=== PATIENT | female | born 1970 | race Caucasian/White ===

== ENCOUNTER 2022-12-10 09:19 | Outpatient (OUT) | payer BC, SELFPAY ==
[2022-12-10 09:55] LABS: Basophils Percent Auto 0.6 % (0.2-2.0); Eosinophils Absolute Auto 0.2 10^3/uL (0.0-0.7); Hematocrit 38.3 % (36.0-48.0); Immature Granulocytes Abs Auto 0.02 10^3/uL (0.00-0.03); Immature Granulocytes Pct Auto 0.3 % (0.0-0.5); Lymphocytes Absolute Auto 1.8 10^3/uL (1.2-3.8); Lymphocytes Percent Auto 26.3 % (20.5-60.0); Mean Corpuscular HGB Conc 31.3 g/dL (29.9-35.2); Mean Corpuscular Hemoglobin 25.2 pg (26.7-34.0); Mean Corpuscular Volume 80.3 fL (81.0-99.0); Mean Platelet Volume 10.4 fL (9.5-13.5); Monocytes Absolute Auto 0.7 10^3/uL (0.3-0.8); Monocytes Percent Auto 9.9 % (1.7-12.0); Neutrophils Percent Auto 59.9 % (43.0-75.0); Platelet Count 246 10^3/uL (150-450); Red Blood Count 4.77 10^6/uL (4.20-5.40); Red Cell Distribution Width 16.8 % (11.0-15.0); White Blood Count 6.7 10^3/uL (4.0-11.0)
[2022-12-10 10:16] LABS: Estimated Average Glucose 114 mg/dL; Glycohemoglobin A1C 5.6 % (4.5-6.2)
[2022-12-10 11:12] LABS: Alanine Aminotransferase 25 U/L (14-59); Albumin Globulin Ratio 0.9; Albumin Level 3.7 g/dL (3.4-5.0); Alkaline Phosphatase 51 U/L (46-116); Aspartate Amino Transferase 20 U/L (15-37); BUN Creatinine Ratio 9.3; Bilirubin Total 0.3 mg/dL (0.2-1.0); Calcium 8.4 mg/dL (8.5-10.1); Carbon Dioxide 25.4 mmol/L (21.0-32.0); Chloride 103 mmol/L (98-107); Chol HDL Ratio 3.9; Cholesterol 263 mg/dL (<=200); Estimated GFR (African America >60 (>=60); Estimated GFR (Non-African Ame 53 (>=60); Globulin 3.9 g/dL; Glucose 103 mg/dL (74-106); HDL Cholesterol 68 mg/dL (40-60); Potassium 4.4 mmol/L (3.5-5.1); Sodium 137 mmol/L (136-145); Thyroid Stimulating Hormone 1.046 uIU/mL (0.358-3.740); Total Protein 7.6 g/dL (6.4-8.2); Triglycerides 94 mg/dL (<=150); VLDL CHOLESTEROL 18.8 mg/dL
== END 2022-12-10 09:20 | disposition home or self-care (01) ==
LOC: LAB 09:24
PROVIDERS: PCP Family Medicine; Visit Provider Family Medicine
DX: Z00.00 Encounter for general adult medical examination without abnormal findings (principal)
CPT/HCPCS: 36415; 80053; 80061; 83036; 84443; 85025

== ENCOUNTER 2023-05-05 22:04 | Emergency (ER) | payer BC, SELFPAY ==
--- NOTE | 2023-05-05 22:08 | CT_ITS ---
The [address] [address] Patient Name: CHRSI GONSALVES MRN: [id number] date: 1970 Sex: F Assigned Patient Location: ER Current Patient Location: ER Accession/Order Number: [id number] Exam Date: 05/05/2023 22:55 Report Date: 05/05/2023 23:27 At the request of: TIFFANIE MARKER Procedure: CT head/brain wo/w con EXAM: CT head/brain wo/w con HISTORY: headache COMPARISON: None. TECHNIQUE: Axial CT scans through the head were obtained after the administration of intravenous contrast. Dose reduction techniques were achieved by using: automated exposure control and/or adjustment of mA and /or kV according to patient size and/or use of iterative reconstruction technique. FINDINGS: There is no acute intracranial hemorrhage or abnormal extra-axial fluid collection. No mass effect or midline shift is seen. There is no evidence of large acute territorial infarction. There is no hydrocephalus. To the limit of CT, the posterior fossa appears unremarkable. There are no abnormal parenchymal or leptomeningeal enhancement. The calvaria and extra cranial soft tissues are unremarkable. The visualized orbits show no abnormality. The visualized paranasal sinuses show no air-fluid level. Mastoid air cells are clear. CT/CT head/brain wo/w con IMPRESSION: No acute intracranial abnormality. No abnormal intracranial enhancement. Electronically authenticated by: MAXIMILIAN PINON Date: 05/05/2023 23:27
[2023-05-05 22:15] VITALS: BP 145/89; PULSE 101; RESP 18; TEMP 36.8; O2SAT 100; BMI 23.7
[2023-05-05] MEDS: 0.9 % SODIUM CHLORIDE 1,000 ML 1000 ML IV (22:46)
[2023-05-05] MEDS: KETOROLAC TROMETHAMINE 30 MG/ML VIAL IVP (22:47)
[2023-05-05] MEDS: ONDANSETRON PF 4 MG/2 ML VIAL IV (22:47)
[2023-05-05 22:51] LABS: Basophils Percent Auto 0.5 % (0.2-2.0); Eosinophils Absolute Auto 0.2 10^3/uL (0.0-0.7); Eosinophils Percent Auto 2.3 % (0.9-7.0); Immature Granulocytes Abs Auto 0.02 10^3/uL (0.00-0.03); Immature Granulocytes Pct Auto 0.2 % (0.0-0.5); Lymphocytes Absolute Auto 3.3 10^3/uL (1.2-3.8); Lymphocytes Percent Auto 38.7 % (20.5-60.0); Mean Corpuscular HGB Conc 31.6 g/dL (29.9-35.2); Mean Corpuscular Volume 85.6 fL (81.0-99.0); Mean Platelet Volume 10.4 fL (9.5-13.5); Monocytes Percent Auto 11.3 % (1.7-12.0); Neutrophils Absolute Auto 4.1 10^3/uL (1.4-6.5); Platelet Count 268 10^3/uL (150-450); Red Blood Count 4.44 10^6/uL (4.20-5.40); Red Cell Distribution Width 14.6 % (11.0-15.0); White Blood Count 8.6 10^3/uL (4.0-11.0)
[2023-05-05 23:00] LABS: Erythrocyte Sedimentation Rate 59 mm/hr (<=30)
--- NOTE | 2023-05-05 23:08 | PC.NURSE ---
Pt with headaches that have been occurring since before [place] time. The headaches are not consistent in location, timing, duration, quality or severity. She has known neck problems and started by seeing her chiropractor for them, her chiropractor thought she should see her PCP because he did not think the headaches were from the neck. Here PCP was not concerned about the headaches and only gave her a sample of a migraine medication. The headaches have continued to get worse, patient has tried to take several OTC and prescription medications including muscle relaxers, Anti inflammatories, Benadryl, Zofran. There has been improvement enough that she is able to get sleep, but not full resolution. Patient is hoping to have imaging done today.
[2023-05-05 23:09] LABS: Alanine Aminotransferase 26 U/L (14-59); Albumin Globulin Ratio 0.9; Albumin Level 3.7 g/dL (3.4-5.0); Alkaline Phosphatase 59 U/L (46-116); Anion Gap 13.5; Aspartate Amino Transferase 17 U/L (15-37); BUN Creatinine Ratio 10.9; Bilirubin Total 0.3 mg/dL (0.2-1.0); Calcium 8.8 mg/dL (8.5-10.1); Carbon Dioxide 26.2 mmol/L (21.0-32.0); Chloride 103 mmol/L (98-107); Estimated GFR (African America >60 (>=60); Estimated GFR (Non-African Ame 52 (>=60); Globulin 3.9 g/dL; Glucose 110 mg/dL (74-106); Potassium 3.7 mmol/L (3.5-5.1); Sodium 139 mmol/L (136-145); Total Protein 7.6 g/dL (6.4-8.2)
[2023-05-05 23:16] LABS: C Reactive Protein <0.50 mg/dL (<=0.50)
--- NOTE | 2023-05-05 23:32 | ED.GENADUL1 ---
HPI - General Adult General Chief complaint: Headache Stated complaint: HEADACHE Time Seen by Provider: 05/05/23 22:07 Source: patient Mode of arrival: walk-in Limitations: no limitations History of Present Illness HPI narrative: 53-year-old female presents for evaluation of intermittent headaches since before , around 3-4 weeks. The patient states the headaches come and go and are in different places on her head when they come and go. She states they sometimes feel better when she squeezes her scalp. They're associated with photophobia and nausea. She has had a prescription for Zofran which has not helped her nausea. She has not had any slurred speech confusion blurred vision, fevers neck pain or stiffness. She did have COVID 19 in December. She has had several COVID 19 test since she has been developing headaches without any being positive. She did get a new perception for glasses recently and thought that her headaches may be related to the new glasses so she started wearing her prior glasses without any improvement. She has been using ibuprofen and Tylenol. She was seen by her family physician and given medications for migraine headaches. She is frustrated because she does not have a history of migraine headaches and the headaches are debilitating at times. She does not have any sore throats, runny nose or sinus congestion. 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 Related Data Allergies Allergy/AdvReac Type Severity Reaction Status Date / Time No Known Drug Allergies Allergy Verified 05/05/23 22:18 Review of Systems ROS Status of ROS 10 or more systems reviewed and unremarkable except as noted in history and below [facility] Social History Smoking status: Never smoker Exam Narrative Exam Narrative: Nurses note and vital signs reviewed and patient is not hypoxic. She was mildly tachycardic with a pulse of 101 and blood pressure is mildly elevated at 145/89. General: Alert, nontoxic female, GCS 15, patient appears uncomfortable but otherwise well, no respiratory distress. Patient is resting comfortably on cart. Skin: Warm, dry, no pallor noted. There is no rash noted. Head: Normocephalic, atraumatic Eye: Normal conjunctiva, no drainage, EOMI. PERRL, no photophobia Ears, Nose, Mouth, and Throat: oral mucosa is moist. Nares patent. neck: supple, no meningeal signs Cardiovascular: Regular Rate and Rhythm S1S2, no murmurs, rubs or gallops Respiratory: Patient is in no distress, no accessory muscle use, lungs are clear to auscultation, no wheezing, rales or rhonchi Back: non-tender, no CVA tenderness bilaterally to percussion. GI: Normal bowel sounds, no tenderness to palpation, no masses appreciated. No rebound, guarding, or rigidity noted. Musculoskeletal: The patient has no evidence of calf tenderness, no pitting edema, symmetrical pulses noted bilaterally Neurological: A&O x4, normal speech, ambulatory with a steady gait, no notable confusion, stroke scale is 0 Psychiatric: Cooperative Constitutional Vital Signs, click to edit/add: Last Vital Signs Temp 98.3 F 05/05/23 22:15 Pulse 101 H 05/05/23 22:15 Resp 18 05/05/23 22:15 BP 145/89 H 05/05/23 22:15 Pulse Ox 100 05/05/23 22:15 O2 Del Method Room Air 05/05/23 22:15 Course Vital Signs Vital signs: Vital Signs Temperature 98.3 F 05/05/23 22:15 Pulse Rate 101 H 05/05/23 22:15 Respiratory Rate 18 05/05/23 22:15 Blood Pressure 145/89 H 05/05/23 22:15 Pulse Oximetry 100 05/05/23 22:15 Oxygen Delivery Method Room Air 05/05/23 22:15 Temperature 98.3 F 05/05/23 22:15 Pulse Rate 101 H 05/05/23 22:15 Respiratory Rate 18 05/05/23 22:15 Blood Pressure 145/89 H 05/05/23 22:15 Pulse Oximetry 100 05/05/23 22:15 Oxygen Delivery Method Room Air 05/05/23 22:15 Medical Decision Making Medical Records Medical records narrative: 53-year-old female presents for evaluation of 3 weeks of intermittent moderate to severe headaches. She does not have a history of chronic headaches. The headaches are associated with nausea and photophobia. At the time of her evaluation her headache is posterior occipital in natureThey're debilitating at times and she describes them as moving around in different areas of her head. She was recently seen by her family physician who suspects that she may be having migraine headaches however she does not have a history of migraine headaches or any particular headache and drums. She does not have a fever. She has no nuchal rigidity. Her neuro exam is normal. Her vital signs were normal with the exception of a pulse of 101. An IV was placed and she is medicated with IV Zofran and Toradol with minimal clinical improvement. She was then medicated with Fioricet. Routine labs are reviewed. She has an elevated ESR, normal WBC and hemoglobin. CRP and CMP are normal. CT scan of the head with and without contrast was ordered and is included in the body of this report. It is negative for acute findings. The results of the labs and CT scan were discussed with the patient and her . She states that she is not surprised that her sedimentation rate is elevated because she does have episodes where her lymph nodes swell up for no apparent reason. She declines a course of steroids. Clinically she does not have temporal arteritis as there is no tenderness over her temporal artery and her headaches are in different places at different times in her head. Clinically to me at sounds like she is having vascular headaches. She feels comfortable being discharged home at this time will be discharged home with prescription for Fioricet and Compazine. She was given migraine medications by her family physician. She was encouraged to return to emergency department for ongoing or worsening headaches, fevers, any neurologic symptoms related to the headaches or any concerns. The [address] [address] [address] Scan Report Signed Patient: CHRIS GONSALVES MR#: [id number] : 1970 Acct:[id number] Age/Sex: 53 / F ADM Date: 05/05/23 Loc: ER Attending Dr: Ordering Physician: La Breen Date of Service: 05/05/23 Procedure(s): CT head/brain wo/w con Accession Number(s): [id number] cc: [place] Patricia M.D.~ The [address] [address] Patient Name: CHRIS GONSALVES MRN: [id number] date: 1970 Sex: F Assigned Patient Location: ER Current Patient Location: ER Accession/Order Number: [id number] Exam Date: 05/05/2023 22:55 Report Date: 05/05/2023 23:27 At the request of: LA YASH Procedure: CT head/brain wo/w con EXAM: CT head/brain wo/w con HISTORY: headache COMPARISON: None. TECHNIQUE: Axial CT scans through the head were obtained after the administration of intravenous contrast. Dose reduction techniques were achieved by using: automated exposure control and/or adjustment of mA and /or kV according to patient size and/or use of iterative reconstruction technique. FINDINGS: There is no acute intracranial hemorrhage or abnormal extra-axial fluid collection. No mass effect or midline shift is seen. There is no evidence of large acute territorial infarction. There is no hydrocephalus. To the limit of CT, the posterior fossa appears unremarkable. There are no abnormal parenchymal or leptomeningeal enhancement. The calvaria and extra cranial soft tissues are unremarkable. The visualized orbits show no abnormality. The visualized paranasal sinuses show no air-fluid level. Mastoid air cells are clear. CT/CT head/brain wo/w con IMPRESSION: No acute intracranial abnormality. No abnormal intracranial enhancement. Electronically authenticated by: MAXIMILIAN PINON Date: 05/05/2023 23:27 Lab Data Lab results reviewed: Yes I reviewed the patient's lab results Labs: Lab Results 05/05/23 05/05/23 Range/Units 22:18 22:31 WBC 8.6 (4.0-11.0) 10^3/uL RBC 4.44 (4.20-5.40) 10^6/uL Hgb 12.0 (12.0-16.0) g/dL Hct 38.0 (36.0-48.0) % MCV 85.6 (81.0-99.0) fL MCH 27.0 (26.7-34.0) pg MCHC 31.6 (29.9-35.2) g/dL RDW 14.6 (11.0-15.0) % Plt Count 268 (150-450) 10^3/uL MPV 10.4 (9.5-13.5) fL Neut % (Auto) 47.0 (43.0-75.0) % Lymph % (Auto) 38.7 (20.5-60.0) % [place] % (Auto) 11.3 (1.7-12.0) % Eos % (Auto) 2.3 (0.9-7.0) % Baso % (Auto) 0.5 (0.2-2.0) % Neut # (Auto) 4.1 (1.4-6.5) 10^3/uL Lymph # (Auto) 3.3 (1.2-3.8) 10^3/uL [place] # (Auto) 1.0 H (0.3-0.8) 10^3/uL Eos # (Auto) 0.2 (0.0-0.7) 10^3/uL Baso # (Auto) 0.0 (0.0-0.1) 10^3/uL Abs Immat Gran (auto) 0.02 (0.00-0.03) 10^3/uL Imm/Tot Granulo (auto) 0.2 (0.0-0.5) % ESR 59 H (<=30) mm/hr Sodium 139 (136-145) mmol/L Potassium 3.7 (3.5-5.1) mmol/L Chloride 103 (98-107) mmol/L Carbon Dioxide 26.2 (21.0-32.0) mmol/L Anion Gap 13.5 BUN 12.0 (7.0-18.0) mg/dL Creatinine 1.10 H (0.55-1.02) mg/dL Est GFR ( Amer) >60 (>=60) Est GFR (Non-Af Amer) 52 L (>=60) BUN/Creatinine Ratio 10.9 Glucose 110 H (74-106) mg/dL Calcium 8.8 (8.5-10.1) mg/dL Total Bilirubin 0.3 (0.2-1.0) mg/dL AST 17 (15-37) U/L ALT 26 (14-59) U/L Alkaline Phosphatase 59 (46-116) U/L C-Reactive Protein <0.50 (<=0.50) mg/dL Total Protein 7.6 (6.4-8.2) g/dL Albumin 3.7 (3.4-5.0) g/dL Globulin 3.9 g/dL Albumin/Globulin Ratio 0.9 Discharge Plan Discharge Chief Complaint: Headache Clinical Impression: Headache syndrome Patient Disposition: Home, Self-Care Time of Disposition Decision: 23:53 Condition: Good Instructions: Migraine Headache (ED), Acute Headache (ED), General Headache (ED) Stand Alone Forms: Portal Instructions Referrals: [place] Patricia MD [Primary Care Provider] - 1 week
[2023-05-05] MEDS: BUTALB/ACETAMINOPHEN/CAFFEINE 50-325-40MG TABLET 1 TAB PO (23:56)
== END 2023-05-06 00:01 | disposition home or self-care (01) ==
PROVIDERS: Emergency Provider Emergency Medicine; PCP Family Medicine
DX: G44.89 Other headache syndrome (principal); Z86.16 Personal history of COVID-19
CPT/HCPCS: 36415; 70470; 80053; 85025; 85652; 86140; 96374; 96375; 99285; J1885; J2405; Q9967

== ENCOUNTER 2024-07-02 12:11 | Outpatient (OUT) | payer BC, SELFPAY ==
--- OUTSIDE RECORDS SUMMARY | 2024-07-02 12:33 | XMS_ITS | CCD ---
Author Organization [facility] Care Team Providers Care Services Advisor Name Role Phone BEATRIZ ART Unavailable Unavailable BOBBY CALI Unavailable Unavailable DANIEL, KATARINA Admitting Unavailable DANIEL, KATARINA Attending Unavailable REQUEST, NONE LISTED Primary Care Unavaila ble DANIEL, KATARINA Consulting Unavailable DANIEL, KATARINA Admitting Unavailable DANIEL, KATARINA Attending Unavailable REQUEST, NONE LISTED Primary Care Unavaila ble DANIEL, KATARINA Consulting Unavailable ROSS, MILLI JODY Admitting Unavailable ROSS, MILLI JODY Attending Unavailable REQUEST, NONE LISTED Primary Care Unavaila ble ROSS, MILLI JODY Consulting Unavailable Bobby Cali Unavailable Unavailable Unavailable MD Bobby Cali Primary Care Provider [phone] MD Beatriz Art Attending Provider Autumn, Dr. Ricci Referring Unavaila ble Autumn, Dr. Ricci Attending Unavaila loyd Cali, Dr. Bobby Tapia Primary Care Unav ailngoc Cali, Dr. Bobby Tapia Primary Care Unav ailable Autumn, Dr. Ricci Referring Unavaila ble Autumn, Dr. Ricci Attending Unavaila ble [place], Dr. Bobby Tapia Primary Care Unav ailable Autumn, Dr. Ricci Attending Unavaila ble Autumn, Dr. Ricci Attending Unavaila ble [place], Dr. Bobby Tapia Primary Care Unav ailable Kendal Ruiz Unavailable Bobby Cali Unavailable Kumar Pack Unavailable Cali, MD Bobby E Primary Care Provider MD Alice Ferreira Emergency Provider MD Bobby Cali Attending Provider Bobby Cali MD Primary Care Provider Bobby Cali MD Primary Care Provider [phone] Visci DO, Matthew A Unavailable MD Bobby Cali Primary Care Provider MD Bobby Cali Attending Provider KALIN Sykes Attending Provider Bobby Cali MD Primary Care Provider [phone] Bobby Cali MD Attending Provider Mony GAGNON, Mira Rose Attending Provider Alice Ferreira Admitting Unavailable Alice Ferreira Attending Unavailable Cali, Bobby E Primary Care Unavailable Cali, Bobby E Primary Care Unavailable Cali, Bobby E Attending Unavailable Cali, Bobby E Admitting Unavailable Cali, Bobby E Admitting Unavailable Cali, Bobby E Primary Care Unavailable Cali, Bobby E Attending Unavailable Cali, Bobby E Primary Care Unavailable Cali, Bobby E Attending Unavailable Cali, Bobby E Admitting Unavailable Cali, Bobby E Primary Care Unavailable Cali, Bobby E Attending Unavailable Cali, Bobby E Admitting Unavailable Cali, Bobby E Primary Care Unavailable Mira Sykes L Admitting Unavailable [place] L Attending Unavailable Cali, Bobby E Primary Care Unavailable Cali, Bobby E Attending Unavailable Cali, Bobby E Admitting Unavailable VISCI, MATTHEW A Attending Unavailable MONY, MIRA Attending Unavailable MONY, MIRA Attending Unavailable VISCI, MATTHEW A Referring Unavailable VISCI, MATTHEW A Attending Unavailable TRABJUAN, ANILF Attending Unavailable TRABOULCHERRI, MINNIEURHAF Referring Unavailable CALI, BOBBY E Primary Care Unavailable Allergies Allergy Classification Reported Allergen(s) Allergy Type Date of Onset Reaction(s) Facility (19 sources) Acetaminophen; Translations: [acetaminophen] Drug Allergy 11-10-2023 [facility] (19 sources) Propoxyphene; Translations: [propoxyphene] Drug Allergy 11-10-2023 [facility] Medications Current Medications Medication Drug Class(es) Dates Sig (Normalized) Sig (Original) clobetasol propionate 0.5 mg/ml topical cream (1 source) Corticosteroid Start: 01-17-2024 End: 01-24-2024 clobetasol (Temovate) 0.05 % cream Indications: Vaginal pain Apply 1 application topically in the morning and 1 application before bedtime. Do all this for 7 days. Apply to affected area twice a day. 45 g 01/17/2024 01/24/2024 Active estradiol 1 mg / norethindrone acetate 0.5 mg oral tablet (20 sources) Estrogen Start: 04-30-2024 End: 04-30-2025 estradiol-norethindro ne (ActivElla) 1-0.5 MG tablet Indications: Postmenopausal HRT (hormone replacement therapy) Take 1 tablet by mouth Daily 30 tablet 04/30/2024 04/30/2025 Active Start: 08-31-2023 Estradiol-Nore thindrone Acet 1-0.5 mg tablet Active 1 TAB PO Daily August 30, 2023 11:00pm FreeTextSi tablet Orally Once a day; Note: Source Status: Taking; Provider: Belem Millard ( ) Start: 08-31-2023 take 1 tablet by diamond th once daily Estradiol-Norethindrone Acet Active 1 TA B PO Daily August 31, 2023 12:00am FreeTextSi tablet Orally Once a day; Note: Source Status: Taking; Provider: Belem Millard ( ) Start: 04-27-2023 End: 04-30-2024 estradiol-norethindrone (Act ivElla) 1-0.5 MG tablet Indications: Postmenopausal HRT (hormone replacement therapy) Take 1 tablet by mouth in the morning. 30 tablet 04/27/2023 04/30/2024 Discontinued (Reorder) take 1 tablet by diamond th every twenty-four hours Mimvey 1-0.5 MG 1 tablet Orally Once a d ay Active take 1 tablet by diamond th every twenty-four hours take 1 tablet by diamond th every twenty-four hours famotidine 40 mg oral tablet (20 sources) Histamine-2 Receptor Antagonist Start: 02-04-2024 take 1 tablet by mouth at bedtime famotidine (Pepcid) 40 MG tablet Take 40 mg by mouth at bedtime 02/04/2024 Active Start: 08-31-2023 take 1 tablet by diamond th once daily at bedtime Famotidine (Pepcid Ac) 20 mg tablet Active 20 MG PO Daily August 30, 2023 11:00pm FreeTextSi tablet every HS; Note: Source Status: Taking; Provider: Belem Millard ( ) fluconazole 150 mg oral tablet (14 sources) Azole Antifungal Start: 04-30-2024 fluconazole ( Diflucan) 150 MG tablet Indications: Vulvovaginal Candidiasis 1 tab now-repeat in 4 days then take 1 pill weekly for 8 weeks 10 tablet 04/30/2024 Active Start: 01-12-2024 End: 01-15-2024 fluconazole (Diflucan) 150 M G tablet Indications: Vaginal yeast infection Take 1 tablet (150 mg) by mouth every 3rd (third) day if needed (take one tablet now and repeat in 48-72 hours as needed) for up to 3 days Repeat in 7 days if symptoms persist. 2 tablet 01/12/2024 01/15/2024 Active Start: 12-08-2022 take 1 tablet by diamond th every twenty-four hours ibuprofen 800 mg oral tablet (14 sources) Nonsteroidal Anti-inflammatory Drug Start: 11-10-2023 take 1 tablet by mouth every eight hours as needed for pain Ibuprofen 800 mg tablet Active 800 MG PO Q8H as needed for pain 30 November 09, 2023 11:00pm lidocaine 0.05 mg/mg medicated patch (14 sources) Antiarrhythmic, Amide Local Anesthetic Start: 11-10-2023 apply 1 dose topically once daily Lidocaine (Lidoderm) 5 % adhesive patch,medicated Active 1 PATCH TOPICAL Daily 15 November 09, 2023 11:00pm leave on most painful area for up to 12 hrs mebendazole 100 mg chewable tablet (2 sources) Antihelminthic Start: 02-23-2024 End: 02-26-2024 mebendazole (Vermox) 100 MG chewable tablet Indications: Diarrhea, unspecified type Chew 1 tablet (100 mg) in the morning and 1 tablet (100 mg) before bedtime. Do all this for 3 days. 6 tablet 1 02/23/2024 02/26/2024 Active Leeton (No Known Home Meds) (1 source) Start: 05-07-2019 Leeton (No Known Home Meds) Active May 07, 2019 12:00am nystatin 100 unt/mg topical ointment (20 sources) Polyene Antifungal Start: 01-12-2024 End: 01-11-2025 nystatin (Mycostatin) ointment Indications: Vulvar itching Apply topically 2 (two) times a day Thin amount in combination with Triamcinolone equal parts 30 g 01/12/2024 01/11/2025 Active Start: 08-31-2023 End: 09-01-2023 take 4 mL by mouth four times daily Start: 11-24-2022 take 4 mL by mouth four times daily Start: 11-24-2022 take 4 mL by mouth four times daily omeprazole 40 mg delayed release oral capsule (20 sources) Proton Pump Inhibitor Start: 06-13-2024 take 1 capsule by mouth once daily Omeprazole 40 mg capsule,delayed release(DR/EC) Active 40 MG PO Daily June 13, 2024 12:00am Start: 08-31-2023 OMEPRAZOLE PO 08/31/2023 Active Start: 08-31-2023 End: 06-13-2024 take 1 tablet by mouth once daily in the morning Omeprazole 20 mg tablet,delayed release (DR/EC) Discontinued MG PO August 30, 2023 11:00pm June 13, 2024 8:49am FreeTextSi tablet every am; Note: Source Status: Taking; Provider: Belem Millard ( ) End: 08-31-2022 take 1 capsule by mouth once daily before mealtime omeprazole (PriLOSEC) [address] capsule Take 1 capsule (20 mg) by mouth once daily in the morning. Take before meals. Do not crush or chew. Active Omeprazole 20 MG 1 tablet every am Active ondansetron 4 mg disintegrating oral tablet (11 sources) Serotonin-3 Receptor Antagonist Start: 02-07-2024 End: 06-13-2024 take 1 tablet by mouth every eight hours Ondansetron 4 mg tablet,disintegrating Active 4 MG PO Q8H June 13, 2024 8:48am sulfamethoxazole 800 mg / trimethoprim 160 mg oral tablet (14 sources) Dihydrofolate Reductase Inhibitor Antibacterial, Sulfonamide Antimicrobial Start: 02-06-2024 sulfamethoxazole-trimeth oprim (Bactrim DS) 800-160 MG per tablet 1 tablet 02/06/2024 Active Start: 02-06-2024 End: 03-30-2024 take 1 tablet by mouth twice daily Sulfamethoxazole-Trimethoprim 800-160 mg tablet Discontinued 1 TAB PO Twice daily February 05, 2024 11:00pm March 30, 2024 11:40am Start: 04-08-2023 take 1 tablet by diamond th every twelve hours Bactrim DS 800-160 MG 1 tablet Orally Tw ice a day for 5 days Mar, Active triamcinolone acetonide 0.001 mg/mg topical ointment (11 sources) Corticosteroid Start: 01-12-2024 triamcinolone (Kenalog) 0.1 % ointment Indications: Vulvar itching Apply topically 2 (two) times a day 30 g 01/12/2024 Active Completed/Discontinued Medications Medication Drug Class(es) Dates Sig (Normalized) Sig (Original) acetaminophen 300 mg / codeine phosphate 30 mg oral tablet (20 sources) Opioid Agonist Start: 03-12-2022 take 1 tablet by mouth three times daily as needed Start: 03-12-2022 take 1 tablet by diamond th three times daily as needed Acetaminophen-Codeine 300-30mg acetaminophen-codeine 300-30mg, 1 (one) Tablet three times daily, as needed # 60, 03/12/2022, No Refill. Active oral three times daily, as needed for 0 *Pick strength-form from [employer] for eRX* Feb, Active Start: 09-22-2021 End: 04-30-2024 take 1 tablet by mouth three times daily as needed Acetaminophen-Codeine 300-30 mg tablet Discontinued TAB PO August 30, 2023 11:00pm September 01, 2023 10:48am FreeTextSig: acetaminophen-codeine 300-30mg, 1 (one) Tablet three times daily, as needed # 60, 03/12/2022, No Refill. Active oral three times daily, as needed; Note: Source Status: Taking*Pick strength-form from [employer] for eRX*; Refills: 0; Provider: Belem Millard ( ) Start: 01-23-2017 End: 05-07-2019 take 1 tablet by mouth once daily as needed for pain Acetaminophen-Codeine 300-30 mg tablet Discontinued 300 MG PO Daily as needed for Pain January 22, 2017 11:00pm May 07, 2019 1:22pm ALPRAZolam 0.25 mg oral tablet (20 sources) Benzodiazepine Start: 11-03-2023 End: 06-06-2024 take 1 tablet by mouth twice daily as needed for anxiety Alprazolam 0.25 mg tablet Discontinued 0.25 MG PO Twice daily as needed for anxiety 60 January 17, 2024 1:45pm February 23, 2024 3:35pm Start: 06-22-2023 End: 11-03-2023 take 1 tablet by mouth once daily as needed for anxiety Alprazolam 0.25 mg tablet Discontinued 0.25 MG PO Daily as needed for anxiety 30 September 01, 2023 10:46am September 30, 2023 8:29am Start: 05-16-2023 take 1 tablet by diamond th every twenty-four hours ALPRAZolam 0.25 MG 1 tablet Orally daily for 30 days Apr, Active Start: 04-08-2023 take 1 tablet by diamond th every twenty-four hours ALPRAZolam 0.25 MG 1 tablet Orally daily for 30 days Mar, Active Start: 03-02-2023 take 1 tablet by diamond th every twenty-four hours ALPRAZolam 0.25 MG 1 tablet Orally daily for 30 days Feb, Active Start: 01-18-2023 take 1 tablet by diamond th every twenty-four hours ALPRAZolam 0.25 MG 1 tablet Orally daily for 30 days Dec, Active Start: 03-01-2022 take 1 tablet by diamond th every twenty-four hours ALPRAZolam 0.25 MG 1 tablet Orally daily for 30 days Oct, Active {1 (ascorbic acid 7540 MG / polyethylene glycol 3350 33050 MG / potassium chloride 1200 MG / sodium ascorbate 35473 MG / sodium chloride 3200 MG Powder for Oral Solution) / 1 (polyethylene glycol 3350 186371 MG / potassium chloride 1000 MG / sodium chloride 2000 MG / sodium sulfate 9000 MG Powder for Oral Solution) } Pack [Plenvu] (1 source) Osmotic Laxative, Vitamin C Start: 02-09-2019 Plenvu 140 GM dose 1 pouch at 4pm, dose 2 pouch A & B at 11pm Orally BID for 1 days BIN:[id number] PCN: [id number] GROUP:[id number] ID:[id number] Jan, Not-Taking cyclobenzaprine hydrochloride 10 mg oral tablet (20 sources) Muscle Relaxant Start: 08-31-2023 End: 04-30-2024 take 1 tablet by mouth every eight hours Cyclobenzaprine 10 mg tablet Discontinued 10 MG PO Q8H 15 November 09, 2023 11:00pm November 14, 2023 10:52am Start: 08-31-2023 End: 02-07-2024 take 1 tablet by mouth three times daily as needed Cyclobenzaprine 10 mg tablet Discontinued MG PO August 30, 2023 11:00pm February 07, 2024 10:16am FreeTextSi tablet Orally three times daily prn; Note: Source Status: Refill; Refills: 0; Qty: 60 Tablet; Provider: Belem Montenegro Start: 09-22-2021 Cyclobenzaprin e HCl - 10 MG Oral Tablet TAKE TABLET PRN Quantity: 0 Refills: 0 Ordered: 26-Jan-2022 DO Start : 26-Jan-2022 Active FLUoxetine 10 mg oral capsule (20 sources) Serotonin Reuptake Inhibitor Start: 09-01-2023 End: 09-26-2023 take 1 capsule by mouth once daily Fluoxetine 10 mg capsule Discontinued 10 MG PO Daily September 23, 2023 12:27pm September 26, 2023 11:12am methylPREDNISolone 4 mg oral tablet (20 sources) Corticosteroid Start: 11-21-2023 End: 02-07-2024 Methylprednisolone 4 mg tablets,dose pack Discontinued 0 PO per package directions November 20, 2023 11:00pm February 07, 2024 8:46am PO PER PKG DIR for 6 days Start: 11-21-2023 End: 02-07-2024 Methylprednisolone Discontin ued 0 PO per package directions November 21, 2023 12:00am February 07, 2024 9:46am PO PER PKG DIR for 6 days Start: 11-21-2023 Methylpredniso lone Active 0 PO per package directions November 21, 2023 12:00am PO PER PKG DIR for 6 days Start: 12-08-2022 metroNIDAZOLE 500 mg oral tablet (5 sources) Nitroimidazole Antimicrobial Start: 01-12-2024 End: 01-19-2024 take 1 tablet by mouth in the morning metroNIDAZOLE (Flagyl) 500 MG tablet Indications: BV (bacterial vaginosis) Take 1 tablet (500 mg) by mouth in the morning and 1 tablet (500 mg) before bedtime. Do all this for 7 days. 14 tablet 01/12/2024 01/17/2024 Discontinued (Other) Plenvu Bowel Prep PEG 3350 140g, Sodium Ascorbate 48.11g, Sodium Sulfate 9g, Ascorbic Acid 7.54g, Sodium Chloride 5.2g, Potassium Chloride 2.2g (1 source) Plenvu Bowel Pre p PEG 3350 140g, Sodium Ascorbate 48.11g, Sodium Sulfate 9g, Ascorbic Acid 7.54g, Sodium Chloride 5.2g, Potassium Chloride 2.2g Dose 1 pouch at 4pm as directed and pouches A and B at 11pm as directed orally one day before your procedure for 1 DAY Not-Taking predniSONE 20 mg oral tablet (19 sources) Start: 11-10-2023 End: 02-07-2024 take 2 tablets by mouth once daily Prednisone 20 mg tablet Discontinued 40 MG PO Daily 10 November 09, 2023 11:00pm February 07, 2024 8:46am Start: 11-10-2023 End: 02-07-2024 take 40 mg by mouth once daily Prednisone Discontinued 40 MG PO Daily 10 November 10, 2023 12:00am February 07, 2024 9:46am Start: 01-18-2023 take 1 tablet by diamond th every twenty-four hours predniSONE 10 MG 1 tablet Orally Once a day for 30 day(s) Dec, Active Problems Active Problems Problem Classification Problem Date Documented Da te Episodic/Chronic Abdominal pain (12 sources) Generalized abdominal pain; Translations: [Generalized abdominal pain] Onset: 03-02-2024 02-07-2024 Episodic Anxiety disorders (20 sources) Anxiety disorder; Translations: [Other specified anxiety disorders] Onset: 12-18-2009 Chronic Cardiac dysrhythmias (10 sources) Multiple premature ventricular complexes; Translations: [Other premature beats] Onset: 12-15-2022 02-01-2024 Chronic Digestive congenital anomalies (14 sources) Disorder of tongue; 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 Disorders of lipid metabolism (10 sources) Hyperlipidemia; Translations: [Other and unspecified hyperlipidemia] Onset: 12-15-2022 02-01-2024 Chronic Genitourinary symptoms and ill-defined conditions (17 sources) Dysuria; Translations: [Increased frequency of urination] Onset: 02-06-2024 Episodic Headache; including migraine (1 source) Tension-type headache, unspecified, intractable Episodic Immunizations and screening for infectious disease (6 sources) Encounter for immunization; Translations: [Patient encounter status] Onset: 02-18-2021 Episodic Lymphadenitis (4 sources) Chronic lymphadenitis; Translations: [Chronic lymphadenitis, except mesenteric] Onset: 01-08-2013 Chronic Menopausal disorders (2 sources) Postmenopausal state; Translations: [Hormone replacement therapy] 04-30-2024 Episodic Mycoses (5 sources) Candidal stomatitis; Translations: [Candidiasis of vagina] Episodic Nausea and vomiting (12 sources) Nausea; Translations: [Nausea] Onset: 02-07-2024 02-07-2024 Episodic Other circulatory disease (4 sources) Elevated blood-pressure reading without diagnosis of hypertension; Translations: [Elevated blood-pressure reading, without diagnosis of hypertension] Episodic Other connective tissue disease (4 sources) Pain in left lower limb; Translations: [Pain in left leg] Episodic Other connective tissue disease (4 sources) Diastasis of muscle; Translations: [Separation of muscle (nontraumatic), other site] Episodic Other connective tissue disease (1 source) Other muscle spasm Episodic Other female genital disorders (2 sources) Pain in female genitalia on intercourse; Translations: [Unspecified dyspareunia] 04-30-2024 Chronic Other female genital disorders (4 sources) Noninflammatory disorder of vulva; Translations: [Other specified noninflammatory disorders of vulva and perineum] Episodic Other female genital disorders (12 sources) Vaginal irritation; Translations: [Other specified noninflammatory disorders of vagina] 01-17-2024 Episodic Other female genital disorders (9 sources) Other specified noninflammatory disorders of vagina; Translations: [Unspecified noninflammatory disorder of vagina] 01-17-2024 Episodic Other gastrointestinal disorders (2 sources) Diarrhea; Translations: [Diarrhea, unspecified] 02-22-2024 Episodic Other gastrointestinal disorders (1 source) Diarrhea, unspecified; Translations: [Diarrhea, unspecified] Onset: 02-23-2024 Episodic Other lower respiratory disease (8 sources) Dyspnea on exertion; Translations: [Shortness of breath] Onset: 12-15-2022 02-01-2024 Episodic Other nervous system disorders (1 source) Hereditary peripheral neuropathy; Translations: [Unspecified hereditary and idiopathic peripheral neuropathy] Onset: 08-28-2018 Chronic Other nutritional; endocrine; and metabolic disorders (6 sources) Abnormal weight loss; Translations: [Abnormal weight loss] 02-07-2024 Episodic Other nutritional; endocrine; and metabolic disorders (6 sources) Abnormal weight loss; Translations: [Loss of weight] Onset: 02-07-2024 02-07-2024 Episodic Other screening for suspected conditions (not mental disorders or infectious disease) (20 sources) Patient encounter status; Translations: [Encounter for screening for malignant neoplasm of colon] 05-08-2019 Episodic Pleurisy; pneumothorax; pulmonary collapse (20 sources) Pleurisy; Translations: [Pleurisy] Onset: 01-08-2013 01-23-2017 Episodic Residual codes; unclassified (12 sources) Body mass index 20-24 - normal; Translations: [Body Mass Index between 19-24, adult] Onset: 12-15-2022 02-01-2024 Episodic Residual codes; unclassified (4 sources) Family history of breast cancer; Translations: [Family history of malignant neoplasm of breast] Episodic Spondylosis; intervertebral disc disorders; other back problems (20 sources) Sacroiliac joint pain; Translations: [Sacrococcygeal disorders, not elsewhere classified] Onset: 11-16-2023 11-10-2023 Episodic Substance-related disorders (19 sources) Nicotine dependence; Translations: [Nicotine dependence, cigarettes, with other nicotine-induced disorders] Onset: 02-24-2018 01-12-2024 Chronic Thyroid disorders (3 sources) Thyroid nodule; Translations: [Nontoxic single thyroid nodule] Onset: 03-12-2024 03-06-2024 Chronic Unclassified (2 sources) Chest pain, unspecified / R07.9(ICD-9) Onset: 02-22-2017 Unclassified (1 source) Shortness of breath / R06.02(ICD-9) Onset: 02-22-2017 Unclassified (2 sources) CONTACT W/AND (SUSP) EXPOS COVID-19; Translations: [CONTACT W/AND (SUSP) EXPOS COVID-19] Onset: 01-29-2022 Unclassified (1 source) Low back pain, unspecified; Translations: [Low back pain, unspecified] Onset: 11-10-2023 Viral infection (1 source) COVID-19; Translations: [COVID-19] Onset: 01-29-2022 Past or Other Problems Problem Classification Problem Date Documented Date Episodic/Chronic Acute bronchitis (4 sources) Acute bronchitis; Translations: [Acute bronchitis, unspecified] Onset: 01-08-2013 Episodic Inflammatory diseases of female pelvic organs (2 sources) Bacterial vaginosis; Translations: [Acute vaginitis] 01-12-2024 Episodic Nonspecific chest pain (20 sources) Chest pain, unspecified; Translations: [Chest pain] Onset: 01-28-2017 Episodic Other female genital disorders (2 sources) Vaginal discharge; Translations: [Other specified noninflammatory disorders of vagina] 01-12-2024 Episodic Other inflammatory condition of skin (2 sources) Pruritus of vulva; Translations: [Pruritus vulvae] 01-12-2024 Episodic Other lower respiratory disease (5 sources) Shortness of breath; Translations: [Shortness of breath] Onset: 04-07-2022 Episodic Other lower respiratory disease (4 sources) Pleuritic pain; Translations: [Pleurodynia] Onset: 02-24-2018 Episodic Other nervous system disorders (1 source) Altered sensation of skin; Translations: [Disturbance of skin sensation] Onset: 08-28-2018 Episodic Other nutritional; endocrine; and metabolic disorders (4 sources) Hypercalcemia; Translations: [Hypercalcemia] Resolved: 01-15-2021 Chronic Residual codes; unclassified (4 sources) Tobacco user; Translations: [Tobacco use] Onset: 02-24-2018 Episodic Residual codes; unclassified (4 sources) Family history of cancer; Translations: [Family history of malignant neoplasm of other organs or systems] Resolved: 01-15-2021 Episodic Residual codes; unclassified (2 sources) Body mass index (BMI) 22.0-22.9, adult; Translations: [Body mass index (BMI) 22.0-22.9, adult] Onset: 12-15-2022 Episodic Screening and history of mental health and substance abuse codes (10 sources) Ex-smoker; Translations: [Personal history of tobacco use] Onset: 12-15-2022 02-01-2024 Episodic Comment on above: quit 05/2018; Unclassified (1 source) CONTACT W/AND (SUSP) EXPOS COVID-19; Translations: [CONTACT W/AND (SUSP) EXPOS COVID-19] Onset: 01-28-2022 Unclassified (1 source) Onset: 01-25-2023 01-25-2023 Results Test Name Value Interpretation Reference Range Facility BI MAMMOGRAM SCREENING TOMOS YNTHESIS BILATERALon 04-30-2024 BI MAMMOGRAM SCREENING TOMOSYNTHESIS BILATERAL This is a summary report. The complete report is available in the patient's medical record. If you cannot access the medical record, please contact the sending organization for a detailed fax or copy. Examination: BI MAMMOGRAM SCREENING TOMOSYNTHESIS BILATERAL Clinical History: screening Technique: Screening digital mammography study of both breasts was performed with 2-D and 3-D tomosynthesis imaging. Study was compared to the prior exam dated 04/27/2023. Findings: There is no evidence of interval dominant spiculated mass, grouped microcalcifications, or skin thickening which would be suggestive of malignancy. A few benign-appearing calcifications are seen bilaterally. Partially visualized axillary lymph nodes are suggested bilaterally. IMPRESSION: Impression: No specific evidence of malignancy seen in either breast. BIRADS 2 - Benign Findings DENSITY: The breasts are heterogeneously dense, which may obscure small masses. FOLLOW-UP: Routine Screening Mammogram ELECTRONICALLY SIGNED BY: Ha Chan M.D. Normal Not Available Laboratory - Microbiology an d Antimicrobial susceptibilityon 04-30-2024 Bacterial vaginosis and vaginitis DNA panel Probe+sig amp (Vag fld) Negative Negative [facility] No Panel Informationon 04-30 Interpretation and review of laboratory results Abnormal [facility] Trichomonas, UA Negative [facility] Yeast Positive [facility] US thyroidon 03-12-2024 thyroid [facility] [place] [id number] Ultrasound Report Signed Patient: Mira Gonsalves MR#: [id number] : 1970 Acct:[id number] Age/Sex: 54 / F ADM Date: 03/12/24 Loc: UL [facility]: [facility] Attending Dr: Bobby Cali MD Ordering Provider: Bobby Cali MD Date of Service: 03/12/24 US/US thyroid: E04.1 - Nontoxic single thyroid nodule Copies to: Bobby Cali MD Thyroid Ultrasound HISTORY: Nontoxic thyroid nodule COMPARISON: None The RIGHT lobe measures 4.7 x 1.4 x 1.6cm. LEFT lobe measures 4.2 x 1.1 x 1.4 cm. Isthmus has an AP dimension of 0.1cm. Right mid solid cystic nodule measures up to 11 mm. Left mid medial solid cystic nodule measures up to 5 mm. Left superior anechoic nodule with septation measures up to 6 mm. Left superior anechoic nodule with septation measures up to 4 mm. Right portion of the isthmus contains a mixed echogenic nodule measuring up to 7 mm.. No microcalcifications identified. Symmetric blood flow of the thyroid gland identified. US/US thyroid IMPRESSION: Bilateral thyroid nodules measuring up to 11 mm. Impression dictated by: Niko Garg M.D.03/12/2024 4:37 PM Dictation Location: [place] [address] Tech: Jenna Chaparroley Transcribed By: [facility] 03/12/24 1637 Dictated By: Niko Garg DO 03/12/24 1636 Signed By: 03/12/24 1637 Normal [facility] CT abdomen pelvis w conon CT abdomen pelvis w [facility] [address] [address] [address] Scan Report Signed Patient: Mira Gonsalves MR#: [id number] : 1970 Acct:[id number] Age/Sex: 54 / F ADM Date: 03/02/24 Loc: CT Room: [facility] Att[facility] Dr: Bobby Cali MD Copies to: Bobby Cali MD Ordering Provider: Bobby Cali MD Date of Service: 03/02/24 CT/CT abdomen pelvis w con: R07.9 - Chest pain, unspecified ([id number]) CT/CT chest wo/w con: R07.9 - Chest pain, unspecified CT chest wo/w con, CT abdomen pelvis w con 03/02/2024 4:50 PM SIGN AND SYMPTOMS: Bilateral lower rib pain, generalized abdominal pain, weight loss, hematuria CONTRAST: 90 mL of intravenous Isovue-300 TECHNIQUE: Multidetector CT axial slices of the chest, abdomen and pelvis were obtainedwith and without IV contrast. Multiplanar reformats were performed and viewed on a separate workstation and reviewed to further define anatomy and possible pathology. CT was performed with one or more of the following dose reduction techniques: Automated exposure control, adjustment of the mA and/or kV according to patient size, or use of iterative reconstruction technique. COMPARISON: 08/04/2007. FINDINGS: Lower neck: There is an 11 mm hypoattenuating structure in the right thyroid lobe which appears to be new when compared to the prior exam. Nonemergent ultrasound follow-up is recommended as malignancy is not excluded. Vessels: Within normal limits. There is no evidence of pulmonary embolism. Mediastinum and Jacquelyn: Within normal limits. Heart: Normal size. No pericardial effusion. Airways: Within normal limits Lungs: Emphysematous changes are present in the lung parenchyma. There is scarring at the lung apices. There is pleural-based scarring at the left lung base. Pleura: Within normal limits. Chest Wall: Within normal limits. Abdomen: Liver: There is an 8 mm focus of hypoattenuation in the right hepatic lobe. Bile Ducts: Normal caliber. Gallbladder: No calcified gallstones. Normal caliber wall. Pancreas: within normal limits. Spleen: within normal limits. Adrenals: within normal limits. Kidneys: within normal limits. Pelvis: Reproductive Organs: The uterine fundus is heterogeneously enlarged presumably relating to uterine fibroids. The largest measures 5.6 cm in greatest transverse dimension. Ureters: within normal limits. Bladder: within normal limits. Bowel: There are uncomplicated colonic diverticula. Mesenteric Lymph Nodes: No enlarged mesenteric lymph nodes. Peritoneum: No ascites or free air, no fluid collection. Vessels: Atherosclerotic changes are noted in the abdominal aorta and its branches.. Retroperitoneum: within normal limits. Abdominal Wall: within normal limits. Bones: Bilateral L5 pars defects are noted with grade 1 spondylolisthesis of L5 upon S1. CT/CT chest wo/w con IMPRESSION: No acute cardiopulmonary pathology or intra-abdominal pathology. There is an 11 mm hypoattenuating structure in the right thyroid lobe which appears to be new when compared to the prior exam. Nonemergent ultrasound follow-up is recommended as malignancy is not excluded. Emphysematous changes are present in the lung parenchyma. There is an 8 mm suspected cyst or hemangioma in the right hepatic lobe. The uterine fundus is heterogeneously enlarged presumably relating to uterine fibroids. The largest measures 5.6 cm in greatest transverse dimension. Uncomplicated colonic diverticula are noted. Impression dictated by: Danny Diaz M.D.03/02/2024 7:56 PM Dictation Location: [place] [address] Transcribed By: [facility] 03/02/241955 Dictated By: Danny Diaz II, MD 03/02/241940 Signed By: 03/02/241955 Normal [facility] Bacterial culture w IDOrdere d By: Mira Sykes on 02-23-2024 Bacteria identified Cx Nom (Unsp spec) Bacterial culture w ID . [facility] Comment on above: Performed at: [place] [id number] Director: Yonas Alvarenga PhD, Phone: [phone] Campy coli+jejuni BD MaxOrde red By: Mira Sykes on 02-23-2024 C. coli+jejuni tuf gene JOEY+probe Ql (Stl) Negative Negative [facility] Comment on above: Campylobacter test i ncludes C. jejuni and C. coli. C. coli+jejuni tuf gene JOEY+probe Ql (Stl) Campy coli+jejuni BD Max Negative [facility] Comment on above: Campylobacter test i ncludes C. jejuni and C. coli. Cryptosporidium parv+homin B D MaxOrdered By: Mira Sykes on 02-23-2024 C. parvum+hominis DNA JOEY+probe Ql (Stl) Cryptosporidium parv+homin BD Max Negative [facility] Comment on above: Cryptosporidium test includes C. hominis and C. parvum. Entamoeba histolytica BD Max Ordered By: Mira Sykes on 02-23-2024 E. histolytica DNA JOEY+probe Ql (Stl) Entamoeba histolytica BD Max Negative [facility] Comment on above: Testing performed by RT-PCR Escherichia coli Stx1 and St x2 toxin stx1+stx2 genes [Presence] in Stool by JOEY withOrdered By: Mira Sykes on 02-23-2024 E. coli stx1+stx2 genes JOEY+probe Ql (Stl) Negative Negative [facility] Giardia marcelino BD MaxOrdered By : Mira Sykes on 02-23-2024 G. lamblia DNA JOEY+probe Ql (Stl) Giardia marcelino BD Max Negative [facility] Ova and Parasite Panelon Cryptosporidium (C.hominis+par Negative Normal Negative [facility] Comment on above: Result Comment: Cryp tosporidium test includes C. hominis and C. parvum. Performed By: #### E NT BACT PANEL, OVP #### [address] #### YERSINIA ONLY #### [facility] , Entamoeba histolytica Negative Normal Negative [facility] Comment on above: Result Comment: Test ing performed by RT-PCR PERFORMED BY: [place] [address] PATHOLOGIST RESEARCH ASSISTANT JHON SCHROEDER M.D. Performed By: #### E NT BACT PANEL, OVP #### [place] [address] [place] #### YERSINIA ONLY #### [facility] , Giardia lamblia Negative Normal Negative [facility] Comment on above: Performed By: #### E NT BACT PANEL, OVP #### [place] [address] [place] #### YERSINIA ONLY #### [facility] , Salmonella sp spaO gene [Pre sence] in Stool by JOEY with probe detectionOrdered By: Mira Sykes on 02-23-2024 Salmonella sp spaO gene JOEY+probe Ql (Stl) Negative Negative [facility] Comment on above: Testing performed by RT-PCR Salmonellosis BD MaxOrdered By: Mira Sykes on 02-23-2024 Salmonella sp spaO gene JOEY+probe Ql (Stl) Salmonella sp spaO gene [Presence] in Stool by JOEY with probe detection Negative [facility] Comment on above: Testing performed by RT-PCR Shigella Tox 1+2 BD MaxOrder ed By: Mira Sykes on 02-23-2024 E. coli stx1+stx2 genes JOEY+probe Ql (Stl) Escherichia coli Stx1 and Stx2 toxin stx1+stx2 genes [Presence] in Stool by JOEY with Negative [facility] Shigella species+EIEC invasi on plasmid antigen H ipaH gene [Presence] in Stool by NAAOrdered By: Mira Sykes on 02-23-2024 Shigella species+EIEC invasion plasmid antigen H ipaH gene JOEY+probe Ql (Stl) Negative Negative [facility] Comment on above: Shigella sp. test in cludes Shigella species and Enteroinvasive E. coli (EIEC). Shigellosis BD MaxOrdered By : Mira Sykes on 02-23-2024 Shigella species+EIEC invasion plasmid antigen H ipaH gene JOEY+probe Ql (Stl) Shigella species+EIEC invasion plasmid antigen H ipaH gene [Presence] in Stool by JOEY Negative [facility] Comment on above: Shigella sp. test in cludes Shigella species and Enteroinvasive E. coli (EIEC). Stool Bacterial Panelon 01-25 Campylobacter Negative Normal Negative [facility] Comment on above: Result Comment: Camp ylobacter test includes C. jejuni and C. coli. Performed By: #### E NT BACT PANEL, OVP #### [facility] [address] [place] [address] [place] #### YERSINIA ONLY #### [facility] , Salmonella Species Negative Normal Negative [facility] Comment on above: Result Comment: Test ing performed by RT-PCR PERFORMED BY: [facility] [address] [place] [address] PATHOLOGIST RESEARCH ASSISTANT JHON SCHROEDER M.D. Performed By: #### E NT BACT PANEL, OVP #### [place] [address] [place] #### YERSINIA ONLY #### [facility] , Shiga Toxin (E coli O157+oth) Negative Normal Negative [facility] Comment on above: Performed By: #### E NT BACT PANEL, OVP #### [place] [address] [place] #### YERSINIA ONLY #### [facility] , Shigella Species Negative Normal Negative [facility] Comment on above: Result Comment: Shig amalia sp. test includes Shigella species and Enteroinvasive E. coli (EIEC). Performed By: #### E NT BACT PANEL, OVP #### [address] #### YERSINIA ONLY #### [facility] , Yersinia Only Cultureon 01-25 Yersinia Result 1 No Yersinia isolated Normal . [facility] Comment on above: Result Comment: Perf ormed at: - [facility] [place] [id number] Level Vial Sealer: Yonas Alvarenga PhD, Phone: [phone] PERFORMED BY: [place] [address] PATHOLOGIST RESEARCH ASSISTANT JHON SCHROEDER M.D. Performed By: #### E NT BACT PANEL, OVP #### [place] [address] [place] #### YERSINIA ONLY #### [facility] , Yersinia Stool Culture Final report Normal . [facility] Comment on above: Performed By: #### E NT BACT PANEL, OVP #### [place] [address] [place] #### YERSINIA ONLY #### [facility] , Yersinia cultureOrdered By: Mira Sykes on 02-23-2024 Yersinia sp identified Org specific cx Nom (Unsp spec) Yersinia culture . [facility] Urinalysis macro (dipstick) panel (U)on 02-22-2024 Bilirubin, UA Negative Negative - 4(70) +++ mg/dL [facility] Blood, UA Negative Negative - 50 Carlyle/mcL [facility] Clarity, UA Clear [facility] Color, UA Yellow [facility] Glucose, UA Negative Negative - 1999(110) ++++ mg/dL [facility] Interpretation and review of laboratory results Normal [facility] Ketones, UA Negative Negative - 160(16) ++++ mg/dL [facility] Leukocytes, UA Negative Negative - 500+++ Frandy/mcL [facility] Nitrite, UA Negative Negative - Positive [facility] pH, UA 6 5 - 9 [facility] Protein, UA Negative Negative - 1999(20) ++++ mg/dL [facility] Spec Grav, UA 1.005 1 - 1.03 [facility] Urobilinogen, UA 0.2 0.2 - 12 mg/dL [facility] Alanine aminotransferase [En zymatic activity/volume] in Serum or PlasmaOrdered By: Bobby Cali on 02-07-2024 ALT [Catalytic activity/Vol] 21 U/L Normal [facility] Comment on above: Performed By: #### C MP, CBC, TSH3, LIPASE #### [address] ALT [Catalytic activity/Vol] Alanine aminotransferase [Enzymatic activity/volume] in Serum or Plasma [facility] Albumin [Mass/volume] in Ser um or Plasma by Bromocresol green (BCG) dye binding methoOrdered By: Bobby Cali on 02-07-2024 Albumin BCG dye [Mass/Vol] 4.4 g/dL 3.5-5.7 [facility] Albumin BCG dye [Mass/Vol] Albumin [Mass/volume] in Serum or Plasma by Bromocresol green (BCG) dye binding metho 3.5-5.7 [facility] Alkaline phosphatase [Enzyma tic activity/volume] in Serum or PlasmaOrdered By: Bobby Cali on 02-07-2024 ALP [Catalytic activity/Vol] 48 U/L Normal 34-104 [facility] Comment on above: Performed By: #### C MP, CBC, TSH3, LIPASE #### [facility] [address] [place] [address] ALP [Catalytic activity/Vol] Alkaline phosphatase [Enzymatic activity/volume] in Serum or Plasma 34-104 [facility] Aspartate aminotransferase [ Enzymatic activity/volume] in Serum or PlasmaOrdered By: Bobby Cali on 02-07-2024 AST [Catalytic activity/Vol] 23 U/L Normal 13-39 [facility] Comment on above: Performed By: #### C MP, CBC, TSH3, LIPASE #### [address] AST [Catalytic activity/Vol] Aspartate aminotransferase [Enzymatic activity/volume] in Serum or Plasma 1339 [facility] Automated basophil %Ordered By: Bobby Cali on 02-07-2024 Basophils/100 WBC (Bld) 0.5 % Normal . [facility] Comment on above: Performed By: #### C MP, CBC, TSH3, LIPASE #### [address] Automated basophil countOrde red By: Bobby Cali on 02-07-2024 Basophils (Bld) [#/Vol] 0.0 10*3/uL Normal 0.0-0.2 [facility] Comment on above: Result Comment: PERF ORMED BY: [place] [address] PATHOLOGIST RESEARCH ASSISTANT JHON SCHROEDER M.D. Performed By: #### C MP, CBC, TSH3, LIPASE #### [address] Automated blood monocyte cou ntOrdered By: Bobby Cali on 02-07-2024 Monocytes (Bld) [#/Vol] 0.9 10*3/uL High 0.0-0.8 [facility] Comment on above: Performed By: #### C MP, CBC, TSH3, LIPASE #### [address] Automated eosinophil %Ordere d By: Bobby Cali on 02-07-2024 Eosinophils/100 WBC (Bld) 1.7 % Normal . [facility] Comment on above: Performed By: #### C MP, CBC, TSH3, LIPASE #### [facility] [address] Automated eosinophil countOr dered By: Bobby Cali on 02-07-2024 Eosinophils (Bld) [#/Vol] 0.1 10*3/uL Normal 0.0-0.45 [facility] Comment on above: Performed By: #### C MP, CBC, TSH3, LIPASE #### [facility] [address] Automated monocyte %Ordered By: Bobby Cali on 02-07-2024 Monocytes/100 WBC (Bld) 11.7 % Normal . [facility] Comment on above: Performed By: #### C MP, CBC, TSH3, LIPASE #### [facility] [address] [place] [address] Automated neutrophil %Ordere d By: Bobby Cali on 02-07-2024 Neutrophils/100 WBC (Bld) 63.8 % Normal . [facility] Comment on above: Performed By: #### C MP, CBC, TSH3, LIPASE #### [facility] [address] [place] [address] Basophils Auto (Bld) [#/Vol] Ordered By: Bobby Cali on 02-07-2024 Basophils (Bld) [#/Vol] Automated basoph il count 0.0-0.2 [facility] Basophils/100 WBC Auto (Bld) Ordered By: Bobby Cali on 02-07-2024 Basophils/100 WBC (Bld) Automated basophil % . [facility] Bilirubin.total [Mass/volume ] in Serum or PlasmaOrdered By: Bobby Cali on 02-07-2024 Bilirubin [Mass/Vol] 0.5 mg/dL Normal 0.3-1.0 [facility] Comment on above: Performed By: #### C MP, CBC, TSH3, LIPASE #### [address] Bilirubin [Mass/Vol] Bilirubin.total [Mass/volume] in Serum or Plasma 0.3-1.0 [facility] Calcium [Mass/volume] in Ser um or PlasmaOrdered By: Bobby Cali on 02-07-2024 Calcium [Mass/Vol] 9.3 mg/dL Normal 8.6-10.3 [facility] Comment on above: Performed By: #### C MP, CBC, TSH3, LIPASE #### [facility] [address] [place] [address] Calcium [Mass/Vol] Calcium [Mass/volume ] in Serum or Plasma 8.6-10.3 [facility] Carbon dioxide, total [Moles /volume] in Serum or PlasmaOrdered By: Bobby Cali on 02-07-2024 CO2 [Moles/Vol] 28.7 mmol/L Normal 21.0-31.0 [facility] Comment on above: Performed By: #### C MP, CBC, TSH3, LIPASE #### [address] CO2 [Moles/Vol] Carbon dioxide, tota l [Moles/volume] in Serum or Plasma 21.0-31.0 [facility] Chloride [Moles/volume] in S zelda or PlasmaOrdered By: Bobby Cali on 02-07-2024 Chloride [Moles/Vol] 102 mmol/L Normal 98-107 [facility] Comment on above: Performed By: #### C MP, CBC, TSH3, LIPASE #### [facility] [address] [place] [address] Chloride [Moles/Vol] Chloride [Moles/volume] in Serum or Plasma 98-107 [facility] Complete Blood Count Auto Di ffon 02-07-2024 Mean Corpuscular HGB Conc 33.5 g/dL Normal 32.0-35.0 [facility] Comment on above: Performed By: #### C MP, CBC, TSH3, LIPASE #### [facility] [address] NRBC% 0.1 /100{WBC} Normal 0-0.5 [facility] Comment on above: Performed By: #### C MP, CBC, TSH3, LIPASE #### [facility] [address] [place] [address] [place] Comprehensive Metabolic Pane lazaro 02-07-2024 Albumin [Mass/Vol] 4.4 g/dL Normal 3.5-5.7 [facility] Comment on above: Performed By: #### C MP, CBC, TSH3, LIPASE #### [facility] [address] [place] [address] [place] GFR/1.73 sq M.predicted MDRD (S/P/Bld) [Vol rate/Area] mL/min/{1.73_m2} Normal [facility] Comment on above: Performed By: #### C MP, CBC, TSH3, LIPASE #### [address] Creatinine [Mass/volume] in Serum or PlasmaOrdered By: Bobby Cali on 02-07-2024 Creatinine [Mass/Vol] 1.05 mg/dL Normal 0.60-1.20 [facility] Comment on above: Performed By: #### C MP, CBC, TSH3, LIPASE #### [facility] [address] Creatinine [Mass/Vol] Creatinine [Mass/volume] in Serum or Plasma 0.60-1.20 [facility] Eosinophils Auto (Bld) [#/Vo l]Ordered By: Bobby Cali on 02-07-2024 Eosinophils (Bld) [#/Vol] Automated eosinophil count 0.0-0.45 [facility] Eosinophils/100 WBC Auto (Bl d)Ordered By: Bobby Cali on 02-07-2024 Eosinophils/100 WBC (Bld) Automated eosinophil % . [facility] Erythrocyte distribution wid th Auto (RBC) [Ratio]Ordered By: Bobby Cali on 02-07-2024 Erythrocyte distribution width (RBC) [Ratio] Erythrocyte distribution width [Ratio] by Automated count 11.9-15.3 [facility] Erythrocyte distribution wid th [Ratio] by Automated countOrdered By: Bobby Cali on 02-07-2024 Erythrocyte distribution width (RBC) [Ratio] 13.8 % Normal 11.9-15.3 [facility] Comment on above: Performed By: #### C MP, CBC, TSH3, LIPASE #### [facility] [address] Erythrocytes [#/volume] in B lood by Automated countOrdered By: Bobby Cali on 02-07-2024 RBC (Bld) [#/Vol] 4.79 10*6/uL Normal 3.60-5.00 [facility] Comment on above: Performed By: #### C MP, CBC, TSH3, LIPASE #### [facility] [address] Globulin Calc (S) [Mass/Vol] Ordered By: Bobby Clai on 02-07-2024 Globulin (S) [Mass/Vol] Serum globulin measurement by calculation (mass/volume) [facility] Glucose [Mass/volume] in Ser um or PlasmaOrdered By: Bobby Cali on 02-07-2024 Glucose [Mass/Vol] 101 mg/dL High 70-100 [facility] Comment on above: ADA recommended refe rence rangeRandom Glucose Reference Range is dependent on time and content of last meal. Glucose of more than 200 mg/dL in a nonstressed, ambulatory subject supports the diagnosis of Diabetes Mellitus. Result Comment: [place] om Glucose Reference Range is dependent on time and content of last meal. Glucose of more than 200 mg/dL in a nonstressed, ambulatory subject supports the diagnosis of Diabetes Mellitus. ADA recommended reference range Performed By: #### C MP, CBC, TSH3, LIPASE #### [facility] [address] Glucose [Mass/Vol] Glucose [Mass/volume ] in Serum or Plasma High 70-100 [facility] Comment on above: ADA recommended refe rence rangeRandom Glucose Reference Range is dependent on time and content of last meal. Glucose of more than 200 mg/dL in a nonstressed, ambulatory subject supports the diagnosis of Diabetes Mellitus. Hematocrit Auto (Bld) [Volum e fraction]Ordered By: Bobby Cali on 02-07-2024 Hematocrit (Bld) [Volume fraction] Hematocrit [Volume Fraction] of Blood by Automated count 34.0-46.4 [facility] Hematocrit [Volume Fraction] of Blood by Automated countOrdered By: Bobby Cali on 02-07-2024 Hematocrit (Bld) [Volume fraction] 42.9 % Normal 34.0-46.4 [facility] Comment on above: Performed By: #### C MP, CBC, TSH3, LIPASE #### [facility] [address] [place] [address] Hemoglobin [Mass/volume] in BloodOrdered By: Bobby Cali on 02-07-2024 Hemoglobin (Bld) [Mass/Vol] 14.4 g/dL Normal 11.8-15.4 [facility] Comment on above: Performed By: #### C MP, CBC, TSH3, LIPASE #### [address] Hemoglobin (Bld) [Mass/Vol] Hemoglobin [Mass/volume] in Blood 11.8-15.4 [facility] Leukocytes [#/volume] correc pavan for nucleated erythrocytes in Blood by Automated counOrdered By: Bobby Cali on 02-07-2024 WBC corrected for nucl RBC Auto (Bld) [#/Vol] 7.6 10*3/uL 3.8-11.6 [facility] WBC corrected for nucl RBC Auto (Bld) [#/Vol] Leukocytes [#/volume] corrected for nucleated erythrocytes in Blood by Automated coun 3.8-11.6 [facility] Leukocytes [#/volume] in Blo od by Automated countOrdered By: Bobby Cali on 02-07-2024 WBC (Bld) [#/Vol] 7.6 10*3/uL Normal 3.8-11.6 [facility] Comment on above: Performed By: #### C MP, CBC, TSH3, LIPASE #### [facility] [address] [place] [address] Lipase [Enzymatic activity/v olume] in Serum or PlasmaOrdered By: Bobby Cali on 02-07-2024 Lipase [Catalytic activity/Vol] 14.0 U/L Normal 11.0-82.0 [facility] Comment on above: Performed By: #### C MP, CBC, TSH3, LIPASE #### [facility] [address] [place] [address] Lipase [Catalytic activity/Vol] Lipase [Enzymatic activity/volume] in Serum or Plasma 11.0-82.0 [facility] Lymphocytes Auto (Bld) [#/Vo l]Ordered By: Bobby Cali on 02-07-2024 Lymphocytes (Bld) [#/Vol] Lymphocytes [#/volume] in Blood by Automated count 1.00-4.8 [facility] Lymphocytes [#/volume] in Bl ood by Automated countOrdered By: Bobby Cali on 02-07-2024 Lymphocytes (Bld) [#/Vol] 1.7 10*3/uL Normal 1.00-4.8 [facility] Comment on above: Performed By: #### C MP, CBC, TSH3, LIPASE #### [facility] [address] [place] [address] Lymphocytes/100 WBC Auto (Bl d)Ordered By: Bobby Cali on 02-07-2024 Lymphocytes/100 WBC (Bld) Lymphocytes/100 leukocytes in Blood by Automated count . [facility] Lymphocytes/100 leukocytes i n Blood by Automated countOrdered By: Bobby Cali on 02-07-2024 Lymphocytes/100 WBC (Bld) 22.3 % Normal . [facility] Comment on above: Performed By: #### C MP, CBC, TSH3, LIPASE #### [facility] [address] [place] [address] [facility] Auto (RBC) [Entitic mass ]Ordered By: Bobby Cali on 02-07-2024 MCH (RBC) [Entitic mass] MCH [Entitic ma ss] by Automated count 24.7-34.3 [facility] MCH [Entitic mass] by Automa pavan countOrdered By: Bobby Cali on 02-07-2024 MCH (RBC) [Entitic mass] 30.0 pg Normal 24.7-34.3 [facility] Comment on above: Performed By: #### C MP, CBC, TSH3, LIPASE #### [facility] [address] [place] [address] MCHC Auto (RBC) [Mass/Vol]Or dered By: Bobby Cali on 02-07-2024 MCHC (RBC) [Mass/Vol] 33.5 g/dL 32.0-35.0 [facility] MCHC (RBC) [Mass/Vol] MCHC [Mass/volume] by Automated count 32.0-35.0 [facility] MCV Auto (RBC) [Entitic vol] Ordered By: Bobby Cali on 02-07-2024 MCV (RBC) [Entitic vol] MCV [Entitic vol ume] by Automated count 80-100 [facility] MCV [Entitic volume] by Auto mated countOrdered By: Bobby Cali on 02-07-2024 MCV (RBC) [Entitic vol] 89.6 fL Normal 80-100 [facility] Comment on above: Performed By: #### C MP, CBC, TSH3, LIPASE #### [facility] [address] Monocytes Auto (Bld) [#/Vol] Ordered By: Bobby Cali on 02-07-2024 Monocytes (Bld) [#/Vol] Automated blood monocyte count High 0.0-0.8 [facility] Monocytes/100 WBC Auto (Bld) Ordered By: Bobby Cali on 02-07-2024 Monocytes/100 WBC (Bld) Automated monocyte % . [facility] Neutrophils Auto (Bld) [#/Vo l]Ordered By: Bobby Cali on 02-07-2024 Neutrophils (Bld) [#/Vol] Neutrophils [#/volume] in Blood by Automated count 1.8-7.7 [facility] Neutrophils [#/volume] in Bl ood by Automated countOrdered By: Bobby Cali on 02-07-2024 Neutrophils (Bld) [#/Vol] 4.9 10*3/uL Normal 1.8-7.7 [facility] Comment on above: Performed By: #### C MP, CBC, TSH3, LIPASE #### [facility] [address] [place] [address] [place] Neutrophils/100 WBC Auto (Bl d)Ordered By: Bobby Cali on 02-07-2024 Neutrophils/100 WBC (Bld) Automated neutrophil % . [facility] No Panel InformationOrdered By: Bobby Cali on 02-07-2024 Estimated GFR (CKD-EPI) > 60.0 mL/Min [facility] Creatinine Clearance (Chem N/A [facility] Nucleated erythrocytes [Pres ence] in Blood by Automated countOrdered By: Bobby Cali on 02-07-2024 Nucleated RBC Auto Ql (Bld) 0.1 /100{WBC} 0-0.5 [facility] Nucleated RBC Auto Ql (Bld) Nucleated erythrocytes [Presence] in Blood by Automated count 0-0.5 [facility] Platelet mean volume Auto (B ld) [Entitic vol]Ordered By: Bobby Cali on 02-07-2024 Platelet mean volume (Bld) [Entitic vol] Platelet mean volume [Entitic volume] in Blood by Automated count 6.3-10.7 [facility] Platelet mean volume [Entiti c volume] in Blood by Automated countOrdered By: Bobby Cali on 02-07-2024 Platelet mean volume (Bld) [Entitic vol] 8.6 fL Normal 6.3-10.7 [facility] Comment on above: Performed By: #### C MP, CBC, TSH3, LIPASE #### [facility] [address] [place] [address] [place] Platelets Auto (Bld) [#/Vol] Ordered By: Bobby Cali on 02-07-2024 Platelets (Bld) [#/Vol] Platelets [#/vol ume] in Blood by Automated count 150-450 [facility] Platelets [#/volume] in Bloo d by Automated countOrdered By: Bobby Cali on 02-07-2024 Platelets (Bld) [#/Vol] 247 10*3/uL Normal 150-450 [facility] Comment on above: Performed By: #### C MP, CBC, TSH3, LIPASE #### [facility] [address] [place] [address] [place] Potassium [Moles/volume] in Serum or PlasmaOrdered By: Bobby Cali on 02-07-2024 Potassium [Moles/Vol] 4.2 mmol/L Normal 3.5-5.1 [facility] Comment on above: Performed By: #### C MP, CBC, TSH3, LIPASE #### [facility] [address] Potassium [Moles/Vol] Potassium [Moles/volume] in Serum or Plasma 3.5-5.1 [facility] Protein [Mass/volume] in Ser um or PlasmaOrdered By: Bobby Cali on 02-07-2024 Protein [Mass/Vol] 7.2 g/dL Normal 6.4-8.9 [facility] Comment on above: Performed By: #### C MP, CBC, TSH3, LIPASE #### [address] Protein [Mass/Vol] Protein [Mass/volume ] in Serum or Plasma 6.4-8.9 [facility] RBC Auto (Bld) [#/Vol]Ordere d By: Bobby Cali on 02-07-2024 RBC (Bld) [#/Vol] Erythrocytes [#/volume] in Blood by Automated count 3.60-5.00 [facility] Serum globulin measurement b y calculation (mass/volume)Ordered By: Bobby Cali on 02-07-2024 Globulin (S) [Mass/Vol] 2.8 g/dL Normal [facility] Comment on above: Performed By: #### C MP, CBC, TSH3, LIPASE #### [address] Serum or plasma albumin/glob ulin mass ratioOrdered By: Bobby Cali on 02-07-2024 Albumin/Globulin [Mass ratio] 1.6 {ratio} Normal [facility] Comment on above: Performed By: #### C MP, CBC, TSH3, LIPASE #### [address] Albumin/Globulin [Mass ratio] Serum or plasma albumin/globulin mass ratio [facility] Serum or plasma anion gap de terminationOrdered By: Bobby Cali on 02-07-2024 Anion gap [Moles/Vol] 11.5 mmol/L Normal 6.0-15.0 [facility] Comment on above: Performed By: #### C MP, CBC, TSH3, LIPASE #### [address] Anion gap [Moles/Vol] Serum or plasma an ion gap determination 6.0-15.0 [facility] Sodium [Moles/volume] in Ser um or PlasmaOrdered By: Bobby Cali on 02-07-2024 Sodium [Moles/Vol] 138 mmol/L Normal 136-145 [facility] Comment on above: Performed By: #### C MP, CBC, TSH3, LIPASE #### [facility] [address] [place] [address] Sodium [Moles/Vol] Sodium [Moles/volume ] in Serum or Plasma 136-145 [facility] Thyrotropin [Units/volume] i n Serum or PlasmaOrdered By: Bobby Cali on 02-07-2024 TSH Qn 1.04 m[IU]/L Normal 0.45-5.33 [facility] Comment on above: Result Comment: PERF ORMED BY: [place] [address] PATHOLOGIST RESEARCH ASSISTANT JHON SCHROEDER M.D. Performed By: #### C MP, CBC, TSH3, LIPASE ####[facility] [address] [place] [address] TSH Qn Thyrotropin [Units/volume] in Serum or Plasma 0.45-5.33 [facility] Urea nitrogen [Mass/volume] in Serum or PlasmaOrdered By: Bobby Cali on 02-07-2024 Urea nitrogen [Mass/Vol] 7 mg/dL Normal 11-16 [facility] Comment on above: Performed By: #### C MP, CBC, TSH3, LIPASE #### [facility] [address] [place] [address] Urea nitrogen [Mass/Vol] Urea nitrogen [Mass/volume] in Serum or Plasma 11-16 [facility] WBC Auto (Bld) [#/Vol]Ordere d By: Bobby Cali on 02-07-2024 WBC (Bld) [#/Vol] Leukocytes [#/volume ] in Blood by Automated count 3.8-11.6 [facility] Laboratory - Chemistry and C hemistry - challengeon 02-06-2024 Bilirubin Ql (U) Negative [facility] Glucose (U) [Mass/Vol] [facility] Ketones Ql (U) Negative [facility] pH (U) 6.5 [pH] [facility] Specific gravity (U) [Rel density] 1.000 [facility] Urobilinogen (U) [Mass/Vol] 0.2 mg/dL [facility] Laboratory - Microbiology an d Antimicrobial susceptibilityOrdered By: Bobby Cali on 02-06-2024 Bacteria identified Cx Nom (U) 2 Days [facility] Laboratory - Specimen inform ationon 02-06-2024 Appearance (U) cloudy [facility] Color (U) yellow [facility] Laboratory - Urinalysison Leukocyte esterase Test strip Ql (U) moderate [facility] Nitrite Ql (U) Negative [facility] Protein Ql (U) Negative [facility] No Panel Informationon 02-05 Urine Occult Blood tracelyced [facility] Urine Cultureon 02-06-2024 Bacteria identified Cx Nom (U) 30,000 colonies/ml mixed bacterial skin contaminants 2 Days PERFORMED BY: [place] [address] PATHOLOGIST RESEARCH ASSISTANT JHON SCHROEDER M.D. Normal The [facility] Comment on above: Performed By: #### C UU #### [address] Urine cultureOrdered By: Maki Cali on 02-06-2024 Bacteria identified Cx Nom (U) Urine culture [facility] URETHRITIS/DISCHARGE PLUS VA GINITIS (HTRX)on 01-18-2024 ATOPOBIUM VAGINAE 30.202 Abnormal [facility] ATOPOBIUM VAGINAE Detected Abnormal [facility] BVAB 2,3 (BACTERIAL VAGINOSIS ASSOCIATED BACTERIA 2, 3); MOBILUNCUS SPP 0.000 [facility] BVAB 2,3 (BACTERIAL VAGINOSIS ASSOCIATED BACTERIA 2, 3); MOBILUNCUS SPP Not detected [facility] DWAIN ALBICANS, PARAPSILOSIS, TROPICALIS 0.000 [facility] DWAIN ALBICANS, PARAPSILOSIS, TROPICALIS Not detected [facility] DWAIN GLABRATA 0.000 [facility] DWAIN GLABRATA Not detected [facility] DWAIN KRUSEI 0.000 [facility] DWAIN KRUSEI Not detected [facility] CHLAMYDIA TRACHOMATIS 0.000 [facility] CHLAMYDIA TRACHOMATIS Not detected [facility] GARDNERELLA VAGINALIS 0.000 [facility] GARDNERELLA VAGINALIS Not detected [facility] Interpretation and review of laboratory results Abnormal [facility] MEGASPHAERA (TYPES 1, 2) 0.000 [facility] MEGASPHAERA (TYPES 1, 2) Not detected [facility] MYCOPLASMA GENITALIUM 0.000 [facility] MYCOPLASMA GENITALIUM Not detected [facility] NEISSERIA GONORRHOEAE 0.000 [facility] NEISSERIA GONORRHOEAE Not detected [facility] TRICHOMONAS VAGINALIS 0.000 [facility] TRICHOMONAS VAGINALIS Not detected [facility] Laboratory - Microbiology an d Antimicrobial susceptibilityon 01-12-2024 Bacterial vaginosis and vaginitis DNA panel Probe+sig amp (Vag fld) Positive [facility] No Panel Informationon 01-11 Interpretation and review of laboratory results Abnormal [facility] Trichomonas, UA Negative [facility] Yeast Positive [facility] XR lumbar spine 2-3V*on 10-24 XR lumbar spine 2-3V* [place] [address] XRay Report Signed Patient: Mira Gonsalves MR#: [id number] : 1970 Acct:[id number] Age/Sex: 53 / F ADM Date: 11/16/23 Loc: [facility] Room: Type: [facility] Attending Dr: Bobby Cali MD Copies to: Bobby Cali MD Ordering Provider: Bobby Cali MD Date of Service: 11/16/23 XR/XR lumbar spine 2-3V*: M53.3 - Sacrococcygeal disorders, not elsewhere classified 2 views Lumbar Spine HISTORY: Back pain COMPARISON: None POSTSURGICAL CHANGES: None BONY ALIGNMENT: Mild lateral curvature HYPERMOBILITY:No bending imaging. LISTHESIS:Mild L5-S1 anterolisthesis secondary to L5 pars defects FRACTURE: None DEGENERATIVE CHANGES: Moderate L5-S1 spondylosis. Lower lumbar facet degeneration. Moderate bilateral SI joint degenerative changes. SOFT TISSUES: Unremarkable BONY MINERALIZATION:[place] te XR/XR lumbar spine 2-3V* IMPRESSION: Mild L5-S1 spondylosis with mild anterolisthesis and L5 pars defects. Impression dictated by: Niko Garg M.D.11/16/2023 2:59 PM Dictation Location: [place] [address] Transcribed By: [facility] 11/16/23 9597 Dictated By: Niko Garg DO 11/16/23 1447 Signed By: 11/16/23 145 Normal [facility] CT CARDIAC SCORINGon 023 CT CARDIAC SCORING Addendum Begins Patient Name: MIRA GONSALVES ADDENDUM: Technical: The following is to serve as an over-read for an unenhanced cardiac CT, to evaluate the extra vascular structures. Contiguous unenhanced CT sections are performed from the level of the abhi to the upper abdomen. Findings: The visualized portions of both lungs are clear aside from linear scarring or atelectasis in the left lung base and tiny areas of pleural thickening or scarring in the left mid and lower thorax.. There is no sign of pathologic lymph node enlargement. There is no pericardial or pleural effusion. Images through the upper abdomen are unremarkable. The visualized osseous and soft tissue structures of the chest wall are intact. Impression: The extra vascular structures have an unremarkable CT appearance. Electronically signed by: ALCON CEDENO MD Addendum Ends Patient Name: MIRA GONSALVES STUDY: CT CARDIAC SCORING; 06/02/2022 11:07 am INDICATION: chest pain Shortness of breath on exertion. COMPARISON: None. ACCESSION NUMBER(S): [id number] ORDERING CLINICIAN: BEATRIZ ART TECHNIQUE: Using prospective ECG gating, CT scan of the coronary arteries was performed without intravenous contrast. Coronary calcium scoring was performed according to the method of Agatston. CT Dose-Length Product (DLP): 70 mGy*cm CT Dose Reduction Employed: Yes, prospective gating, iterative reconstruction. FINDINGS: The score and distribution of calcium in the coronary arteries is as follows: LM 0 LAD 20 LCx 0 RCA 0 Total 20 The visualized ascending thoracic aorta measures 2.8 cm in diameter. The heart is normal in size. No pericardial effusion is present. The main pulmonary artery, right and left pulmonary artery are normal in size. IMPRESSION: 1. Coronary artery calcium score of 20*. 2. MOSS 89th percentile for age, gender, and race in asymptomatic patients. *Coronary Artery Agatston score Score risk Very low 1-99 Mildly increased 100-299 Moderately increased >300 Moderate to severely increased >800 Diana et al. JCCT 2016 (http://dx.doi.org/10 .1016/j.jcct.2016.11. 003) MOSS Percentile In general, greater than 75th percentile for age, gender, and race is considered to be a higher relative risk and higher lifetime risk condition. Greater than 75th percentile=moderate to severely increased relative risk irrespective of the score. Advise using MOSS 10 year CHD risk calculator below for better discrimination of risk. MOSS 10-Year CHD Risk with Coronary Artery Calcification can be calcuate using link below https://www.moss-nhlb i.org/MESACHDRisk/Mes aRiskScore/RiskScore. aspx Trevor et al. JACC 2014 (http://dx.doi.org/10 .1016/j.j acc.2015.08.035) Reading Orthotic Technician: Dr. Trell Garcia, Date: 06/02/2022 12:36 pm Electronically signed by: ALCON CEDENO MD Normal [facility] CT Cardiac Scoringon 023 CT Cardiac Scoring Normal [facility] DO Work Phone: Office Visit (Cardiology)on 05-25-2022 Follow-up visit Diagnoses/Problems Assessed Chest pain (786.50) (R07.9) Hyperlipidemia (272.4) (E78.5) Premature ventricular contraction (427.69) (I49.3) Shortness of breath on exertion (786.05) (R06.02) Former smoker (V15.82) (Z87.891) quit 05/2018 Body mass index (BMI) of 22.0 to 22.9 in adult (V85.1) (Z68.22) Orders Chest pain, Shortness of breath on exertion CT Cardiac Scoring; Status:Hold For - Scheduling; Requested for:25May2022; Patient taking Metformin or Derivatives? : No Radiologist to Determine Optimal Study : Y What are the patient's signs and symptoms? : chest pain SocHx: Former smoker Tobacco Use Screening; Status:Complete; Done: [id number] Patient Instructions Please bring all medicines, vitamins, and herbal supplements with you when you come to the office. Prescriptions will not be filled unless you are compliant with your follow up appointments or have a follow up appointment scheduled as per instruction of your physician. Refills should be requested at the time of your visit. Calcium Score Follow up in 9 months The provider reviewed the following test(s) and result(s) with the patient: Myocardial perfusion study Chief Complaint MIRA GONSALVES is being seen for a 2 month follow-up of. History of Present Illness Patient is here for follow-up continue management for previous evaluation for atypical chest pain. Has been following the patient since 2010 for intermittent atypical chest pain. She underwent several cardiac evaluation with echocardiogram and stress test all of it appears to be reassuring. Her chest pain and nonexertional. She does describe some radiation to the left arm. There is no clear associated, precipitated or alleviated symptoms. She did undergo resection of lung bleb back [place] [address] Ac. She also had been on Prilosec for some dyspepsia. She was referred for a stress test where she was able to exercise for 10 minutes. Did not have any EKG changes. And was clinically negative test. ASSESSMENT: 1. Atypical chest pain appears musculoskeletal or pleuritic the patient had a remote history of resection of lung bleb. Recent stress test is reassuring. Patient continues to complain of intermittent episodes of chest pain. Following last office visit I did recommend trial of beta-blockers but the patient did not want to do that 2. reformed smoker 3. hyperlipidemia. Does not meet criteria for treatment recent lab work noted and reviewed with her 4. minor shortness breath related to prior tobacco use functional class I with excellent exercise tolerance 5. Documentation of few premature ventricular contractions, felt to be benign. In the past with no recurrence RECOMMENDATION: 1. Reviewed the results of her GXT and lab work and reassured her cardiac 2. I recommended calcium scoring for risk assessment considering her continued complaint and concern about underlying ischemic heart disease 3. I discussed with her second opinion and or invasive evaluation but the patient declined 4. I advised her to notify me with changes of cardiac status or symptoms I will see her back in 9 months Surgical History Problems History of Complete colonoscopy History of Lung surgery History of Tonsillectomy with adenoidectomy Current Meds Medication NameInstruction Acetaminophen-Codeine #3 300-30 MG Oral TabletTAKE 1 TABLET BY MOUTH THREE TIMES A DAY NEEDED ALPRAZolam 0.25 MG Oral TabletTAKE TABLET PRN Cyclobenzaprine HCl - 10 MG Oral TabletTAKE TABLET PRN Omeprazole 20 MG Oral Capsule Delayed ReleaseTAKE 1 CAPSULE Daily Allergies Medication No Known Drug Allergies Recorded By: Sandy Yates; 03/03/2022 3:53:25 PM Social History Problems Caffeine use (V49.89) (Z78.9) 2 cups coffee daily, couple sodas daily Consumes alcohol (V49.89) (Z78.9) social Former smoker (V15.82) (Z87.891) quit 05/2018 No illicit drug use Review of Systems Constitutional: not feeling tired. Cardiovascular: palpitations, but no intermittent leg claudication and as noted in HPI. Respiratory: no cough and no shortness of breath. Gastrointestinal: no change in bowel habits and no blood in stools. Integumentary: no skin rashes. Neurological: no seizures and no frequent falls. All other systems have been reviewed and are negative for complaint. Vitals Vital Signs Recorded: 25May2022 03:46PM Heart Rate88, L Radial [id number], LUE, Sitting Fwodtdxid41, LUE, Sitting Height5 ft 4 in Ayahjx277 lb BMI Puhldvskzt33.66 kg/m2 BSA Calculated1.64 Tobacco Useb) No PHQ-2 #1. Over the last 2 weeks have you felt down, depressed or hopeless? (If yes, answer PHQ-9 below)No PHQ-2 #2. Over the last 2 weeks have you felt little interest or pleasure in doing things? (If yes, answer PHQ-9 below)No Falls Screening (Age 18+)c) Not medically indicated Physical Exam Constitutional: alert and in no acute distress. Neck: neck is supple, symmetric, trachea midline, no masses and no thyromegaly . Pulmo (more content not included)... Normal [employer] Tobacco Screening.on 023 Adult depression screening assessment No [facility] [facility] 250 DO Work Phone: Fall risk assessment c) Not medically indicated [facility] 250 DO Work Phone: Tobacco use status [facility] b) No [facility] y 250 DO Work Phone: SCREENING MAMMOGRAM W/ARMANDO, BILATERAL*on 04-14-2022 SCREENING MAMMOGRAM W/ARMANDO, BILATERAL* CLINICAL HISTORY: Screening Mammogram COMPARISON: 03/23/2021, 03/03/2020, and 01/25/2019. TECHNIQUE: 2D and 3D Tomosynthesis of the right and left breasts was performed. FINDINGS: DENSITY: Heterogeneously dense. There are no suspicious masses, areas of suspicious microcalcifications or areas of architectural distortion identified. No evidence of skin thickening. IMPRESSION: BIRADS 1 : NEGATIVE, NORMAL INTERVAL FOLLOW UP. Board certified radiologist. Accredited by the ACR and FDA. MAMMOGRAPHY IS VERY IMPORTANT TO YOUR HEALTH. CURRENT [employer] GUIDELINES RECOMMENDS ANNUAL MAMMOGRAPHY BEGINNING AT AGE 40. THIS FACILITY USUALLY USES A REMINDER SYSTEM TO ENSURE ALL POSITIONS RECEIVED REMINDER NOTIFICATIONS AT THE TIME BASED ON THE RECOMMENDATIONS OF THIS EXAM. Report reported and signed by Moisés Maddox on 04/20/2022 0944 Normal [facility] Cardiac Stress Teston 2021 Cardiac Stress Test [address], [address], [place] [address] Exercise Stress Test Patient Name: MIRA GONSALVES Ordering Physician: [id number] Beatriz Art Study Date: 04/07/2022 Reading Physician: [id number] Jamal Gates MD, [facility] MRN/PID: [id number] Supervising Physician: [id number] Rhett Jay MD Accession/Order#: [id number] Referring Physician: BEATRIZ ART Date of : 1970 PCP: Bobby Cali Gender: F Fellow: Height: 162.56 cm Nurse: Girma Hanna RN Weight: 63.05 kg Dredge Captain: NA BSA: 1.68 m2 Technologist: BMI: 23.86 Additional Staff: kg/m2 Age: 52 years cc report to: Patient Location: report to: [id number] Beatriz Art Study Type: Cardiac Stress Test Diagnosis/ICD: R07.9-Chest pain, unspecified; R06.02-Shortness of breath Indication: Chest Pain Procedure/CPT: Stress Test Interpretation-39101; Stress Test Supervision-[id number] Falls Risk: Low: Patient has low risk for sustaining a fall; environmental safety interventions in place. Study Details: Correct procedure and correct patient verified verbally. Patient History: Allergies: None. Patient Performance: The peak heart rate achieved was 171 bpm, which was 103 % of the age predicted target heart rate of 167 bpm. The resting blood pressure was 126/86 mmHg with a heart rate of 80 bpm. The standing blood pressure was 124/86 mmHg with a heart rate of 77 bpm. The patient's functional capacity was above average. The symptoms resolved with rest. The blood pressure response was normal. The test was terminated due to: fatigue. Baseline ECG: Resting ECG showed normal sinus rhythm. Stress Stage Data: + +-- -+------+-------+ HR Sys BP Mora BP + +-- -+------+-------+ Baseline Resting 80 126 86 + +-- -+------+-------+ Baseline Standing 77 124 86 + +-- -+------+-------+ Stage I 136 144 82 + +-- -+------+-------+ Stage II 136 158 88 + +-- -+------+-------+ Stage III 129 172 88 + +-- -+------+-------+ Stage IV 171 178 90 + +-- -+------+-------+ Recovery ECG: The heart rate recovery was normal. + +---+--- ---+-------+ HR Sys BP Mora BP + +---+--- ---+-------+ Recovery I 130 178 90 + +---+--- ---+-------+ Recovery II 153 168 86 + +---+--- ---+-------+ Recovery III 106 148 82 + +---+--- ---+-------+ Recovery IV 93 138 80 + +---+--- ---+-------+ Recovery V 93 122 78 + +---+--- ---+-------+ Stress Echo: There are no stress induced regional wall motion abnormalities. Summary: 1. 1_normal exercise tolerance test after completing 10 minutes on a Ben protocol and achieving 102% of predicted maximal heart rate and a maximum workload of 11.7 METS. 2_no chest pain, cardiac arrhythmias or ischemic EKG changes noted with exercise, patient has good exercise tolerance for age with normal heart recovery and achievement of Ward treadmill score of 10+ which is favorable. [id number] Jamal Gates MD, FACC Electronically signed on 04/07/2022 at 6:13:21 PM Final Normal [facility] Cardiac Stress [facility] 600 DO Work Phone: LIPID PANEL, STANDARDon 11- Cholesterol [Mass/Vol] 225 mg/dL High <200 Qu est Diagnostics Comment on above: Order Comment: FASTI NG:YES FASTING: YES Performed By: #### 7 600 #### [facility] [address], [address] [place] [address] Braid Cutter: Young Ponce MD Cholesterol in HDL [Mass/Vol] 71 mg/dL Normal > OR = 50 [facility] Comment on above: Order Comment: FASTI NG:YES FASTING: YES Performed By: #### 7 600 #### [facility] [address], [address] [place] [address] Braid Cutter: Young Ponce MD Cholesterol in LDL [Mass/Vol] 136 mg/dL High [facility] Comment on above: Order Comment: FASTI NG:YES FASTING: YES Result Comment: Refe rence range: <100 Desirable range <100 mg/dL for primary prevention; <70 mg/dL for patients with CHD or diabetic patients with > or = 2 CHD risk factors. LDL-C is now calculated using the Beatriz calculation, which is a validated novel method providing better accuracy than the Friedewald equation in the estimation of LDL-C. Ronak THOMAS et al. ADELAIDE. 2013;310(19): 1774-5692 (http://education.[employer]/faq/QJZ194) Performed By: #### 7 600 #### [facility] [address], [address] [place] [address] Braid Cutter: Young Ponce MD Cholesterol.total/Choles terol in HDL [Mass ratio] 3.2 {ratio} Normal <5.0 [facility] Comment on above: Order Comment: FASTI NG:YES FASTING: YES Performed By: #### 7 600 #### [facility] [address], [address] [place] [address] Braid Cutter: Young Ponce MD NON HDL CHOLESTEROL 154 mg/dL (calc) High <130 [facility] Comment on above: Order Comment: FASTI NG:YES FASTING: YES Result Comment: For patients with diabetes plus 1 major ASCVD risk factor, treating to a non-HDL-C goal of <100 mg/dL (LDL-C of <70 mg/dL) is considered a therapeutic option. Performed By: #### 7 600 #### [facility] [place] [address], [address] [place] [address] Braid Cutter: Young Ponce MD Triglyceride [Mass/Vol] 82 mg/dL Normal <150 [facility] Comment on above: Order Comment: FASTI NG:YES FASTING: YES Performed By: #### 7 600 #### [facility] [address], [address] [place] [address] Braid Cutter: Young Ponce MD Radiologyon 03-10-2022 XR Chest 2 Views Normal -[facility] 600 DO Work Phone: Office Visit (Cardiology)on 03-04-2022 Follow-up visit Diagnoses/Problems Assessed Chest pain (786.50) (R07.9) Former smoker (V15.82) (Z87.891) quit 05/2018 Hyperlipidemia (272.4) (E78.5) Premature ventricular contraction (427.69) (I49.3) Shortness of breath on exertion (786.05) (R06.02) Body mass index (BMI) of 23.0 to 23.9 in adult (V85.1) (Z68.23) Orders Chest pain, Hyperlipidemia, Shortness of breath on exertion Lipid Panel; Status:Active - Retrospective Authorization; Requested for:04Mar2022; Chest pain, Shortness of breath on exertion Cardiac Stress Test; Status:Hold For - Scheduling,Retrospect jasvir Authorization; Requested for:04Mar2022; IO EKG Electrocardiogram- 12 Lead; Status:Complete; Done: 04Mar2022 Shortness of breath on exertion Xray Chest 2 View PA + Lateral; Status:Hold For - Scheduling,Retrospect jasvir Authorization; Requested for:04Mar2022; Radiologist to Determine Optimal Study : Y What are the patient's signs and symptoms? : dyspnea SocHx: Former smoker Tobacco Use Screening; Status:Complete; Done: 04Mar2022 Patient Instructions Please bring all medicines, vitamins, and herbal supplements with you when you come to the office. Prescriptions will not be filled unless you are compliant with your follow up appointments or have a follow up appointment scheduled as per instruction of your physician. Refills should be requested at the time of your visit. GXT Chest x ray Lipid Follow up in 2 months The provider reviewed the following test(s) and result(s) with the patient: ECG Chief Complaint MIRA GONSALVES is being seen for a cardiovascular evaluation. MIRA GONSALVES is being seen for chest pain. History of Present Illness Patient is here for cardiovascular evaluation for symptoms of chest pain I documented that were similar presentation. Previous medical work-up included a stress test and echocardiogram which was negative. Her symptoms felt to be either GI in nature or musculoskeletal. The patient had a previous history of resection of the lung Bleb By Dr. Erickson 2008. She report recent increase in frequency of her chest pain. She will few days ago she had an episode lasted almost the whole day. That when she put her hand on her chest and pressed against the area. She intermittent shortness of breath. She is described functional class I. There is no clear associated, precipitating or alleviating factors. ASSESSMENT: 1. Atypical chest pain appears musculoskeletal or pleuritic 2. reformed smoker 3. hyperlipidemia. Does not meet criteria for treatment 4. minor shortness breath related to prior tobacco use 5. Documentation of few premature ventricular contractions, felt to be benign. In the past with no recurrence RECOMMENDATION: 1. The patient was advised to proceed with GXT. 2. I advised her to have a chest x-ray and lipid profile 3. I recommended a trial of metoprolol 4. I advised her to notify me with changes of cardiac status or symptoms I will see her back in 2-3 Follow-up Active Problems Problems Chest pain (786.50) (R07.9) Former smoker (V15.82) (Z87.891) quit 05/2018 Hyperlipidemia (272.4) (E78.5) Premature ventricular contraction (427.69) (I49.3) Shortness of breath on exertion (786.05) (R06.02) Surgical History Problems History of Complete colonoscopy History of Lung surgery History of Tonsillectomy with adenoidectomy Current Meds Medication NameInstruction Acetaminophen-Codeine #3 300-30 MG Oral TabletTAKE 1 TABLET BY MOUTH THREE TIMES A DAY NEEDED ALPRAZolam 0.25 MG Oral TabletTAKE TABLET PRN Cyclobenzaprine HCl - 10 MG Oral TabletTAKE TABLET PRN Omeprazole 20 MG Oral Capsule Delayed ReleaseTAKE 1 CAPSULE Daily Allergies Medication No Known Drug Allergies Recorded By: Sandy Yates; 03/03/2022 3:53:25 PM Social History Problems Caffeine use (V49.89) (Z78.9) 2 cups coffee daily, couple sodas daily Consumes alcohol (V49.89) (Z78.9) social Former smoker (V15.82) (Z87.891) quit 05/2018 No illicit drug use Review of Systems Constitutional: not feeling tired. Eyes: no eyesight problems. ENT: no hearing loss and no nosebleeds. Cardiovascular: chest pain and palpitations, but no intermittent leg claudication and as noted in HPI. Respiratory: shortness of breath, but no chronic cough. Gastrointestinal: no change in bowel habits and no blood in stools. Genitourinary: no urinary frequency. Skin: no skin rashes. Neurological: dizziness, but no seizures and no frequent falls. Psychiatric: no depression and not suicidal. All other systems have been reviewed and are negative for complaint. Vitals Vital Signs Recorded: 04Mar2022 01:31PMRecorded: 04Mar2022 01:30PM Heart Rate81, Zcauyo38, Apical Qdspauag119, LUE, Fbizoit582, RUE, Sitting Bgtczsrgm67, LUE, Lbthlkr53, RUE, Sitting Height5 ft 4 in5 ft 4 in Jfrwfg661 lb 139 lb BMI Oikqvxbqgq73.86 kg/m223.86 kg/m2 BSA Calculated1.681.68 Tobacco Useb) No PHQ-2 #1. Over the last 2 weeks have you felt down, depre (more content not included)... Normal [facility] Tobacco Screening.on 022 Adult depression screening assessment No [facility] 600 DO Work Phone: Tobacco use status [facility] b) No [facility] 600 DO Work Phone: ASYMPTOMATIC COVID-19 ANTIGE Non 02-03-2022 EUA Statement SEE BELOW Normal [facility] Comment on above: Result Comment: This test has not been FDA cleared or approved, but has been authorized by the FDA under an Emergency Use Authorization (EUA) for use by authorized laboratories certified under CLIA that meet the requirements to perform moderate or high complexity testing. This test has been authorized only for the detection of proteins from SARS-CoV-2, not for any other viruses or pathogens. The emergency use of this test is authorized for the duration of the declaration that circumstances exist justifying the authorization of emergency use of in vitro diagnostic tests for detection and/or diagnosis of Covid-19 under section 564(b)(1) of the Act, 21 U.S.C. 360bbb-3(b)(1), unless the declaration is terminated or authorization is revoked sooner. Performed By: #### C VDAGA #### [facility] [address] [place] [address] Dr. Espinoza Turner SARS-CoV-2 (COVID-19) RNA JOEY+probe Ql (Unsp spec) Positive Critically abnormal NEGATIVE [facility] Comment on above: Result Comment: SARS -CoV-2 antigen present; does not rule out coinfection with other pathogens. Performed By: #### C VDAGA #### [facility] [address] [place] [address] Dr. Espinoza Turner [facility] SARS-CoV-2 (COVID-19) RNA JOEY+probe Ql (Unsp spec) Detected Critically abnormal NOT DETECTED [facility] Comment on above: Result Comment: This test is not yet approved or cleared by the [place] FDA. When there are no FDA-approved or cleared tests available, and other criteria are met, FDA can make tests available under an emergency access mechanism called an Emergency Use Authorization (EUA). The EUA for this test is supported by the Cosmetic Chemist of Health and Human Service's declaration that circumstances exist to justify the emergency use of in vitro diagnostics for the detection and/or diagnosis of the virus that causes COVID-19. This EUA will remain in effect for the duration of the COVID-19 declaration justifying emergency of IVDs, unless it is terminated or revoked by the FDA (after which the test may no longer be used). Performed By: #### C VDTBH #### [facility] [address] [place] [address] Dr. Espinoza Turner Coding Summary.on 12-18-2019 Coding Summary. CODING DATE: 12/18/2019 [facility] STATUS: Home (Routine DC) PAYOR: Self Pay APC DESCRIPTION 5571 Level 1 Imaging with Contrast 5693 Level 3 Drug Administration 5025 Level 5 Type A ED Visits ADMIT DX: REASON FOR VISIT DX: R07.9 Chest pain, unspecified M54.9 Dorsalgia, unspecified R11.0 Nausea FINAL DX: PRINCIPAL: R09.81 Nasal congestion SECONDARY: M54.9 Dorsalgia, unspecified PYMT PROC APC STAT DESCRIPTION DOCTOR NAME DATE NOTE: The code number assigned matches the documented diagnosis and / or procedure in the patient's chart. However, the narrative phrase printed from the coding software may appear abbreviated, or result in slightly different terminology. Revised Coded By: Alice Max Revised Date Saved: 12/18/2019 04:36 pm Normal [facility] Auto Diffon 12-14-2019 Basophils/100 WBC (Bld) 0.8 % Normal 0.0-2.0 [facility] Comment on above: Order Comment: Order Added by Discern Expert. Performed By: #### 2 615784, 6669819, 9768434, 4317695, 9311824, 08114285, 40954771, 22787655, 77134532, 6353950 #### [facility] [address] [place] [address] Basophils/Leukocytes Auto (Bld) [Pure # fraction] 0.1 E9/L Normal 0.0-0.2 [facility] Comment on above: Order Comment: Order Added by Discern Expert. Performed By: #### 2 641770, 0123771, 0575250, 3721733, 1296522, 35585832, 50215709, 04385485, 55095983, 1491183 #### [facility] [address] [place] [address] Eosinophils/100 WBC (Bld) 1.1 % Normal 0.0-8.0 [facility] Comment on above: Order Comment: Order Added by Discern Expert. Performed By: #### 2 215523, 5208687, 2427289, 5639590, 7289876, 70023596, 09439297, 31925980, 16717342, 6334201 #### [facility] [address] [place] [address] Eosinophils/Leukocytes Auto (Bld) [Pure # fraction] 0.1 E9/L Normal 0.0-0.5 [facility] Comment on above: Order Comment: Order Added by Discern Expert. Performed By: #### 2 928845, 1006447, 8372200, 5039436, 4828240, 50087510, 57797199, 14645935, 78788992, 5496926 #### [facility] [address] [place] [address] Lymphocytes/100 WBC (Bld) 29.5 % Normal 14.0-50.0 [facility] Comment on above: Order Comment: Order Added by Discern Expert. Performed By: #### 2 062479, 9570310, 3878602, 8272468, 4005085, 71068862, 13203037, 93917701, 73063941, 0727747 #### [facility] [address] [place] [address] Lymphocytes/Leukocytes Auto (Bld) [Pure # fraction] 2.1 E9/L Normal 1.0-4.0 [facility] Comment on above: Order Comment: Order Added by Discern Expert. Performed By: #### 2 078663, 0104280, 2937982, 1979471, 5325744, 18169409, 02711768, 46073856, 34330042, 5025200 #### [facility] [address] [place] [address] Monocytes/100 WBC (Bld) 10.5 % Normal 4.0-14.0 [facility] Comment on above: Order Comment: Order Added by Discern Expert. Performed By: #### 2 027107, 9002282, 5765826, 8003441, 0057349, 95878012, 85762054, 18836581, 50983745, 8183163 #### [facility] [address] [place] [address] Monocytes/Leukocytes Auto (Bld) [Pure # fraction] 0.7 E9/L Normal 0.2-1.0 [facility] Comment on above: Order Comment: Order Added by Discern Expert. Performed By: #### 2 561436, 0416678, 7618728, 0798655, 3734547, 99438808, 82997022, 54184068, 64255506, 0495444 #### [facility] [address] [place] [address] Neutrophils/100 WBC (Bld) 58.1 % Normal 36.0-75.0 [facility] Comment on above: Order Comment: Order Added by Discern Expert. Performed By: #### 2 769140, 0706811, 1984215, 6066329, 4463726, 62495387, 62478731, 49309914, 69227754, 8813266 #### [facility] [address] [place] [address] Neutrophils/Leukocytes Auto (Bld) [Pure # fraction] 4.1 E9/L Normal 2.0-7.5 [facility] Comment on above: Order Comment: Order Added by Discern Expert. Performed By: #### 2 224145, 8782763, 2912158, 5826643, 8336387, 51217624, 08217282, 02253025, 15897294, 7034523 #### [facility] [address] [place] [address] BMPon 12-14-2019 Creatinine [Mass/Vol] 0.9 mg/dL Normal 0.5-1.3 [facility] Comment on above: Performed By: #### 2 006164, 0072211, 8678958, 4389455, 8323238, 58060244, 42511972, 44745339, 12670224, 1421950 #### [facility] [address] [place] [address] Urea nitrogen [Mass/Vol] 14 mg/dL Normal - [facility] Comment on above: Performed By: #### 2 917372, 9221447, 2913744, 0449941, 4174509, 35333076, 51602101, 27840098, 26552881, 3878325 #### [facility] [address] [place] [address] Urea nitrogen/Creatinine [Mass ratio] 16 No Units Normal 10-20 [facility] Comment on above: Performed By: #### 2 668924, 3990283, 5804701, 8082028, 7491645, 66166358, 58787399, 01421998, 82949186, 2833016 #### [facility] [address] [place] [address] Anion gap [Moles/Vol] 13 mmol/L Normal 6-16 [facility] Comment on above: Performed By: #### 2 874490, 3139151, 3159506, 1897380, 3307356, 75546773, 39161995, 37475016, 78340323, 0407877 #### [facility] [address] [place] [address] Calcium [Mass/Vol] 8.8 mg/dL Low 8.9-11.1 [facility] Comment on above: Performed By: #### 2 477445, 3533640, 8287121, 7577387, 7683554, 05381196, 02907478, 06050459, 61369201, 7455247 #### [facility] [address] [place] [address] Chloride [Moles/Vol] 102 mmol/L Normal 101-111 [facility] Comment on above: Performed By: #### 2 600764, 1499267, 0360501, 1343897, 0653683, 38128630, 40295119, 98243742, 43249570, 5942724 #### [facility] [address] [place] [address] CO2 [Moles/Vol] 24 mmol/L Normal 21-31 [facility] Comment on above: Performed By: #### 2 860907, 0166013, 6790286, 9778902, 7584304, 36149793, 75621107, 37152153, 73462033, 0118257 #### [facility] [address] [place] [address] Glucose [Mass/Vol] 106 mg/dL Normal 55-199 [facility] Comment on above: Result Comment: If t his glucose result represents a fasting glucose, interpretation should refer to the following reference range: 55-99 mg/dL Performed By: #### 2 105269, 2069944, 3361542, 0526055, 6362866, 08964288, 32962379, 30221440, 66650974, 2739664 #### [facility] [address] [place] [address] Potassium [Moles/Vol] 4.0 mmol/L Normal 3.5-5.3 [facility] Comment on above: Performed By: #### 2 178801, 7103390, 9152995, 8596183, 6346659, 16929156, 70397652, 09048882, 39756673, 7998702 #### [facility] [address] [place] [address] Sodium [Moles/Vol] 135 mmol/L Normal 135-145 [facility] Comment on above: Performed By: #### 2 889426, 2549179, 3840071, 0394858, 0442801, 50315507, 39603300, 57908897, 54297809, 6363410 #### [facility] [address] [place] [address] CBC w/ Auto Diffon 0 Erythrocyte distribution width (RBC) [Ratio] 14.0 % Normal 10.9-14.2 [facility] Comment on above: Performed By: #### 2 842745, 4085587, 2190662, 8044627, 2292521, 52748416, 75919249, 18029843, 01535318, 6633989 #### [facility] [address] [place] [address] Hematocrit (Bld) [Volume fraction] 36.5 % Normal 34.0-46.0 [facility] Comment on above: Performed By: #### 2 487522, 1136335, 9337192, 3520351, 2593236, 67811339, 11971407, 37955546, 77985681, 1646576 #### [facility] [address] [place] [address] Hemoglobin (Bld) [Mass/Vol] 12.4 g/dL Normal 12.0-16.0 [facility] Comment on above: Performed By: #### 2 073613, 0475845, 7743655, 6678886, 6883252, 88840632, 43848143, 89871488, 04866203, 0351865 #### [facility] [address] [place] [address] MCH (RBC) [Entitic mass] 30.3 pg Normal 27.0-34.0 [facility] Comment on above: Performed By: #### 2 037082, 3849383, 4646362, 9882792, 3764269, 92181715, 27054524, 05688604, 02299012, 7623290 #### [facility] [address] [place] [address] MCHC (RBC) [Mass/Vol] 34.0 g/dL Normal 31.4-36.0 [facility] Comment on above: Performed By: #### 2 947466, 8710727, 2029335, 7493296, 3005118, 31058486, 89481720, 63328377, 59493346, 2684672 #### [facility] [address] [place] [address] MCV (RBC) [Entitic vol] 89.1 fL Normal 80.0-100.0 [facility] Comment on above: Performed By: #### 2 769126, 6900556, 4803083, 5817507, 7745374, 22981757, 07313359, 43986673, 62640267, 6911074 #### [facility] [address] [place] [address] Platelet mean volume (Bld) [Entitic vol] 8.3 fL Normal 6.4-10.8 [facility] Comment on above: Performed By: #### 2 105280, 5808015, 7294031, 7277742, 7617996, 40206090, 08365756, 29679687, 94840606, 2436493 #### [facility] [address] [place] [address] Platelets (Bld) [#/Vol] 207.0 E9/L Normal 150.0-500.0 [facility] Comment on above: Performed By: #### 2 273421, 1418160, 9353282, 1873234, 1730475, 25140349, 51332465, 03512661, 57553670, 5900233 #### [facility] [address] [place] [address] RBC (Bld) [#/Vol] 4.1 E12/L Low 4.3-5.9 [facility] Comment on above: Performed By: #### 2 529431, 6219982, 8520136, 8251738, 6380509, 66909212, 23560902, 18477218, 01109905, 5341469 #### [facility] [address] [place] [address] WBC corrected for nucl RBC Auto (Bld) [#/Vol] 7.1 E9/L Normal 4.0-11.0 [facility] Comment on above: Performed By: #### 2 991466, 1108567, 5229934, 6834003, 1207974, 69659397, 27097557, 21155611, 95633516, 6478743 #### [facility] [address] [place] [address] CRPon 12-14-2019 CRP [Mass/Vol] mg/L Normal <=1.9 [facility] Comment on above: Performed By: #### 2 991079, 4619306, 7761684, 4139691, 2826449, 92045461, 05348055, 30747358, 83038715, 6637475 #### [facility] [address] [place] [address] CTA Cheston 12-14-2019 CTA Chest Exam Date/Time: 12/14/2019 13:55 EDT Reason for Exam: PE suspected, high prob;Other (please specify) Report IMPRESSION: NO EVIDENCE OF PULMONARY EMBOLI OR ACUTE FINDINGS IN THE CHEST. COPD, WHICH IS BEST EVALUATED CLINICALLY. EXAM: CTA Chest DATE: 12/14/2019 CLINICAL HISTORY: PE suspected, high prob. COMPARISON: Chest pain. History of left pneumothorax with surgery. TECHNIQUE: Spiral enhanced images were obtained of the chest after the infusion of approximately 58 mL of Isovue 370 contrast with pulmonary artery CTA protocol. Routine and volume rendered images were performed on a three-dimensional workstation. All CT scans at this facility use dose modulation, iterative reconstruction, and/or weight based dosing when appropriate to reduce radiation dose to as low as reasonably achievable. FINDINGS: There are no filling defects identified within the pulmonary arterial vasculature to suggest pulmonary emboli. Moderately advanced centrilobular emphysematous changes are present, predominantly of the mid and upper lung siegel without significant labs or bowel. Postoperative changes within the medial left lung apex are otherwise unremarkable. Mild scarring and/or atelectasis is present in the lung apices and posterior bases. There are no other significant infiltrates, worrisome nodules, lymphadenopathy, pleural or pericardial effusions. There are no fractures identified. The limited imaging of the included upper abdomen Report is noncontributory. FINAL REPORT Dictated: 12/14/2019 2:10 pm Jesús Maddox MD Signed (Electronic Signature): 12/14/2019 2:10 pm Signed by: Jesús Maddox MD Transcribed by: CASIE Technologist: CONNER Technical Comments GFR (mL/min/1/73m2) 60 Contrast: Isovue 300 Contrast amount in ml's: 58 Normal [facility] Consent for Treatmenton 11-24 Consent for Treatment [id number] .00CD:127 Normal [facility] Discharge Instructionson Discharge Instructions [id number] 1.00CD:127 Normal [facility] ED Clinical Summaryon 2019 ED Clinical Summary [address] [address] ED Clinical Summary Person Information Name: MIRA GONSALVES[place] Age: 49 Years : 1970 Sex: Female Language: Anguillan PCP: BOBBY CALI MD Marital Status: Visit Id: Visit Reason: Chest pain; cp Speciality: Acuity: 3 Enc Type: Emergency Med Service: Emergency Arrival: 12/14/2019 12:14:46 Discharge: 12/14/2019 15:17:00 LOS: 000 03:03 Checkin: 12/14/2019 12:14:46 Checkout: 12/14/2019 15:17:00 Dispo Type: Home (Routine DC) EVENTS: Event Name Event Status Request Date/Time Start Date/Time Complete Date/Time Arrive Complete 12/14/2019 12:14:46 12/14/2019 12:14:46 12/14/2019 12:14:46 Document Home Meds Request 12/14/2019 12:14:46 Triage Complete 12/14/2019 12:14:46 12/14/2019 12:23:44 12/14/2019 12:23:44 Dr Exam Complete 12/14/2019 12:16:44 12/14/2019 12:16:44 12/14/2019 12:16:44 Registration Complete 12/14/2019 12:16:44 12/14/2019 12:18:02 12/14/2019 13:02:59 Bed Assign Complete 12/14/2019 12:18:02 12/14/2019 12:18:02 12/14/2019 12:18:02 RN Exam Complete 12/14/2019 12:18:02 12/14/2019 12:31:30 12/14/2019 12:31:30 EKG Complete 12/14/2019 12:18:42 12/14/2019 12:24:00 Meds Admin Request 12/14/2019 12:31:14 Pending Labs Request 12/14/2019 12:31:14 Lab Complete 12/14/2019 12:31:14 12/14/2019 13:12:58 Patient Care Request 12/14/2019 12:31:14 Pending Labs Complete 12/14/2019 12:50:26 12/14/2019 12:50:26 12/14/2019 13:12:59 Lab Complete 12/14/2019 12:50:26 12/14/2019 12:50:26 12/14/2019 13:12:59 Pending Labs Complete 12/14/2019 12:58:47 12/14/2019 12:58:47 12/14/2019 12:58:57 Lab Complete 12/14/2019 12:58:47 12/14/2019 12:58:47 12/14/2019 12:58:57 Reg Complete Request 12/14/2019 13:02:59 Reg Bed Request Complete 12/14/2019 13:02:59 12/14/2019 13:02:59 12/14/2019 13:02:59 CT Complete 12/14/2019 13:16:31 12/14/2019 13:25:58 12/14/2019 13:55:27 Pending Labs Cancel 12/14/2019 13:19:32 12/14/2019 14:09:40 Lab Cancel 12/14/2019 13:19:32 12/14/2019 14:09:40 Pending Labs Complete 12/14/2019 14:04:59 12/14/2019 14:04:59 12/14/2019 14:20:03 Pending Labs Complete 12/14/2019 14:10:17 12/14/2019 14:10:17 12/14/2019 14:21:02 Lab Complete 12/14/2019 14:10:17 12/14/2019 14:10:17 12/14/2019 14:21:02 Discharge Complete 12/14/2019 14:40:32 12/14/2019 15:17:05 12/14/2019 15:17:05 Transfer Complete 12/14/2019 15:17:05 12/14/2019 15:17:05 12/14/2019 15:17:05 ADDRESS: [place] [id number] PHYS DOC NOTES: MEDICAL INFORMATION: Prescriptions Given: PATIENT EDUCATION INFORMATION: Instructions: Smoking Cessation; Chest Pain (Nonspecific); Pleurisy Follow up: With: Address: When: BOBBY CALI [address] [id number] Business (1) Within 2 to 3 days Comments: Return to ED if symptoms worsen. Call Dr. Cali for a follow up appointment. DIAGNOSIS: 1:Back pain; 2:Pleurisy Normal [facility] ED Note-Physicianon 12-14-19 ED Note-Physician Basic Information Time Seen: Giovana Patterson DO 12/14/2019 12:16 Chief Complaint pt arrived via private vehicle, c/o chest pain that radiates up her neck for a week, +nausea denies vomiting, cough, fever. History of Present Illness Pt 49 yo female presents with back pain and sensation that her lungs are burning. Onset of symptoms about three weeks ago. She had pain and swelling in her right leg, pain behind her right knee. Seen by her PCP and had outpatient D-dimer that she reports was less than 250 four days ago. Her leg pain and swelling then resolved. During that time she had some mild to moderate discomfort to the mid back region on the right side more than the left side. Two days ago she noted that her back was hurting more and her lungs felt like they were burning. She does not feel short of breath and has not been coughing. Two days ago she noted blue discoloration to the tips of the four fingers in her right hand only, she was able to feel a pulse in her hand and her fingers did not feel cold. She took a shower, had dinner and her fingers looked better. Yesterday she did not feel too bad. Today her back pain continued and she developed nausea. No vomiting or diarrhea. No abdominal pain. No current leg pain or swelling. No headache, neck pain, focal extremity weakness, numbness, tingling, fevers, sore throat, dizziness, syncope, rashes, problems urinating, changes in activity level or falls. Previous spontaneous pneumothorax x3 on the left side that require surgery. Reports negative cardiac echo within the past few years. Smoker. Recent stressors with of a pet, starting a new job and youngest child left for college. Review of Systems All organ systems are reviewed. Pertinent positive and negative findings as mentioned in the HPI. Physical Exam Vitals & Measurements T: 37.2 ?C (Oral) HR: 66(Monitored) RR: 16 BP: 145/97 SpO2: 100% HT: 160 cm HT: 160.0 cm WT: 53.3 kg WT: 53.3 kg BMI: 20.82 Appropriate healthcare PPE was used in evaluating this patient. The patient was placed in a mask. The healthcare provider was wearing N95 mask, gloves, eye protection and utilizing proper hand hygiene. All equipment was properly cleansed. General: alert, no acute distress, here alone Skin: warm, dry, intact, no rashes, no petechiae, no cyanosis, no bruises Head: atraumatic, normocephalic Neck: full ROM, no tenderness to palpation Eye: vision grossly intact, clear conjunctiva ENT: moist mucous membranes, nares clear, voice normal Cardiovascular: regular rate and rhythm, no murmur, symmetric distal pulses palpated, no edema Respiratory: Lungs CTA, no wheezes/rales/rhonchi , non-labored Chest wall: no tenderness with palpation Gastrointestinal: soft, non-tender, normal bowel sounds, no guarding/rebound tenderness/rigidity, thin build Back: full ROM, no tenderness with palpation Extremities: no deformity, full ROM, normal strength, ambulatory Neurological: alert and oriented, normal speech, normal sensory and motor exam Medical Decision Making 1317: Re-examined, nausea improved. Discussed ED tests. 1435: CT results discussed with Pt. She is feeling much relieved at this time. Pt with symptoms for the past few days, constant and constant all day today. Negative work up in the ED with normal troponin, EKG with no ischemic changes, CTA with no acute findings. Pt was offered hospital observation but she feels well enough to go home. She will call her PCP for a follow up appointment. Assessment/Plan 1. Back pain (M54.9: Dorsalgia, unspecified) 2. Pleurisy (R09.1: Pleurisy) Orders: aspirin, 162 mg = 2 tab(s), Tab-Chew, Oral, Once, Stop date 12/14/19 12:30:00 EDT, STAT, Start date 12/14/19 12:30:00 EDT ondansetron, 4 mg = 2 mL, Injection, IV Push, Once, Stop date 12/14/19 12:30:00 EDT, STAT, Start date 12/14/19 12:30:00 EDT Sodium Chloride 0.9% intravenous solution 1,000 mL, 1,000 mL, IV, 75 mL/hr, STAT, Start date 12/14/19 12:30:00 EDT, 13.3 hour(s), Total volume (mL): 1,000, 53.3 kg, 1.54, m2 Automated Diff Basic Metabolic Panel C-Reactive Protein CBC w/ Auto Diff CTA Chest ECG 12 Lead Adult ED Cardiac Monitoring eGFR Hepatic Function Panel Lipase Level Oxygen Saturation PT & PTT Saline Lock Insert Sedimentation Rate Automated Troponin 0 Hr. Troponin 3 Hr. Medications Administered Given Sodium Chloride 0.9% IV Nery 1000 mL 1,000 mL, 1000 mL, IV aspirin 81 mg Chew Tab, 162 mg, Oral Zofran 4 mg/2 mL Injection, 4 mg, IV Push Disposition Plan Patient Discharge Condition Stable Discharge Disposition Home Discharge Prescription List Prescriptions No active prescription medications Follow-up With When Contact Information BOBBY CALI Within 2 to [address] [place] [address] Business (1) Additional Instructions: Return to ED if symptoms worsen. Call Dr. Cali for a follow up appointment. Patient Education Smoking Cessation Chest Pain (Nonspecific) Pleurisy Problem List/Past Medical History Ongoing Smoker Historical No qualifying data Medications Inpatient Sodium Chloride 0.9% IV Nery 1000 mL 1,000 mL, 1000 mL, IV Home No active home medications Allergies No Known Medication Allergies Social History Alcohol - Denies Alcohol Use, 12/14/2019 Substance Abuse - Denies Substance Abuse, 12/14/2019 Tobacco - High Risk, 12/14/2019 Lab Results WBC: 7.1 E9/L (12/14/19 12:41:00) RBC: 4.1 E12/L Low (12/14/19 12:41:00) Hgb: 12.4 gm/dL (12/14/19 12:41:00) Hct: 36.5 % (12/14/19 12:41:00) MCV: 89.1 fL (12/14/19 12:41:00) MCH: 30.3 pg (12/14/19 12:41:00) MCHC: 34 gm/dL (12/14/19 12:41:00) RDW: 14 % (12/14/19 12:41:00) Platelet: 207 E9/L (12/14/19 12:41:00) MPV: 8.3 fL (12/14/19 12:41:00) Neutro Auto: 58.1 % (12/14/19 12:41:00) Lymph Auto: 29.5 % (12/14/19 12:41:00) [place] Auto: 10.5 % (12/14/19 12:41:00) Eos Auto: 1.1 % (12/14/19 12:41:00) Basophil Auto: 0.8 % (12/14/19 12:41:00) Neutro Absolute: 4.1 E9/L (12/14/19 12:41:00) Lymph Absolute: 2.1 E9/L (12/14/19 12:41:00) [place] Absolute: 0.7 E9/L (12/14/19 12:41:00) Eos Absolute: 0.1 E9/L (12/14/19 12:41:00) Basophil Absolute: 0.1 E9/L (12/14/19 12:41:00) Sed Rate Automated: 9 mm/hr (12/14/19 12:41:00) PT: 11.7 second(s) (12/14/19 12:41:00) INR: 1 (12/14/19 12:41:00) PTT: 26.6 second(s) (12/14/19 12:41:00) Glucose Lvl: 106 mg/dL (12/14/19 12:41:00) BUN: 14 mg/dL (12/14/19 12:41:00) Creatinine: 0.9 mg/dL (12/14/19 12:41:00) eGFR: >60 (12/14/19 12:41:00) eGFR AA: >60 (12/14/19 12:41:00) BUN/Creat Ratio: 16 (12/14/19 12:41:00) Sodium Lvl: 135 mmol/L (12/14/19 12:41:00) Potassium Lvl: 4 mmol/L (12/14/19 12:41:00) Chloride: 102 mmol/L (12/14/19 12:41:00) CO2: 24 mmol/L (12/14/19 12:41:00) AGAP: 13 mEq/L (12/14/19 12:41:00) Calcium Lvl: 8.8 mg/dL Low (12/14/19 12:41:00) Alk Phos: 44 Int._Unit/L (12/14/19 12:41:00) ALT: 14 Int._Unit/L (12/14/19 12:41:00) AST: 18 Int._Unit/L (12/14/19 12:41:00) Total Protein: 6.6 gm/dL (12/14/19 12:41:00) Albumin Lvl: 4 gm/dL (12/14/19 12:41:00) Globulin: 2.6 gm/dL (12/14/19 12:41:00) A/G Ratio: 1.5 (12/14/19 12:41:00) Bili Total: 0.6 mg/dL (12/14/19 12:41:00) Bili Direct: 0.1 mg/dL (12/14/19 12:41:00) Bili Indirect: 0.5 mg/dL (12/14/19 12:41:00) Lipase Lvl: 23 unit/L (12/14/19 12:41:00) CRP: <0.5 (12/14/19 12:41:00) Troponin: 2.4 pg/mL Low (12/14/19 12:41:00) Diagnostic Results CTA Chest 12/14/19 13:55:27 GFR (mL/min/1/73m2) 60 Contrast: Isovue 300 Contrast amount in ml?s: 58 Signed By: Jesús Maddox MD 12/14/19 14:13:22 IMPRESSION: NO EVIDENCE OF PULMONARY EMBOLI OR ACUTE FINDINGS IN THE CHEST. COPD, WHICH IS BEST EVALUATED CLINICALLY. EXAM: CTA Chest DATE: 12/14/2019 CLINICAL HISTORY: PE suspected, high prob. COMPARISON: Chest pain. History of left pneumothorax with surgery. TECHNIQUE: Spiral enhanced images were obtained of the chest after the infusion of approximately 58 mL of Isovue 370 contrast with pulmonary artery CTA protocol. Routine and volume rendered images were performed on a three-dimensional workstation. All CT scans at this facility use dose modulation, iterative reconstruction, and/or weight based dosing when appropriate to reduce radiation dose to as low as reasonably achievable. FINDINGS: There are no filling defects identified within the pulmonary arterial vasculature to suggest pulmonary emboli. Moderately advanced centrilobular emphysematous changes are present, predominantly of the mid and upper lung siegel without significant labs or bowel. Postoperative changes within the medial left lung apex are otherwise unremarkable. Mild scarring and/or atelectasis is present in the lung apices and posterior bases. There are no other significant infiltrates, worrisome nodules, lymphadenopathy, pleural or pericardial effusions. There are no fractures identified. The limited imaging of the included upper abdomen is noncontributory. Signed By: Jesús Maddox MD EKG Results EC12/14/19: SINUS RHYTHM POSSIBLE LEFT ATRIAL ENLARGEMENT POSSIBLE RIGHT VENTRICULAR CONDUCTION DELAY RATE 90, NORMAL W[place] AND QRS, NORMAL AXIS, NO PREVIOUS BORDERLINE ECG Signed By: Giovana Patterson DO 12/14/2019 12:31:43 Normal [facility] Comment on above: Result Comment: Elec tronically Signed By: Giovana Patterson DO\.br\Date and Time Signed: 12/14/19 14:43 EDT ED Patient Education Noteon 12-14-2019 ED Patient Education Note Family Medicine Smoking Cessation Quitting smoking is important to your health and has many advantages. However, it is not always easy to quit since nicotine is a very addictive drug. Oftentimes, people try 3 times or more before being able to quit. This document explains the best ways for you to prepare to quit smoking. Quitting takes hard work and a lot of effort, but you can do it. ADVANTAGES OF QUITTING SMOKING ? You will live longer, feel better, and live better. ? Your body will feel the impact of quitting smoking almost immediately. ? Within 20 minutes, blood pressure decreases. Your pulse returns to its normal level. ? After 8 hours, carbon monoxide levels in the blood return to normal. Your oxygen level increases. ? After 24 hours, the chance of having a heart attack starts to decrease. Your breath, hair, and body stop smelling like smoke. ? After 48 hours, damaged nerve endings begin to recover. Your sense of taste and smell improve. ? After 72 hours, the body is virtually free of nicotine. Your bronchial tubes relax and breathing becomes easier. ? After 2 to 12 weeks, lungs can hold more air. Exercise becomes easier and circulation improves. ? The risk of having a heart attack, stroke, cancer, or lung disease is greatly reduced. ? After 1 year, the risk of coronary heart disease is cut in half. ? After 5 years, the risk of stroke falls to the same as a nonsmoker. ? After 10 years, the risk of lung cancer is cut in half and the risk of other cancers decreases significantly. ? After 15 years, the risk of coronary heart disease drops, usually to the level of a nonsmoker. ? If you are , quitting smoking will improve your chances of having a healthy baby. ? The people you live with, especially any children, will be healthier. ? You will have extra money to spend on things other than cigarettes. QUESTIONS TO THINK ABOUT BEFORE ATTEMPTING TO QUIT You may want to talk about your answers with your health care provider. ? Why do you want to quit? ? If you tried to quit in the past, what helped and what did not? ? What will be the most difficult situations for you after you quit? How will you plan to handle them? ? Who can help you through the tough times? Your family? Friends? A health care provider? ? What pleasures do you get from smoking? What ways can you still get pleasure if you quit? Here are some questions to ask your health care provider: ? How can you help me to be successful at quitting? ? What medicine do you think would be best for me and how should I take it? ? What should I do if I need more help? ? What is smoking withdrawal like? How can I get information on withdrawal? GET READY ? Set a quit date. ? Change your environment by getting rid of all cigarettes, ashtrays, matches, and lighters in your home, car, or work. Do not let people smoke in your home. ? Review your past attempts to quit. Think about what worked and what did not. GET SUPPORT AND ENCOURAGEMENT You have a better chance of being successful if you have help. You can get support in many ways. ? Tell your family, friends, and coworkers that you are going to quit and need their support. Ask them not to smoke around you. ? Get individual, group, or telephone counseling and support. Programs are available at local hospitals and health centers. Call your local health department for information about programs in your area. ? Spiritual beliefs and practices may help some smokers quit. ? Download a quit meter on your computer to keep track of quit statistics, such as how long you have gone without smoking, cigarettes not smoked, and money saved. ? Get a self-help book about quitting smoking and staying off tobacco. LEARN NEW SKILLS AND BEHAVIORS ? Distract yourself from urges to smoke. Talk to someone, go for a walk, or occupy your time with a task. ? Change your normal routine. Take a different route to work. Drink tea instead of coffee. Eat breakfast in a different place. ? Reduce your stress. Take a hot bath, exercise, or read a book. ? Plan something enjoyable to do every day. Reward yourself for not smoking. ? Explore interactive web-based programs that specialize in helping you quit. GET MEDICINE AND USE IT CORRECTLY Medicines can help you stop smoking and decrease the urge to smoke. Combining medicine with the above behavioral methods and support can greatly increase your chances of successfully quitting smoking. ? Nicotine replacement therapy helps deliver nicotine to your body without the negative effects and risks of smoking. Nicotine replacement therapy includes nicotine gum, lozenges, inhalers, nasal sprays, and skin patches. Some may be available pyek-eux-[id number] and others require a prescription. ? Antidepressant medicine helps people abstain from smoking, but how this works is unknown. This medicine is available by prescription. ? Nicotinic receptor partial agonist medicine simulates the effect of nicotine in your brain. This medicine is available by prescription. Ask your health care provider for advice about which medicines to use and how to use them based on your health history. Your health care provider will tell you what side effects to look out for if you choose to be on a medicine or therapy. Carefully read the information on the package. Do not use any other product containing nicotine while using a nicotine replacement product. RELAPSE OR DIFFICULT SITUATIONS Most relapses occur within the first 3 months after quitting. Do not be discouraged if you start smoking again. Remember, most people try several times before finally quitting. You may have symptoms of withdrawal because your body is used to nicotine. You may crave cigarettes, be irritable, feel very hungry, cough often, get headaches, or have difficulty concentrating. The withdrawal symptoms are only temporary. They are strongest when you first quit, but they will go away within 10?14 days. To reduce the chances of relapse, try to: ? Avoid drinking alcohol. Drinking lowers your chances of successfully quitting. ? Reduce the amount of caffeine you consume. Once you quit smoking, the amount of caffeine in your body increases and can give you symptoms, such as a rapid heartbeat, sweating, and anxiety. ? Avoid smokers because they can make you want to smoke. ? Do not let weight gain distract you. Many smokers will gain weight when they quit, usually less than 10 pounds. Eat a healthy diet and stay active. You can always lose the weight gained after you quit. ? Find ways to improve your mood other than smoking. FOR MORE INFORMATION www.smokefree.gov Document Released: 04/05/2002 Document Revised: 08/26/2014 Document Reviewed: 07/20/2012 ExitCare? Patient Information ?2014 [employer]. This information is not intended to replace advice given to you by your health care provider. Make sure you discuss any questions you have with your health care provider. Chest Pain (Nonspecific) It is often hard to give a specific diagnosis for the cause of chest pain. There is always a chance that your pain could be related to something serious, such as a heart attack or a blood clot in the lungs. You need to follow up with your health care provider for further evaluation. CAUSES ? Heartburn. ? Pneumonia or bronchitis. ? Anxiety or stress. ? Inflammation around your heart (pericarditis) or lung (pleuritis or pleurisy). ? A blood clot in the lung. ? A collapsed lung (pneumothorax). It can develop suddenly on its own (spontaneous pneumothorax) or from trauma to the chest. ? Shingles infection (herpes zoster virus). The chest wall is composed of bones, muscles, and cartilage. Any of these can be the source of the pain. ? The bones can be bruised by injury. ? The muscles or cartilage can be strained by coughing or overwork. ? The cartilage can be affected by inflammation and become sore (costochondritis). DIAGNOSIS Lab tests or other studies may be needed to find the cause of your pain. Your health care provider may have you take a test called an ambulatory electrocardiogram (ECG). An ECG records your heartbeat patterns over a 24-hour period. You may also have other tests, such as: ? Transthoracic echocardiogram (TTE). During echocardiography, sound waves are used to evaluate how blood flows through your heart. ? Transesophageal echocardiogram (ASTRID). ? Cardiac monitoring. This allows your health care provider to monitor your heart rate and rhythm in real time. ? Holter monitor. This is a portable device that records your heartbeat and can help diagnose heart arrhythmias. It allows your health care provider to track your heart activity for several days, if needed. ? Stress tests by exercise or by giving medicine that makes the heart beat faster. TREATMENT ? Treatment depends on what may be causing your chest pain. Treatment may include: ? Acid blockers for heartburn. ? Anti-inflammatory medicine. ? Pain medicine for inflammatory conditions. ? Antibiotics if an infection is present. ? You may be advised to change lifestyle habits. This includes stopping smoking and avoiding alcohol, caffeine, and chocolate. ? You may be advised to keep your head raised (elevated) when sleeping. This reduces the chance of acid going backward from your stomach into your esophagus. Most of the time, nonspecific chest pain will improve within 2?3 days with rest and mild pain medicine. HOME CARE INSTRUCTIONS ? If antibiotics were prescribed, take them as directed. Finish them even if you start to feel better. ? For the next few days, avoid physical activities that bring on chest pain. Continue physical activities as directed. ? Do not use any tobacco products, including cigarettes, chewing tobacco, or electronic cigarettes. ? Avoid drinking alcohol. ? Only take medicine as directed by your health care provider. ? Follow your health care provider's suggestions for further testing if your chest pain does not go away. ? Keep any follow-up appointments you made. If you do not go to an appointment, you could develop lasting (chronic) problems with pain. If there is any problem keeping an appointment, call to reschedule. SEEK MEDICAL CARE IF: ? Your chest pain does not go away, even after treatment. ? You have a rash with blisters on your chest. ? You have a fever. SEEK IMMEDIATE MEDICAL CARE IF: ? You have increased chest pain or pain that spreads to your arm, neck, jaw, back, or abdomen. ? You have shortness of breath. ? You have an increasing cough, or you cough up blood. ? You have severe back or abdominal pain. ? You feel nauseous or vomit. ? You have severe weakness. ? You faint. ? You have chills. This is an emergency. Do not wait to see if the pain will go away. Get medical help at once. Call your local emergency services (911 in [place] Do not drive yourself to the hospital. MAKE SURE YOU: ? Understand these instructions. ? Will watch your condition. ? Will get help right away if you are not doing well or get worse. Document Released: 01/19/2006 Document Revised: 04/16/2014 Document Reviewed: 11/14/2008 ExitCare? Patient Information ?2015 [employer]. This information is not intended to replace advice given to you by your health care provider. Make sure you discuss any questions you have with your health care provider. Pleurisy Pleurisy is an inflammation and swelling of the lining of the lungs (pleura). Because of this inflammation, it hurts to breathe. It can be aggravated by coughing, laughing, or deep breathing. Pleurisy is often caused by an underlying infection or disease. HOME CARE INSTRUCTIONS Monitor your pleurisy for any changes. The following actions may help to alleviate any discomfort you are experiencing: ? Medicine may help with pain. Only take ilvk-[id number] or prescription medicines for pain, discomfort, or fever as directed by your health care provider. ? Only take antibiotic medicine as directed. Make sure to finish it even if you start to feel better. SEEK MEDICAL CARE IF: ? Your pain is not controlled with medicine or is increasing. ? You have an increase in pus-like (purulent) secretions brought up with coughing. SEEK IMMEDIATE MEDICAL CARE IF: ? You have blue or dark lips, fingernails, or toenails. ? You are coughing up blood. ? You have increased difficulty breathing. ? You have continuing pain unrelieved by medicine or pain lasting more than 1 week. ? You have pain that radiates into your neck, arms, or jaw. ? You develop increased shortness of breath or wheezing. ? You develop a fever, rash, vomiting, fainting, or other serious symptoms. MAKE SURE YOU: ? Understand these instructions. ? ? Will watch your condition. ? ? Will get help right away if you are not doing well or get worse. ? Document Released: 04/11/2006 Document Revised: 12/12/2013 Document Reviewed: 09/23/2013 ExitCare? Patient Information ?2015 [employer]. This information is not intended to replace advice given to you by your health care provider. Make sure you discuss any questions you have with your health care provider. Normal [facility] ED Patient Summaryon 020 ED Patient Summary [address], [place] [id number] Patient Discharge Instructions Person Information Name: MIRA GONSALVES Age: 49 Years Arrival Date: 12/14/2019 12:14:46 Discharge Diagnosis: 1:Back pain; 2:Pleurisy Primary Care Physician: BOBBY CALI MD Provider Information Primary Provider: Giovana Patterson DO Advanced Canopy Stringer:None The exam and treatment you received in the Emergency Department were for an urgent problem and are not intended as complete care. It is important that you follow up with a doctor, nurse practitioner, or physician?s entry level marketing assistant for ongoing care. If your symptoms become worse or you do not improve as expected and you are unable to reach your usual health care provider, you should return to the Emergency Department. We are available 24 hours a day. MIRA GONSALVES has been given the following list of patient education materials, prescriptions and follow-up instructions: Follow-up Instructions: With: Address: When: BOBBY CALI [address] [place] [address] [facility] (1) Within 2 to 3 days Comments: Return to ED if symptoms worsen. Call Dr. Cali for a follow up appointment. In the event that this physician does not participate in your insurance network, please consult with your insurance company to find a nearby participating provider. Patient Education Materials: Smoking Cessation; Chest Pain (Nonspecific); Pleurisy A MESSAGE TO ALL PATIENTS REGARDING OPIOIDS PRESCRIPTION OPIOIDS: WHAT YOU NEED TO KNOW Prescription opioids can be used to help relieve hxjswkmo-eg-ffiary pain and are often prescribed following a surgery or injury, or for certain health conditions. These medications can be an important part of the treatment but also come with serious risks. It is important to work with your healthcare provider to make sure you are getting the safest, most effective care. WHAT ARE THE RISKS AND SIDE EFFECTS OF OPIOID USE? Prescription opioids carry serious risks of addiction and overdose, especially with prolonged use. An opioid overdose, often marked by slowed breathing, can cause sudden . The use of prescription opioids can have a number of side effects as well, even when taken as directed: ? Tolerance?meaning you might need to take more of the medication for the same pain relief ? Physical dependence?meaning you have symptoms of withdrawal when a medication is stopped ? Increased sensitivity to pain ? Constipation ? Nausea, vomiting, and dry mouth ? Sleepiness and dizziness ? Confusion ? Depression ? Low levels of testosterone that can result in lower sex drive, energy, and strength ? Itching and sweating RISKS ARE GREATER WITH: ? History of drug misuse, substance use disorder, or overdose ? Mental health conditions (such as depression or anxiety) ? Sleep apnea ? Older age (65 years and older) ? Avoid alcohol while taking prescription opioids. Also, unless specifically advised by your health care provider, medications to avoid include: ? Benzodiazepines (such as Xanax or Valium) ? Muscle relaxants (such as Soma or Flexeril) ? Hypnotics (such as Ambien or Lunesta) ? Other prescription opioids KNOW YOUR OPTIONS Talk to your health care provider about ways to manage your pain that don?t involve prescription opioids. Some of these options may actually work better and have fewer risks and side effects. Options may include: ? Pain relievers such as acetaminophen, ibuprofen, and naproxen ? Some medication that are also used for depression or seizures ? Physical therapy and exercise ? Cognitive behavioral therapy, a psychological, goal-directed approach, in which patients learn how to modify physical, behavioral, and emotional triggers of pain and stress. IF YOU ARE PRESCRIBED OPIOIDS FOR PAIN: ? Never take opioids in greater amounts or more often than prescribed. ? Follow up with your primary health care provider. o Work together to create a plan on how to manage your pain. o Talk about ways to help manage your pain that don?t involve prescription opioids. o Talk about any and all concerns and side effects. ? Help prevent misuse and abuse o Never sell or share prescription opioids. o Never use another person?s prescription opioids. ? Store prescription opioids in a secure place and out of reach of others (this may include visitors, children, friends, and family). ? Safely dispose of unused prescription opioids: Find your community drug take-back program or your pharmacy mail-back program, or flush them down the toilet, following guidance from the Food and Drug Administration (www.fda.gov/Drugs/Re sourcesForYou). ? Visit www.cdc.gov/drugoverd ose to learn about the risks of opioids abuse and overdose. ? If you believe you may be struggling with addiction, tell your health day care teacher and ask for guidance or call SAMHSA?S National Helpline at 1-816-074-HELP. v Source: [place] Department of Health and Human Services/Center for Disease Control & Prevention [facility] Medications Given: Medication Dose Route Sodium Chloride 0.9% intravenous solution 1000.00 mL Initial Volume 75.00 mL/hr IV Right Antecubit [place] aspirin 162.00 mg Oral ondansetron 4.00 mg IV Push Right Antecubit [place] Medication Information: Comment: Pharmacy Information: Thank you for choosing [facility] Patient Education Materials: Smoking Cessation Quitting smoking is important to your health and has many advantages. However, it is not always easy to quit since nicotine is a very addictive drug. Oftentimes, people try 3 times or more before being able to quit. This document explains the best ways for you to prepare to quit smoking. Quitting takes hard work and a lot of effort, but you can do it. ADVANTAGES OF QUITTING SMOKING ? You will live longer, feel better, and live better. ? Your body will feel the impact of quitting smoking almost immediately. ? Within 20 minutes, blood pressure decreases. Your pulse returns to its normal level. ? After 8 hours, carbon monoxide levels in the blood return to normal. Your oxygen level increases. ? After 24 hours, the chance of having a heart attack starts to decrease. Your breath, hair, and body stop smelling like smoke. ? After 48 hours, damaged nerve endings begin to recover. Your sense of taste and smell improve. ? After 72 hours, the body is virtually free of nicotine. Your bronchial tubes relax and breathing becomes easier. ? After 2 to 12 weeks, lungs can hold more air. Exercise becomes easier and circulation improves. ? The risk of having a heart attack, stroke, cancer, or lung disease is greatly reduced. ? After 1 year, the risk of coronary heart disease is cut in half. ? After 5 years, the risk of stroke falls to the same as a nonsmoker. ? After 10 years, the risk of lung cancer is cut in half and the risk of other cancers decreases significantly. ? After 15 years, the risk of coronary heart disease drops, usually to the level of a nonsmoker. ? If you are , quitting smoking will improve your chances of having a healthy baby. ? The people you live with, especially any children, will be healthier. ? You will have extra money to spend on things other than cigarettes. QUESTIONS TO THINK ABOUT BEFORE ATTEMPTING TO QUIT You may want to talk about your answers with your health care provider. ? Why do you want to quit? ? If you tried to quit in the past, what helped and what did not? ? What will be the most difficult situations for you after you quit? How will you plan to handle them? ? Who can help you through the tough times? Your family? Friends? A health care provider? ? What pleasures do you get from smoking? What ways can you still get pleasure if you quit? Here are some questions to ask your health care provider: ? How can you help me to be successful at quitting? ? What medicine do you think would be best for me and how should I take it? ? What should I do if I need more help? ? What is smoking withdrawal like? How can I get information on withdrawal? GET READY ? Set a quit date. ? Change your environment by getting rid of all cigarettes, ashtrays, matches, and lighters in your home, car, or work. Do not let people smoke in your home. ? Review your past attempts to quit. Think about what worked and what did not. GET SUPPORT AND ENCOURAGEMENT You have a better chance of being successful if you have help. You can get support in many ways. ? Tell your family, friends, and coworkers that you are going to quit and need their support. Ask them not to smoke around you. ? Get individual, group, or telephone counseling and support. Programs are available at local hospitals and health centers. Call your local health department for information about programs in your area. ? Spiritual beliefs and practices may help some smokers quit. ? Download a quit meter on your computer to keep track of quit statistics, such as how long you have gone without smoking, cigarettes not smoked, and money saved. ? Get a self-help book about quitting smoking and staying off tobacco. LEARN NEW SKILLS AND BEHAVIORS ? Distract yourself from urges to smoke. Talk to someone, go for a walk, or occupy your time with a task. ? Change your normal routine. Take a different route to work. Drink tea instead of coffee. Eat breakfast in a different place. ? Reduce your stress. Take a hot bath, exercise, or read a book. ? Plan something enjoyable to do every day. Reward yourself for not smoking. ? Explore interactive web-based programs that specialize in helping you quit. GET MEDICINE AND USE IT CORRECTLY Medicines can help you stop smoking and decrease the urge to smoke. Combining medicine with the above behavioral methods and support can greatly increase your chances of successfully quitting smoking. ? Nicotine replacement therapy helps deliver nicotine to your body without the negative effects and risks of smoking. Nicotine replacement therapy includes nicotine gum, lozenges, inhalers, nasal sprays, and skin patches. Some may be available dnss-qpe-stthmab and others require a prescription. ? Antidepressant medicine helps people abstain from smoking, but how this works is unknown. This medicine is available by prescription. ? Nicotinic receptor partial agonist medicine simulates the effect of nicotine in your brain. This medicine is available by prescription. Ask your health care provider for advice about which medicines to use and how to use them based on your health history. Your health care provider will tell you what side effects to look out for if you choose to be on a medicine or therapy. Carefully read the information on the package. Do not use any other product containing nicotine while using a nicotine replacement product. RELAPSE OR DIFFICULT SITUATIONS Most relapses occur within the first 3 months after quitting. Do not be discouraged if you start smoking again. Remember, most people try several times before finally quitting. You may have symptoms of withdrawal because your body is used to nicotine. You may crave cigarettes, be irritable, feel very hungry, cough often, get headaches, or have difficulty concentrating. The withdrawal symptoms are only temporary. They are strongest when you first quit, but they will go away within 10?14 days. To reduce the chances of relapse, try to: ? Avoid drinking alcohol. Drinking lowers your chances of successfully quitting. ? Reduce the amount of caffeine you consume. Once you quit smoking, the amount of caffeine in your body increases and can give you symptoms, such as a rapid heartbeat, sweating, and anxiety. ? Avoid smokers because they can make you want to smoke. ? Do not let weight gain distract you. Many smokers will gain weight when they quit, usually less than 10 pounds. Eat a healthy diet and stay active. You can always lose the weight gained after you quit. ? Find ways to improve your mood other than smoking. FOR MORE INFORMATION www.smokefree.gov Document Released: 04/05/2002 Document Revised: 08/26/2014 Document Reviewed: 07/20/2012 ExitCare? Patient Information ?2014 [employer] [facility]. This information is not intended to replace advice given to you by your health care provider. Make sure you discuss any questions you have with your health care provider. Chest Pain (Nonspecific) It is often hard to give a specific diagnosis for the cause of chest pain. There is always a chance that your pain could be related to something serious, such as a heart attack or a blood clot in the lungs. You need to follow up with your health care provider for further evaluation. CAUSES ? Heartburn. ? Pneumonia or bronchitis. ? Anxiety or stress. ? Inflammation around your heart (pericarditis) or lung (pleuritis or pleurisy). ? A blood clot in the lung. ? A collapsed lung (pneumothorax). It can develop suddenly on its own (spontaneous pneumothorax) or from trauma to the chest. ? Shingles infection (herpes zoster virus). The chest wall is composed of bones, muscles, and cartilage. Any of these can be the source of the pain. ? The bones can be bruised by injury. ? The muscles or cartilage can be strained by coughing or overwork. ? The cartilage can be affected by inflammation and become sore (costochondritis). DIAGNOSIS Lab tests or other studies may be needed to find the cause of your pain. Your health care provider may have you take a test called an ambulatory electrocardiogram (ECG). An ECG records your heartbeat patterns over a 24-hour period. You may also have other tests, such as: ? Transthoracic echocardiogram (TTE). During echocardiography, sound waves are used to evaluate how blood flows through your heart. ? Transesophageal echocardiogram (ASTRID). ? Cardiac monitoring. This allows your health care provider to monitor your heart rate and rhythm in real time. ? Holter monitor. This is a portable device that records your heartbeat and can help diagnose heart arrhythmias. It allows your health care provider to track your heart activity for several days, if needed. ? Stress tests by exercise or by giving medicine that makes the heart beat faster. TREATMENT ? Treatment depends on what may be causing your chest pain. Treatment may include: ? Acid blockers for heartburn. ? Anti-inflammatory medicine. ? Pain medicine for inflammatory conditions. ? Antibiotics if an infection is present. ? You may be advised to change lifestyle habits. This includes stopping smoking and avoiding alcohol, caffeine, and chocolate. ? You may be advised to keep your head raised (elevated) when sleeping. This reduces the chance of acid going backward from your stomach into your esophagus. Most of the time, nonspecific chest pain will improve within 2?3 days with rest and mild pain medicine. HOME CARE INSTRUCTIONS ? If antibiotics were prescribed, take them as directed. Finish them even if you start to feel better. ? For the next few days, avoid physical activities that bring on chest pain. Continue physical activities as directed. ? Do not use any tobacco products, including cigarettes, chewing tobacco, or electronic cigarettes. ? Avoid drinking alcohol. ? Only take medicine as directed by your health care provider. ? Follow your health care provider's suggestions for further testing if your chest pain does not go away. ? Keep any follow-up appointments you made. If you do not go to an appointment, you could develop lasting (chronic) problems with pain. If there is any problem keeping an appointment, call to reschedule. SEEK MEDICAL CARE IF: ? Your chest pain does not go away, even after treatment. ? You have a rash with blisters on your chest. ? You have a fever. SEEK IMMEDIATE MEDICAL CARE IF: ? You have increased chest pain or pain that spreads to your arm, neck, jaw, back, or abdomen. ? You have shortness of breath. ? You have an increasing cough, or you cough up blood. ? You have severe back or abdominal pain. ? You feel nauseous or vomit. ? You have severe weakness. ? You faint. ? You have chills. This is an emergency. Do not wait to see if the pain will go away. Get medical help at once. Call your local emergency services (911 in [place] Do not drive yourself to the hospital. MAKE SURE YOU: ? Understand these instructions. ? Will watch your condition. ? Will get help right away if you are not doing well or get worse. Document Released: 01/19/2006 Document Revised: 04/16/2014 Document Reviewed: 11/14/2008 ExitCare? Patient Information ?2014 [employer]. This information is not intended to replace advice given to you by your health care provider. Make sure you discuss any questions you have with your health care provider. Pleurisy Pleurisy is an inflammation and swelling of the lining of the lungs (pleura). Because of this inflammation, it hurts to breathe. It can be aggravated by coughing, laughing, or deep breathing. Pleurisy is often caused by an underlying infection or disease. HOME CARE INSTRUCTIONS Monitor your pleurisy for any changes. The following actions may help to alleviate any discomfort you are experiencing: ? Medicine may help with pain. Only take qwdb-tjx-hlfkuth or prescription medicines for pain, discomfort, or fever as directed by your health care provider. ? Only take antibiotic medicine as directed. Make sure to finish it even if you start to feel better. SEEK MEDICAL CARE IF: ? Your pain is not controlled with medicine or is increasing. ? You have an increase in pus-like (purulent) secretions brought up with coughing. SEEK IMMEDIATE MEDICAL CARE IF: ? You have blue or dark lips, fingernails, or toenails. ? You are coughing up blood. ? You have increased difficulty breathing. ? You have continuing pain unrelieved by medicine or pain lasting more than 1 week. ? You have pain that radiates into your neck, arms, or jaw. ? You develop increased shortness of breath or wheezing. ? You develop a fever, rash, vomiting, fainting, or other serious symptoms. MAKE SURE YOU: ? Understand these instructions. ? ? Will watch your condition. ? ? Will get help right away if you are not doing well or get worse. ? Document Released: 04/11/2006 Document Revised: 12/12/2013 Document Reviewed: 09/23/2013 ExitCare? Patient Information ?2015 [employer]. This information is not intended to replace advice given to you by your health care provider. Make sure you discuss any questions you have with your health care provider. MAJOR Monroe AMY , have received the following patient education materials/instruction s and have verbalized understanding: Patient Education Materials: Smoking Cessation; Chest Pain (Nonspecific); Pleurisy Follow-up Instructions: With: Address: When: BOBBY CALI [address] [place] [address] Business (1) Within 2 to 3 days Comments: Return to ED if symptoms worsen. Call Dr. Cali for a follow up appointment. Patient Signature Date Clinician/Nurse Signature Date 12/14/2019 15:17:07 Normal [facility] Hep Func Panelon 12-14-2019 Albumin [Mass/Vol] 4.0 g/dL Normal 3.3-5.0 [facility] Comment on above: Performed By: #### 2 [id number], 6212351, 1052225, 7987651, 1679644, 50358852, 18970758, 20861300, 59316936, 9650536 #### [facility] [address] [place] [address] Albumin [Mass/Vol] 1.5 g/dL Normal 1.1-2.2 [facility] Comment on above: Performed By: #### 2 284647, 9711588, 5608592, 9797390, 0667120, 39070896, 21094739, 79815568, 10894287, 7472546 #### [facility] [address] [place] [address] ALP [Catalytic activity/Vol] 44 Int._Unit/L Normal 21-98 [facility] Comment on above: Performed By: #### 2 162664, 8925216, 5586663, 8573459, 5653709, 16431622, 88929227, 02076646, 70496872, 5853917 #### [facility] [address] [place] [address] ALT No additional P-5'-P [Catalytic activity/Vol] 14 Int._Unit/L Normal 6-46 [facility] Comment on above: Performed By: #### 2 871585, 3278552, 7668331, 0786902, 9685095, 79926984, 39763868, 26199658, 67930682, 6218462 #### [facility] [address] [place] [address] AST [Catalytic activity/Vol] 18 Int._Unit/L Normal 5-43 [facility] Comment on above: Performed By: #### 2 460783, 9501577, 6553783, 0817797, 2457204, 42480426, 75121047, 45358003, 18761162, 0306545 #### [facility] [address] [place] [address] Bilirubin [Mass/Vol] 0.6 mg/dL Normal 0.0-1.1 [facility] Comment on above: Performed By: #### 2 848174, 8421017, 0815467, 9738712, 1551170, 16421538, 32159575, 73581661, 04779551, 4802870 #### [facility] [address] [place], [place] [address] Bilirubin.direct [Mass/Vol] 0.1 mg/dL Normal 0.1-0.4 [facility] Comment on above: Performed By: #### 2 785360, 8689038, 1860839, 9201955, 8863867, 46913340, 72980580, 96013445, 41520004, 3531938 #### [facility] [address] [place] [address] Bilirubin.direct [Mass/Vol] 0.5 mg/dL Normal 0.1-0.9 [facility] Comment on above: Performed By: #### 2 556216, 7849462, 8184393, 0868412, 8987583, 19716245, 76818412, 04845250, 76204186, 5782291 #### [facility] [address] [place] [id number] Globulin (S) [Mass/Vol] 2.6 g/dL Normal 1.4-4.0 [facility] Comment on above: Performed By: #### 2 057701, 4523915, 6716489, 0435501, 8965389, 36946424, 93856894, 45530868, 26036010, 2668610 #### [facility] [address] [place] [address] Protein [Mass/Vol] 6.6 g/dL Normal 6.0-7.8 [facility] Comment on above: Performed By: #### 2 078914, 7079598, 0330211, 8460168, 1572534, 01238527, 05793233, 23569439, 89724750, 7052267 #### [facility] [address] [place] [address] Lipase Levelon 12-14-2019 Lipase [Catalytic activity/Vol] 23 unit/L Normal 13-58 [facility] Comment on above: Performed By: #### 2 328685, 1346113, 6642284, 4049366, 8744907, 84579523, 50755427, 54065909, 37087402, 8500651 #### [facility] [address] [place] [address] PT & PTTon 12-14-2019 aPTT Coag (PPP) [Time] 26.6 second(s) Normal 25.1-36.5 [facility] Comment on above: Result Comment: Hepa rin therapeutic range (represented by Anti-Factor Xa activity of 0.2 - 0.4 U/mL) corresponds to PTT of 56.6 - 109.0 sec. Performed By: #### 2 538811, 5545004, 7398040, 4936668, 3783755, 46411282, 37247644, 00457743, 45338428, 9015301 #### [facility] [address] [place] [address] INR Coag (PPP) [Relative time] 1.0 {INR} [facility] Comment on above: Result Comment: INR results are specifically intended to assess patients stabilized on long-term Anticoagulation therapy suggested INR?s ?Less Intensive Anticoagulation? 2.0 ? 3.0 Conventional Range 3.0 ? 4.5 Performed By: #### 2 413374, 6588218, 5039814, 5540738, 9849388, 64448115, 16215225, 85202794, 05487138, 1139415 #### [facility] [address] [place] [address] PT Coag (PPP) [Time] 11.7 second(s) Normal 10.2-12.9 [facility] Comment on above: Performed By: #### 2 247180, 7879816, 9953373, 2937774, 1223017, 82574088, 40226764, 78396998, 14915219, 7995668 #### [facility] [address] [place] [address] Sed Rate Automatedon 020 ESR (Bld) [Velocity] 9 mm/h Normal 0-34 [facility] Comment on above: Performed By: #### 2 892499, 4403578, 2632751, 6589823, 6486199, 81034956, 02625936, 28613666, 62994222, 7833219 #### [facility] [address] [place] [address] Troponin 0 Hr.on 12-14-2019 Troponin I.cardiac [Mass/Vol] 2.40 pg/mL Low 10.10-27.10 [facility] Comment on above: Result Comment: The 95% CI (Confidence Interval) PPV (Positive Predictive Value) for myocardial infarction in females is 38 pg/mL, in males 51 pg/mL. The results should be used in conjunction with clinical conditions of myocardial infarction. (Access High Sensitivity Troponin I Instructions For Use, Rickie Matthew, November 2017) Performed By: #### 2 529768, 1091145, 5582486, 2839480, 1032918, 00132163, 80092149, 71450655, 09881568, 0070403 #### [facility] [address] [place] [address] eGFRon 12-14-2019 GFR/1.73 sq M predicted among blacks MDRD (S/P/Bld) [Vol rate/Area] mL/min/{1.73_m2} Normal >=59 [facility] Comment on above: Order Comment: Order added by Discern Expert. Result Comment: eGFR is race adjusted. AA=. Performed By: #### 2 359763, 1928113, 6655768, 1221502, 2655786, 91106109, 70969031, 64705168, 17517229, 1899691 #### [facility] [address] [place] [address] GFR/1.73 sq M predicted among non-blacks MDRD (S/P/Bld) [Vol rate/Area] mL/min/{1.73_m2} Normal >=59 [facility] Comment on above: Order Comment: Order added by Discern Expert. Result Comment: Meat Scrubber nathaniel kidney disease could be indicated at eGFR's of less than 60 mL/min/1.73m2. Kidney failure is indicated at less than 15 mL/min/1.73m2. Performed By: #### 2 005663, 4461511, 5551002, 3758850, 8783675, 03605849, 56080080, 69624613, 79051126, 8995496 #### [facility] [address] [place] [address] Vital Signs Date Time Vital Sign Value Performing Clinician Facility 06-13-2024 08:32-0500 Body height 160.02 cm [facility] 06-13-2024 08:32-0500 Body mass index (BMI) [Ratio] 21.8 kg/m2 [facility] 06-13-2024 08:32-0500 Body weight 55.84 kg [facility] 06-13-2024 08:32-0500 Diastolic blood pressure 88 mm[Hg] [facility] 06-13-2024 08:32-0500 Heart rate 73 /min [facility] 06-13-2024 08:32-0500 Systolic blood pressure 143 mm[Hg] [facility] 04-30-2024 14:51-0500 Body mass index (BMI) [Ratio] 21.62 kg/m2 Matthew Visci DO Work Phone: [facility] 04-30-2024 14:51-0500 Body weight 55.79 kg Matthew Visci DO Work Phone: [facility] 04-30-2024 14:51-0500 Diastolic blood pressure 70 mm[Hg] Matthew Visci DO Work Phone: [facility] 04-30-2024 14:51-0500 Systolic blood pressure 120 mm[Hg] Matthew Visci DO Work Phone: [facility] 03-30-2024 11:12-0500 Body height 160.02 cm [facility] 03-30-2024 11:12-0500 Body mass index (BMI) [Ratio] 21.7 kg/m2 [facility] 03-30-2024 11:12-0500 Body weight 55.79 kg [facility] 03-30-2024 11:12-0500 Diastolic blood pressure 84 mm[Hg] [facility] 03-30-2024 11:12-0500 Heart rate 76 /min [facility] 03-30-2024 11:12-0500 Systolic blood pressure 120 mm[Hg] [facility] 02-22-2024 10:43-0400 Body mass index (BMI) [Ratio] 21.97 kg/m2 Mira DURÁN Work Phone: [facility] 02-22-2024 10:43-0400 Body weight 56.7 kg Mira DURÁN Work Phone: [facility] 02-22-2024 10:43-0400 Diastolic blood pressure 80 mm[Hg] Mira DURÁN Work Phone: [facility] 02-22-2024 10:43-0400 Systolic blood pressure 140 mm[Hg] Mira DURÁN Work Phone: [facility] 02-07-2024 09:46-0400 Body height 160.02 cm MD Bobby Cali Work Phone: [facility] 02-07-2024 09:46-0400 Body mass index (BMI) [Ratio] 22 kg/m2 MD Bobby Cali Work Phone: [facility] 02-07-2024 09:46-0400 Body weight 56.41 kg MD Bobby Cali Work Phone: [facility] 02-07-2024 09:46-0400 Diastolic blood pressure 80 mm[Hg] MD Bobby Cali Work Phone: [facility] 02-07-2024 09:46-0400 Heart rate 96 /min MD Bobby Cali Work Phone: [facility] 02-07-2024 09:46-0400 Respiratory rate 18 /min MD Bobby Cali Work Phone: [facility] 02-07-2024 09:46-0400 SaO2% (BldA) [Mass fraction] 99 % MD Bobby Cali Work Phone: [facility] 02-07-2024 09:46-0400 Systolic blood pressure 122 mm[Hg] MD Bobby Cali Work Phone: [facility] 02-01-2024 15:52-0400 Diastolic blood pressure 82 mm[Hg] Beatriz Art MD Work Phone: [facility] 02-01-2024 15:52-0400 Systolic blood pressure 131 mm[Hg] Beatriz Art MD Work Phone: [facility] 02-01-2024 15:22-0400 Body height 160 cm Beatriz Art MD Work Phone: [facility] 02-01-2024 15:22-0400 Body mass index (BMI) [Ratio] 22.6 kg/m2 Beatriz Art MD Work Phone: [facility] 02-01-2024 15:22-0400 Body weight 57.88 kg Beatriz Art MD Work Phone: [facility] 02-01-2024 15:22-0400 Heart rate 84 /min Beatriz Art MD Work Phone: [facility] 01-17-2024 14:18-0400 Body height 160.02 cm MD Bobby Cali Work Phone: [facility] 01-17-2024 14:18-0400 Body mass index (BMI) [Ratio] 22.4 kg/m2 MD Bobby Cali Work Phone: [facility] 01-17-2024 14:18-040 Body weight 57.6 kg MD Bobby Cali Work Phone: [facility] 01-17-2024 14:18-0400 Diastolic blood pressure 78 mm[Hg] MD Bobby Cali Work Phone: [facility] 01-17-2024 14:18-0400 Heart rate 82 /min MD Bobby Cali Work Phone: [facility] 01-17-2024 14:18-0400 Systolic blood pressure 135 mm[Hg] MD Bobby Cali Work Phone: [facility] 01-17-2024 13:26-0400 Body mass index (BMI) [Ratio] 22.39 kg/m2 Mira DURÁN Work Phone: [facility] 01-17-2024 13:26-0400 Body weight 57.79 kg Mira DURÁN Work Phone: [facility] 01-12-2024 10:08-0400 Body mass index (BMI) [Ratio] 22.5 kg/m2 Matthew Visci DO Work Phone: [facility] 01-12-2024 10:08-0400 Body weight 58.06 kg Matthew Visci DO Work Phone: [facility] 01-12-2024 10:08-0400 Diastolic blood pressure 86 mm[Hg] Matthew Visci DO Work Phone: [facility] 01-12-2024 10:08-0400 Systolic blood pressure 152 mm[Hg] Matthew Dasi DO Work Phone: [facility] 11-28-2023 11:32-0400 Body height 160.02 cm MD Bobby Cali Work Phone: [facility] 11-28-2023 11:32-0400 Body mass index (BMI) [Ratio] 22.4 kg/m2 MD Bobby Cali Work Phone: [facility] 11-28-2023 11:32-0400 Body weight 57.6 kg MD Bobby Cali Work Phone: [facility] 11-28-2023 11:32-0400 Diastolic blood pressure 79 mm[Hg] MD Bobby Cali Work Phone: [facility] 11-28-2023 11:32-0400 Heart rate 88 /min MD Bobby Cali Work Phone: [facility] 11-28-2023 11:32-0400 Systolic blood pressure 121 mm[Hg] MD Bobby Cali Work Phone: [facility] 11-14-2023 11:45-0400 Body height 160.02 cm MD Bobby Cali Work Phone: [facility] 11-14-2023 11:45-0400 Body mass index (BMI) [Ratio] 23 kg/m2 MD Bobby Cali Work Phone: [facility] 11-14-2023 11:45-0400 Body weight 58.96 kg MD Bobby Cali Work Phone: [facility] 11-14-2023 11:45-0400 Diastolic blood pressure 84 mm[Hg] MD Bobby Cali Work Phone: [facility] 11-14-2023 11:45-0400 Heart rate 86 /min MD Bobby Cali Work Phone: [facility] 11-14-2023 11:45-0400 Systolic blood pressure 125 mm[Hg] MD Bobby Cali Work Phone: [facility] 11-10-2023 07:01-0400 Body height 160.02 cm MD Bobby Cali Work Phone: [facility] 11-10-2023 07:01-0400 Body temperature 97.2 [degF] MD Bobby Cali Work Phone: [facility] 11-10-2023 07:01-0400 Body weight 57.6 kg MD Bobby Cali Work Phone: [facility] 11-10-2023 07:01-0400 Diastolic blood pressure 90 mm[Hg] MD Bobby Cali Work Phone: [facility] 11-10-2023 07:01-0400 Heart rate 96 /min MD Bobby Cali Work Phone: [facility] 11-10-2023 07:01-0400 Respiratory rate 20 /min MD Bobby Cali Work Phone: [facility] 11-10-2023 07:01-0400 SaO2% (BldA) [Mass fraction] 100 % MD Bobby Cali Work Phone: [facility] 11-10-2023 07:01-0400 Systolic blood pressure 144 mm[Hg] MD Bobby Cali Work Phone: [facility] 09-26-2023 11:49-0400 Body height 162.56 cm [facility] 09-26-2023 11:49-0400 Body mass index (BMI) [Ratio] 22.3 kg/m2 [facility] 09-26-2023 11:49-0400 Body weight 58.96 kg [facility] 09-26-2023 11:49-0400 Diastolic blood pressure 86 mm[Hg] [facility] 09-26-2023 11:49-0400 Heart rate 85 /min [facility] 09-26-2023 11:49-0400 Systolic blood pressure 136 mm[Hg] [facility] 09-01-2023 11:24-0400 Body height 162.56 cm [facility] 09-01-2023 11:24-0400 Body mass index (BMI) [Ratio] 23 kg/m2 [facility] 09-01-2023 11:24-0400 Body weight 60.78 kg [facility] 09-01-2023 11:24-0400 Diastolic blood pressure 81 mm[Hg] [facility] 09-01-2023 11:24-0400 Heart rate 92 /min [facility] 09-01-2023 11:24-0400 Systolic blood pressure 112 mm[Hg] [facility] 05-02-2023 09:45-0500 Body height 162.56 cm Bobby Cali Other [facility] [employer] Other 05-02-2023 09:45-0500 Body mass index (BMI) [Ratio] 23.34 kg/m2 Bobby Cali Other [facility] [employer] Other 05-02-2023 09:45-0500 Body weight 61.69 kg Bobby Cali Other [employer] Other 05-02-2023 09:45-0500 Diastolic blood pressure 83 mm[Hg] Bobby Cali Other [facility] Other 05-02-2023 09:45-0500 Systolic blood pressure 123 mm[Hg] Bobby Cali Other [facility] Other 01-18-2023 10:30-0400 Body height 162.56 cm Bobby Cali Other [facility] Other 01-18-2023 10:30-0400 Body mass index (BMI) [Ratio] 23.17 kg/m2 Bobby Cali Other [employer] Other 01-18-2023 10:30-0400 Body weight 61.24 kg Bobby Cali Other [employer] Other 01-18-2023 10:30-0400 Diastolic blood pressure 83 mm[Hg] Bobby Cali Other [facility] Other 01-18-2023 10:30-0400 Systolic blood pressure 145 mm[Hg] Bobby Cali Other [facility] Other 12-08-2022 11:15-0400 Body height 162.56 cm Bobby Cali Other [facility] Other 12-08-2022 11:15-0400 Body mass index (BMI) [Ratio] 22.31 kg/m2 Bobby Cali Other [employer] Other 12-08-2022 11:15-0400 Body weight 58.97 kg Bobby Cali Other [facility] Other 12-08-2022 11:15-0400 Diastolic blood pressure 81 mm[Hg] Bobby Cali Other [employer] Other 12-08-2022 11:15-0400 Systolic blood pressure 125 mm[Hg] Bobby Cali Other [facility] Other 11-24-2022 14:00-0400 Body height 162.56 cm Kendal Ruiz Other [employer] Other 11-24-2022 14:00-0400 Body mass index (BMI) [Ratio] 22.31 kg/m2 Kendal Ruiz Other [employer] Other 11-24-2022 14:00-0400 Body weight 58.97 kg Kendal Ruiz Other [employer] Other 11-24-2022 14:00-0400 Diastolic blood pressure 82 mm[Hg] Kendal Joseph Other [employer] Other 11-24-2022 14:00-0400 Systolic blood pressure 120 mm[Hg] Kendal Joseph Other [employer] Other 05-25-2022 15:46-0500 Body height 162.56 cm Bobby Cali [facility] Phone: [facility] [employer] 250 DO Work Phone: 05-25-2022 15:46-0500 Body mass index (BMI) [Ratio] 22.66 kg/m2 Bobby Cali Work Phone: [facility] [employer] 250 DO Work Phone: 05-25-2022 15:46-0500 Body surface area Derived from formula 1.64 m2 Bobby Cali Work Phone: [facility] [employer] 250 DO Work Phone: 05-25-2022 15:46-0500 Body weight 59.88 kg Bobby Cali Work Phone: [facility] [employer] 250 DO Work Phone: 05-25-2022 15:46-0500 Diastolic blood pressure 66 mm[Hg] Bobby Cali Work Phone: [facility] [employer] 250 DO Work Phone: 05-25-2022 15:46-0500 Heart rate 88 /min Bobby Cali Work Phone: [facility] 250 DO Work Phone: 05-25-2022 15:46-0500 Systolic blood pressure 100 mm[Hg] Bobby Cali Work Phone: [facility] 250 DO Work Phone: 03-10-2022 00:00-0500 136 1 Bobby Cali Work Phone: [facility] 600 DO Work Phone: Comment on above: [facility] 03-04-2022 13:31-0500 Body height 162.56 cm Bobby Cali Work Phone: [facility] 600 DO Work Phone: 03-04-2022 13:31-0500 Body mass index (BMI) [Ratio] 23.86 kg/m2 Bobby Cali Work Phone: [facility] 600 DO Work Phone: 03-04-2022 13:31-0500 Body surface area Derived from formula 1.68 m2 Bobby Cali Work Phone: [facility] 600 DO Work Phone: 03-04-2022 13:31-0500 Body weight 63.05 kg Bobby Cali Work Phone: [facility] 600 DO Work Phone: 03-04-2022 13:31-0500 Diastolic blood pressure 74 mm[Hg] Bobby Cali Work Phone: [facility] 600 DO Work Phone: 03-04-2022 13:31-0500 Heart rate 81 /min Bobby Cali Work Phone: [facility] 600 DO Work Phone: 03-04-2022 13:31-0500 Systolic blood pressure 126 mm[Hg] Bobby Cali Work Phone: [facility] 600 DO Work Phone: 03-04-2022 13:30-0500 Body height 162.56 cm Bobby Cali Work Phone: [facility] 600 DO Work Phone: 03-04-2022 13:30-0500 Body mass index (BMI) [Ratio] 23.86 kg/m2 Bobby Cali Work Phone: [facility] 600 DO Work Phone: 03-04-2022 13:30-0500 Body surface area Derived from formula 1.68 m2 Bobby Cali Work Phone: [facility] 600 DO Work Phone: 03-04-2022 13:30-0500 Body weight 63.05 kg Bobby Cali Work Phone: [facility] 600 DO Work Phone: 03-04-2022 13:30-0500 Diastolic blood pressure 84 mm[Hg] Bobby Cali Work Phone: [facility] 600 DO Work Phone: 03-04-2022 13:30-0500 Heart rate 81 /min Bobby Cali Work Phone: [facility] 600 DO Work Phone: 03-04-2022 13:30-0500 Systolic blood pressure 126 mm[Hg] Bobby Cali Work Phone: [facility] 600 DO Work Phone: Encounters Encounter Date Encounter Type Care Provider Facility Start: 06-13-2024 End: 06-13-2024 ambulatory [facility] Work Phone: Start: 06-13-2024 End: 06-13-2024 Patient encounter procedure [facility] Physician [facility] Work Phone: Start: 04-30-2024 End: 04-30-2024 Patient encounter status Matthew Ramsey Jose DO Work Phone: [facility] Work Phone: Start: 04-30-2024 End: 04-30-2024 Periodic preventive med est patient 40-64yrs Matthew Mesa DO Work Phone: [facility] Comment on above: Encounter for gyneco logical examination with abnormal finding (Primary Dx); Encounter for screening mammogram for malignant neoplasm of breast; Screening for malignant neoplasm of cervix; Screening for HPV (human papillomavirus); Postmenopausal HRT (hormone replacement therapy); Vaginal irritation; Dyspareunia in female; Vaginal yeast infection Start: 04-30-2024 End: 04-30-2024 ambulatory MATTHEW MESA Not Available Start: 03-30-2024 End: 03-30-2024 Patient encounter procedure [facility] Physician [facility] Work Phone: Start: 03-27-2024 Non-patient / Non-visit [facility] Physician [facility] Work Phone: Start: 03-12-2024 End: 03-12-2024 Patient encounter procedure Bobby Cali MD Work Phone: [facility]-Ultrasound [facility] [place] Work Phone: Start: 03-12-2024 End: 03-12-2024 ambulatory Bobby Cali MD Work Phone: [facility] Work Phone: Start: 03-02-2024 End: 03-02-2024 Patient encounter procedure Bobby Cali MD Work Phone: [facility]-CT Scan [facility] [place] Work Phone: Start: 03-02-2024 End: 03-02-2024 ambulatory Bobby Cali MD Work Phone: [facility] Work Phone: Start: 02-23-2024 End: 02-23-2024 Patient encounter procedure MD Bobby Cali Work Phone: [facility]-Lab [facility] Start: 02-23-2024 End: 02-23-2024 ambulatory MD Bobby Cali Work Phone: [facility] Work Phone: Start: 02-22-2024 End: 02-22-2024 Bamboo flowsheet Mira DURÁN Work Phone: [facility] Start: 02-22-2024 End: 02-22-2024 Bamboo flowsheet Mira Sykes PA Work Phone: [facility] Start: 02-22-2024 End: 02-22-2024 Office outpatient visit 15 minutes Mira DURÁN Work Phone: [facility] Comment on above: Urine troubles; Diarrhea, unspecified type Start: 02-22-2024 End: 02-22-2024 ambulatory MIRA SYKES Not Available Start: 02-07-2024 End: 02-07-2024 Patient encounter procedure MD Bobby Cali Work Phone: [facility]-Lab [facility] Start: 02-07-2024 End: 02-07-2024 ambulatory MD Bobby Cali Work Phone: [facility] Work Phone: Start: 02-07-2024 End: 02-07-2024 ambulatory MD Bobby Cali Work Phone: [facility] Work Phone: Start: 02-07-2024 End: 02-07-2024 Patient encounter procedure MD Bobby Cali Work Phone: [facility] Work Phone: Start: 02-06-2024 End: 02-06-2024 Departed Referred MD Bobby Cali Work Phone: [facility] [place] Work Phone: Start: 02-06-2024 End: 02-06-2024 ambulatory MD Bobby Cali Work Phone: [facility] Work Phone: Start: 02-06-2024 End: 02-06-2024 Patient encounter procedure MD Bobby Cali Work Phone: [facility] Work Phone: Start: 02-01-2024 End: 02-01-2024 ambulatory [facility] Ambulatory Start: 02-01-2024 End: 02-01-2024 Office outpatient visit 15 minutes Beatriz Art MD Work Phone: [facility] Comment on above: Chest pain, unspecif ied type (Primary Dx); Premature ventricular contractions; Shortness of breath on exertion; Hyperlipidemia, unspecified hyperlipidemia type; Former smoker; Body mass index (BMI) 22.0-22.9, adult Start: 01-17-2024 End: 01-17-2024 ambulatory MD Bobby Cali Work Phone: [facility] Work Phone: Start: 01-17-2024 End: 01-17-2024 Patient encounter procedure MD Bobby Cali Work Phone: [facility] Work Phone: Start: 01-17-2024 End: 01-17-2024 Bamboo flowsheet Mira DURÁN Work Phone: [facility] Start: 01-17-2024 End: 01-18-2024 External Result Encounter Gene Aliyah DO Work Phone: [facility] Unsolicited Start: 01-17-2024 End: 01-18-2024 External Result Encounter Gene Aliyah DO Work Phone: [facility] Unsolicited Start: 01-17-2024 End: 01-17-2024 Office outpatient visit 15 minutes Mira DURÁN Work Phone: [facility] Comment on above: Vaginal pain Start: 01-17-2024 End: 01-17-2024 ambulatory MIRA SYKES Not Available Start: 01-12-2024 End: 01-12-2024 Bamboo flowsheet Matthew A Visci DO Work Phone: [facility] Start: 01-12-2024 End: 01-12-2024 Bamboo flowsheet Matthew A Visci DO Work Phone: [facility] Start: 01-12-2024 End: 01-12-2024 Office outpatient visit 15 minutes Matthew Ramsey Visci DO Work Phone: [facility] Comment on above: Vulvar itching; Vaginal discharge; BV (bacterial vaginosis); Vaginal yeast infection Start: 01-12-2024 End: 01-12-2024 ambulatory MATTHEW A VISCI Not Available Start: 11-28-2023 End: 11-28-2023 ambulatory MD Bobby Cali Work Phone: [facility] Work Phone: Start: 11-28-2023 End: 11-28-2023 Patient encounter procedure MD Bobby Cali Work Phone: [facility] Work Phone: Start: 11-16-2023 End: 11-16-2023 Patient encounter procedure MD Bobby Cali Work Phone: [facility]tr-X-Ray [facility] Start: 11-16-2023 End: 11-16-2023 ambulatory MD Bobby Cali Work Phone: [facility] Work Phone: Start: 11-14-2023 End: 11-14-2023 ambulatory MD Bobby Cali Work Phone: [facility] Work Phone: Start: 11-14-2023 End: 11-14-2023 Patient encounter procedure MD Bobby Cali Work Phone: [facility] Work Phone: Start: 11-10-2023 End: 11-10-2023 Emergency department patient visit MD Bobby Cali Work Phone: [facility] Ctr-Emergency Room Work Phone: Start: 09-26-2023 End: 09-26-2023 ambulatory [facility] Work Phone: Start: 09-26-2023 End: 09-26-2023 Patient encounter procedure [facility] Physician [facility] Work Phone: Start: 09-01-2023 End: 09-01-2023 ambulatory [facility] Work Phone: Start: 09-01-2023 End: 09-01-2023 Patient encounter procedure [facility] Physician [facility] Work Phone: Start: 06-22-2023 Non-patient / Non-visit [facility] Physician [facility] Work Phone: Start: 05-13-2023 End: 05-13-2023 ambulatory Bobby Cali Other [facility] Other Start: 05-13-2023 Telephone encounter Bobby Cali [facility] Start: 05-02-2023 End: 05-02-2023 ambulatory Bobby Cali Other [facility] Other Start: 05-02-2023 Office outpatient vi sit 15 minutes Bobby Cali [facility] Start: 04-08-2023 End: 04-08-2023 ambulatory Kumar Pack Other [facility] Other Start: 04-08-2023 Nursing evaluation o f patient and report Kumar Pack [facility] Start: 04-08-2023 Telephone encounter Kumar Pack [facility] Start: 04-07-2023 End: 04-07-2023 ambulatory Bobby Cali Other [facility] Other Start: 04-07-2023 Telephone encounter Bobby Cali [facility] Start: 03-02-2023 End: 03-02-2023 ambulatory Bobby Cali Other [facility] Other Start: 03-02-2023 Telephone encounter Bobby Cali [facility] Start: 01-18-2023 End: 01-18-2023 ambulatory Bobby Cali Other [facility] Other Start: 01-18-2023 Office outpatient vi sit 15 minutes Bobby Cali [facility] Start: 12-28-2022 End: 12-28-2022 ambulatory Bobby Cali Other [facility] Other Start: 12-28-2022 Telephone encounter Bobby Belem [facility] Start: 12-09-2022 End: 12-09-2022 ambulatory Bobby Cali Other [facility] Other Start: 12-09-2022 Telephone encounter Bobby Belem [facility] Start: 12-08-2022 End: 12-08-2022 ambulatory Bobby Cali Other [facility] Other Start: 12-08-2022 Encounter for genera l adult medical examination without abnormal findings Bobby Cali [facility] Start: 12-08-2022 Office outpatient vi sit 15 minutes Bobby Cali [facility] Start: 11-24-2022 End: 11-24-2022 ambulatory Kendal Ruiz Other [facility] Other Start: 11-24-2022 Office outpatient vi sit 15 minutes Kendal Ruiz [facility] Start: 06-02-2022 Chart Update Bobby Cali Work Phone: [facility] 600 DO Work Phone: Start: 06-02-[address] Bobby Cali Facility:[id number] Start: 05-25-2022 Office outpatient vi sit 25 minutes Bobby Cali Work Phone: [facility] 250 DO Work Phone: Start: 05-25-[address] Bobby Cali Facility: Start: 04-08-2022 Chart Update [facility] Work Phone: Start: 04-07-[address] Beatriz Art Facility:[id number] Start: 03-11-2022 Adult health examination Yazmin to Joseph Other [facility] [employer] Other Start: 03-11-2022 Chart Update [facility] Work Phone: Start: 03-10-2022 End: 03-10-2022 ambulatory MD Bobby Cali Work Phone: [facility] Work Phone: Start: 03-10-2022 End: 03-10-2022 Patient encounter procedure MD Bobby Cali Work Phone: [facility] Ctr-XRay [address] Start: 03-04-2022 Office outpatient ne w 60 minutes Bobby Cali Work Phone: [facility] Work Phone: Start: 03-04-[address] Beatriz Art Facility: Start: 02-03-2022 End: 02-03-2022 ambulatory KATARINA SANCHEZ Facility:H1 Start: 01-28-2022 End: 01-28-2022 ambulatory KATARINA SANCHEZ Facility:[facility] Start: 02-18-2021 End: 02-19-2021 ambulatory MILLI DUMONT Facility:[facility]1 Start: 02-22-2017 Ambulatory BEATRIZ ART Faci lity:[id number] Procedures Date Procedure Procedure Detail Performing Clinician Start: 04-30-2024 Smr prim src wet diamond nt nfct agt Matthew A Visci DO Work Phone: Start: 04-30-2024 Mammography Matthew Vi sci DO Work Phone: Start: 03-12-2024 US scan of thyroid Baldomero Cali MD Work Phone: Start: 03-02-2024 Computed tomography of abdomen and pelvis with contrast Bobby Cali MD Work Phone: Start: 03-02-2024 CT of thorax with contrast Bobby Cali MD Work Phone: Start: 02-22-2024 Urnls dip stick/tabl et rgnt non-auto w/o micrscp Mira DURÁN Work Phone: Start: 02-06-2024 Bacteria identified in Urine by Culture MD Bobby Cali Work Phone: Start: 02-06-2024 Urine culture Bobby greer MD Work Phone: Start: 01-17-2024 URETHRITIS/DISCHARGE PLUS VAGINITIS (HTRX) Gene Ly DO Work Phone: Start: 01-12-2024 Smr prim src wet diamond nt nfct agt Matthew Ramsey Visci DO Work Phone: Start: 11-16-2023 X-ray of lumbar spin e, two or three views MD Bobby Cali Work Phone: Start: 04-27-2023 Mammography Matthew Vi sci DO Work Phone: Start: 03-10-2022 Plain chest X-ray MD Aron Cali Work Phone: Start: 03-23-2021 Microscopic observat ion [Identifier] in Cervix by Cyto stain Matthew Visci DO Work Phone: Start: 04-25-2018 Total colonoscopy Charley Cali Work Phone: Start: 01-03-2014 General examination of patient Kendal Joseph Other Start: 07-09-2010 Colonoscopy Matthew Vi sci DO Work Phone: Operation on lung Bobby bhagat Work Phone: Tonsillectomy and adenoidectomy Bobby Cali Work Phone: Plan of Treatment Date Care Activity Detail Author Start: 05-06-2025 End: 05-06-2025 Patient encounter procedure 05/06/2025 2:30 PM EST Office Visit [facility] [address] [place] [id number] Matthew Mesa Braulio, DO [address] [place] [address] [facility] Start: 05-01-2025 End: 06-28-2025 DBT Breast - bilateral screening Bilateral screening mammogram with tomosynthesis Imaging Routine Encounter for screening mammogram for malignant neoplasm of breast Expected: 05/01/2025, Expires: 06/28/2025 [facility] Comment on above: Expected: 05/01/2025 , Expires: 06/28/2025 Start: 04-30-2025 Screening for malign ant neoplasm of breast Mammogram [facility] Start: 02-12-2025 End: 02-12-2025 Patient encounter procedure 02/12/2025 2:30 PM EDT Office Visit [facility] [address] [facility] [address] [place] [address] Beatriz Art MD [address] [facility] [address] [place] [address] [facility] Start: 04-30-2024 End: 04-30-2024 Professional / ancillary services management 04/30/2024 3:30 PM EST Ancillary Procedure [facility] [address] [place] [id number] [facility] Start: 04-30-2024 End: 04-30-2024 Patient encounter procedure 04/30/2024 2:15 PM EST Office Visit [facility] [address] [place] [id number] Matthew Mesa, DO [address] [place] [address] [facility] Start: 04-27-2024 Screening for malign ant neoplasm of breast Mammogram [facility] Start: 03-23-2024 Screening for malign ant neoplasm of cervix [facility] Start: 02-23-2024 [facility] Start: 02-22-2024 End: 02-21-2025 Campylobacter culture, stool Campylobacter culture, stool Microbiology Routine Diarrhea, unspecified type Expected: 02/22/2024 (Approximate), Expires: 02/21/2025 [facility] Comment on above: Expected: 02/22/2024 (Approximate), Expires: 02/21/2025 Start: 02-22-2024 End: 02-21-2025 Ova and parasite examination Ova and parasite examination Microbiology Routine Diarrhea, unspecified type Expected: 02/22/2024 (Approximate), Expires: 02/21/2025 [facility] Comment on above: Expected: 02/22/2024 (Approximate), Expires: 02/21/2025 Start: 02-22-2024 End: 02-21-2025 Stool culture Stool culture Microbiology Routine Diarrhea, unspecified type Expected: 02/22/2024 (Approximate), Expires: 02/21/2025 [facility] Comment on above: Expected: 02/22/2024 (Approximate), Expires: 02/21/2025 Start: 02-22-2024 End: 02-21-2025 Vibrio culture, stool Vibrio culture, stool Lab Routine Diarrhea, unspecified type Expected: 02/22/2024 (Approximate), Expires: 02/21/2025 [facility] Comment on above: Expected: 02/22/2024 (Approximate), Expires: 02/21/2025 Start: 02-22-2024 End: 02-21-2025 Yersinia culture, stool Yersinia culture, stool Microbiology Routine Diarrhea, unspecified type Expected: 02/22/2024 (Approximate), Expires: 02/21/2025 [facility] Comment on above: Expected: 02/22/2024 (Approximate), Expires: 02/21/2025 Start: 02-22-2024 End: 02-22-2024 Patient encounter procedure 02/22/2024 10:20 AM EDT Office Visit [facility] [address] [place] [address] [address] [place] [address] Mira Sykes PA [address] [place] [address] Arrived [facility] Comment on above: Arrived Start: 02-06-2024 Bacteria identified in Urine by Culture Urine Culture [facility] Start: 02-06-2024 Urine culture [facility] Start: 01-17-2024 End: 01-17-2024 Patient encounter procedure 01/17/2024 1:10 PM EDT Office Visit [facility] [address] [facility] [place], [place] [id number] Mira Sykes PA [address] [place] [address] Arrived [facility] Comment on above: Arrived Start: 01-12-2024 End: 01-12-2024 Patient encounter procedure 01/12/2024 10:00 AM EDT [facility] [address] [facility] [address] [place] [address] Matthew Mesa, DO [address] [place] [address] Arrived [facility] Comment on above: Arrived Start: 12-25-2023 COVID-19 Vaccine ( season) COVID-19 Vaccine ( season) [facility] Start: 12-25-2023 Influenza vaccination Influenza Vacc ine (#1) [facility] Start: 01-25-2023 FUV, Provider: Beatriz Art, Status: Pen, Time: 2:10 PM FUV, Provider: Beatriz Art, Status: Pen, Time: 2:10 PM [facility] 250 DO Work Phone: Start: 05-25-2022 FUV, Provider: Beatriz Art, Status: Pen, Time: 3:20 PM FUV, Provider: Traboulssi,Mourhaf, Status: Pen, Time: 3:[address] [facility] 600 DO Work Phone: Start: 04-07-2022 STRESS KIKA, Provider : [place] PETERSEN NUCLEAR 01,[id number], Status: Pen, Time: 2:00 PM STRESS KIKA, Provider: [place] CHRISTINAI NUCLEAR 01,[id number], Status: Pen, Time: 2:[address] [facility] 600 DO Work Phone: Start: 07-09-2020 Screening for malign ant neoplasm of colon [facility] Start: 2019 Zoster Vaccines (1 of 2) Zoste r Vaccines (1 of 2) [facility] Start: 03-21-2009 MMR Vaccines (1 of 1 - Standard series) MMR Vaccines (1 of 1 - Standard series) [facility] Start: 1999 Screening for malign ant neoplasm of cervix HPV/Cotest [facility] Start: 1991 DTaP/Tdap/Td Vaccine s (1 - Tdap) DTaP/Tdap/Td Vaccines (1 - Tdap) [facility] Start: 1990 Screening for malign ant neoplasm of cervix [facility] Start: 1987 Hepatitis C screening Hepatitis C [facility] Start: 1969 HIV screening HIV Screening [facility] Start: 1969 Lipid panel Lipid Panel [facility] Start: 1969 Screening for malign ant neoplasm of colon [facility] Start: 1969 Yearly Adult Physical Yearly Adult P hysical [facility] Bacteria identified in Unspecified specimen by Culture [facility] Bacteria identified in Urine by Culture Urine culture Microbiology Routine Urine troubles Ordered: 02/22/2024 [facility] Work Phone: Comment on above: Ordered: 02/22/2024 Comprehensive metabo lic 2000 panel - Serum or Plasma [facility] CT Abdomen and Pelvi s W contrast IV [facility] CT Chest WO and W contrast IV [facility] IGP, APT HPV,RFX 16/18,45 IGP, APT HPV,RFX 16/18,45 Lab Routine Screening for malignant neoplasm of cervix Screening for HPV (human papillomavirus) Ordered: 04/30/2024 [facility] Work Phone: Comment on above: Ordered: 04/30/2024 Patient Education Sacroiliac Ana nt Pain (DC) [facility] Work Phone: Patient referral [facility] Work Phone: XR Lumbar spine 2 or 3 Views [facility] Yersinia sp identifi ed in Unspecified specimen by Organism specific culture [facility] Immunizations Immunization Date Immunization Notes Care Provider Fa milviaty 02-18-2022 influenza, injectabl e, quadrivalent, preservative free Bobby E Cali Work Phone: [facility] 600 DO Work Phone: Comment on above: Series: 02-18-2022 influenza, seasonal, injectable Matthew Visci DO Work Phone: [facility] 02-18-2022 influenza virus vacc ine, unspecified formulation Matthew Visci DO Work Phone: [facility] 02-18-2021 Moderna COVID-19 Vac cine 100 MCG/0.5ML Intramuscular Suspension Bobby E Cali Work Phone: [facility] 600 DO Work Phone: 05-22-2020 Moderna COVID-19 Vac cine 100 MCG/0.5ML Intramuscular Suspension Bobby E Cali Work Phone: [facility] 600 DO Work Phone: 04-23-2020 Moderna COVID-19 Vac cine 100 MCG/0.5ML Intramuscular Suspension Bobby E Cali Work Phone: [facility] 600 DO Work Phone: 01-23-2019 influenza, seasonal, injectable, preservative free Bobby E Cali Work Phone: [facility] 600 DO Work Phone: 01-23-2014 influenza, seasonal, injectable Bobby Cali Work Phone: [facility] Comment on above: Series: 02-21-2009 novel influenza-H1N1 -09, preservative-free, injectable [facility] Cal[facility] Work Phone: 04-11-2007 hepatitis A vaccine, pediatric/adolescent dosage, 2 dose schedule Bobby Montenegro Cali Work [facility]: [facility] DO Work Phone: 04-11-2007 hepatitis B vaccine, adult dosage Bobby Montenegro Cali Work [facility]: [facility] DO Work Phone: 11-28-2006 meningococcal polysaccharide vaccine (MPSV4) Bobby Lan Cali Work Phone: [facility] 600 DO Work Phone: 11-28-2006 typhoid vaccine, jarod e, oral Bobby Montenegro Cali Work Phone: [facility] 600 DO Work Phone: 11-28-2006 yellow fever vaccine Bobby Montenegro Cali Work [facility]: [facility] DO Work Phone: 11-10-2006 hepatitis B vaccine, adult dosage Bobby Montenegro Cali Work Phone: [facility] 600 DO Work Phone: 10-11-2006 hepatitis A vaccine, pediatric/adolescent dosage, 2 dose schedule Bobby E Cali Work [facility]: [facility] DO Work Phone: 10-11-2006 hepatitis B vaccine, adult dosage Bobby E Cali Work [facility]: [facility] DO Work Phone: Payers Date Payer Category Payer Self-pay [id number] [phone] [id number] 2022 [facility] er [id number] 2022 Unknown 2022 Unknown [id number] 2019 Unknown [id number] 1970 Unknown [id number] 2.16.840.1.839603.3.579.2. 593 1969 Unknown [id number] 2.16.840.1.167530.3.579.2. 593 1969 Unknown [id number] 2.16.840.1.247262.3.579.2. 356 1969 Unknown [id number] 2.16.840.1.939394.3.579.2. 356 1969 Unknown [id number] 2.16.840.1.873165.3.579.2. 1068 1969 Unknown [id number] 2.16.840.1.724736.3.579.2. 1067 1969 Unknown [id number] 2.16.840.1.082685.3.579.2. 9 1969 Unknown [id number] 2.16.840.1.345135.3.579.2. 1259 1969 Unknown [id number] 2.16.840.1.540177.3.579.2. 1259 1969 Unknown [id number] 2.16.840.1.449986.3.579.2. 1259 1969 Unknown [id number] 2.16.840.1.989112.3.579.2. 1259 1969 Unknown [id number] 2.16.840.1.737919.3.579.2. 1244 1959 Self-pay [id number] Unknown [id number] Unknown [id number] 2.16.840.1.838374.3.579.2. 593 Unknown [id number] Unknown [id number] 2.16.840.1.214876.3.579.2. 531 Unknown [id number] 2.16.840.1.897087.3.579.2. 531 Unknown [id number] 2.16.840.1.966134.3.579.2. 531 Unknown [id number] 2.16.840.1.247802.3.579.2. 531 Unknown [id number] 2.16.840.1.384933.3.579.2. 531 Unknown [id number] 2.16.840.1.624281.3.579.2. 531 Unknown [id number] 2.16.840.1.409907.3.579.2. 531 Social History Date Type Detail Facility Start: 04-22-2023 End: 02-01-2024 No illicit drug use No illicit drug use [facility] Work Phone: Comment on above: 2 cups coffee daily, couple sodas daily; social; quit 05/2018; Start: 05-08-2019 End: 11-10-2023 Tobacco smoking status [facility] Smoker (finding) [facility] Start: 1970 Sex Assigned At Female F [facility] Start: 01-25-2023 End: 04-22-2023 Sex Assigned At [place] Other Start: 02-01-2024 Tobacco smoking status NHIS Ex-smoker [facility] End: 04-25-2019 History of tobacco use Cigarette Smoker [facility] Start: 04-22-2023 End: 02-01-2024 Tobacco use and exposure Smokeless tobacco non-user [facility] Start: 02-01-2024 Alcoholic beverage intake Current drinker of alcohol (finding) [facility] Work Phone: Start: 02-01-2024 Alcohol Comment socially [facility][1] Work Phone: Start: 1970 Sex assigned at Not on file [facility] Start: 01-22-2024 End: 02-01-2024 Exposure to SARS-CoV-2 (event) Not sure [facility] Start: 04-22-2023 Tobacco smoking status ILIS Smokes tobacco daily [facility] Start: 01-17-2024 End: 04-30-2024 Alcoholic beverage intake Ex-drinker (finding) [facility] How often to you hav e a drink containing alcohol? Monthly or less [facility] How many standard drinks containing alcohol do you have on a typical day? 1 or 2 [facility] How often do you hav e 6 or more drinks on 1 occasion? Never [facility] Start: 04-22-2023 Tobacco Comment > Other tobacc o use: Yes, Vape [facility] Start: 04-22-2023 Alcohol Comment Caffeine intak e: 1-2 cups per day [facility] Start: 07-07-2022 Gender identity Identifies as female gender (finding) [facility] Start: 03-03-2024 End: 06-13-2024 Sex Female (finding) [facility] NEGATED: Highlighted row [facility] Clinical Notes 11-24-2022 to 04-30-2024 Matthew Mesa, DO - 04/30/2024 2:15 PM EST Note Date & Type Note Facility 04-30-2024 History of Presen t illness Narrative Images from the original note were not included. Matthew Mesa, Obstetrics and Gynecology Mira Gonsalves 1970 04/30/24 [id number] Yearly Wellness Exam Chief Complaint Patient presents with Gynecologic Exam Pt presents for pap/yearly. Denies breast,bowel,bladder. Having dryness with intercourse. CT scan showed fibroids in her uterus she would like to discuss. Visit Vitals BP 120/70 Wt 123 lb BMI 21.62 kg/m OB Status Postmenopausal Smoking Status Every Day BSA 1.58 m History of Present Illness The patient presents for a yearly checkup. She has been experiencing significant weight loss, approximately 20 pounds since November 2023, without any identifiable cause. She attributes this weight loss to stress and fatigue from her job. She reports overall body pain and perceives changes in her body, describing it as feeling tight. She is not experiencing hot flashes but reports night sweats. She has undergone blood work, which showed normal thyroid function. She has completed her mammogram and colonoscopy screenings. She reports vaginal discomfort and is concerned about potential uterine fibroids. She is postmenopausal and does not experience menstrual periods. She has been experiencing vaginal dryness, which has led to irritation during sexual intercourse with her . Despite attempts to alleviate the symptoms with super condoms and cduo-bzp-eemukir products, the issue persists. She has not used any estrogen creams or tablets for vaginal application. She reports no bladder issues. She experienced a severe yeast infection in March 2024, which she believes was triggered by sexual activity. She has noticed a recurrence of the yeast infection, although less severe than the previous episode. She completed a 5-day treatment course for the yeast infection, which resolved the issue. Supplemental Information She is scheduled to see an ENT specialist this week. MEDICATIONS Current: estrogen pills Current Outpatient Medications Medication Sig Dispense Refill ALPRAZolam (Xanax) 0.25 MG tablet TAKE 1 TABLET ORALLY TWICE DAILY NEEDED FOR ANXIETY FOR 30 DAYS estradiol-norethindrone (ActivElla) 1-0.5 MG tablet Take 1 tablet by mouth Daily 30 tablet 11 famotidine (Pepcid) 40 MG tablet Take 40 mg by mouth at bedtime fluconazole (Diflucan) 150 MG tablet 1 tab now-repeat in 4 days then take 1 pill weekly for 8 weeks 10 tablet 0 nystatin (Mycostatin) ointment Apply topically 2 (two) times a day Thin amount in combination with Triamcinolone equal parts 30 g 0 OMEPRAZOLE PO ondansetron ODT (Zofran-ODT) 4 MG disintegrating tablet Q8H sulfamethoxazole-trimethoprim (Bactrim DS) 800-160 MG per tablet 1 tablet triamcinolone (Kenalog) 0.1 % ointment Apply topically 2 (two) times a day 30 g 0 No current facility-administered medications for this visit. Allergies Allergen Reactions Acetaminophen Hives Other Reaction(s): Hives Propoxyphene Hives Other Reaction(s): Hives Past Medical History: Diagnosis Date Cervical lesion Relies on partner vasectomy for contraception Spontaneous pneumothorax 2008 Dr. Erickson Past Surgical History: Procedure Laterality Date CHEST TUBE INSERTION Lung collapse (Pneumothorax) COLONOSCOPY 05/08/2019 Mild sigmoid diverticulosis - Roberta - repeat 10 years COLPOSCOPY 2009 Colpo with biopsy -Cervical lesion DILATION AND CURETTAGE OF UTERUS 1994 THORACOSCOPY W/ TALC PLEURODESIS 12/2007 TONSILLECTOMY 1975 OB History Para Term AB Living 4 4 4 4 SAB IAB Ectopic Multiple Live Births # Outcome Date GA Lbr Rashawn/2nd Weight Sex Type Anes PTL Lv 4 Term 3 Term 2 Term 1 Term Obstetric Comments Pap 03/23/21- Neg, HPV Neg Mammogram 04/27/23- Neg Colonoscopy 05/08/2019- Neg, repeat 10 years (Roberta) ROS General: Denies fevers/chills Eyes: Denies vision changes ENT: Denies neck stiffness, neck mass Endocrine: Denies polydipsia and polyuria Respiratory: Denies shortness of breath Cardiovascular: Denies chest pain and palpitations Gastrointestinal: Denies changes in bowel habits, blood in stool, constipation and diarrhea. Hematology: Denies easy bruising. Women Only: Denies breast masses, skin changes, nipple discharge, abnormal bleeding, pelvic pain and dyspareunia Genitourinary: Denies dysuria, pelvic pain and nocturia Skin: Denies rashes/lesions Neurologic: Denies headaches, dizziness, syncope Psychiatric: Denies hallucinations, suicidal ideas EXAM GENERAL EXAMINATION: Alert, oriented, well developed, well nourished. HEAD: Normocephalic, atraumatic. EYES: CRISS, sclera anicteric. EARS: No obvious hearing deficit. NECK/THYROID: Neck supple no cervical lymphadenopathy no thyromegaly. LYMPH NODES: No axillary, supraclavicular or inguinal adenopathy. SKIN: Warm and dry. No rashes HEART: Regular rate and rhythm. No murmur LUNGS: Clear to auscultation bilaterally. CHEST: Axillary nodes grossly normal. BREASTS: No dominant masses palpable bilaterally, no skin changes, nipple discharge, supra-clavicular or axillary adenopathy ABDOMEN: Soft, nontender, nondistended, no hernia or masses palpable. BACK: No obvious scoliosis/kyphosis. FEMALE GENITOURINARY: EFG without sores/lesions, erythematous vaginal mucosa-no discharge, no evidence of atrophy, cervix without lesions, uterus RV, upper normal size, no adnexal masses, cul-de-sac negative. EXTREMITIES No edema. NEUROLOGIC: Alert and oriented. PSYCH: Cooperative with exam. ICD-10-CM 1. Encounter for gynecological examination with abnormal finding Z01.411 2. Encounter for screening mammogram for malignant neoplasm of breast Z12.31 Bilateral screening mammogram with tomosynthesis 3. Screening for malignant neoplasm of cervix Z12.4 IGP, APT HPV,RFX 16/18,45 4. Screening for HPV (human papillomavirus) Z11.51 IGP, APT HPV,RFX 16/18,45 5. Postmenopausal HRT (hormone replacement therapy) Z79.890 estradiol-norethindrone (ActivElla) 1-0.5 MG tablet 6. Vaginal irritation N89.8 POCT trichomonas manually resulted 7. Dyspareunia in female N94.10 POCT trichomonas manually resulted 8. Vaginal yeast infection B37.31 fluconazole (Diflucan) 150 MG tablet POCT trichomonas manually resulted Assessment & Plan 1. Uterine fibroids. The patient has a 5 cm fibroid, which is causing some discomfort. However, the uterus itself does not seem to be overly enlarged. The fibroid is not causing significant symptoms such as bleeding or bulk symptoms. No immediate intervention is required. 2. Vaginal dryness. The patient reports vaginal dryness and irritation, especially during intercourse. She is currently on estrogen pills. She is advised to use Astroglide, an iycu-kod-nbsoaok lubricant, for additional relief. I think some of her discomfort might be from the yeast infection we identified today. Since she seems to be getting them frequently we are going to put her on a prolonged treatment course. 3. Recurrent yeast infections. The patient has experienced recurrent yeast infections, with the most recent one occurring in March. A microscopic examination confirmed the presence of yeast. A prescription for Diflucan (fluconazole) tablets will be provided. She is instructed to take one tablet now, repeat it in 3 to 4 days, and then continue with one tablet weekly for the next 8 weeks. 4. Thyroid nodules. The patient has thyroid nodules, with the largest being 11 mm. Previous blood work indicated normal thyroid function. No immediate intervention is required, but follow-up with an ultrasound may be necessary to monitor the nodules. 5. Health maintenance. A Pap smear will be conducted today. She has already completed her mammogram and colonoscopy screenings. PROCEDURE Colonoscopy was performed in 2019. documented in this encounter [facility] 03-30-2024 Evaluation note Diagnosis Onset Date Resolution Anxiety acute March 30, 2024 10:54am [facility] Work Phone: 1(439) 110-851311-18-2024 [facility]iology [facility] [place] [address] Ultrasound Report Signed Patient: Mira Gonsalves MR#: [id number] 80 : 1970 Acct:[id number] Age/Sex: 54 / F ADM Date: 4 Loc: Room: Type: [facility] Attending Dr: Bobby Cali MD Ordering Provider: Bobby Cali MD Date of Service: 03/12/24 US/US thyroid: E04.1 - Nontoxic single thyroid nodule Copies to: Bobby Cali MD~ Thyroid Ultrasound HISTORY: Nontoxic thyroid nodule COMPARISON: None The RIGHT lobe measures 4.7 x 1.4 x 1.6cm. LEFT lobe measures 4.2 x 1.1 x 1.4 cm. Isthmus has an AP dimension of 0.1cm. Right mid solid cystic nodule measures up to 11 mm. Left mid medial solid cystic nodule measures upto 5 mm. Left superior anechoic nodule with septationmeasures up to 6 mm. Left superior anechoic nodule with septation measures up to 4 mm. Right portion of the isthmus contains a mixed echogenic nodule measuring up to 7 mm.. No microcalcifications identified. Symmetric blood flow of the thyroid gland identified. US/US thyroid IMPRESSION: Bilateral thyroid nodules measuring up to 11 mm. Impression dictated by: Niko Garg M.D.03/12/2024 4:37 PM Dictation Location: [place] [address] Tech: Jenna Borjas Transcribed By: SHELIA 03/12/24 1637 Dictated By: Niko Garg DO 03/12/24 1636 Signed By: 03/12/24 1637 [facility]11-08-2024 Radiology Diagnostic study [place] [address] CT Scan Report Signed Patient: Mira Gonsalves MR#: [id number] 80 : 1970 Acct:[id number] Age/Sex: 54 / F ADM Date: 4 Loc: CT Room: Type: [facility] Attending Dr: Bobby Cali MD Copies to: Bobby Cali MD~ Ordering Provider: Bobby Cali MD Date of Service: 03/02/24 CT/CT abdomen pelvis w con: R07.9 - Chest pain, unspecified ([id number]) CT/CT chest wo/w con: R07.9 - Chest pain, unspecified CT chest wo/w con, CT abdomen pelvis w con 03/02/2024 4:50 PM SIGN AND SYMPTOMS: Bilateral lower rib pain, generalized abdominal pain, weight loss, hematuria CONTRAST: 90 mL of intravenous Isovue-300 TECHNIQUE: Multidetector CT axial slices of the chest, abdomen and pelvis were obtainedwith and without IV contrast. Multiplanar reformats were performed and viewed on a separate workstation and reviewed to further define anatomy and possible pathology. CT was performed with one or more of the following dose reduction techniques: Automated exposure control, adjustment of the mA and/or kV according to patient size, or use of iterative reconstruction technique. COMPARISON: 08/04/2007. FINDINGS: Lower neck: There is an 11 mm hypoattenuating structure in the right thyroid lobe which appears to be new when compared to the prior exam. Nonemergent ultrasound follow-up is recommended as malignancy is not excluded. Vessels: Within normal limits. There is no evidence of pulmonary embolism. Mediastinum and Jacquelyn: Within normal limits. Heart: Normal size. No pericardial effusion. Airways: Within normal limits Lungs: Emphysematous changes are present in the lung parenchyma. There is scarring at the lung apices. There is pleural-based scarring at the left lung base. Pleura: Within normal limits. Chest Wall: Within normal limits. Abdomen: Liver: There is an 8 mm focus of hypoattenuation in the right hepatic lobe. Bile Ducts: Normal caliber. Gallbladder: No calcified gallstones. Normal caliber wall. Pancreas: within normal limits. Spleen: within normal limits. Adrenals: within normal limits. Kidneys: within normal limits. Pelvis: Reproductive Organs: The uterine fundus is heterogeneously enlarged presumably relating to uterine fibroids. The largest measures 5.6 cm in greatest transverse dimension. Ureters: within normal limits. Bladder: within normal limits. Bowel: There are uncomplicated colonic diverticula. Mesenteric Lymph Nodes: No enlarged mesenteric lymph nodes. Peritoneum: No ascites or free air, no fluid collection. Vessels: Atherosclerotic changes are noted in the abdominal aorta and its branches.. Retroperitoneum: within normal limits. Abdominal Wall: within normal limits. Bones: Bilateral L5 pars defects are noted with grade 1 spondylolisthesis of L5 upon S1. CT/CT chest wo/w con IMPRESSION: No acute cardiopulmonary pathology or intra-abdominal pathology. There is an 11 mm hypoattenuating structure in the right thyroid lobe which appears to be new when compared to the prior exam. Nonemergent ultrasound follow-up is recommended as malignancy is not excluded. Emphysematous changes are present in the lung parenchyma. There is an 8 mm suspected cyst or hemangioma in the right hepatic lobe. The uterine fundus is heterogeneously enlarged presumably relating to uterine fibroids. The largestmeasures 5.6 cm in greatest transverse dimension. Uncomplicated colonic diverticula are noted. Impression dictated by: Danny Diaz M.D.03/02/2024 7:56 PM Dictation Location: [place] [address] Transcribed By: [facility] 03/02/241955 Dictated By: Danny Diaz II, MD 03/02/241940 Signed By: 03/02/241955 [facility] Work Phone: 1(882) 414-506410-30-2024 History of Present illness Narrative* LUIS ARMANDO Rdz - 02/22/2024 10:20 AM EDT Reason for Appointment: Patient ID: Mira Gonsalves is a 54 y.o. female who presents for Blood in Urine (Pt present today for urinary issues. Pt states she has blood and leuks in her urine. Pt had pain in urethra and very dark urine. Pt states she has lost 15 pounds since November. Wants to discuss a referral to Urology. ) Patient presents today for Acute Visit. Consistent urinary issues. MEDICATIONS Current Outpatient Medications Medication Instructions acetaminophen-codeine (Tylenol w/ Codeine #3) 300-30 MG tablet 1 tablet, Oral, 3 times daily PRN ALPRAZolam (Xanax) 0.25 MG tablet TAKE 1 TABLET ORALLY TWICE DAILY NEEDED FOR ANXIETY FOR 30 DAYS cyclobenzaprine (Flexeril) 10 MG tablet estradiol-norethindrone (ActivElla) 1-0.5 MG tablet 1 tablet, Oral, Daily famotidine (PEPCID) 40 mg, Nightly nystatin (Mycostatin) ointment Topical, 2 times daily, Thin amount in combination with Triamcinolone equal parts OMEPRAZOLE PO ondansetron ODT (Zofran-ODT) 4 MG disintegrating tablet Q8H sulfamethoxazole-trimethoprim (Bactrim DS) 800-160 MG per tablet 1 tablet triamcinolone (Kenalog) 0.1 % ointment Topical, 2 times daily ALLERGIES Allergies Allergen Reactions Acetaminophen Hives Other Reaction(s): Hives Propoxyphene Hives Other Reaction(s): Hives PROBLEMS Active Ambulatory Problems Diagnosis Date Noted Anxiety 12/18/2009 SI (sacroiliac) pain 01/12/2024 Smoking 01/12/2024 Resolved Ambulatory Problems Diagnosis Date Noted No Resolved Ambulatory Problems Past Medical History: Diagnosis Date Cervical lesion Relies on partner vasectomy for contraception Spontaneous pneumothorax 2009 HISTORY PAST MEDICAL HISTORY SOCIAL HISTORY Past Medical History: Diagnosis Date Cervical lesion Relies on partner vasectomy for contraception Spontaneous pneumothorax [address] Dr. Erickson Social History Tobacco Use Smoking status: Every Day Types: Cigarettes Smokeless tobacco: Never Tobacco comments: > Other tobacco use: Yes, Vape Vaping Use Vaping status: Never Used Substance Use Topics Alcohol use: Not Currently Comment: Caffeine intake: 1-2 cups per day Drug use: Never FAMILY HISTORY Family History Problem Relation Name Age of Onset Heart disease Maternal Grandmother Breast cancer Paternal Grandmother 80 SURGICAL HISTORY Past Surgical History: Procedure Laterality Date CHEST TUBE INSERTION Lung collapse (Pneumothorax) COLONOSCOPY 05/08/2019 Mild sigmoid diverticulosis - [place] - repeat 10 years COLPOSCOPY 2010 [facility] with biopsy -Cervical lesion DILATION AND CURETTAGE OF UTERUS 1994 THORACOSCOPY W/ TALC PLEURODESIS 12/2007 TONSILLECTOMY 1975 REVIEW OF SYSTEMS Review of Systems: Review of Systems Constitutional: Negative. HENT: Negative. Eyes: Negative. Respiratory: Negative. Cardiovascular: Negative. Gastrointestinal: Negative. Genitourinary: Negative. Musculoskeletal: Negative. Skin: Negative. Neurological: Negative. All other systems reviewed and are negative. Hematological: Negative. Endocrine: Negative. Allergic/Immunologic: Negative. OBJECTIVE Objective: Physical Exam Constitutional: Appearance: Normal appearance. She is normal weight. HENT: Head: Normocephalic. Cardiovascular: Rate and Rhythm: Normal rate. Pulses: Normal pulses. Pulmonary: Effort: Pulmonary effort is normal. Breath sounds: Normal breath sounds. Abdominal: Palpations: Abdomen is soft. Musculoskeletal: General: Normal range of motion. Neurological: General: No focal deficit present. Mental Status: She is alert and oriented to person, place, and time. Psychiatric: Mood and Affect: Mood normal. Behavior: Behavior normal. Thought Content: Thought content normal. Judgment: Judgment normal. Vitals and nursing note reviewed. Vitals: Estimated body mass index is 21.97 kg/m as calculated from the following: Height as of 06/09/22: 5' 3.25 . Weight as of this encounter: 125 lb. BP: 140/80 No LMP recorded. Patient is postmenopausal. ASSESSMENT & PLAN ICD-10-CM 1. Urine troubles R39.89 POCT urinalysis dipstick manually resulted Urine culture Pt states she had pain in the urethra a few days ago and once she urinated pt states she seen a form of a parasite. Pt has lost 15 pounds since November and has had an abnormal stool. Pt desires to have her urine sent out for cx. Urine was sent out at today's visit. Patient had been on a camping trip recently and symptoms started shortly after trip. Pt states not the cleanist of camping trips and feels she could have picked something up from wood. She describes passing of a parasite or worm like substance in her urine. We will send for stool culture as she hasalso had diarrhea. We will refer to urology to DR Livingston per patient request. Documented by Karli Quiroga MA on behalf of: LUIS ARMANDO Rdz documented in this encounterShriners Hospitals for [id number] History of Present illness Narrative* Beatriz Art MD - 02/01/2024 2:50 PM EDT Subjective Mira Gonsalves is a 54 y.o. female Chief Complaint Annual Exam HPI Patient is here for follow-up continue management for previous evaluation for atypical chest pain and hyperlipidemia. Since last time I saw her she admit to very high level of anxiety. 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 The patient denies complaint of chest pain recently denies lightheadedness, dizziness or syncope. She remains active. ASSESSMENT: 1. Atypical chest pain appears musculoskeletal or pleuritic the patient had a remote history of resection of lung bleb. Recent stress test is reassuring. Patient report complete resolution of her symptoms with after her period: Calcium scoring with her stopped 2. reformed smoker 3. hyperlipidemia. Does not meet criteria for treatment recent lab work noted and reviewed with her 4. minor shortness breath related to prior tobacco use functional class I with excellent exercise tolerance 5. Documentation of few premature ventricular contractions, felt to be benign. In the past with no recurrence RECOMMENDATION: 1. Reviewed the results of her previous cardiac workup including stress test and calcium scoring 2. I recommended continue with observant approach discussed with her risk factor modification 3. I discussed with her risk factor modification 4. I advised her to notify me with changes of cardiac status or symptoms I will see her back in 1 year Review of Systems All other systems reviewed and are negative. Vitals: 02/01/24 1522 02/01/24 1552 BP: 146/86 131/82 BP Location: Left arm Patient Position: Sitting Pulse: 84 Weight: 57.9 kg (127 lb 9.6 oz) Height: 1.6 m (5' 3 ) Objective Physical Exam Constitutional: Appearance: Normal appearance. HENT: Nose: Nose normal. Neck: Vascular: No carotid bruit. Cardiovascular: Rate and Rhythm: Normal rate. Pulses: Normal pulses. Heart sounds: Normal heart sounds. Pulmonary: Effort: Pulmonary effort is normal. Abdominal: General: Bowel sounds are normal. Palpations: Abdomen is soft. Musculoskeletal: General: Normal range of motion. Cervical back: Normal range of motion. Right lower leg: No edema. Left lower leg: No edema. Skin: General: Skin is warm and dry. Neurological: General: No focal deficit present. Mental Status: She is alert. Psychiatric: Mood and Affect: Mood normal. Behavior: Behavior normal. Thought Content: Thought content normal. Judgment: Judgment normal. Allergies Patient has no known allergies. Current Medications Current Outpatient Medications: acetaminophen-codeine (Tylenol w/ Codeine #3) 300-30 mg tablet, Take 1 tablet by mouth 3 times a day as needed for severe pain (7 - 10)., Disp: , Rfl: ALPRAZolam (Xanax) 0.25 mg tablet, Take 1 tablet (0.25 mg) by mouth if needed for anxiety., Disp: ,Rfl: cyclobenzaprine (Flexeril) 10 mg tablet, Take 1 tablet (10 mg) by mouth if needed., Disp: , Rfl: famotidine (Pepcid) 20 mg tablet, Take 1 tablet (20 mg) by mouth once daily at bedtime., Disp: , Rfl: omeprazole (PriLOSEC) [address] capsule, Take 1 capsule (20 mg) by mouth once daily in the morning. Take before meals. Do not crush or chew., Disp: , Rfl: Assessment/Plan 1. Chest pain, unspecified type 2. Premature ventricular contractions Follow Up In Cardiology Follow Up In Cardiology 3. Shortness of breath on exertion 4. Hyperlipidemia, unspecified hyperlipidemia type 5. Former smoker 6. Body mass index (BMI) 22.0-22.9, adult Scribe Attestation By signing my name below, Wilda Monroe LPN, Scribe attest that this documentation has been prepared under the direction and in the presence of MD Osiris. Provider Attestation - Scribe documentation All medical record entries made by the Scribe were at my direction and personally dictated by me. Ihave reviewed the chart and agree that the record accurately reflects my personal performance of the history, physical exam, discussion and plan. documented in this encounterC[facility] Work Phone: 1(343) 979-442810-09-2024 Instructions* Patient Instructions* Wilda Diaz LPN - 02/01/2024 2:50 PM EDT Please bring all medicines, vitamins, and herbal supplements with you when you come to the office. Prescriptions will not be filled unless you are compliant with your follow up appointments or have a follow up appointment scheduled as per instruction of your physician. Refills should be requested at the time of your visit. One year Same meds documented in this encounterC[facility] Work Phone: 1(216) 655-166409-24-2024 Evaluation note* Diagnosis Onset Date Resolution Status Admit Date Anxiety acute December 2:11pm Vaginal irritation acute 2023 2:11pm Urinary frequency acute February 06, 2024 11:36am Chest pain acute February 07, 2024 11:07am Generalized abdominal pain acute February 07, 2024 11:07am Nausea acute February 07, 2024 11:07am Pleurisy acute February 07, 2024 11:07am Weight loss, abnormal acute Jan 11:07am [facility] Work Phone: 1(459) 152-593009-24-2024 History of Present illness Narrative* LUIS ARMANDO Rdz - 01/17/2024 1:10 PM EDT Reason for Appointment: Patient ID: Mira Gonsalves is a 54 y.o. female who presents for Vaginal Pain Patient presents today for Acute Visit. MEDICATIONS Current Outpatient Medications Medication Instructions acetaminophen-codeine (Tylenol w/ Codeine #3) 300-30 MG tablet 1 tablet, Oral, 3 times daily PRN ALPRAZolam (Xanax) 0.25 MG tablet TAKE 1 TABLET ORALLY TWICE DAILY NEEDED FOR ANXIETY FOR 30 DAYS cyclobenzaprine (Flexeril) 10 MG tablet estradiol-norethindrone (ActivElla) 1-0.5 MG tablet 1 tablet, Oral, Daily nystatin (Mycostatin) ointment Topical, 2 times daily, Thin amount in combination with Triamcinolone equal parts OMEPRAZOLE PO triamcinolone (Kenalog) 0.1 % ointment Topical, 2 times daily ALLERGIES No Known Allergies PROBLEMS Active Ambulatory Problems Diagnosis Date Noted Anxiety 12/18/2009 SI (sacroiliac) pain 01/12/2024 Smoking 01/12/2024 Resolved Ambulatory Problems Diagnosis Date Noted No Resolved Ambulatory Problems Past Medical History: Diagnosis Date Cervical lesion Relies on partner vasectomy for contraception Spontaneous pneumothorax 2009 HISTORY PAST MEDICAL HISTORY SOCIAL HISTORY Past Medical History: Diagnosis Date Cervical lesion Relies on partner vasectomy for contraception Spontaneous pneumothorax [address] Dr. Erickson Social History Tobacco Use Smoking status: Every Day Types: Cigarettes Smokeless tobacco: Never Tobacco comments: > Other tobacco use: Yes, Vape Vaping Use Vaping status: Never Used Substance Use Topics Alcohol use: Not Currently Comment: Caffeine intake: 1-2 cups per day Drug use: Never FAMILY HISTORY Family History Problem Relation Name Age of Onset Heart disease Maternal Grandmother Breast cancer Paternal Grandmother 80 SURGICAL HISTORY Past Surgical History: Procedure Laterality Date CHEST TUBE INSERTION Lung collapse (Pneumothorax) COLONOSCOPY 05/08/2019 Mild sigmoid diverticulosis - [place] - repeat 10 years COLPOSCOPY 2009 [facility]po with biopsy -Cervical lesion DILATION AND CURETTAGE OF UTERUS 1994 THORACOSCOPY W/ TALC PLEURODESIS 12/2007 TONSILLECTOMY 1976 REVIEW OF SYSTEMS Review of Systems: Review of Systems Constitutional: Negative. HENT: Negative. Eyes: Negative. Respiratory: Negative. Cardiovascular: Negative. Gastrointestinal: Negative. Genitourinary: Negative. Musculoskeletal: Negative. Skin: Negative. Neurological: Negative. All other systems reviewed and are negative. Hematological: Negative. Endocrine: Negative. Allergic/Immunologic: Negative. OBJECTIVE Objective: Physical Exam Constitutional: Appearance: Normal appearance. She is normal weight. Genitourinary: Left Labia: rash. Vulva exam comments: Small red raised excoriated region. HENT: Head: Normocephalic. Cardiovascular: Rate and Rhythm: Normal rate. Pulses: Normal pulses. Pulmonary: Effort: Pulmonary effort is normal. Breath sounds: Normal breath sounds. Abdominal: Palpations: Abdomen is soft. Musculoskeletal: General: Normal range of motion. Neurological: General: No focal deficit present. Mental Status: She is alert and oriented to person, place, and time. Psychiatric: Mood and Affect: Mood normal. Behavior: Behavior normal. Thought Content: Thought content normal. Judgment: Judgment normal. Vitals and nursing note reviewed. Vitals: Estimated body mass index is 22.39 kg/m as calculated from the following: Height as of 06/09/22: 5' 3.25 . Weight as of this encounter: 127 lb 6.4 oz. BP: No LMP recorded. Patient is postmenopausal. ASSESSMENT & PLAN ICD-10-CM 1. Vaginal pain R10.2 Patient presents for pain and rash to left labial area. Patient states she had been on a camping trip recently with her and developed sore post camping trip. Uncertain if came into contact with something in the [place]. She is monagamous with her and no concern for sti. She was seen last week and started on cream and flagyl which have not seemed to help from another [employer]. Exam today shows small painful lesion to the left labia, cultures obtained. Patient given a new prescription ofclobetasole and premarin cream. Patient will follow up for biopsy if symptoms do not improve Documented by LUIS ARMANDO Rdz on behalf of: LUIS ARMANDO Rdz documented in this encounterShriners Hospitals for [id number] History of Present illness Narrative* Matthew Mesa, - 01/12/2024 10:00 AM EDT Images from the original note were not included. Subjective Mira Gonsalves is a 54 y.o. female Chief Complaint Patient presents with Gynecologic Exam C/o redness and inflammation in vagina started 5w ago when she had a yeast infection- treated w/ OTC Monistat. States it went away, but returned, so she did another round of Monistat. Denies vaginal discharge, odor, itching. Sexually active, denies pain with intercourse, but admits she has been avoiding it. Thinks Bartholin Cyst. History of Present Illness Current Outpatient Medications: cyclobenzaprine (Flexeril) 10 MG tablet, , Disp: , Rfl: OMEPRAZOLE PO, , Disp: , Rfl: acetaminophen-codeine (Tylenol w/ Codeine #3) 300-30 MG tablet, Take 1 tablet by mouth 3 (three) times a day as needed, Disp: , Rfl: ALPRAZolam (Xanax) 0.25 MG tablet, TAKE 1 TABLET ORALLY TWICE DAILY NEEDED FOR ANXIETY FOR 30 DAYS, Disp: , Rfl: estradiol-norethindrone (ActivElla) 1-0.5 MG tablet, Take 1 tablet by mouth in the morning., Disp: 30 tablet, Rfl: 11 Past Medical History: Diagnosis Date Cervical lesion Relies on partner vasectomy for contraception Spontaneous pneumothorax 2008 Dr. Erickson Past Surgical History: Procedure Laterality Date CHEST TUBE INSERTION Lung collapse (Pneumothorax) COLONOSCOPY 05/08/2019 Mild sigmoid diverticulosis - [place] - repeat 10 years COLPOSCOPY 2009 Colpo with biopsy -Cervical lesion DILATION AND CURETTAGE OF UTERUS 1994 THORACOSCOPY W/ TALC PLEURODESIS 12/2007 TONSILLECTOMY 1975 Family History Problem Relation Name Age of Onset Heart disease Maternal Grandmother Breast cancer Paternal Grandmother 80 OB History Para Term AB Living 4 4 4 0 0 4 SAB IAB Ectopic Multiple Live Births 0 0 0 0 0 # Outcome Date GA Lbr Rashawn/2nd Weight Sex Type Anes PTL Lv 4 Term 3 Term 2 Term 1 Term Obstetric Comments Pap 03/23/21- Neg, HPV Neg Mammogram 04/27/23- Neg Colonoscopy 05/08/2019- Neg, repeat 10 years ([facility]) Review of Systems All negative unless documented in treatment Objective Visit Vitals BP 152/86 Wt 128 lb BMI 22.50 kg/m OB Status Postmenopausal Smoking Status Every Day BSA 1.61 m Allergies Allergen Reactions Acetaminophen Hives Propoxyphene Hives Physical Exam Constitutional: Appearance: Normal appearance. Genitourinary: Vulva, bladder, rectum and urethral meatus normal. Right Labia: No rash, tenderness, lesions, skin changes or Bartholin's cyst. Left Labia: No tenderness, lesions, skin changes, Bartholin's cyst or rash. Vulva exam comments: Small tear or fissure in skin on L. Vaginal discharge and erythema (Mild erythema right at the introitus) present. No vaginal tenderness or bleeding. No vaginal prolapse present. No vaginal atrophy present. Right Adnexa: not tender and no mass present. Left Adnexa: not tender and no mass present. Cervical nabothian cyst (fairly large 1.5-2 cm nabothian cyst encompassing the posterior aspect of the cervix.) present. No cervical motion tenderness or lesion. No parametrium nodularity or thickening present. Uterus is not fixed or tender. Uterus is anteverted. HENT: Head: Normocephalic and atraumatic. Musculoskeletal: Right lower leg: No edema. Left lower leg: No edema. Neurological: Mental Status: She is alert and oriented to person, place, and time. Skin: General: Skin is warm and dry. Findings: No rash. Procedures ICD-10-CM 1. Vulvar itching L29.2 She has been experiencing what she thought was yeast infections due to soreness and itching. She used Monistat which resolved symptoms. A week or so later she developed symptoms again, used Monistat again on Tuesday. She thinks she has some swelling on the Left and itching. She took Keflex last night and this morning. Denies any new medication, soaps, detergents etc. Discharge noted. Wet prep- Bv and yeast. Will rx Diflucan 2 tablets and Flagyl. She will take one Diflucan now complete Flagyl andthen take her second Diflucan. In the mean time she will use Nystatin/Triamcinolone thin amount twice daily externally and slowly wean. She will call office if symptoms do not improve. Entered by Eliane Carroll LPN acting as scribe for Dr. Matthew Mesa. Signature: Eliane Carroll LPN The documentation recorded by the scribe accurately reflects the service(s) I personally performed and the decisions I made. Signature: Matthew Mesa DO Assessment & Plan documented in this encounterShriners Hospitals for [id number] Evaluation note* Encounter Date Diagnosis Assessment Notes Treatment Notes Treatment Clinical Notes Apr, Situational anxiety (ICD-10 - F41.8) [facility] [place] Other 01-08-2024 Evaluation note* Encounter Date Diagnosis Assessment Notes Treatment Notes Treatment Clinical Notes Apr, Trapezius muscle spasm (ICD-10 - M62.838) REquests refill of muscle relaxer Apr, Acute intractable tension-type headache (ICD-10 - G44.201) Has been to chiropractor. Suggested massotherapy, heat and topical NSAIDs for neck strain. [facility] samples #2 given. [facility] Other 12-15-2023 Evaluation note* Encounter Date Diagnosis Assessment Notes Treatment Notes Treatment Clinical Notes Mar, Dysuria (ICD-10 - R30.0) [facility] Other 12-14-2023 Evaluation note* Encounter Date Diagnosis Assessment Notes Treatment Notes Treatment Clinical Notes Mar, Situational anxiety (ICD-10 - F41.8) [facility] Other 11-08-2023 Evaluation note* Encounter Date Diagnosis Assessment Notes Treatment Notes Treatment Clinical Notes Feb, Situational anxiety (ICD-10 - F41.8) [facility] Other 09-26-2023 Evaluation note* Encounter Date Diagnosis Assessment Notes Treatment Notes Treatment Clinical Notes Dec, Tongue abnormality (ICD-10 - Q38.3) Discussed burning tongue syndrome. Does have some photos of her swollen tongue. Wants to take prednisone prn. Requests referral to Dr. Fontenot. Discussed adding B complex vitamin and she has read info that it could be worse w her HRT. She will hold her HRT as it is just for hot flashes. Dec, Situational anxiety (ICD-10 - F41.8) Chronic problem, prefers prn med - refilled rx and reviewed [facility] report [facility] Other 09-05-2023 Evaluation note* Encounter Date Diagnosis Assessment Notes Treatment Notes Treatment Clinical Notes Dec, Tongue abnormality (ICD-10 - Q38.3) [facility] Other 08-17-2023 Evaluation note* Encounter Date Diagnosis Assessment Notes Treatment Notes Treatment Clinical Notes Nov, Tongue abnormality (ICD-10 - Q38.3) [facility] Other 08-16-2023 Evaluation note* Encounter Date Diagnosis Assessment Notes Treatment Notes Treatment Clinical Notes Nov, Wellness examination (ICD-10 - Z00.00) Pt requests order for wellness labs. Today was not a wellness exam Nov, Tongue abnormality (ICD-10 - Q38.3) Discussed differential - thrush, burning tongue syndrome. Recommend followup w dentist -has appt in 2 weeks. Will treat presently and monitor symptoms. [facility] Other 08-02-2023 Evaluation note* Encounter Date Diagnosis Assessment Notes Treatment Notes Treatment Clinical Notes Nov, Candidal stomatitis (ICD-10 - B37.0) Use medication as directed. Change toothbrush. Nystatin, 4 ml to each swish and swallow QID x14 days. P atient verbalizes understanding and is agreeable to treatment plan.Follow up with PCP if symptoms do not improve with treatment [facility] Other chief complaint Narrative - Reported* MIRA GONSALVES is being seen for a cardiovascular evaluation. * MIRA GONSALVES is being seen for chest pain. [facility] Work Phone: chief complaint Narrative - Reported* MIRA GONSALVES is being seen for a cardiovascular evaluation. * MIRA GONSALVES is being seen for chest pain. [facility] Work Phone: Evaluation noteNo assessment information available [facility] Work Phone: Evaluation noteNo InformationNortJefferson [facility] [place] Other Evaluation note* Diagnosis Onset Date Resolution Status Anxiety acute [facility] Work Phone: Evaluation note* Diagnosis Onset Date Resolution Status Anxiety acute Anxiety acute [facility] Work Phone: Evaluation note* Diagnosis Onset Date Resolution Status Anxiety acute Anxiety acute SI (sacroiliac) pain acute [facility] Work Phone: Evaluation note* Diagnosis Onset Date Resolution Status Anxiety acute Anxiety acute Vaginal irritation acute [facility] Work Phone: Evaluation note* Diagnosis Chest pain, unspecified type- Primary Premature ventricular contractions Other premature beats Shortness of breath on exertion Shortness of breath Hyperlipidemia, unspecified hyperlipidemia type Former smoker Personal history of tobacco use, presenting hazards to health Body mass index (BMI) 22.0-22.9, adult documented in this encounter [facility] Work Phone: Evaluation note* Diagnosis Onset Date Resolution Status Anxiety acute Anxiety acute Vaginal irritation acute Urinary frequency acute [facility] Work Phone: Evaluation note* Diagnosis Onset Date Resolution Status Anxiety acute Anxiety acute Vaginal irritation acute Urinary frequency acute Chest pain acute Nausea acute Pleurisy acute Weight loss, abnormal acute [facility] Work Phone: Evaluation note* Diagnosis Onset Date Resolution Status Anxiety acute Anxiety acute Vaginal irritation acute Urinary frequency acute Chest pain acute Generalized abdominal pain a cute Nausea acute Pleurisy acute Weight loss, abnormal acute [facility] Work Phone: Evaluation note* Diagnosis Urine troubles Other urinary problems Diarrhea, unspecified type [facility] Diagnosis Vulvar itching Vaginal discharge Leukorrhea, not specified as infective BV (bacterial vaginosis) Unspecified vaginitis and vulvovaginitis Vaginal yeast infection Candidiasis of vulva and vagina documented [facility] Diagnosis Vaginal pain Unspecified symptom associated with female genital organs documented [facility] Diagnosis Encounter for gynecological examination with abnormal finding- Primary Encounter for screening mammogram for malignant neoplasm of breast Screening for malignant neoplasm of cervix Screening for malignant neoplasm of the cervix Screening for HPV (human papillomavirus) Special screening examination for human papillomavirus (HPV) Postmenopausal HRT (hormone replacement therapy) Need for prophylactic hormone replacement therapy (postmenopausal) Vaginal irritation Pruritus of genital organs Dyspareunia in female Vaginal yeast infection Candidiasis of vulva and vagina documented [facility] this [facility] N[facility]ative - Reported* Type Description Date Surgical History tonsillectomy as a child Surgical History Lung Collapsed left side Hospitalization History childbirth x4 Hospitalization History Kidney infection as a [employer] Other History general Narrative - Reported* Type Description Date Medical History Situational anxiety Medical History Tongue abnormality Surgical History tonsillectomy as a child Surgical History Lung Collapsed left side Hospitalization History childbirth x4 Hospitalization History Kidney infection as a [employer] Other History of Present illness Narrative* Patient is here for cardiovascular evaluation for symptoms of chest pain I documented that were similar presentation. Previous medical work-up included a stress test and echocardiogram which was negative. Her symptoms felt to be either GI in nature or musculoskeletal. The patient had a previous history of resection of the lung Bleb * By Dr. Erickson 2008. She report recent increase in frequency of her chest pain. She will few days ago she had an episode lasted almost the whole day. That when she put her hand on her chest and pressed against the area. She intermittent shortness of breath. She is described functional class I. Thereis no clear associated, precipitating or alleviating factors. * ASSESSMENT: * 1. Atypical chest pain appears musculoskeletal or pleuritic * 2. reformed smoker * 3. hyperlipidemia. Does not meet criteria for treatment * 4. minor shortness breath related to prior tobacco use * 5. Documentation of few premature ventricular contractions, felt to be benign. In the past with no recurrence * RECOMMENDATION: * 1. The patient was advised to proceed with GXT. * 2. I advised her to have a chest x-ray and lipid profile * 3. I recommended a trial of metoprolol * 4. I advised her to notify me with changes of cardiac status or symptoms I will see her back in 2-3 * Follow-up [facility] Work Phone: History of Present illness Narrative* Patient is here for cardiovascular evaluation for symptoms of chest pain I documented that were similar presentation. Previous medical work-up included a stress test and echocardiogram which was negative. Her symptoms felt to be either GI in nature or musculoskeletal. The patient had a previous history of resection of the lung Bleb * By Dr. Erickson 2008. She report recent increase in frequency of her chest pain. She will few days ago she had an episode lasted almost the whole day. That when she put her hand on her chest and pressed against the area. She intermittent shortness of breath. She is described functional class I. Thereis no clear associated, precipitating or alleviating factors. * ASSESSMENT: * 1. Atypical chest pain appears musculoskeletal or pleuritic * 2. reformed smoker * 3. hyperlipidemia. Does not meet criteria for treatment * 4. minor shortness breath related to prior tobacco use * 5. Documentation of few premature ventricular contractions, felt to be benign. In the past with no recurrence * RECOMMENDATION: * 1. The patient was advised to proceed with GXT. * 2. I advised her to have a chest x-ray and lipid profile * 3. I recommended a trial of metoprolol * 4. I advised her to notify me with changes of cardiac status or symptoms I will see her back in 2-3 * Follow-up [facility] Work Phone: History of Present illness Narrative* Patient is here for follow-up continue management for previous evaluation for atypical chest pain. Has been following the patient since 2010 for intermittent atypical chest pain. She underwent several cardiac evaluation with echocardiogram and stress test all of it appears to be reassuring. Her chest pain and nonexertional. She does describe some radiation to the left arm. There is no clear associated, precipitated or alleviated symptoms. She did undergo resection of lung bleb back [place] [address] Ac. She also had been on Prilosec for some dyspepsia. She was referred for a stress test where she was able to exercise for 10 minutes. Did not have any EKG changes. And was clinically negative test. * ASSESSMENT: * 1. Atypical chest pain appears musculoskeletal or pleuritic the patient had a remote history of resection of lung bleb. Recent stress test is reassuring. Patient continues to complain of intermittentepisodes of chest pain. Following last office visit I did recommend trial of beta-blockers but the patient did not want to do that * 2. reformed smoker * 3. hyperlipidemia. Does not meet criteria for treatment recent lab work noted and reviewed with her * 4. minor shortness breath related to prior tobacco use functional class I with excellent exercise tolerance * 5. Documentation of few premature ventricular contractions, felt to be benign. In the past with no recurrence * RECOMMENDATION: * 1. Reviewed the results of her GXT and lab work and reassured her cardiac * 2. I recommended calcium scoring for risk assessment considering her continued complaint and concern about underlying ischemic heart disease * 3. I discussed with her second opinion and or invasive evaluation but the patient declined * 4. I advised her to notify me with changes of cardiac status or symptoms I will see her back in [address] [facility] DO Work Phone: Hospital Discharge instructions Additional Instructions Please return to emergency department for any new or worrisome symptoms including any numbness, weakness, tingling, difficulty urinating or difficulty walking. Please be advised that muscle relaxers can make you drowsy and you should stay at home until you know how they affect you for driving for at least 8 hours. Follow-up with your family physician within the next 3 to 5 days.[facility] Work Phone: Reason for referral (narrative)* Consultation (Routine) - Authorized Specialty Diagnoses / Procedures Referred By Contac t Referred To Contact Cardiology Diagnoses Premature ventricular contractions Procedures Follow Up In Cardiology Beatriz Art MD [address] [facility] [address], [address] [place] [id number] Beatriz Art MD [address] [facility] [address], [address] [place] [id number] Referral ID Status Reason Start Date Expiration Date V isits Requested Visits Authorized [id number] Authorized 02/01/2024 01/31/2025 1 1 [facility] Work Phone: Summary Purpose Family History No Family History Records FoundUnknown Family Member Name Dates Details Family history of chest pain : Mother(V19.8, Z84.89) Status:Active Unknown Family Member Name Dates Details Family history of chest pain : Mother(V19.8, Z84.89) Status:Active Relationship Condition Age at Onset Recorded Date/T lydia Not Specified No pertinent family history Unknown Unknown Family Member Name Dates Details Family history of chest pain : Mother(V19.8, Z84.89) Status:Active Unknown Family Member Name Dates Details Family history of chest pain : Mother(V19.8, Z84.89) Status:Active Unknown Family Member Name Dates Details Family history of chest pain : Mother(V19.8, Z84.89) Status:Active Unknown Family Member Name Dates Details Family history of chest pain : Mother(V19.8, Z84.89) Status:Active Relationship Condition Age at Onset Recorded Date/T lydia Not Specified No pertinent family history Unknown father Unknown Not Specified Hypertension Unknown Relationship Condition Age at Onset Recorded Date/T lydia Not Specified No pertinent family history Unknown father Unknown mother Hypertension Unknown Advance Directives No Advanced Directives Records Found Advance Directive Response Recorded Date/ Time Advance Directives No December 11:14am Advance Directive Response Recorded Date/ Time Advance Directives No December 12:14pm Chief Complaint and Reason for Visit Chief Complaint R06.02 Chief Complaint Amb Documentation Check Up Chief Complaint Check Up med follow up Reason for Visit Anxiety Chief Complaint Check Up med follow up Back Pain/leg numbness Reason for Visit Anxiety Anxiety Chief Complaint Check Up med follow up Back Pain/leg numbness lower back pain Reason for Visit Anxiety Anxiety SI (sacroiliac) pain Chief Complaint Check Up med follow up Back Pain/leg numbness lower back pain m53.3 Reason for Visit Anxiety Anxiety SI (sacroiliac) pain Chief Complaint Check Up med follow up Back Pain/leg numbness lower back pain m53.3 3 month follow up Reason for Visit Anxiety Anxiety Chief Complaint Back Pain/leg numbne ss lower back pain m53.3 3 month follow up vaginal pain/ antibiotic not working Reason for Visit Anxiety Anxiety Vaginal irritation Chief Complaint Back Pain/leg numbne ss lower back pain m53.3 3 month follow up vaginal pain/ antibiotic not working UA, cloudy, darker, and frequency Reason for Visit Anxiety Anxiety Vaginal irritation Chief Complaint Back Pain/leg numbne ss lower back pain m53.3 3 month follow up vaginal pain/ antibiotic not working UA, cloudy, darker, and frequency Increased frequency of urination Reason for Visit Anxiety Anxiety Vaginal irritation Urinary frequency Chief Complaint Back Pain/leg numbne ss lower back pain m53.3 3 month follow up vaginal pain/ antibiotic not working UA, cloudy, darker, and frequency Increased frequency of urination Rib Pain/Nausea Reason for Visit Anxiety Anxiety Vaginal irritation Urinary frequency Chest pain Nausea Pleurisy Weight loss, abnormal Chief Complaint Back Pain/leg numbne ss lower back pain m53.3 3 month follow up vaginal pain/ antibiotic not working UA, cloudy, darker, and frequency R35.0 Rib Pain/Nausea Reason for Visit Anxiety Anxiety Vaginal irritation Urinary frequency Chest pain Generalized abdominal pain Nausea Pleurisy Weight loss, abnormal Chief Complaint 3 month follow up vaginal pain/ antibiotic not working UA, cloudy, darker, and frequency R35.0 Rib Pain/Nausea r11.0 r19.7 Reason for Visit Anxiety Anxiety Vaginal irritation Urinary frequency Chest pain Generalized abdominal pain Nausea Pleurisy Weight loss, abnormal Chief Complaint Admit Date vaginal pain/ antibiotic not working Sep tember 2023 2:11pm UA, cloudy, darker, and frequency Octobe r 2023 11:36am R35.0 February 06, 2024 1 1:45am Rib Pain/Nausea February 07, 2024 1 1:07am r11.0 February 07, 2024 1 2:16pm r19.7 February 23, 2024 2 :05pm R07.9 R63.4 R11.0 R09.1 R10.84 March 02, 2024 3:32pm Reason for Visit Admit Date Anxiety January 17, 2024 2:11pm Vaginal irritation January 17, 2024 2:11pm Urinary frequency February 06, 2024 1 1:36am Chest pain February 07, 2024 1 1:07am Generalized abdominal pain February 07, 2024 11:07am Nausea February 07, 2024 1 1:07am Pleurisy February 07, 2024 1 1:07am Weight loss, abnormal February 07, 2024 11:07am Chief Complaint Admit Date vaginal pain/ antibiotic not working Sep tember 2023 2:11pm UA, cloudy, darker, and frequency Octobe r 2023 11:36am R35.0 February 06, 2024 1 1:45am Rib Pain/Nausea February 07, 2024 1 1:07am r11.0 February 07, 2024 1 2:16pm r19.7 February 23, 2024 2 :05pm R07.9 R63.4 R11.0 R09.1 R10.84 March 02, 2024 3:32pm E04.1 March 12, 2024 2:37pm Chief Complaint Admit Date CC Adult Risk Stratification March 3:11pm 4 month f/u March 30, 2024 1 0:54am Possible Ulcer June 13, 2024 8:26am Reason for Visit Admit Date Anxiety March 30, 2024 1 0:54am Chief Complaint MIRA GONSALVES is being seen for a 2 month follow-up of. Reason for Referral Reason *FU 01/25 Shaquille her Po - ENT in [place] - burning tongue syndrome with intermittent swelling Diagnosis 1 Tongue abnormality ( Q38.3) Referral Organization [facility] pippa Referring Provider First Name Bobby Referring Provider Last Name Belem Referring Provider Specialty Family [facility] Referred Organization Unknown Facility Referred Provider Armando Fontenot Referred Provider Specialty Ear, Nose an d Throat Referral Priority Routine General Notes Sangeeta Lynn 11:28:02 AM >received today, attachments made, notes locked, referral faxed Clinical Notes p: [id number] f: [id number] Additional Source Comments INFORMATION SOURCE (unrecogn ized section and content) DATE CREATED AUTHOR 10/18/2017 [facility] DATE CREATED AUTHOR AUTHOR'S ORGANIZ ATION 12/21/2019 [place] [facility] DATE CREATED AUTHOR AUTHOR'S ORGANIZ ATION 02/03/2022 [facility] DATE CREATED AUTHOR AUTHOR'S ORGANIZ ATION 03/11/2022 [facility] DATE CREATED AUTHOR AUTHOR'S ORGANIZ ATION 04/20/2022 [facility] dical Specialist DATE CREATED AUTHOR AUTHOR'S ORGANIZ ATION 05/26/2022 [facility] DATE CREATED AUTHOR AUTHOR'S ORGANIZ ATION 05/26/2022 [facility] DATE CREATED AUTHOR AUTHOR'S ORGANIZ ATION 06/03/2022 [facility] DATE CREATED AUTHOR AUTHOR'S ORGANIZ ATION 03/14/2024 [facility] DATE CREATED AUTHOR AUTHOR'S ORGANIZ ATION 05/06/2024 [facility] dical Specialists EPIC DATE CREATED AUTHOR AUTHOR'S ORGANIZ ATION 06/30/2024 [facility] Psychologist Counseling Teams (unrecognized sec tion and content) Team Status: Active Member Role Status Dates Bobby Cali MD Primary Care Provider Active Team Status: Active Member Role Status Dates Bobby Cali MD Primary Care Provide r, Attending Provider Active Start: March 27, 2024 Team Status: Inactive Member Role Status Dates Bobby Cali MD Primary Care Provide r, Attending Provider Active Start: March 30, 2024 End: March 30, 2024 Team Status: Inactive Member Role Status Dates Bobby Cali MD Primary Care Provide r, Attending Provider Active Start: June 13, 2024 End: June 13, 2024 Team Status: Inactive Member Role Status Dates Bobby Cali MD Primary Care Provide r, Attending Provider Active Start: September 01, 2023 End: September 01, 2023 Team Status: Inactive Member Role Status Dates Bobby Cali MD Primary Care Provide r, Attending Provider Active Start: September 26, 2023 End: September 26, 2023 Team Status: Inactive Member Role Status Dates Bobby Cali MD Primary Care Provider Active Beatriz Art MD Attending Provider Active Team Status: Active Member Role Status Dates Bobby Cali MD Primary Care Provider Active Start: June 22, 2023 LUIS Salgado Attending Provider Active Start : June 22, 2023 Team Status: Inactive Member Role Status Dates Bobby Cali MD Primary Care Provider Active Start: November 10, 2023 End: November 10, 2023 Alice Ferreira MD Emergency Provider Active Start: November 10, 2023 End: November 10, 2023 Team Status: Inactive Member Role Status Dates Bobby Cali MD Primary Care Provide r, Attending Provider Active Start: November 14, 2023 End: November 14, 2023 Team Status: Inactive Member Role Status Dates Bobby Cali MD Primary Care Provide r, Attending Provider Active Start: November 16, 2023 End: November 16, 2023 Team Status: Inactive Member Role Status Dates Bobby Cali MD Primary Care Provide r, Attending Provider Active Start: November 28, 2023 End: November 28, 2023 Team Status: Inactive Member Role Status Dates Bobby Cali MD Primary Care Provide r, Attending Provider Active Start: January 17, 2024 End: January 17, 2024 Services Advisor Relationship Specialty Start Date End Date Bobby aCli MD [address] [place] [id number] PCP - General 04/25/20 Team Status: Inactive Member Role Status Dates Bobby Cali MD Primary Care Provide r, Attending Provider Active Start: February 06, 2024 End: February 06, 2024 Team Status: Inactive Member Role Status Dates Bobby Cali MD Primary Care Provide r, Attending Provider Active Start: February 07, 2024 End: February 07, 2024 Services Advisor Relationship Specialty Start Date End Date Bobby Cali MD [address] [place] [phone] PCP - General Family Medicine 04/22/23 Matthew Mesa DO [address] [place] [address] Referring Physician Obstetrics and Gynecology 04/22/23 Services Advisor Relationship Specialty Start Date End Date Bobby Cali MD [address] [place] [phone] PCP - General Family Medicine 04/22/23 Matthew Mesa DO [address] [place] [address] Referring Physician Obstetrics and Gynecology 04/22/23 Team Status: Inactive Member Role Status Dates Bobby Cali MD Primary Care Provider Active Start: February 23, 2024 End: February 23, 2024 Mira Sykes PA-C Attending Provider Active Sta rt: February 23, 2024 End: February 23, 2024 Team Status: Inactive Member Role Status Dates Bobby Cali MD Primary Care Provide r, Attending Provider Active Start: March 02, 2024 End: March 02, 2024 Team Status: Inactive Member Role Status Dates Bobby Cali MD Primary Care Provide r, Attending Provider Active Start: March 12, 2024 End: March 12, 2024 Services Advisor Relationship Specialty Start Date End Date Bobby Cali MD [address] [place] [phone] PCP - General Family Medicine 04/22/23 Matthew Mesa DO [address] [place] [address] Referring Physician Obstetrics and Gynecology 04/22/23 Services Advisor Relationship Specialty Start Date End Date Bobby Cali MD [address] [place] [phone] PCP - General Family Medicine 04/22/23 Matthew Mesa DO [address] [place] [address] Referring Physician Obstetrics and Gynecology 04/22/23 Services Advisor Relationship Specialty Start Date End Date Bobby Cali MD [address] [place] [phone] PCP - General Family Medicine 04/22/23 Matthew Mesa DO [address] [place] [address] Referring Physician Obstetrics and Gynecology 04/22/23 Services Advisor Relationship Specialty Start Date End Date Bobby Cali MD [address] [place] [phone] PCP - General Family Medicine 04/22/23 Matthew Mesa DO [address] [facility] [address] [place] [address] Referring Physician Obstetrics and Gynecology 04/22/23 Services Advisor Relationship Specialty Start Date End Date Bobby Cali MD [address] [place] [phone] PCP - General Family Medicine 04/22/23 Matthew Mesa DO [address] [place] [address] Referring Physician Obstetrics and Gynecology 04/22/23 Services Advisor Relationship Specialty Start Date End Date Bobby Cali MD [address] [place] [phone] PCP - General Family Medicine 04/22/23 Matthew Mesa DO [address] [place] [address] Referring Physician Obstetrics and Gynecology 04/22/23 Goals (unrecognized section and content) Goals may be documented in a n alternate sectionNo InformationNo InformationNo InformationNo InformationNo InformationNo InformationNo InformationNo InformationNo InformationNo InformationNo InformationGoals may be documented in an alternate sectionGoals may be documented in an alternate sectionGoals may be documented in an alternate sectionGoals may be documented in an alternate sectionGoals may be documented in an alternate sectionGoals may be documented in an alternate sectionGoals may be documented in an alternate sectionGoals may be documented in an alternate sectionGoals may be documented in an alternate sectionGoals may be documented in an alternate sectionGoals may be documented in an alternate sectionGoals may be documented in an alternate sectionGoals may be documented in an alternate sectionGoals may be documented in an alternate sectionGoals may be documented in an alternate sectionGoals may be documented in an alternate section REASON FOR VISIT (unrecogniz ed section and content) Reason Comments Annual Exam Specialty Diagnoses / Procedures Referred By Alayna kearney Referred To Contact Cardiology Diagnoses Premature ventricular contractions Procedures Follow Up In Cardiology Beatriz Art MD [address] [facility] [address] [place] [address] Referral ID Status Reason Start Date Expiration Date Visits Re quested Visits Authorized [id number] Closed 01/25/2023 07/24/2023 1 1 Reason Comments Blood in Urine Pt present today for urinary issues. Pt states she has blood and leuks in her urine. Pt had pain in urethra and very dark urine. Pt states she has lost 15 pounds since November. Wants to discuss a referral to Urology. Reason Comments Gynecologic Exam C/o redness and infl ammation in vagina started 5w ago when she had a yeast infection- treated w/ OTC Monistat. States it went away, but returned, so she did another round of Monistat. Denies vaginal discharge, odor, itching. Sexually active, denies pain with intercourse, but admits she has been avoiding it. Thinks Bartholin Cyst. Reason Comments Vaginal Pain Reason Comments Gynecologic Exam Pt presents for pap/ yearly. Denies breast,bowel,bladder. Having dryness with intercourse. CT scan showed fibroids in her uterus she would like to discuss. FOR RECORDS PERTAINING TO PATIENTS WHO ARE OR HAVE BEEN ENROLLED IN A CHEMICAL DEPENDENCY/SUBSTANCEABUSE PROGRAM, SOME INFORMATION MAY BE OMITTED. This clinical summary was aggregated from multiple sources. Caution should be exercised in using it in the provision of clinical care. This summary normalizes information from multiple sources, and as a consequence, information in this document may materially change the coding, format and clinical context of patient data. In addition, data may be omitted in some cases. CLINICAL DECISIONS SHOULD BE BASED ON THE PRIMARY CLINICAL RECORDS. [email or web address] provides no warranty or guarantee of the accuracy or completeness of information in this document.
--- NOTE | 2024-07-02 14:06 | P.CN_ITS ---
Consult Note: HPI Data of Consult Patient: new to practice Consult date: 07/02/24 Requesting Physician: Jose Carrion MD Primary Care Provider: Venice Patricia MD Consult Narrative Reason for consult: low back, bilateral leg pain Narrative: 54yof who presents for evaluation. longstanding low back, bilateral lower extremity pain. has engaged in a series of provider directed home exercises >6 weeks, without lasting benefit. lumbar xr with extensive degenerative changes. uses otc pain meds as needed. cc:: CC: Jose Carrion MD Review of Systems ROS Status of ROS 10 or more systems reviewed and unremark able except as noted in history and below PFSH PFSH Social History Smoking status: Never smoker Meds Home Medications and Allergies Allergies Allergy/AdvReac Type Severity Reaction Status Date / Time No Known Drug Allergies Allergy Verified 05/05/23 22:18 Exam Narrative Exam Narrative: Psych-alert and oriented x 3. Attentive and appropriate, constitutionally normal, displays normal mood and affect per situation. There are no obvious deficits in memory, reasoning, or intellect.? Skin-no obvious rashes, bruising, erythema noted to the patient's area of pain.? Extremities- extremities are warm with minimal edema and palpable pulses. Lumbar-tenderness to palpation noted in the lumbar spine and paraspinal musculature. Pain is elicited with flexion, extension, and lateral rotation of the lumbar spine. Range of motion is diminished with these motions. Facet loading maneuvers are positive. Strength-noted to be unremarkable Sensory-no notable sensory deficits in the bilateral lower extremities to touch or pinprick in all dermatomal distributions with the exception to decreased sensation to the bilateral L4, 5 dermatomal distribution Coordination remains intact.? Gait remains non-antalgic. Assessment and Plan Assessment and Plan (1) Lumbar stenosis with neurogenic claudication: Plan 54yof who presents for evaluation. failed conservative measures, as noted. imaging reviewed, as noted. given symptoms and imaging, prudent to obtain lumbar mri without contrast for further info. she is in agreement. meds reviewed, no changes. follow up after imaging.
== END 2024-07-02 12:12 | disposition home or self-care (01) ==
LOC: PM 12:12
PROVIDERS: PCP Family Medicine; Visit Provider Anesthesiology
DX: M48.062 Spinal stenosis, lumbar region with neurogenic claudication (principal)
CPT/HCPCS: G0463

== ENCOUNTER 2024-07-16 09:30 | Outpatient (OUT) | payer BC, SELFPAY ==
--- NOTE | 2024-07-16 09:34 | MR_ITS ---
[place] [address] Patient Name: CHRIS GONSALVES MRN: [id number] date: 1970 Sex: F Assigned Patient Location: MRI Current Patient Location: MRI Accession/Order Number: [id number] Exam Date: 07/16/2024 14:05 Report Date: 07/16/2024 14:09 At the request of: LOS KNOX MD Procedure: MR lumbar spine wo con EXAMINATION: MRI LUMBAR SPINE WITHOUT IV CONTRAST CLINICAL HISTORY: Chronic low back pain with radiculopathy. Low back pain radiating into both legs no known injury. COMPARISON: None TECHNIQUE: Multiecho imaging was performed in the sagittal and axial planes without contrast administration. FINDINGS: Vertebral body heights appear maintained. Grade 1 spondylolisthesis of L5 on S1 due to bilateral pars defects. No bone marrow edema is present. Spinal cord terminates in a normal position without abnormal cord signal. No paraspinal mass. Visualized retroperitoneum demonstrates no acute process. At L1-L2: No posterior disc pathology. Mild facet joint degenerative changes. No significant canal or neural foraminal stenosis. At L2-L3: No posterior disc pathology. Mild facet joint degenerative changes. No significant canal or neural foraminal stenosis. At L3-L4: Diffuse broad-based disc bulge is present with ligamentum flavum hypertrophy and facet joint degenerative changes causing mild canal and bilateral neural foraminal stenosis. At L4-L5: No posterior disc pathology. Facet joint degenerative changes. No significant canal or neural foraminal stenosis. At L5-S1: Mild broad-based disc bulge is present. Facet joint degenerative changes. No significant canal stenosis. Moderate bilateral foraminal stenosis. MR/MR lumbar spine wo con IMPRESSION: Multilevel degenerative disc disease as described above without severe canal or bilateral neural foraminal stenosis. Impression dictated by: Jerzy Morris Jr., D.O.07/16/2024 2:09 PM [facility] Electronically authenticated by: [id number] Y Date: 07/16/2024 14:09
--- OUTSIDE RECORDS SUMMARY | 2024-07-16 09:45 | XMS_ITS | CCD ---
Author Organization [facility] Care Team Providers Care Obstetrics Nurse Name Role Phone BEATRIZ ART Unavailable Unavailable BOBBY CALI Unavailable Unavailable DANIEL, KATARINA Admitting Unavailable DANIEL, KATARINA Attending Unavailable REQUEST, NONE LISTED Primary Care Unavaila ble DANIEL, KATARINA Consulting Unavailable DANIEL, KATARINA Admitting Unavailable DANIEL, KATARINA Attending Unavailable REQUEST, NONE LISTED Primary Care Unavaila ble DANIEL, KATARINA Consulting Unavailable MILLI DUMNOT Admitting Unavailable MILLI DUMONT Attending Unavailable REQUEST, NONE LISTED Primary Care Unavaila MILLI Verma Consulting Unavailable Bobby Cali Unavailable Unavailable Unavailable MD Bobby Cali Primary Care Provider [phone] MD Beatriz Art Attending Provider Autumn, Dr. Ricci Referring Unavaila ble Autumn, Dr. Ricci Attending Unavaila loyd Cali, Dr. Bobby Tapia Primary Care Unav ailable [place], Dr. Bobby Tapia Primary Care Unav ailable Autumn, Dr. Ricci Referring Unavaila ble Autumn, Dr. Ricci Attending Unavaila ble [place], Dr. Bobby Tapia Primary Care Unav ailable Autumn, Dr. Ricci Attending Unavaila ble Autumn, Dr. Ricci Attending Unavaila ble [place], Dr. Bobby Tapia Primary Care Unav ailable Kendal Ruiz Unavailable [phone] Bobby Cali Unavailable Kumar Pack Unavailable MD Bobby Cali Primary Care Provider MD Alice Ferreira Emergency Provider MD Bobby Cali Attending Provider Bobby Cali MD Primary Care Provider Bobby Cali MD Primary Care Provider Visci DO, Matthew A Unavailable MD Bobby Cali Primary Care Provider MD Bobby Cali Attending Provider KALIN Sykes Attending Provider [phone] Bobby Cali MD Primary Care Provider Bobby Cali MD Attending Provider Mony GAGNON, [...] Unavailable Cali, Bobby E Primary Care Unavailable MonyMira woodward L Admitting Unavailable [place] L Attending Unavailable Cali, Bobby E Primary Care Unavailable Cali, Bobby E Attending Unavailable Cali, Bobby E Admitting Unavailable VISCI, MATTHEW A Attending Unavailable MONY, MIRA Attending Unavailable MONY, MIRA Attending Unavailable VISCI, MATTHEW A Referring Unavailable VISCI, MATTHEW A Attending Unavailable Sheyla STRANGE, Jose Vora Attending Unavailable Sal Grider MD Unavailable BEATRIZ ART Attending Unavailable CARMENOULBEATRIZ HARLEY Referring Unavailable CALI, BOBBY E Primary Care Unavailable BEATRIZ ART Attending Unavailable CALI, BOBBY E Primary Care Unavailable SAL GRIDER Attending Unavail able CALI, BOBBY E Primary Care Unavailable Allergies Allergy Classification Reported Allergen(s) Allergy Type Date of Onset Reaction(s) Facility (19 sources) Acetaminophen; Translations: [acetaminophen] Drug Allergy 11-10-2023 [facility] (19 sources) Propoxyphene; Translations: [propoxyphene] Drug Allergy 11-10-2023 [facility] Medications Current Medications Medication Drug Class(es) Dates [...] tablet by mouth Daily 30 tablet 11 04/30/2024 04/30/2025 Active Start: 08-31-2023 Estradiol-Nore thindrone Acet 1-0.5 mg tablet Active 1 TAB PO Daily August 31, 2023 12:00am FreeTextSi tablet Orally Once a day; Note: Source Status: Taking; Provider: [place] Millard ( ) Start: 08-31-2023 Estradiol-Nore thindrone Acet 1-0.5 mg [...] by mouth in the morning. 30 tablet 11 04/27/2023 04/30/2024 Discontinued (Reorder) take 1 tablet by diamond th once daily Mimvey 1-0.5 mg tablet Take 1 tablet by mouth once daily. Active take 1 tablet by diamond th [...] twenty-four hours ibuprofen 800 mg oral tablet (15 sources) Nonsteroidal Anti-inflammatory Drug Start: 11-10-2023 take 1 tablet by mouth every eight hours as needed for pain Ibuprofen 800 mg tablet Active 800 MG PO Q8H as needed for pain 30 7 November 10, 2023 12:00am lidocaine 0.05 mg/mg medicated patch (15 sources) Antiarrhythmic, Amide Local Anesthetic Start: 11-10-2023 apply 1 dose topically once daily Lidocaine (Lidoderm) 5 % adhesive patch,medicated Active 1 PATCH TOPICAL Daily 15 14 November 10, 2023 12:00am leave on most painful area for up to 12 hrs mebendazole 100 mg chewable tablet (2 sources) Antihelminthic Start: 02-23-2024 End: 02-26-2024 mebendazole (Vermox) 100 MG chewable tablet Indications: Diarrhea, unspecified type Chew 1 tablet (100 mg) in the morning and 1 tablet (100 mg) before bedtime. Do all this for 3 days. 6 tablet 1 02/23/2024 02/26/2024 Active metoprolol tartrate 50 mg oral tablet (1 source) beta-Adrenergic Laurie Start: 07-12-2024 take 1 tablet by mouth every hour metoprolol tartrate (Lopressor) 50 mg tablet Indications: New-onset angina (CMS-HCC) Take 1 tablet by mouth [address] coronary angiogram 1 tablet 07/12/2024 Active [place] (No Known Home Meds) (1 source) Start: 05-07-2019 [place] (No Known Home Meds) Active May 07, [...] 40 MG PO Daily June 13, 2024 1:00am Start: 08-31-2023 OMEPRAZOLE PO 08/31/2023 Active Start: 08-31-2023 End: 06-13-2024 take 1 tablet by mouth once daily in the morning Omeprazole 20 mg tablet,delayed release (DR/EC) Discontinued MG PO August 31, 2023 12:00am June 13, 2024 9:49am FreeTextSi tablet every am; Note: Source Status: [...] Active ondansetron 4 mg disintegrating oral tablet (13 sources) Serotonin-3 Receptor Antagonist Start: 02-07-2024 End: 06-13-2024 take 1 tablet by mouth every eight hours Ondansetron 4 mg tablet,disintegrating Active 4 MG PO Q8H June 13, 2024 9:48am sulfamethoxazole 800 mg / trimethoprim 160 mg oral tablet (15 sources) Dihydrofolate Reductase Inhibitor Antibacterial, Sulfonamide Antimicrobial Start: 02-06-2024 sulfamethoxazole-trimeth oprim (Bactrim DS) 800-160 MG per tablet 1 tablet 02/06/2024 Active Start: 02-06-2024 End: 03-30-2024 take 1 tablet by mouth twice daily Sulfamethoxazole-Trimethoprim 800-160 mg tablet Discontinued 1 TAB PO Twice daily February 06, 2024 12:00am March 30, 2024 12:40pm Start: 04-08-2023 take 1 tablet by diamond [...] as needed for 0 *Pick strength-form from [employer] for eRX* Feb, Active Start: 09-22-2021 End: 07-05-2024 take 1 tablet by mouth three times daily as needed Acetaminophen-Codeine 300-30 mg tablet Discontinued TAB PO August 31, 2023 12:00am September 01, 2023 11:48am FreeTextSig: acetaminophen-codeine 300-30mg, 1 (one) Tablet three times daily, as needed # 60, 03/12/2022, No Refill. Active oral three times daily, as needed; Note: Source Status: Taking*Pick strength-form from [employer] for eRX*; Refills: 0; Provider: [place] Millard ( ) Start: 01-23-2017 End: 05-07-2019 take 1 tablet by mouth once daily as needed for pain Acetaminophen-Codeine 300-30 mg tablet Discontinued 300 MG PO Daily as needed for Pain January 23, 2017 12:00am May 07, 2019 2:22pm ALPRAZolam 0.25 mg oral tablet (20 sources) Benzodiazepine Start: 11-03-2023 End: 07-05-2024 take 1 tablet by mouth twice daily as needed for anxiety Alprazolam 0.25 mg tablet Discontinued 0.25 MG PO Twice daily as needed for anxiety 60 January 17, 2024 2:45pm February 23, 2024 4:35pm Start: 06-22-2023 End: 11-03-2023 take 1 tablet by mouth once daily as needed for anxiety Alprazolam 0.25 mg tablet Discontinued 0.25 MG PO Daily as needed for anxiety 30 September 01, 2023 11:46am September 30, 2023 9:29am Start: 05-16-2023 take 1 tablet by diamond th every twenty-four hours ALPRAZolam 0.25 MG 1 tablet Orally daily for 30 days Apr, Active Start: 04-08-2023 take 1 tablet by diamond every twenty-four hours ALPRAZolam 0.25 MG 1 tablet Orally daily for 30 days Mar, Active Start: 03-02-2023 take [address] [facility] every twenty-four hours ALPRAZolam 0.25 MG 1 tablet Orally daily for 30 days Feb, Active Start: 01-18-2023 take 1 tablet by diamond every twenty-four hours ALPRAZolam 0.25 MG 1 tablet Orally daily for 30 days Dec, Active Start: 03-01-2022 take [address] [facility] every twenty-four hours ALPRAZolam 0.25 MG 1 tablet Orally daily for 30 days Oct, Active {1 (ascorbic acid 7540 MG / polyethylene glycol 3350 82833 MG / potassium chloride 1200 MG / sodium ascorbate 59985 MG / sodium chloride 3200 MG Powder for Oral Solution) / 1 (polyethylene glycol 3350 341394 MG / potassium chloride 1000 MG / sodium chloride 2000 MG / sodium sulfate 9000 MG Powder for Oral Solution) } Pack [Plenvu] (1 source) Osmotic Laxative, Vitamin C Start: 02-09-2019 Plenvu 140 GM dose 1 pouch at 4pm, dose 2 pouch A & B at 11pm Orally BID for 1 days BIN:[id number] PCN: [id number] GROUP:[id number] ID:[id number] Jan, Not-Taking cyclobenzaprine hydrochloride 10 mg oral tablet (20 sources) Muscle Relaxant Start: 08-31-2023 End: 07-05-2024 take 1 tablet by mouth every eight hours Cyclobenzaprine 10 mg tablet Discontinued 10 MG PO Q8H 15 November 10, 2023 12:00am November 14, 2023 11:52am Start: 08-31-2023 End: 02-07-2024 take 1 tablet by mouth three times daily as needed Cyclobenzaprine 10 mg tablet Discontinued MG PO August 31, 2023 12:00am February 07, 2024 11:16am FreeTextSi tablet Orally three times daily prn; [...] 10 MG PO Daily September 23, 2023 1:27pm September 26, 2023 12:12pm methylPREDNISolone 4 mg oral tablet (20 sources) Corticosteroid Start: 11-21-2023 End: 02-07-2024 Methylprednisolone 4 mg tablets,dose pack Discontinued 0 PO per package directions November 21, [...] DAY Not-Taking predniSONE 20 mg oral tablet (20 sources) Start: 11-10-2023 End: 02-07-2024 take 2 tablets by mouth once daily Prednisone 20 mg tablet Discontinued 40 MG PO Daily 01 27November 10, 2023 12:00am February 07, 2024 9:46am Start: 11-10-2023 End: 02-07-2024 take 40 mg by mouth once daily Prednisone Discontinued 40 MG PO Daily 01 27November 10, 2023 12:00am February 07, 2024 9:46am Start: 01-18-2023 take 1 tablet by diamond th every twenty-four hours predniSONE 10 MG 1 tablet Orally Once a day for 30 day(s) Dec, Active Problems Active Problems Problem Classification Problem Date Documented Da te Episodic/Chronic Abdominal pain (13 sources) Generalized abdominal pain; Translations: [Generalized abdominal pain] Onset: 4 02-07-2024 Episodic Anxiety disorders (20 sources) Anxiety disorder; Translations: [Other specified anxiety disorders] Onset: 0 Chronic Cardiac dysrhythmias (15 sources) Multiple premature ventricular complexes; Translations: [Other premature beats] Onset: 3 02-01-2024 Chronic Cardiac dysrhythmias (4 sources) Palpitations; Translations: [Palpitations] Onset: 5 07-12-2024 Episodic Conditions associated with dizziness or vertigo (4 sources) Dizziness; Translations: [Dizziness and giddiness] Onset: 5 07-12-2024 Episodic Coronary atherosclerosis and other heart disease (5 sources) New onset angina; Translations: [Angina pectoris, unspecified] Onset: 5 07-12-2024 Chronic Digestive congenital anomalies (14 sources) Disorder of tongue; 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 Disorders of lipid metabolism (14 sources) Hyperlipidemia; Translations: [Other and unspecified hyperlipidemia] Onset: 3 02-01-2024 Chronic Esophageal disorders (2 sources) Gastroesophageal reflux disease; Translations: [Gastro-esophageal reflux disease without esophagitis] 06-13-2024 Chronic Genitourinary symptoms and ill-defined conditions (18 sources) Dysuria; Translations: [Increased frequency of urination] Onset: 4 Episodic Headache; including migraine (1 source) Tension-type headache, unspecified, intractable Episodic Immunizations and screening for infectious disease (6 sources) Encounter for immunization; Translations: [Patient encounter status] Onset: 1 Episodic Lymphadenitis (4 sources) Chronic lymphadenitis; Translations: [Chronic lymphadenitis, except mesenteric] Onset: 3 Chronic Menopausal disorders (2 sources) Postmenopausal state; Translations: [Hormone replacement therapy] 04-30-2024 Episodic Mycoses (5 sources) Candidal stomatitis; Translations: [Candidiasis of vagina] Episodic Nausea and vomiting (15 sources) Nausea; Translations: [Nausea] Onset: 4 02-07-2024 Episodic Other circulatory disease (4 sources) [...] and perineum] Episodic Other female genital disorders (13 sources) Vaginal irritation; Translations: [Other specified noninflammatory disorders of vagina] 01-17-2024 Episodic Other female genital disorders (9 sources) Other specified noninflammatory disorders of vagina; Translations: [Unspecified noninflammatory disorder of vagina] 01-17-2024 Episodic Other gastrointestinal disorders (2 sources) Diarrhea; Translations: [Diarrhea, unspecified] 02-22-2024 Episodic Other gastrointestinal disorders (1 source) Diarrhea, unspecified; Translations: [Diarrhea, unspecified] Onset: 4 Episodic Other lower respiratory disease (14 sources) Dyspnea on exertion; Translations: [Shortness of breath] Onset: 3 02-01-2024 Episodic Other nervous system disorders (1 source) Hereditary peripheral neuropathy; Translations: [Unspecified hereditary and idiopathic peripheral neuropathy] Onset: 9 Chronic Other nutritional; endocrine; and metabolic disorders (7 sources) Abnormal weight loss; Translations: [Abnormal weight loss] 02-07-2024 Episodic Other nutritional; endocrine; and metabolic disorders (6 sources) Abnormal weight loss; Translations: [Loss of weight] Onset: 4 02-07-2024 Episodic Other screening for suspected conditions (not mental disorders or infectious disease) (20 sources) Patient encounter status; Translations: [Encounter for screening for malignant neoplasm of colon] 05-08-2019 Episodic Pleurisy; pneumothorax; pulmonary collapse (20 sources) Pleurisy; Translations: [Pleurisy] Onset: 3 01-23-2017 Episodic Residual codes; unclassified (16 sources) Body mass index 20-24 - normal; Translations: [Body Mass Index between 19-24, adult] Onset: 3 02-01-2024 Episodic Residual codes; unclassified (4 sources) Family history of breast cancer; Translations: [Family history of malignant neoplasm of breast] Episodic Residual codes; unclassified (2 sources) Family history of coronary arteriosclerosis; Translations: [Family history of ischemic heart disease and other diseases of the circulatory system] Onset: 5 07-12-2024 Episodic Residual codes; unclassified (2 sources) Family history of ischemic heart disease and other diseases of the circulatory system; Translations: [Family history of ischemic heart disease and other diseases of the circulatory system] Onset: 5 Episodic Residual codes; unclassified (2 sources) Body mass index (BMI) 21.0-21.9, adult; Translations: [Body mass index (BMI) 21.0-21.9, adult] Onset: 5 Episodic Spondylosis; intervertebral disc disorders; other back problems (20 sources) Sacroiliac joint pain; Translations: [Sacrococcygeal disorders, not elsewhere classified] Onset: 4 11-10-2023 Episodic Substance-related disorders (19 sources) Nicotine dependence; Translations: [Nicotine dependence, cigarettes, with other nicotine-induced disorders] Onset: 8 01-12-2024 Chronic Thyroid disorders (4 sources) Thyroid nodule; Translations: [Nontoxic single thyroid nodule] Onset: 4 03-06-2024 Chronic Unclassified (2 sources) Chest pain, unspecified / R07.9(ICD-9) Onset: 7 Unclassified (1 source) Shortness of breath / R06.02(ICD-9) Onset: 7 Unclassified (2 sources) CONTACT W/AND (SUSP) EXPOS COVID-19; Translations: [CONTACT W/AND (SUSP) EXPOS COVID-19] Onset: 2 Unclassified (1 source) Low back pain, unspecified; Translations: [Low back pain, unspecified] Onset: 4 Viral infection (1 source) COVID-19; Translations: [COVID-19] Onset: 2 Past or Other Problems Problem Classification Problem [...] of mental health and substance abuse codes (14 sources) Ex-smoker; Translations: [Personal history of tobacco use] Onset: 12-15-2022 02-01-2024 Episodic Comment on above: quit 05/2018; Unclassified (1 source) CONTACT W/AND (SUSP) EXPOS COVID-19; Translations: [CONTACT W/AND (SUSP) EXPOS COVID-19] Onset: 01-28-2022 Unclassified (3 sources) Onset: 01-25-2023 01-25-2023 Results Test Name Value Interpretation Reference Range Facility 36on 07-12-2024 36 Patient called in stating that she had Lung surgery done by Dr Erickson in 2007 at [facility] in [place]. She would like to know if it would compatible with having a MRI done. Spoke with ,CASE RESOURCE MANAGER she stated that she should be fine to get MRI there is no implantation when doing a lung surgery. Informed patient of this she voiced her understanding. Normal [facility] BI MAMMOGRAM SCREENING TOMOS YNTHESIS BILATERALon 04-30-2024 [...] [facility] thyroidon 03-12-2024 US thyroid [facility] [address] Ultrasound Report Signed Patient: Mira Gonsalves MR#: [id number] : 1970 Acct:[id number] Age/Sex: 54 / F ADM Date: 03/12/24 Loc: Room: Type: [facility] Attending Dr: Bobby Cali MD Ordering Provider: [...] Niko Garg M.D.03/12/2024 4:37 PM Dictation Location: [place] [address] Tech: Jenna Borjas Transcribed By: SHELIA 03/12/24 1637 Dictated By: Niko Garg DO 03/12/24 1636 Signed By: 03/12/24 1637 Normal [facility] CT abdomen pelvis w conon CT abdomen pelvis w con [facility] [place] [address] [place] [address] CT Scan Report Signed Patient: Mira Gonsalves MR#: [id number] : 1970 Acct:[id number] Age/Sex: 54 / F ADM Date: 03/02/24 Loc: CT Room: Type: [facility] Attending Dr: Bobby Cali MD Copies to: Bobby Cali MD Ordering Provider: Bobby Cali MD Date of Service: 03/02/24 CT/CT abdomen pelvis w con: R07.9 - Chest pain, unspecified ([id number]) CT/CT chest wo/w con: R07.9 - Chest [...] Danny Diaz M.D.03/02/2024 7:56 PM Dictation Location: [place] [address] Transcribed By: [facility] 03/02/241955 Dictated By: Danny Diaz II, MD 03/02/241940 Signed By: 03/02/241955 Normal [facility] Bacterial culture w IDOrdere d By: Mira Sykes on 02-23-2024 Bacteria identified Cx Nom (Unsp spec) Bacterial culture w ID . [facility] Comment on above: Performed at: [address] [id number] Director: Yonas Alvarenga PhD, Phone: [phone] Campy coli+jejuni BD MaxOrde red By: Mira Sykes on 02-23-2024 C. coli+jejuni tuf gene JOEY+probe Ql (Stl) Negative Negative [facility] Comment on above: Campylobacter test i ncludes C. jejuni and C. coli. C. coli+jejuni tuf gene JOEY+probe Ql (Stl) Campy coli+jejuni BD Max Negative [facility] Comment on above: Campylobacter test i ncludes C. jejuni and C. coli. Cryptosporidium parv+homin B D MaxOrdered By: Mira Sykes on 02-23-2024 C. parvum+hominis DNA JOEY+probe Ql (Stl) Cryptosporidium parv+homin BD Max Negative [facility] Comment on above: Cryptosporidium test includes C. hominis and C. parvum. Entamoeba histolytica BD Max Ordered By: Mira Sykes on 02-23-2024 E. histolytica DNA JOEY+probe Ql (Stl) Entamoeba histolytica BD Max Negative [facility] Comment on above: Testing performed by RT-PCR Escherichia coli Stx1 and St x2 toxin stx1+stx2 genes [Presence] in Stool by JOEY withOrdered By: Mira Sykes on 02-23-2024 E. coli stx1+stx2 genes JOEY+probe Ql (Stl) Negative Negative [facility] Giardia marcelino BD MaxOrdered By : Mira Sykes on 02-23-2024 G. lamblia DNA JOEY+probe Ql (Stl) Giardia marcelino BD Max Negative [facility] Ova and Parasite Panelon Cryptosporidium (C.hominis+par Negative Normal Negative [facility] Comment on above: Result Comment: Cryp tosporidium test includes C. hominis and C. parvum. Performed By: #### E NT BACT PANEL, OVP #### [facility] [address] [place] [address] [place] #### YERSINIA ONLY #### [facility] , Entamoeba histolytica Negative Normal Negative [facility] Comment on above: Result Comment: Test ing performed by RT-PCR PERFORMED BY: [facility] [address] [place] [address] PATHOLOGIST DYE RANGE FEEDER JHON SCHROEDER M.D. Performed By: #### E NT BACT PANEL, OVP #### [facility] [address] [place] [address] [place] #### YERSINIA ONLY #### [facility] , Giardia lamblia Negative Normal Negative [facility] Comment on above: Performed By: #### E NT BACT PANEL, OVP #### [facility] [address] #### YERSINIA ONLY #### [facility] , Salmonella sp spaO gene [Pre sence] in Stool by JOEY with probe detectionOrdered By: Mira Sykes on 02-23-2024 Salmonella sp spaO gene JOEY+probe Ql (Stl) Negative Negative [facility] Comment on above: Testing performed by RT-PCR Salmonellosis BD MaxOrdered By: Mira Sykes on 02-23-2024 Salmonella sp spaO gene JOEY+probe Ql (Stl) Salmonella sp spaO gene [Presence] in Stool by JOEY with probe detection Negative [facility] Comment on above: Testing performed by RT-PCR Shigella Tox 1+2 BD MaxOrder ed By: Mira Sykes on 02-23-2024 E. coli stx1+stx2 genes JOEY+probe Ql (Stl) Escherichia coli Stx1 and Stx2 toxin stx1+stx2 genes [Presence] in Stool by JOEY with Negative [facility] Shigella species+EIEC invasi on plasmid antigen H ipaH gene [Presence] in Stool by NAAOrdered By: Mira Sykes on 02-23-2024 Shigella species+EIEC invasion plasmid antigen H ipaH gene JOEY+probe Ql (Stl) Negative Negative [facility] Comment on above: Shigella sp. test in cludes Shigella species and Enteroinvasive E. coli (EIEC). Shigellosis BD MaxOrdered By : Mira Sykes on 02-23-2024 Shigella species+EIEC invasion plasmid antigen H ipaH gene JOEY+probe Ql (Stl) Shigella species+EIEC invasion plasmid antigen H ipaH gene [Presence] in Stool by JOEY Negative [facility] Comment on above: Shigella sp. test in cludes Shigella species and Enteroinvasive E. coli (EIEC). Stool Bacterial Panelon 01-25 Campylobacter Negative Normal Negative [facility] Comment on above: Result Comment: Camp ylobacter test includes C. jejuni and C. coli. Performed By: #### E NT BACT PANEL, OVP #### [address] #### YERSINIA ONLY #### [facility] , Salmonella Species Negative Normal Negative [facility] Comment on above: Result Comment: Test ing performed by RT-PCR PERFORMED BY: [place] [address] PATHOLOGIST DYE RANGE FEEDER JHON SCHROEDER M.D. Performed By: #### E NT BACT PANEL, OVP #### [address] #### YERSINIA ONLY #### [facility] , Shiga Toxin (E coli O157+oth) Negative Normal Negative [facility] Comment on above: Performed By: #### E NT BACT PANEL, OVP #### [address] #### YERSINIA ONLY #### [facility] , Shigella Species Negative Normal Negative [facility] Comment on above: Result Comment: Shig amalia sp. test includes Shigella species and Enteroinvasive E. coli (EIEC). Performed By: #### E NT BACT PANEL, OVP #### [address] #### YERSINIA ONLY #### [facility] , Yersinia Only Cultureon 01-25 Yersinia Result 1 No Yersinia isolated Normal . [facility] Comment on above: Result Comment: Perf ormed at: - [facility] [address] [id number] Tower Switch Operator: Yonas Alvarenga PhD, Phone: [phone] PERFORMED BY: [place] [address] PATHOLOGIST DYE RANGE FEEDER JHON SCHROEDER M.D. Performed By: #### E NT BACT PANEL, OVP #### [facility] [address] [place] [address] [place] #### YERSINIA ONLY #### [facility] , Yersinia Stool Culture Final report Normal . [facility] Comment on above: Performed By: #### E NT BACT PANEL, OVP #### [facility] [address] [place] [address] [place] #### YERSINIA ONLY #### [facility] , Yersinia cultureOrdered By: Mira Sykes on 02-23-2024 Yersinia sp identified Org specific cx Nom (Unsp spec) Yersinia culture . [facility] [facility] Urinalysis macro (dipstick) panel (U)on 02-22-2024 Bilirubin, UA Negative Negative - 4(70) +++ mg/dL [facility] Blood, UA Negative Negative - 50 Carlyle/mcL [facility] Clarity, UA Clear [facility] Color, UA Yellow [facility] Glucose, UA Negative Negative - 1999(110) ++++ mg/dL [facility] Interpretation and review of laboratory results Normal [facility] Ketones, UA Negative Negative - 160(16) ++++ mg/dL [facility] Leukocytes, UA Negative Negative - 500+++ Frandy/mcL [facility] Nitrite, UA Negative Negative - Positive [facility] pH, UA 6 5 - 9 [facility] Protein, UA Negative Negative - 2000(20) ++++ mg/dL [facility] Spec Grav, UA 1.005 1 - 1.03 [facility] Urobilinogen, UA 0.2 0.2 - 12 mg/dL [facility] Alanine aminotransferase [En zymatic activity/volume] in Serum or PlasmaOrdered By: Bobby Cali on 02-07-2024 ALT [Catalytic activity/Vol] 21 U/L Normal [facility] Comment on above: Performed By: #### C MP, CBC, TSH3, LIPASE #### [facility] [address] ALT [Catalytic activity/Vol] Alanine aminotransferase [Enzymatic activity/volume] in Serum or Plasma [facility] Albumin [Mass/volume] in Ser um or Plasma by Bromocresol green (BCG) dye binding methoOrdered By: Bobby Cali on 02-07-2024 Albumin BCG dye [Mass/Vol] 4.4 g/dL 3.5-5.7 [facility] Albumin BCG dye [Mass/Vol] Albumin [Mass/volume] in Serum or Plasma by Bromocresol green (BCG) dye binding metho 3.5-5.7 [facility] Alkaline phosphatase [Enzyma tic activity/volume] in Serum or PlasmaOrdered By: Bobby Cali on 02-07-2024 ALP [Catalytic activity/Vol] 48 U/L Normal 34-104 [facility] Comment on above: Performed By: #### C MP, CBC, TSH3, LIPASE #### [facility] [address] [place] [address] ALP [Catalytic activity/Vol] Alkaline phosphatase [Enzymatic activity/volume] in Serum or Plasma [address] [facility] Aspartate aminotransferase [ Enzymatic activity/volume] in Serum or PlasmaOrdered By: Bobby Cali on 02-07-2024 AST [Catalytic activity/Vol] 23 U/L Normal -39 [facility] Comment on above: Performed By: #### C MP, CBC, TSH3, LIPASE #### [facility] [address] [place] [address] AST [Catalytic activity/Vol] Aspartate aminotransferase [Enzymatic activity/volume] in Serum or Plasma [facility] Automated basophil %Ordered By: Bobby Cali on 02-07-2024 Basophils/100 WBC (Bld) 0.5 % Normal [facility] Comment on above: Performed By: #### C MP, CBC, TSH3, LIPASE #### [facility] [address] [place] [address] Automated basophil countOrde red By: Bobby Cali on 02-07-2024 Basophils (Bld) [#/Vol] 0.0 10*3/uL Normal 0.0-0.2 [facility] Comment on above: Result Comment: PERF ORMED BY: [place] [address] PATHOLOGIST [employer] JHON SCHROEDER M.D. Performed By: #### C MP, CBC, TSH3, LIPASE #### [address] Automated blood monocyte cou ntOrdered By: Bobby Cali on 02-07-2024 Monocytes (Bld) [#/Vol] 0.9 10*3/uL High 0.0-0.8 [facility] Comment on above: Performed By: #### C MP, CBC, TSH3, LIPASE #### [address] Automated eosinophil %Ordere d By: Bobby Cali on 02-07-2024 Eosinophils/100 WBC (Bld) 1.7 % Normal . [facility] Comment on above: Performed By: #### C MP, CBC, TSH3, LIPASE #### [address] Automated eosinophil countOr dered By: Bobby Cali on 02-07-2024 Eosinophils (Bld) [#/Vol] 0.1 10*3/uL Normal 0.0-0.45 [facility] Comment on above: Performed By: #### C MP, CBC, TSH3, LIPASE #### [address] Automated monocyte %Ordered By: Bobby Cali on 02-07-2024 Monocytes/100 WBC (Bld) 11.7 % Normal [facility] Comment on above: Performed By: #### C MP, CBC, TSH3, LIPASE #### [address] Automated neutrophil %Ordere d By: Bobby Cali on 02-07-2024 Neutrophils/100 WBC (Bld) 63.8 % Normal . [facility] Comment on above: Performed By: #### C MP, CBC, TSH3, LIPASE #### [address] Basophils Auto (Bld) [#/Vol] Ordered By: Bobby Cali on 02-07-2024 Basophils (Bld) [#/Vol] Automated basoph il count 0.0-0.2 [facility] Basophils/100 WBC Auto (Bld) Ordered By: Bobby Cali on 02-07-2024 Basophils/100 WBC (Bld) Automated basophil % . [facility] Bilirubin.total [Mass/volume ] in Serum or PlasmaOrdered By: Bobby Cali on 02-07-2024 Bilirubin [Mass/Vol] 0.5 mg/dL Normal 0.3-1.0 [facility] Comment on above: Performed By: #### C MP, CBC, TSH3, LIPASE #### [facility] [address] Bilirubin [Mass/Vol] Bilirubin.total [Mass/volume] in Serum or Plasma 0.3-1.0 [facility] Calcium [Mass/volume] in Ser um or PlasmaOrdered By: Bobby Cali on 02-07-2024 Calcium [Mass/Vol] 9.3 mg/dL Normal 8.6-10.3 [facility] Comment on above: Performed By: #### C MP, CBC, TSH3, LIPASE #### [facility] [address] Calcium [Mass/Vol] Calcium [Mass/volume ] in Serum or Plasma 8.6-10.3 [facility] Carbon dioxide, total [Moles /volume] in Serum or PlasmaOrdered By: Bobby Cali on 02-07-2024 CO2 [Moles/Vol] 28.7 mmol/L Normal 21.0-31.0 [facility] Comment on above: Performed By: #### C MP, CBC, TSH3, LIPASE #### [facility] [address] CO2 [Moles/Vol] Carbon dioxide, tota l [Moles/volume] in Serum or Plasma 21.0-31.0 [facility] Chloride [Moles/volume] in S zelda or PlasmaOrdered By: Bobby Cali on 02-07-2024 Chloride [Moles/Vol] 102 mmol/L Normal 98-107 [facility] Comment on above: Performed By: #### C MP, CBC, TSH3, LIPASE #### [facility] [address] Chloride [Moles/Vol] Chloride [Moles/volume] in Serum or Plasma 98-107 [facility] Complete Blood Count Auto Di ffon 02-07-2024 Mean Corpuscular HGB Conc 33.5 g/dL Normal 32.0-35.0 [facility] Comment on above: Performed By: #### C MP, CBC, TSH3, LIPASE #### [facility] [address] [place] [address] NRBC% 0.1 /100{WBC} Normal 0-0.5 [facility] Comment on above: Performed By: #### C MP, CBC, TSH3, LIPASE #### [facility] [address] [place] [address] Comprehensive Metabolic Pane lazaro 02-07-2024 Albumin [Mass/Vol] 4.4 g/dL Normal 3.5-5.7 [facility] Comment on above: Performed By: #### C MP, CBC, TSH3, LIPASE #### [address] GFR/1.73 sq M.predicted MDRD (S/P/Bld) [Vol rate/Area] mL/min/{1.73_m2} Normal [facility] Comment on above: Performed By: #### C MP, CBC, TSH3, LIPASE #### [address] Creatinine [Mass/volume] in Serum or PlasmaOrdered By: Bobby Cali on 02-07-2024 Creatinine [Mass/Vol] 1.05 mg/dL Normal 0.60-1.20 [facility] Comment on above: Performed By: #### C MP, CBC, TSH3, LIPASE #### [facility] [address] [place] [address] Creatinine [Mass/Vol] Creatinine [Mass/volume] in Serum or Plasma 0.60-1.20 [facility] Eosinophils Auto (Bld) [#/Vo l]Ordered By: Bobby Cali on 02-07-2024 Eosinophils (Bld) [#/Vol] Automated eosinophil count 0.0-0.45 [facility] Eosinophils/100 WBC Auto (Bl d)Ordered By: Bobby Cali on 02-07-2024 Eosinophils/100 WBC (Bld) Automated eosinophil % . [facility] Erythrocyte distribution wid th Auto (RBC) [Ratio]Ordered By: Bboby Cali on 02-07-2024 Erythrocyte distribution width (RBC) [Ratio] Erythrocyte distribution width [Ratio] by Automated count 11.9-15.3 [facility] Erythrocyte distribution wid th [Ratio] by Automated countOrdered By: Bobby Cali on 02-07-2024 Erythrocyte distribution width (RBC) [Ratio] 13.8 % Normal 11.9-15.3 [facility] Comment on above: Performed By: #### C MP, CBC, TSH3, LIPASE #### [facility] [address] Erythrocytes [#/volume] in B lood by Automated countOrdered By: Bobby Cali on 02-07-2024 RBC (Bld) [#/Vol] 4.79 10*6/uL Normal 3.60-5.00 [facility] Comment on above: Performed By: #### C MP, CBC, TSH3, LIPASE #### [facility] [address] Globulin Calc (S) [Mass/Vol] Ordered By: Bobby Cali on 02-07-2024 Globulin (S) [Mass/Vol] Serum globulin measurement by calculation (mass/volume) [facility] Glucose [Mass/volume] in Ser um or PlasmaOrdered By: Bobby Cali on 02-07-2024 Glucose [Mass/Vol] 101 mg/dL High 70-100 [facility] Comment on above: ADA recommended refe rence rangeRandom Glucose Reference Range is dependent on time and content of last meal. Glucose of more than 200 mg/dL in a nonstressed, ambulatory subject supports the diagnosis of Diabetes Mellitus. Result Comment: [place] om Glucose Reference Range is dependent on time and content of last meal. Glucose of more than 200 mg/dL in a nonstressed, ambulatory subject supports the diagnosis of Diabetes Mellitus. ADA recommended reference range Performed By: #### C MP, CBC, TSH3, LIPASE #### [facility] [address] [place] [address] Glucose [Mass/Vol] Glucose [Mass/volume ] in Serum or Plasma High 70-100 [facility] Comment on above: ADA recommended refe rence rangeRandom Glucose Reference Range is dependent on time and content of last meal. Glucose of more than 200 mg/dL in a nonstressed, ambulatory subject supports the diagnosis of Diabetes Mellitus. Hematocrit Auto (Bld) [Volum e fraction]Ordered By: Bobby Cali on 02-07-2024 Hematocrit (Bld) [Volume fraction] Hematocrit [Volume Fraction] of Blood by Automated count 34.0-46.4 [facility] Hematocrit [Volume Fraction] of Blood by Automated countOrdered By: Bobby Cali on 02-07-2024 Hematocrit (Bld) [Volume fraction] 42.9 % Normal 34.0-46.4 [facility] Comment on above: Performed By: #### C MP, CBC, TSH3, LIPASE #### [facility] [address] [place] [address] Hemoglobin [Mass/volume] in BloodOrdered By: Bobby Cali on 02-07-2024 Hemoglobin (Bld) [Mass/Vol] 14.4 g/dL Normal 11.8-15.4 [facility] Comment on above: Performed By: #### C MP, CBC, TSH3, LIPASE #### [facility] [address] [place] [address] Hemoglobin (Bld) [Mass/Vol] Hemoglobin [Mass/volume] in Blood 11.8-15.4 [facility] Leukocytes [#/volume] correc pavan for nucleated erythrocytes in Blood by Automated counOrdered By: Bobby Cali on 02-07-2024 WBC corrected for nucl RBC Auto (Bld) [#/Vol] 7.6 10*3/uL 3.8-11.6 [facility] WBC corrected for nucl RBC Auto (Bld) [#/Vol] Leukocytes [#/volume] corrected for nucleated erythrocytes in Blood by Automated coun 3.8-11.6 [facility] Leukocytes [#/volume] in Blo od by Automated countOrdered By: Bobby Cali on 02-07-2024 WBC (Bld) [#/Vol] 7.6 10*3/uL Normal 3.8-11.6 [facility] Comment on above: Performed By: #### C MP, CBC, TSH3, LIPASE #### [facility] [address] [place] [address] Lipase [Enzymatic activity/v olume] in Serum or PlasmaOrdered By: Bobby Cali on 02-07-2024 Lipase [Catalytic activity/Vol] 14.0 U/L Normal 11.0-82.0 [facility] Comment on above: Performed By: #### C MP, CBC, TSH3, LIPASE #### [address] Lipase [Catalytic activity/Vol] Lipase [Enzymatic activity/volume] in Serum or Plasma 11.0-82.0 [facility] Lymphocytes Auto (Bld) [#/Vo l]Ordered By: Bobby Cali on 02-07-2024 Lymphocytes (Bld) [#/Vol] Lymphocytes [#/volume] in Blood by Automated count 1.00-4.8 [facility] Lymphocytes [#/volume] in Bl ood by Automated countOrdered By: Bobby Cali on 02-07-2024 Lymphocytes (Bld) [#/Vol] 1.7 10*3/uL Normal 1.00-4.8 [facility] Comment on above: Performed By: #### C MP, CBC, TSH3, LIPASE #### [address] Lymphocytes/100 WBC Auto (Bl d)Ordered By: Bobby Cali on 02-07-2024 Lymphocytes/100 WBC (Bld) Lymphocytes/100 leukocytes in Blood by Automated count . [facility] Lymphocytes/100 leukocytes i n Blood by Automated countOrdered By: Bobby Cali on 02-07-2024 Lymphocytes/100 WBC (Bld) 22.3 % Normal . [facility] Comment on above: Performed By: #### C MP, CBC, TSH3, LIPASE #### [address] MCH Auto (RBC) [Entitic mass ]Ordered By: Bobby Cali on 02-07-2024 MCH (RBC) [Entitic mass] MCH [Entitic ma ss] by Automated count 24.7-34.3 [facility] MCH [Entitic mass] by Automa pavan countOrdered By: Bobby Cali on 02-07-2024 MCH (RBC) [Entitic mass] 30.0 pg Normal 24.7-34.3 [facility] Comment on above: Performed By: #### C MP, CBC, TSH3, LIPASE #### [facility] [address] MCHC Auto (RBC) [Mass/Vol]Or dered By: Bobby Cali on 02-07-2024 MCHC (RBC) [Mass/Vol] 33.5 g/dL 32.0-35.0 [facility] MCHC (RBC) [Mass/Vol] MCHC [Mass/volume] by Automated count 32.0-35.0 [facility] MCV Auto (RBC) [Entitic vol] Ordered By: Bobby Cali on 02-07-2024 MCV (RBC) [Entitic vol] MCV [Entitic vol ume] by Automated count 80-100 [facility] MCV [Entitic volume] by Auto mated countOrdered By: Bobby Cali on 02-07-2024 MCV (RBC) [Entitic vol] 89.6 fL Normal 80-100 [facility] Comment on above: Performed By: #### C MP, CBC, TSH3, LIPASE #### [facility] [address] [place] [address] Monocytes Auto (Bld) [#/Vol] Ordered By: Bobby Cali on 02-07-2024 Monocytes (Bld) [#/Vol] Automated blood monocyte count High 0.0-0.8 [facility] Monocytes/100 WBC Auto (Bld) Ordered By: Bobby Cali on 02-07-2024 Monocytes/100 WBC (Bld) Automated monocyte % . [facility] Neutrophils Auto (Bld) [#/Vo l]Ordered By: Bobby Cali on 02-07-2024 Neutrophils (Bld) [#/Vol] Neutrophils [#/volume] in Blood by Automated count 1.8-7.7 [facility] Neutrophils [#/volume] in Bl ood by Automated countOrdered By: Bobby Cali on 02-07-2024 Neutrophils (Bld) [#/Vol] 4.9 10*3/uL Normal 1.8-7.7 [facility] Comment on above: Performed By: #### C MP, CBC, TSH3, LIPASE #### [facility] [address] [place] [address] [place] Neutrophils/100 WBC Auto (Bl d)Ordered By: Bobby Cali on 02-07-2024 Neutrophils/100 WBC (Bld) Automated neutrophil % . [facility] No Panel InformationOrdered By: Bobby Cali on 02-07-2024 Estimated GFR (CKD-EPI) > 60.0 mL/Min [facility] Creatinine Clearance (Chem N/A [facility] Nucleated erythrocytes [Pres ence] in Blood by Automated countOrdered By: Bobby Cali on 02-07-2024 Nucleated RBC Auto Ql (Bld) 0.1 /100{WBC} 0-0.5 [facility] Nucleated RBC Auto Ql (Bld) Nucleated erythrocytes [Presence] in Blood by Automated count 0-0.5 [facility] Platelet mean volume Auto (B ld) [Entitic vol]Ordered By: Bobby Cali on 02-07-2024 Platelet mean volume (Bld) [Entitic vol] Platelet mean volume [Entitic volume] in Blood by Automated count 6.3-10.7 [facility] Platelet mean volume [Entiti c volume] in Blood by Automated countOrdered By: Bobby Cali on 02-07-2024 Platelet mean volume (Bld) [Entitic vol] 8.6 fL Normal 6.3-10.7 [facility] Comment on above: Performed By: #### C MP, CBC, TSH3, LIPASE #### [facility] [address] [place] [address] [place] Platelets Auto (Bld) [#/Vol] Ordered By: Bobby Cali on 02-07-2024 Platelets (Bld) [#/Vol] Platelets [#/vol ume] in Blood by Automated count 150-450 [facility] Platelets [#/volume] in Bloo d by Automated countOrdered By: Bobby Cali on 02-07-2024 Platelets (Bld) [#/Vol] 247 10*3/uL Normal 150-450 [facility] Comment on above: Performed By: #### C MP, CBC, TSH3, LIPASE #### [facility] [address] Potassium [Moles/volume] in Serum or PlasmaOrdered By: Bobby Cali on 02-07-2024 Potassium [Moles/Vol] 4.2 mmol/L Normal 3.5-5.1 [facility] Comment on above: Performed By: #### C MP, CBC, TSH3, LIPASE #### [facility] [address] Potassium [Moles/Vol] Potassium [Moles/volume] in Serum or Plasma 3.5-5.1 [facility] Protein [Mass/volume] in Ser um or PlasmaOrdered By: Bobby Cali on 02-07-2024 Protein [Mass/Vol] 7.2 g/dL Normal 6.4-8.9 [facility] Comment on above: Performed By: #### C MP, CBC, TSH3, LIPASE #### [facility] [address] [place] [address] Protein [Mass/Vol] Protein [Mass/volume ] in Serum or Plasma 6.4-8.9 [facility] RBC Auto (Bld) [#/Vol]Ordere d By: Bobby Cali on 02-07-2024 RBC (Bld) [#/Vol] Erythrocytes [#/volume] in Blood by Automated count 3.60-5.00 [facility] Serum globulin measurement b y calculation (mass/volume)Ordered By: Bobby Cali on 02-07-2024 Globulin (S) [Mass/Vol] 2.8 g/dL [facility] Comment on above: Performed By: #### C MP, CBC, TSH3, LIPASE #### [facility] [address] Serum or plasma albumin/glob ulin mass ratioOrdered By: Bobby Cali on 02-07-2024 Albumin/Globulin [Mass ratio] 1.6 {ratio} Normal [facility] Comment on above: Performed By: #### C MP, CBC, TSH3, LIPASE #### [facility] [address] Albumin/Globulin [Mass ratio] Serum or plasma albumin/globulin mass ratio [facility] Serum or plasma anion gap de terminationOrdered By: Bobby Cali on 02-07-2024 Anion gap [Moles/Vol] 11.5 mmol/L Normal 6.0-15.0 [facility] Comment on above: Performed By: #### C MP, CBC, TSH3, LIPASE #### [facility] [address] Anion gap [Moles/Vol] Serum or plasma an ion gap determination 6.0-15.0 [facility] Sodium [Moles/volume] in Ser um or PlasmaOrdered By: Bobby Cali on 02-07-2024 Sodium [Moles/Vol] 138 mmol/L Normal 136-145 [facility] Comment on above: Performed By: #### C MP, CBC, TSH3, LIPASE #### [facility] [address] [place] [address] Sodium [Moles/Vol] Sodium [Moles/volume ] in Serum or Plasma 136-145 [facility] Thyrotropin [Units/volume] i n Serum or PlasmaOrdered By: Bobby Cali on 02-07-2024 TSH Qn 1.04 m[IU]/L Normal 0.45-5.33 [facility] Comment on above: Result Comment: PERF ORMED BY: [place] [address] PATHOLOGIST [employer] JHON SCHROEDER M.D. Performed By: #### C MP, CBC, TSH3, LIPASE ####[facility] TSH Qn Thyrotropin [Units/volume] in Serum or Plasma 0.45-5.33 [facility] Urea nitrogen [Mass/volume] in Serum or PlasmaOrdered By: Bobby Cali on 02-07-2024 Urea nitrogen [Mass/Vol] 7 mg/dL Normal 7-25 [facility] Comment on above: Performed By: #### C MP, CBC, TSH3, LIPASE #### [facility] [address] Urea nitrogen [Mass/Vol] Urea nitrogen [Mass/volume] in Serum or Plasma 11-16 [facility] WBC Auto (Bld) [#/Vol]Ordere d By: Bobby Cali on 02-07-2024 WBC (Bld) [#/Vol] Leukocytes [#/volume ] in Blood by Automated count 3.8-11.6 [facility] Laboratory - Chemistry and C hemistry - challengeon 02-06-2024 Bilirubin Ql (U) Negative [facility] Glucose (U) [Mass/Vol] [facility] Ketones Ql (U) Negative [facility] pH (U) 6.5 [pH] [facility] Specific gravity (U) [Rel density] 1.000 [facility] Urobilinogen (U) [Mass/Vol] 0.2 mg/dL [facility] - Microbiology an d Antimicrobial susceptibilityOrdered By: Bobby Cali on 02-06-2024 Bacteria identified Cx Nom (U) 2 Days [facility] - Specimen inform ationon 02-06-2024 Appearance (U) cloudy [facility] Color (U) yellow [facility] Laboratory - Urinalysison Leukocyte esterase Test strip Ql (U) moderate [facility] Nitrite Ql (U) Negative [facility] Protein Ql (U) Negative [facility] No Panel Informationon 02-05 Urine Occult Blood tracelyced [facility] Urine Cultureon 02-06-2024 Bacteria identified Cx Nom (U) 30,000 colonies/ml mixed bacterial skin contaminants 2 Days PERFORMED BY: [facility] [address] [place] [address] PATHOLOGIST [employer] JHON Oswald [facility] Comment on above: Performed By: #### C UU #### [facility] [address] [place] [address] [place] Urine cultureOrdered By: Maki Cali on 02-06-2024 Bacteria identified Cx Nom (U) Urine culture [facility] URETHRITIS/DISCHARGE PLUS VA GINITIS (HTRX)on 01-18-2024 [...] DNA panel Probe+sig amp (Vag fld) Positive [facility] No Panel Informationon 01-11 Interpretation and review of laboratory results Abnormal [facility] Trichomonas, UA Negative [facility] Yeast Positive [facility] XR lumbar spine 2-3V*on 10-24 XR lumbar spine 2-3V* [facility] Main [place] [id number] XRay Report Signed Patient: Mira Gonsalves MR#: [id number] : 1970 Acct:[id number] Age/Sex: 53 / F ADM Date: 11/16/23 Loc: XDS Room: Type: REG CLI Attending Dr: Bobby Cali MD Copies to: [...] Niko Garg M.D.11/16/2023 2:59 PM Dictation Location: [place] [address] Transcribed By: [facility] 11/16/23 1459 Dictated By: Niko Garg DO 11/16/23 1447 Signed By: 11/16/23 1459 Normal [facility] CT CARDIAC SCORINGon 023 CT CARDIAC SCORING Addendum Begins Patient Name: IMRA GONSALVES ADDENDUM: Technical: The following is to [...] breath on exertion. COMPARISON: None. ACCESSION NUMBER(S): [id number] ORDERING CLINICIAN: BEATRIZ ART TECHNIQUE: Using prospective [...] i.org/MESACHDRisk/Mes aRiskScore/RiskScore. aspx Trevor et al. JACC 2015 (http://dx.doi.org/10 .1016/j.j acc.2015.08.035) Reading Fortune Teller: Dr. Trell Garcia, Date: 06/02/2022 12:36 pm Electronically signed by: ALCON CEDENO MD Normal [facility] CT Cardiac Scoringon 023 CT [facility] Sc[facility] Work Phone: Office Visit (Cardiology)on [...] Former smoker Tobacco Use Screening; Status:Complete; Done: 25May2022 Patient Instructions Please bring all medicines, vitamins, [...] Recorded: 25May2022 03:46PM Heart Rate88, L Radial Wzltqyxr147, LUE, Sitting Rgrlhhczl87, LUE, Sitting Height5 ft 4 in Ujkrnk222 lb BMI Hhavvdsjoa58.66 kg/m2 BSA Calculated1.64 Tobacco Useb) No PHQ-2 [...] . Pulmo (more content not included)... Normal [facility] Tobacco Screening.on 023 Adult depression screening assessment No [facility] 250 DO Work Phone: Fall risk assessment c) Not medically indicated [facility] DO Work Phone: Tobacco use status CPHS b) No M [facility] DO Work Phone: SCREENING MAMMOGRAM [...] IS VERY IMPORTANT TO YOUR HEALTH. CURRENT [employer] GUIDELINES RECOMMENDS ANNUAL MAMMOGRAPHY BEGINNING AT AGE 39. THIS FACILITY USUALLY USES A REMINDER SYSTEM TO ENSURE ALL POSITIONS RECEIVED REMINDER NOTIFICATIONS AT THE TIME BASED ON THE RECOMMENDATIONS OF THIS EXAM. Report reported and signed by Moisés Maddox on 04/20/2022 0944 Normal [facility] Director Of Regulatory Affairs Cardiac Stress Teston 2021 Cardiac Stress Test [address], [address], [place] [address] Exercise Stress Test Patient Name: MIRA GONSALVES Ordering Physician: [id number] Beatriz Art Study Date: 04/07/2022 Reading Physician: [id number] Jamal Gates MD, FACC MRN/PID: [id number] Supervising Physician: [id number] Rhett Jay MD Accession/Order#: [id number] Referring Physician: BEATRIZ ART Date of : 1970 PCP: Bobby Cali Gender: F Fellow: Height: 162.56 cm Nurse: Girma Hanna RN Weight: 63.05 kg Audit Control Clerk: NA BSA: 1.68 m2 Technologist: BMI: 23.86 Additional Staff: kg/m2 Age: 52 years cc report to: Patient Location: cc report to: [id number] Beatriz Art Study Type: Cardiac Stress Test Diagnosis/ICD: R07.9-Chest pain, unspecified; R06.02-Shortness of breath Indication: Chest Pain Procedure/CPT: Stress Test Interpretation-08540; Stress Test Supervision-[id number] Falls Risk: Low: Patient has low risk [...] treadmill score of 10+ which is favorable. [id number] Jamal Gates MD, [facility] Electronically signed on 04/07/2022 at 6:13:21 PM Final Normal [facility] Cardiac Stress Test MP-[facility] 600 DO Work Phone: LIPID PANEL, STANDARDon 11- Cholesterol [Mass/Vol] 225 mg/dL High <200 [facility] Comment on above: Order Comment: FASTI NG:YES FASTING: YES Performed By: #### 7 600 #### [facility] [address], [address] [place] [address] Retail Parts Professional: Young Ponce MD Cholesterol in HDL [Mass/Vol] 71 mg/dL Normal > OR = 50 [facility] Comment on above: Order Comment: FASTI NG:YES FASTING: YES Performed By: #### 7 600 #### [facility] [address], [address] [place] [address] [employer] Professional: Young Ponce MD Cholesterol in LDL [Mass/Vol] 136 mg/dL High [facility] Comment on above: Order Comment: FASTI NG:YES FASTING: YES Result Comment: Refe rence range: <100 Desirable range <100 mg/dL for primary prevention; <70 mg/dL for patients with CHD or diabetic patients with > or = 2 CHD risk factors. LDL-C is now calculated using the Ronak-Sandy calculation, which is a validated novel method providing better accuracy than the Friedewald equation in the estimation of LDL-C. Ronak THOMAS et al. ADELAIDE. 2013;310(19): 3110-4380 (http://education.Gencia/faq/BCA239) Performed By: #### 7 600 #### [facility] [address], [address] [place] [address] [employer] Professional: Young Ponce MD Cholesterol.total/Choles terol in HDL [Mass ratio] 3.2 {ratio} Normal <5.0 [facility] Comment on above: Order Comment: FASTI NG:YES FASTING: YES Performed By: #### 7 600 #### [facility] [address], [address] [place] [address] [employer] Professional: Young Ponce MD NON HDL CHOLESTEROL 154 mg/dL (calc) High <130 [facility] Comment on above: Order Comment: FASTI NG:YES FASTING: YES Result Comment: For patients with diabetes plus 1 major ASCVD risk factor, treating to a non-HDL-C goal of <100 mg/dL (LDL-C of <70 mg/dL) is considered a therapeutic option. Performed By: #### 7 600 #### [facility] [address], [address] [place] [address] [employer] Parts Professional: Young Ponce MD Triglyceride [Mass/Vol] 82 mg/dL Normal <150 [facility] Comment on above: Order Comment: FASTI NG:YES FASTING: YES Performed By: #### 7 600 #### [facility] [address], [address] [place] [address] Retail [employer] Professional: Young Ponce MD Radiologyon 03-10-2022 XR Chest 2 Views Normal [facility] DO Work Phone: Office Visit (Cardiology)on [...] Recorded: 04Mar2022 01:31PMRecorded: 04Mar2022 01:30PM Heart Rate81, Hwgmha30, Apical Qgduxwic388, LUE, Uzxqbjr178, RUE, Sitting Gknzzkitb72, LUE, Lbbfwlb29, RUE, Sitting Height5 ft 4 in5 ft 4 in Upuqwa621 lb 139 lb BMI Tzgxanpuuv37.86 kg/m223.86 kg/m2 BSA Calculated1.681.68 Tobacco Useb) No PHQ-2 #1. Over the last 2 weeks have you felt down, depre (more content not included)... Normal [facility] Tobacco Screening.on 022 Adult depression screening assessment No [facility] 600 DO Work Phone: Tobacco use status CP b) No M [facility] 600 DO Work Phone: ASYMPTOMATIC COVID-19 ANTIGE Non 02-03-2022 EUA Statement SEE BELOW Normal [facility] Comment on above: Result Comment: This [...] sooner. Performed By: #### C VDAGA #### [facility] [address] [place] [address] Dr. Espinoza Turner SARS-CoV-2 (COVID-19) RNA JOEY+probe Ql (Unsp spec) Positive Critically abnormal NEGATIVE [facility] Comment on above: Result Comment: SARS -CoV-2 antigen present; does not rule out coinfection with other pathogens. Performed By: #### C VDAGA #### [facility] [address] [place] [address] Dr. Espinoza Turner [facility]19 [facility]on SARS-CoV-2 (COVID-19) RNA JOEY+probe Ql (Unsp spec) Detected Critically abnormal NOT DETECTED [facility] Comment on above: Result Comment: This test is not yet approved or cleared by the [place] FDA. When there are no FDA-approved or cleared tests available, and other criteria are met, FDA can make tests available under an emergency access mechanism called an Emergency Use Authorization (EUA). The EUA for this test is supported by the [place] of Health and Human Service's declaration that [...] longer be used). Performed By: #### C [facility] #### [facility] [address] [place], [place] [address] Dr. Espinoza Turner Coding Summary.on 12-18-2019 Coding Summary. CODING DATE: 12/18/2019 FINAL [facility] STATUS: Home (Routine DC) PAYOR: Self Pay [...] Revised Date Saved: 12/18/2019 04:36 pm Normal [facility] Auto Diffon 12-14-2019 Basophils/100 WBC (Bld) 0.8 % Normal 0.0-2.0 [facility] Comment on above: Order Comment: Order Added by Discern Expert. Performed By: #### 2 147852, 7131073, 4809898, 0840242, 0259742, 86120313, 60730345, 93948700, 27612999, 7637764 #### [facility] [address] [place] [address] Basophils/Leukocytes Auto (Bld) [Pure # fraction] 0.1 E9/L Normal 0.0-0.2 [facility] Comment on above: Order Comment: Order Added by Discern Expert. Performed By: #### 2 353349, 8202901, 9745077, 3927052, 0849776, 19756176, 26852164, 63902602, 73375560, 6278256 #### [facility] [address] [place] [address] Eosinophils/100 WBC (Bld) 1.1 % Normal 0.0-8.0 [facility] Comment on above: Order Comment: Order Added by Discern Expert. Performed By: #### 2 786668, 8780392, 6139807, 4939484, 1633911, 94961960, 34685127, 53679930, 44868591, 3228181 #### [facility] [address] [place] [address] Eosinophils/Leukocytes Auto (Bld) [Pure # fraction] 0.1 E9/L Normal 0.0-0.5 [facility] Comment on above: Order Comment: Order Added by Discern Expert. Performed By: #### 2 733597, 5073260, 8429972, 4602558, 3997705, 49428639, 31668392, 77143105, 33818250, 9886581 #### [facility] [address] [place] [address] Lymphocytes/100 WBC (Bld) 29.5 % Normal 14.0-50.0 [facility] Comment on above: Order Comment: Order Added by Discern Expert. Performed By: #### 2 407614, 5441777, 4094248, 6493442, 5369665, 91323212, 17056118, 85158735, 28745063, 6381067 #### [facility] [address] [place] [address] Lymphocytes/Leukocytes Auto (Bld) [Pure # fraction] 2.1 E9/L Normal 1.0-4.0 [facility] Comment on above: Order Comment: Order Added by Discern Expert. Performed By: #### 2 414087, 1671129, 2903838, 8693588, 6326060, 72177943, 41032827, 85106567, 58811886, 0336723 #### [facility] [address] [place] [address] Monocytes/100 WBC (Bld) 10.5 % Normal 4.0-14.0 [facility] Comment on above: Order Comment: Order Added by Discern Expert. Performed By: #### 2 048407, 8398590, 7706044, 4889254, 6048377, 26944099, 44163068, 26166139, 50170359, 2519334 #### [facility] [address] [place] [address] Monocytes/Leukocytes Auto (Bld) [Pure # fraction] 0.7 E9/L Normal 0.2-1.0 [facility] Comment on above: Order Comment: Order Added by Discern Expert. Performed By: #### 2 536846, 9541922, 9264361, 9539404, 0840111, 75516103, 43279581, 31178414, 33927708, 0742256 #### [facility] [address] [place] [address] Neutrophils/100 WBC (Bld) 58.1 % Normal 36.0-75.0 [facility] Comment on above: Order Comment: Order Added by Discern Expert. Performed By: #### 2 774851, 5595962, 5774002, 9239577, 7280447, 42746721, 99695547, 33787318, 62674318, 7619558 #### [facility] [address] [place] [address] Neutrophils/Leukocytes Auto (Bld) [Pure # fraction] 4.1 E9/L Normal 2.0-7.5 [facility] Comment on above: Order Comment: Order Added by Discern Expert. Performed By: #### 2 469819, 4943494, 6884766, 8486747, 8394785, 33938469, 91589797, 95927765, 74967762, 7500147 #### [facility] [address] [place] [address] [facility] 12-14-2019 Creatinine [Mass/Vol] 0.9 mg/dL Normal 0.5-1.3 [facility] Comment on above: Performed By: #### 2 262131, 4071785, 7777692, 1018308, 5959636, 56035010, 59670238, 82409397, 49201494, 3446027 #### [facility] [address] [place] [address] Urea nitrogen [Mass/Vol] 14 mg/dL Normal 5-21 [facility] Comment on above: Performed By: #### 2 375259, 6435358, 6323953, 9841941, 2914191, 43736591, 91831964, 45483732, 99161814, 2725589 #### [facility] [address] [place] [address] Urea nitrogen/Creatinine [Mass ratio] 16 No Units Normal 10-20 [facility] Comment on above: Performed By: #### 2 185418, 7867758, 6583876, 7879945, 8789541, 28169182, 35638258, 49672460, 75058842, 8163892 #### [facility] [address] [place] [address] Anion gap [Moles/Vol] 13 mmol/L Normal 6-16 [facility] Comment on above: Performed By: #### 2 664454, 2793438, 8295769, 0570093, 9364325, 36912833, 95982183, 12671352, 28998970, 2398438 #### [facility] [address] [place] [address] Calcium [Mass/Vol] 8.8 mg/dL Low 8.9-11.1 [facility] Comment on above: Performed By: #### 2 875154, 8531017, 3794526, 2551557, 3922439, 44003452, 40872777, 48980368, 32456278, 2774325 #### [facility] [address] [place] [address] Chloride [Moles/Vol] 102 mmol/L Normal 101-111 [facility] Comment on above: Performed By: #### 2 082244, 2121568, 3810460, 5081327, 5493150, 70229018, 52761871, 68500409, 95564105, 3947403 #### [facility] [address] [place] [address] CO2 [Moles/Vol] 24 mmol/L Normal 21-31 [facility] Comment on above: Performed By: #### 2 091530, 8059734, 5092646, 8604337, 3508204, 36064371, 09018314, 11461379, 29481879, 9708889 #### [facility] [address] [place] [address] Glucose [Mass/Vol] 106 mg/dL Normal 55-199 [facility] Comment on above: Result Comment: If t his glucose result represents a fasting glucose, interpretation should refer to the following reference range: 55-99 mg/dL Performed By: #### 2 513811, 5583269, 2177565, 3462291, 8427163, 16664917, 30058961, 87814839, 90871356, 2833531 #### [facility] [address] [place] [address] Potassium [Moles/Vol] 4.0 mmol/L Normal 3.5-5.3 [facility] Comment on above: Performed By: #### 2 789189, 9831626, 9640024, 4616132, 8673196, 76300686, 15628670, 09326262, 56137307, 5560947 #### [facility] [address] [place] [address] Sodium [Moles/Vol] 135 mmol/L Normal 135-145 [facility] Comment on above: Performed By: #### 2 909410, 4861848, 2691315, 3166450, 5795234, 59498132, 39801639, 06056949, 58799455, 9964554 #### [facility] [address] [place] [address] CBC w/ Auto Diffon 0 Erythrocyte distribution width (RBC) [Ratio] 14.0 % Normal 10.9-14.2 [facility] Comment on above: Performed By: #### 2 556589, 2306740, 2431956, 0436164, 6690776, 64131826, 44929260, 04778725, 60614822, 2007850 #### [facility] [address] [place] [address] Hematocrit (Bld) [Volume fraction] 36.5 % Normal 34.0-46.0 [facility] Comment on above: Performed By: #### 2 086419, 3828832, 5319112, 3452479, 3046184, 86855352, 47020984, 88668668, 11712209, 0518639 #### [facility] [address] [place] [address] Hemoglobin (Bld) [Mass/Vol] 12.4 g/dL Normal 12.0-16.0 [facility] Comment on above: Performed By: #### 2 791059, 2943456, 9797933, 0866054, 1017906, 56034630, 22122699, 07979498, 92076082, 6243571 #### [facility] [address] [place] [address] MCH (RBC) [Entitic mass] 30.3 pg Normal 27.0-34.0 [facility] Comment on above: Performed By: #### 2 451702, 3960095, 8141705, 0058742, 1393970, 33925550, 83090443, 37067809, 39928585, 3923420 #### [facility] [address] [place] [address] MCHC (RBC) [Mass/Vol] 34.0 g/dL Normal 31.4-36.0 [facility] Comment on above: Performed By: #### 2 036826, 6461815, 2230965, 9052035, 8702004, 77452976, 63268446, 65092546, 68718928, 5723626 #### [facility] [address] [place] [address] MCV (RBC) [Entitic vol] 89.1 fL Normal 80.0-100.0 [facility] Comment on above: Performed By: #### 2 729954, 3435463, 5154720, 6422237, 5675937, 39848775, 71534792, 57327679, 32023335, 9973981 #### [facility] [address] [place] [address] Platelet mean volume (Bld) [Entitic vol] 8.3 fL Normal 6.4-10.8 [facility] Comment on above: Performed By: #### 2 453030, 2540010, 4905359, 5010970, 4213067, 95368742, 85629010, 22612757, 87254821, 8254185 #### [facility] [address] [place] [address] Platelets (Bld) [#/Vol] 207.0 E9/L Normal 150.0-500.0 [facility] Comment on above: Performed By: #### 2 523546, 4657360, 3750456, 0322866, 2094947, 83685307, 71804920, 11953644, 31161523, 6505093 #### [facility] [address] [place] [address] RBC (Bld) [#/Vol] 4.1 E12/L Low 4.3-5.9 [facility] Comment on above: Performed By: #### 2 407051, 5534075, 6618139, 4272855, 4551100, 33464752, 67631605, 23843183, 84358406, 7482641 #### [facility] [address] [place] [address] WBC corrected for nucl RBC Auto (Bld) [#/Vol] 7.1 E9/L Normal 4.0-11.0 [facility] Comment on above: Performed By: #### 2 703229, 3623220, 7280869, 6568335, 7115959, 97964986, 48392409, 54919647, 83716396, 2698159 #### [facility] [address] [place] [address] CRPon 12-14-2019 CRP [Mass/Vol] mg/L Normal <=1.9 [facility] Comment on above: Performed By: #### 2 539779, 3811368, 1008163, 6593981, 4769864, 24802737, 95185484, 99996479, 00288541, 7194273 #### [facility] [address] [place] [address] CTA Cheston 12-14-2019 CTA Chest Exam Date/Time: [...] 300 Contrast amount in ml's: 58 Normal [facility] Consent for Treatmenton 11-24 Consent for Treatment [id number] 008 [id number] .00CD:127 Normal [facility] Discharge Instructionson Discharge Instructions [id number] 0080 [id number] 1.00CD:127 Normal [facility] ED Clinical Summaryon 2019 ED Clinical Summary [place] [id number] ED Clinical Summary Person Information Name: MIRA GONSALVES/[facility]Tj Age: 49 Years : 1970 Sex: Female Language: American PCP: BOBBY CALI MD Marital Status: Visit [...] 12/14/2019 15:17:05 12/14/2019 15:17:05 12/14/2019 15:17:05 AD[address]ESS: [facility] [place] [address] PHYS DOC NOTES: MEDICAL INFORMATION: Prescriptions Given: PATIENT EDUCATION INFORMATION: Instructions: Smoking Cessation; Chest Pain (Nonspecific); Pleurisy Follow up: With: Address: When: BOBBY CALI [address] [place] [address] Business (1) Within 2 to 3 days Comments: Return to ED if symptoms worsen. Call Dr. Cali for a follow up appointment. DIAGNOSIS: 1:Back pain; 2:Pleurisy Normal [facility] ED Note-Physicianon 12-14-19 ED Note-Physician Basic Information Time Seen: Leonardo COFFMANGiovana 12/14/2019 12:16 Chief Complaint pt arrived via [...] BOBBY CALI Within 2 to [address] [place] [address]- Business (1) Additional Instructions: Return to ED [...] 12:41:00) Lymph Auto: 29.5 % (12/14/19 12:41:00) [place] Auto: 10.5 % (12/14/19 12:41:00) Eos Auto: 1.1 % (12/14/19 12:41:00) Basophil Auto: 0.8 % (12/14/19 12:41:00) Neutro Absolute: 4.1 E9/L (12/14/19 12:41:00) Lymph Absolute: 2.1 E9/L (12/14/19 12:41:00) [place] Absolute: 0.7 E9/L (12/14/19 12:41:00) Eos Absolute: 0.1 E9/L (12/14/19 12:41:00) Basophil Absolute: 0.1 E9/L (12/14/19 12:41:00) Sed Rate Automated: 9 mm/hr (12/14/19 12:41:00) PT: 11.7 second(s) (12/14/19 12:41:00) INR: 1 (12/14/19:41:00) PTT: 26.6 second(s) (12/14/19 12:41:00) Glucose Lvl: [...] RIGHT VENTRICULAR CONDUCTION DELAY RATE 90, NORMAL UT AND QRS, NORMAL AXIS, NO PREVIOUS BORDERLINE ECG Signed By: Giovana Patterson DO 12/14/2019 12:31:43 Normal [facility] Comment on above: Result Comment: Elec [...] and skin patches. Some may be available swdm-qqn-ualejoh and others require a prescription. ? Antidepressant [...] 08/26/2014 Document Reviewed: 07/20/2012 ExitCare? Patient Information ?2015 [employer]. This information is not intended to replace [...] Document Reviewed: 11/14/2008 ExitCare? Patient Information ?2015 [employer]. This information is not intended to replace [...] Medicine may help with pain. Only take rcrn-ijc-tltsttx or prescription medicines for pain, discomfort, or [...] Document Reviewed: 09/23/2013 ExitCare? Patient Information ?2015 [employer]. This information is not intended to replace advice given to you by your health care provider. Make sure you discuss any questions you have with your health care provider. Normal [facility] ED Patient Summaryon 020 ED Patient Summary [address] [address] Patient Discharge Instructions Person Information Name: MIRA GONSALVES Age: 49 Years Arrival Date: 12/14/2019 12:14:46 Discharge Diagnosis: 1:Back pain; 2:Pleurisy Primary Care Physician: BOBBY CALI MD Provider Information Primary Provider: Giovana Patterson DO Advanced Production Intern:None The exam and treatment you received in the Emergency Department were for an urgent problem and are not intended as complete care. It is important that you follow up with a doctor, nurse practitioner, or physician?s butcher assistant for ongoing care. If your symptoms become worse or you do not improve as expected and you are unable to reach your usual health care provider, you should return to the Emergency Department. We are available 24 hours a day. MAJORMIRA has been given the following list of patient education materials, prescriptions and follow-up instructions: Follow-up Instructions: With: Address: When: BOBBY CALI [address] [place], [place] [address] [facility] (1) Within 2 to 3 days Comments: [...] opioids can be used to help relieve xvrxrzxi-ms-cloxyw pain and are often prescribed following a [...] be struggling with addiction, tell your health rn care manager and ask for guidance or call [facility]?S National Helpline at 7-783-907-VONB. u Source: [place] Department of Health and Human Services/Center for Disease Control & Prevention [facility] Medications Given: Medication Dose Route Sodium Chloride 0.9% intravenous solution 1000.00 mL Initial Volume 75.00 mL/hr IV Right Antecubit Darci aspirin 162.00 mg Oral ondansetron 4.00 mg IV Push Right Antecubit Darci Medication Information: Comment: Pharmacy Information: Thank you for choosing [facility] Patient Education Materials: Smoking Cessation Quitting [...] and skin patches. Some may be available xgyz-ted-ltbpwev and others require a prescription. ? Antidepressant [...] 08/26/2014 Document Reviewed: 07/20/2012 ExitCare? Patient Information ?2015 [employer]. This information is not intended to replace [...] Document Reviewed: 11/14/2008 ExitCare? Patient Information ?2015 [employer]. This information is not intended to replace [...] Medicine may help with pain. Only take dixa-taa-furkfta or prescription medicines for pain, discomfort, or [...] 12/12/2013 Document Reviewed: 09/23/2013 ExitCare? Patient Information ?2014 [employer]. This information is not intended to replace advice given to you by your health care provider. Make sure you discuss any questions you have with your health care provider. MAJOR Cedillo AMY , have received the following patient education materials/instruction s and have verbalized understanding: Patient Education Materials: Smoking Cessation; Chest Pain (Nonspecific); Pleurisy Follow-up Instructions: With: Address: When: BOBBY CALI [address] [place] [address] [facility] (Amind Within 2 to 3 days Comments: Return to ED if symptoms worsen. Call Dr. Cali for a follow up appointment. Patient Signature Date Clinician/Nurse Signature Date 12/14/2019 15:17:07 Normal [facility] Hep Func Panelon 12-14-2019 Albumin [Mass/Vol] 4.0 g/dL Normal 3.3-5.0 [facility] Comment on above: Performed By: #### 2 720503, 1205485, 9900678, 2582744, 5607865, 69917546, 18941888, 11934079, 44998772, 9934791 #### [facility] [address] [place] [address] Albumin [Mass/Vol] 1.5 g/dL Normal 1.1-2.2 [facility] Comment on above: Performed By: #### 2 499544, 2534325, 5156880, 0439750, 1230993, 83905176, 12475647, 77171161, 56277258, 6003939 #### [facility] [address] [place] [address] ALP [Catalytic activity/Vol] 44 Int._Unit/L Normal 21-98 [facility] Comment on above: Performed By: #### 2 838418, 9098953, 5617955, 9400339, 6508476, 77845635, 19832508, 45591561, 77012555, 6160277 #### [facility] [address] [id number] ALT No additional P-5'-P [Catalytic activity/Vol] 14 Int._Unit/L Normal 6-46 [facility] Comment on above: Performed By: #### 2 678753, 0306037, 5675570, 9350673, 2042749, 50385331, 17221289, 78255620, 54394552, 4133799 #### [facility] [address] [place], [place] [id number] AST [Catalytic activity/Vol] 18 Int._Unit/L Normal 5-43 [facility] Comment on above: Performed By: #### 2 115443, 8199612, 3350434, 0982772, 5117004, 29382131, 66195127, 27186677, 89569927, 4349370 #### [facility] [address] [place] [address] Bilirubin [Mass/Vol] 0.6 mg/dL Normal 0.0-1.1 [facility] Comment on above: Performed By: #### 2 513288, 0430607, 0978489, 4057973, 5026578, 27900789, 89427499, 96507874, 02173250, 1774030 #### [facility] [address] [place] [address] Bilirubin.direct [Mass/Vol] 0.1 mg/dL Normal 0.1-0.4 [facility] Comment on above: Performed By: #### 2 821127, 4094342, 2285036, 7702225, 7464680, 60954171, 11993059, 34579732, 69648574, 4443083 #### [facility] [address] [place] [address] Bilirubin.direct [Mass/Vol] 0.5 mg/dL Normal 0.1-0.9 [facility] Comment on above: Performed By: #### 2 147032, 0700632, 8308559, 4947277, 0040247, 30756669, 67608317, 80821285, 02399646, 2081560 #### [facility] [address] [place] [address] Globulin (S) [Mass/Vol] 2.6 g/dL Normal 1.4-4.0 [facility] Comment on above: Performed By: #### 2 028944, 5026864, 7966508, 2589742, 1623006, 42331697, 28182098, 67498489, 39891806, 5010755 #### [facility] [address] [place] [address] Protein [Mass/Vol] 6.6 g/dL Normal 6.0-7.8 [facility] Comment on above: Performed By: #### 2 749935, 9312510, 6114862, 7889334, 3466841, 28315676, 20220342, 93706450, 99855481, 3155534 #### [facility] [address] [place] [address] Lipase Levelon 12-14-2019 Lipase [Catalytic activity/Vol] 23 unit/L Normal 13-58 [facility] Comment on above: Performed By: #### 2 146113, 0326792, 0299660, 8707414, 6119095, 71215947, 34361600, 86326109, 46724018, 7371726 #### [facility] [address] [place] [address] PT & PTTon 12-14-2019 aPTT Coag (PPP) [Time] 26.6 second(s) Normal 25.1-36.5 [facility] Comment on above: Result Comment: Hepa rin therapeutic range (represented by Anti-Factor Xa activity of 0.2 - 0.4 U/mL) corresponds to PTT of 56.6 - 109.0 sec. Performed By: #### 2 903547, 3234298, 7863771, 2173134, 8204322, 25904832, 42898693, 38790710, 07795656, 0601090 #### [facility] [address] [place] [address] INR Coag (PPP) [Relative time] 1.0 {INR} [facility] Comment on above: Result Comment: INR results are specifically intended to assess patients stabilized on long-term Anticoagulation therapy suggested INR?s ?Less Intensive Anticoagulation? 2.0 ? 3.0 Conventional Range 3.0 ? 4.5 Performed By: #### 2 359057, 3350459, 4913894, 4816192, 4020407, 22024575, 82533398, 74196323, 01530600, 5750437 #### [facility] [address] [place] [address] PT Coag (PPP) [Time] 11.7 second(s) Normal 10.2-12.9 [facility] Comment on above: Performed By: #### 2 051451, 7914131, 3628732, 9619322, 2949859, 63256568, 59556199, 91147587, 76326935, 5005110 #### [facility] [address] [place] [address] Sed Rate Automatedon 020 ESR (Bld) [Velocity] 9 mm/h Normal 0-34 [facility] Comment on above: Performed By: #### 2 989020, 1592946, 2344760, 0066111, 3683764, 95338725, 99793017, 09121384, 76946519, 4058597 #### [facility] [address] [place] [address] Troponin 0 Hr.on 12-14-2019 Troponin I.cardiac [Mass/Vol] 2.40 pg/mL Low 10.10-27.10 [facility] Comment on above: Result Comment: The 95% CI (Confidence Interval) PPV (Positive Predictive Value) for myocardial infarction in females is 38 pg/mL, in males 51 pg/mL. The results should be used in conjunction with clinical conditions of myocardial infarction. (Access High Sensitivity Troponin I Instructions For Use, Rickie Henlawson, November 2017) Performed By: #### 2 302276, 6017320, 7113622, 7020629, 6263903, 85746227, 61466622, 98135152, 86201319, 2377863 #### [facility] [address] [place] [address] eGFRon 12-14-2019 GFR/1.73 sq M predicted among blacks MDRD (S/P/Bld) [Vol rate/Area] mL/min/{1.73_m2} Normal >=59 [facility] Comment on above: Order Comment: Order added by Discern Expert. Result Comment: eGFR is race adjusted. AA=. Performed By: #### 2 446081, 2328955, 5843377, 1926063, 7742363, 61154140, 87987949, 26549155, 78099055, 8145925 #### [facility] [address] [place] [address] GFR/1.73 sq M predicted among non-blacks MDRD (S/P/Bld) [Vol rate/Area] mL/min/{1.73_m2} Normal >=59 [facility] Comment on above: Order Comment: Order added by Discern Expert. Result Comment: Recycling Specialist nathaniel kidney disease could be indicated at eGFR's of less than 60 mL/min/1.73m2. Kidney failure is indicated at less than 15 mL/min/1.73m2. Performed By: #### 2 075305, 5275624, 4210315, 5052806, 6805734, 39234774, 72667373, 13567990, 80170060, 5865548 #### [facility] [address] [place] [address] Vital Signs Date Time Vital Sign Value Performing Clinician Facility 07-12-2024 14:130400 Body height 161.3 cm Sal Grider MD Work Phone: [facility] 07-12-2024 14:13-0400 Body mass index (BMI) [Ratio] 21.05 kg/m2 Sal Grider MD Work Phone: [facility] 07-12-2024 14:13-0400 Body weight 54.75 kg Sal Grider MD Work Phone: [facility] 07-12-2024 14:13-0400 Diastolic blood pressure 84 mm[Hg] Sal Grider MD Work Phone: [facility] 07-12-2024 14:13-0400 Heart rate 84 /min Sal Grider MD Work Phone: [facility] 07-12-2024 14:13-0400 Systolic blood pressure 134 mm[Hg] Sal Gridre MD Work Phone: [facility] 07-05-2024 15:17-0400 Body height 160 cm Beatriz Art MD Work Phone: [facility] 07-05-2024 15:17-0400 Body mass index (BMI) [Ratio] 21.26 kg/m2 Beatriz Art MD Work Phone: [facility] 07-05-2024 15:17-0400 Body weight 54.43 kg Beatriz Art MD Work Phone: [facility] 07-05-2024 15:17-0400 Diastolic blood pressure 74 mm[Hg] Beatriz Art MD Work Phone: [facility] 07-05-2024 15:17-0400 Heart rate 76 /min Beatriz Art MD Work Phone: [facility] 07-05-2024 15:17-0400 Systolic blood pressure 124 mm[Hg] Beatriz Art MD Work Phone: [facility] 07-05-2024 13:02-0400 Body height 160.02 cm [facility] 07-05-2024 13:02-0400 Body mass index (BMI) [Ratio] 21.2 kg/m2 [facility] 07-05-2024 13:02-0400 Body weight 54.43 kg [facility] 07-05-2024 13:02-0400 Diastolic blood pressure 67 mm[Hg] [facility] 07-05-2024 13:02-0400 Heart rate 86 /min [facility] 07-05-2024 13:02-0400 Systolic blood pressure 96 mm[Hg] [facility] 06-13-2024 08:32-0500 Body height 160.02 cm [facility] 06-13-2024 08:32-0500 Body mass index (BMI) [Ratio] 21.8 kg/m2 [facility] 06-13-2024 08:32-0500 Body weight 55.84 kg [facility] 06-13-2024 08:32-0500 Diastolic blood pressure 88 mm[Hg] [facility] 06-13-2024 08:32-0500 Heart rate 73 /min [facility] 06-13-2024 08:32-0500 Systolic blood pressure 143 mm[Hg] [facility] 04-30-2024 14:51-0500 Body mass index (BMI) [Ratio] 21.62 kg/m2 Matthew Visci DO Work Phone: [facility] 04-30-2024 14:51-0500 Body weight 55.79 kg Matthew Visci DO Work Phone: [facility] 04-30-2024 14:51-0500 Diastolic blood pressure 70 mm[Hg] Matthew Visci DO Work Phone: [facility] 04-30-2024 14:51-0500 Systolic blood pressure 120 mm[Hg] Matthew Visci DO Work Phone: [facility] 03-30-2024 11:12-0500 Body height 160.02 cm [facility] 03-30-2024 11:12-0500 Body mass index (BMI) [Ratio] 21.7 kg/m2 [facility] 03-30-2024 11:120500 Body weight 55.79 kg [facility] 03-30-2024 11:12-0500 Diastolic blood pressure 84 mm[Hg] [facility] 03-30-2024 11:12-0500 Heart rate 76 /min [facility] 03-30-2024 11:12-0500 Systolic blood pressure 120 mm[Hg] [facility] 02-22-2024 10:43-0400 Body mass index (BMI) [Ratio] 21.97 kg/m2 Mira DURÁN Work Phone: [facility] 02-22-2024 10:43-0400 Body weight 56.7 kg Mira Sykes PA Work Phone: [facility] 02-22-2024 10:43-0400 Diastolic blood pressure 80 mm[Hg] Mira Dumontey PA Work Phone: [facility] 02-22-2024 10:43-0400 Systolic blood pressure 140 mm[Hg] Mira Sykes PA Work Phone: [facility] 02-07-2024 09:46-0400 Body height 160.02 cm MD Bobby Cali Work Phone: [facility] 02-07-2024 09:46-0400 Body mass index (BMI) [Ratio] 22 kg/m2 MD Bobby Cali Work Phone: [facility] 02-07-2024 09:46-0400 Body weight 56.41 kg MD Bobby Cali Work Phone: [facility] 02-07-2024 09:46-0400 Diastolic blood pressure 80 mm[Hg] MD Bobby Cali Work Phone: [facility] 02-07-2024 09:46-0400 Heart rate 96 /min MD Bobby Cali Work Phone: [facility] 02-07-2024 09:46-0400 Respiratory rate 18 /min MD Bobby Cali Work Phone: [facility] 02-07-2024 09:46-0400 SaO2% (BldA) [Mass fraction] 99 % MD Bobby Cali Work Phone: [facility] 02-07-2024 09:46-0400 Systolic blood pressure 122 mm[Hg] MD Bobby Cali Work Phone: [facility] 02-01-2024 15:52-0400 Diastolic blood pressure 82 mm[Hg] Beatriz Art MD Work Phone: [facility] 02-01-2024 15:52-0400 Systolic blood pressure 131 mm[Hg] Beatriz Art MD Work Phone: [facility] 02-01-2024 15:22-0400 Body height 160 cm Beatriz Art MD Work Phone: [facility] 02-01-2024 15:22-0400 Body mass index (BMI) [Ratio] 22.6 kg/m2 Beatriz Art MD Work Phone: [facility] 02-01-2024 15:22-0400 Body weight 57.88 kg Beatriz Art MD Work Phone: [facility] 02-01-2024 15:22-0400 Heart rate 84 /min Beatriz Art MD Work Phone: [facility] 01-17-2024 14:18-0400 Body height 160.02 cm MD Bobby Cali Work Phone: [facility] 01-17-2024 14:18-0400 Body mass index (BMI) [Ratio] 22.4 kg/m2 MD Bobby Cali Work Phone: [facility] 01-17-2024 14:18-0400 Body weight 57.6 kg MD Bobby Cali Work Phone: [facility] 01-17-2024 14:18-0400 Diastolic blood pressure 78 mm[Hg] MD Bobby Cali Work Phone: [facility] 01-17-2024 14:18-0400 Heart rate 82 /min MD Bobby Cali Work Phone: [facility] 01-17-2024 14:18-0400 Systolic blood pressure 135 mm[Hg] MD Bobby Cali Work Phone: [facility] 01-17-2024 13:26-0400 Body mass index (BMI) [Ratio] 22.39 kg/m2 Mira DURÁN Work Phone: [facility] 01-17-2024 13:26-0400 Body weight 57.79 kg Mira DURÁN Work Phone: [facility] 01-12-2024 10:08-0400 Body mass index (BMI) [Ratio] 22.5 kg/m2 Matthew Visci DO Work Phone: [facility] 01-12-2024 10:08-0400 Body weight 58.06 kg Matthew Visci DO Work Phone: [facility] 01-12-2024 10:08-0400 Diastolic blood pressure 86 mm[Hg] Matthew Visci DO Work Phone: [facility] 01-12-2024 10:08-0400 Systolic blood pressure 152 mm[Hg] Matthew Visci DO Work Phone: [facility] 11-28-2023 11:32-0400 Body height 160.02 cm MD Bobby Cali Work Phone: [facility] 11-28-2023 11:32-0400 Body mass index (BMI) [Ratio] 22.4 kg/m2 MD Bobby Cali Work Phone: [facility] 11-28-2023 11:32-0400 Body weight 57.6 kg MD Bobby Cali Work Phone: [facility] 11-28-2023 11:32-0400 Diastolic blood pressure 79 mm[Hg] MD Bobby Cali Work Phone: [facility] 11-28-2023 11:32-0400 Heart rate 88 /min MD Bobby Cali Work Phone: [facility] 11-28-2023 11:32-0400 Systolic blood pressure 121 mm[Hg] MD Bobby Cali Work Phone: [facility] 11-14-2023 11:45-0400 Body height 160.02 cm MD Bobby Cali Work Phone: [facility] 11-14-2023 11:45-0400 Body mass index (BMI) [Ratio] 23 kg/m2 MD Bobby Cail Work Phone: [facility] 11-14-2023 11:45-0400 Body weight 58.96 kg MD Bobby Cali Work Phone: [facility] 11-14-2023 11:45-0400 Diastolic blood pressure 84 mm[Hg] MD Bobby Cali Work Phone: [facility] 11-14-2023 11:45-0400 Heart rate 86 /min MD Bobby Cali Work Phone: [facility] 11-14-2023 11:45-0400 Systolic blood pressure 125 mm[Hg] MD Bobby Cali Work Phone: [facility] 11-10-2023 07:01-0400 Body height 160.02 cm MD Bobby Cali Work Phone: [facility] 11-10-2023 07:01-0400 Body temperature 97.2 [degF] MD Bobby Cali Work Phone: [facility] 11-10-2023 07:01-0400 Body weight 57.6 kg MD Bobby Cali Work Phone: [facility] 11-10-2023 07:01-0400 Diastolic blood pressure 90 mm[Hg] MD Bobby Cali Work Phone: [facility] 11-10-2023 07:01-0400 Heart rate 96 /min MD Bobby Cali Work Phone: [facility] 11-10-2023 07:01-0400 Respiratory rate 20 /min MD Bobby Cali Work Phone: [facility] 11-10-2023 07:01-0400 SaO2% (BldA) [Mass fraction] 100 % MD Bobby Cali Work Phone: [facility] 11-10-2023 07:01-0400 Systolic blood pressure 144 mm[Hg] MD Bobby Cali Work Phone: [facility] 09-26-2023 11:49-0400 Body height 162.56 cm [facility] 09-26-2023 11:49-0400 Body mass index (BMI) [Ratio] 22.3 kg/m2 [facility] 09-26-2023 11:49-0400 Body weight 58.96 kg [facility] 09-26-2023 11:49-0400 Diastolic blood pressure 86 mm[Hg] [facility] 09-26-2023 11:49-0400 Heart rate 85 /min [facility] 09-26-2023 11:49-0400 Systolic blood pressure 136 mm[Hg] [facility] 09-01-2023 11:24-0400 Body height 162.56 cm [facility] 09-01-2023 11:24-0400 Body mass index (BMI) [Ratio] 23 kg/m2 [facility] 09-01-2023 11:24-0400 Body weight 60.78 kg [facility] 09-01-2023 11:24-0400 Diastolic blood pressure 81 mm[Hg] [facility] 09-01-2023 11:24-0400 Heart rate 92 /min [facility] 09-01-2023 11:24-0400 Systolic blood pressure 112 mm[Hg] [facility] 05-02-2023 09:45-0500 Body height 162.56 cm Bobby Cali Other [facility] Other 05-02-2023 09:45-0500 Body mass index (BMI) [Ratio] 23.34 kg/m2 Bobby Cali Other [facility] Other 05-02-2023 09:45-0500 Body weight 61.69 kg Bobby Cali Other [facility] Other 05-02-2023 09:45-0500 Diastolic blood pressure 83 mm[Hg] Bobby Cali Other [facility] Other 05-02-2023 09:45-0500 Systolic blood pressure 123 mm[Hg] Bobby Cali Other [facility] Other 01-18-2023 10:30-0400 Body height 162.56 cm Bobby Cali Other [facility] Other 01-18-2023 10:30-0400 Body mass index (BMI) [Ratio] 23.17 kg/m2 Bobby Cali Other [facility] Other 01-18-2023 10:30-0400 Body weight 61.24 kg Bobby Cali Other [facility] Other 01-18-2023 10:30-0400 Diastolic blood pressure 83 mm[Hg] Bobby Cali Other [facility] Other 01-18-2023 10:30-0400 Systolic blood pressure 145 mm[Hg] Bobby Cali Other [facility] Other 12-08-2022 11:15-0400 Body height 162.56 cm Bobby Cali Other [facility] Other 12-08-2022 11:15-0400 Body mass index (BMI) [Ratio] 22.31 kg/m2 Bobby Cali Other [facility] Other 12-08-2022 11:15-0400 Body weight 58.97 kg Bobby Cali Other [facility] Other 12-08-2022 11:15-0400 Diastolic blood pressure 81 mm[Hg] Bobby Cali Other [facility] Other 12-08-2022 11:15-0400 Systolic blood pressure 125 mm[Hg] Bobby Cali Other [facility] Other 11-24-2022 14:00-0400 Body height 162.56 cm Kendal Ruiz Other [facility] Other 11-24-2022 14:00-0400 Body mass index (BMI) [Ratio] 22.31 kg/m2 Kendal Ruiz Other [facility] Other 11-24-2022 14:00-0400 Body weight 58.97 kg Kendal Ruiz Other [facility] Other 11-24-2022 14:00-0400 Diastolic blood pressure 82 mm[Hg] Kendal Ruiz Other [facility] Other 11-24-2022 14:00-0400 Systolic blood pressure 120 mm[Hg] Kendal Ruiz Other [facility] Other 05-25-2022 15:46-0500 Body height 162.56 cm Bobby Cali Work Phone: [facility] [address] DO Work Phone: 05-25-2022 15:46-0500 Body mass index (BMI) [Ratio] 22.66 kg/m2 Bobby Cali Work Phone: [facility] 250 DO Work Phone: 05-25-2022 15:46-0500 Body surface area Derived from formula 1.64 m2 Bobby Cali Work Phone: [facility] 250 DO Work Phone: 05-25-2022 15:46-0500 Body weight 59.88 kg Bobby Cali Work Phone: [facility] 250 DO Work Phone: 05-25-2022 15:46-0500 Diastolic blood pressure 66 mm[Hg] Bobby Cali Work Phone: [facility] 250 DO Work Phone: 05-25-2022 15:46-0500 Heart rate 88 /min Bobby Cali Work Phone: [facility] [facility] DO Work Phone: 05-25-2022 15:46-0500 Systolic blood pressure 100 mm[Hg] Bobby Cali Work Phone: [facility] DO Work Phone: 03-10-2022 00:00-0500 136 1 Bobby Cali Work Phone: [facility] 600 DO Work Phone: Comment on above: [facility] 03-04-2022 13:31-0500 Body height 162.56 cm Bobby Cali Work Phone: [facility] 600 DO Work Phone: 03-04-2022 13:31-0500 Body mass index (BMI) [Ratio] 23.86 kg/m2 Bobby Cali Work Phone: [facility] [address] DO Work Phone: 03-04-2022 13:31-0500 Body surface area Derived from formula 1.68 m2 Bobby Cali Work Phone: [facility] 600 DO Work Phone: 03-04-2022 13:31-0500 Body weight 63.05 kg Bobby Cali Work Phone: [facility] 600 DO Work Phone: 03-04-2022 13:31-0500 Diastolic blood pressure 74 mm[Hg] Bobby Cali Work Phone: [facility] 600 DO Work Phone: 03-04-2022 13:31-0500 Heart rate 81 /min Bobby Cali Work Phone: [facility] 600 DO Work Phone: 03-04-2022 13:31-0500 Systolic blood pressure 126 mm[Hg] Bobby Cali Work Phone: [facility] 600 DO Work Phone: 03-04-2022 13:30-0500 Body height 162.56 cm Bobby Cali Work Phone: [facility] 600 DO Work Phone: 03-04-2022 13:30-0500 Body mass index (BMI) [Ratio] 23.86 kg/m2 Bobby Cali Work Phone: [facility] 600 DO Work Phone: 03-04-2022 13:30-0500 Body surface area Derived from formula 1.68 m2 Bobby Cali Work Phone: [facility] [employer] 600 DO Work Phone: 03-04-2022 13:30-0500 Body weight 63.05 kg Bobby Montenegro Belem Work Phone: [facility] [employer] 600 DO Work Phone: 03-04-2022 13:30-0500 Diastolic blood pressure 84 mm[Hg] Bobby Montenegro Belem Work Phone: [facility] [employer] 600 DO Work Phone: 03-04-2022 13:30-0500 Heart rate 81 /min Bobby E Belem Work Phone: [facility] [employer] 600 DO Work Phone: 03-04-2022 13:30-0500 Systolic blood pressure 126 mm[Hg] Bobby E Belem Work Phone: [facility] DO Work Phone: Encounters Encounter Date Encounter Type Care Provider Facility Start: 07-12-2024 End: 07-12-2024 Office outpatient new 45 minutes Sal Grider MD Work Phone: [facility] Comment on above: Hyperlipidemia, unsp ecified hyperlipidemia type; Shortness of breath on exertion; Chest pain, unspecified type; Family history of coronary artery disease; Palpitations; BMI 21.0-21.9, adult; Dizziness; Former smoker; New-onset angina ([facility]) Start: 07-12-2024 End: 07[facility] Start: 07-05-2024 End: 07-05-2024 Office outpatient visit 25 minutes Beatriz Art MD Work Phone: [facility] Comment on above: Chest pain, unspecif ied type (Primary Dx); Shortness of breath on exertion; Premature ventricular contractions; Hyperlipidemia, unspecified hyperlipidemia type; Former smoker; BMI 21.0-21.9, adult Start: 07-05-2024 End: 07-05-[facility]24 [facility] Start: 07-05-2024 End: 07-05-[address] [facility] Work Phone: Start: 07-05-2024 End: 07-05-2024 Patient encounter procedure [facility] Work Phone: Start: 07-02-2024 End: 07-02-2024 ambulatory Jose Carrion MD Facility: [place] Start: 06-13-2024 End: 06-13-[address] [facility] Work Phone: Start: 06-13-2024 End: 06-13-2024 Patient encounter procedure [facility] Work Phone: Start: 04-30-2024 End: 04-30-2024 Patient encounter status Matthew A Visci DO Work Phone: [facility] Work Phone: Start: 04-30-2024 End: 04-30-2024 Periodic preventive med est patient 40-64yrs Matthew A Visci DO Work Phone: [facility] Comment on above: Encounter for gyneco logical examination with abnormal finding (Primary Dx); Encounter for screening mammogram for malignant neoplasm of breast; Screening for malignant neoplasm of cervix; Screening for HPV (human papillomavirus); Postmenopausal HRT (hormone replacement therapy); Vaginal irritation; Dyspareunia in female; Vaginal yeast infection Start: 04-30-2024 End: 04-30-2024 ambulatory MATTHEW A VISCI Not Available Start: 03-30-2024 End: 03-30-2024 Patient encounter procedure [facility] Physician [facility] Work Phone: Start: 03-27-2024 Non-patient / Non-visit [facility] Work Phone: Start: 03-12-2024 End: 03-12-2024 Patient encounter procedure Bobby Cali MD Work Phone: [facility]-Ultrasound [facility] [place] Work Phone: Start: 03-12-2024 End: 03-12-2024 ambulatory Bobby Cali MD Work Phone: [facility] Work Phone: Start: 03-02-2024 End: 03-02-2024 Patient encounter procedure Bobby Cali MD Work Phone: [facility]-CT Scan [facility] [place] Work Phone: Start: 03-02-2024 End: 03-02-2024 ambulatory Bobby Cali MD Work Phone: [facility] Work Phone: Start: 02-23-2024 End: 02-23-2024 Patient encounter procedure MD Bobby Cali Work Phone: [facility]-Lab [facility] Start: 02-23-2024 End: 02-23-2024 ambulatory MD Bobby Cali Work Phone: [facility] Work Phone: Start: 02-22-2024 End: 02-22-2024 [...] encounter procedure MD Bobby Cali Work Phone: [facility]-Lab [facility] Start: 02-07-2024 End: 02-07-2024 ambulatory MD Bobby Cali Work Phone: [facility] Work Phone: Start: 02-07-2024 End: 02-07-2024 ambulatory MD Bobby Cali Work Phone: [facility] Work Phone: Start: 02-07-2024 End: 02-07-2024 Patient encounter procedure MD Bobby Clai Work Phone: [facility] Work Phone: Start: 02-06-2024 End: 02-06-2024 Departed Referred MD Bobby Cali Work Phone: [facility]-Lab [facility] [place] Work Phone: Start: 02-06-2024 End: 02-06-2024 ambulatory MD Bobby Cali Work Phone: [facility] Work Phone: Start: 02-06-2024 End: 02-06-2024 Patient encounter procedure MD Bobby Cali Work Phone: [facility] Work Phone: Start: 02-01-2024 End: 02-01-2024 ambulatory [facility] Ambulatory Start: 02-01-2024 End: 02-01-2024 Office outpatient visit 15 minutes Beatriz Art MD Work Phone: [facility] Comment on above: Chest pain, unspecif ied type (Primary Dx); Premature ventricular contractions; Shortness of breath on exertion; Hyperlipidemia, unspecified hyperlipidemia type; Former smoker; Body mass index (BMI) 22.0-22.9, adult Start: 01-17-2024 End: 01-17-2024 ambulatory MD Bobby Cail Work Phone: [facility] Work Phone: Start: 01-17-2024 End: 01-17-2024 Patient encounter procedure MD Bobby Cali Work Phone: [facility] Work Phone: Start: 01-17-2024 End: 09-24-2024 Bamboo flowsheet Mira DURÁN Work Phone: [facility] [...] Matthew A Visci DO Work Phone: [facility] Start: 01-12-2024 End: 01-12-2024 Bamboo flowsheet Matthew A Visci DO Work Phone: [facility] Start: 01-12-2024 End: 01-12-2024 Office outpatient visit 15 minutes Matthew A Visci DO Work Phone: [facility] Comment on above: Vulvar itching; Vaginal discharge; BV (bacterial vaginosis); Vaginal yeast infection Start: 01-12-2024 End: 01-12-2024 ambulatory MATTHEW A VISCI Not Available Start: 11-28-2023 End: 11-28-2023 ambulatory MD Bobby Cali Work Phone: [facility] Work Phone: Start: 11-28-2023 End: 11-28-2023 Patient encounter procedure MD Bobby Cali Work Phone: [facility] Work Phone: Start: 11-16-2023 End: 11-16-2023 Patient encounter procedure MD Bobby Cali Work Phone: [facility]-X[facility]Ray [facility] Start: 11-16-2023 End: 11-16-2023 ambulatory MD Bobby Cali Work Phone: [facility] Work Phone: Start: 11-14-2023 End: 11-14-2023 ambulatory MD Bobby Cali Work Phone: [facility] Work Phone: Start: 11-14-2023 End: 11-14-2023 Patient encounter procedure MD Bobby Cali Work Phone: [facility] Physician [facility] Work Phone: Start: 11-10-2023 End: 11-10-2023 Emergency department patient visit MD Bobby Cali Work Phone: [facility]-Emergency Room Work Phone: Start: 09-26-2023 End: 09-26-[address] [facility] Work Phone: Start: 09-26-2023 End: 09-26-2023 Patient encounter procedure [facility] Physician [facility] Work Phone: Start: 09-01-2023 End: 09-01-[address] [facility] Work Phone: Start: 09-01-2023 End: 09-01-2023 Patient encounter procedure [facility] Physician [facility] Work Phone: Start: 06-22-2023 Non-patient / Non-visit [facility] Physician [facility] Work Phone: Start: 05-13-2023 End: 05-13-2023 ambulatory Bobby Cali Other [facility] Other Start: 05-13-2023 Telephone encounter Bobby Cali [facility] Start: 05-02-2023 End: 05-02-2023 ambulatory Bobby Cali Other [facility] Other Start: 05-02-2023 Office outpatient vi sit 15 minutes Bobby Cali [facility] Start: 04-08-2023 End: 04-08-2023 ambulatory Kumar Pack Other [facility] Other Start: 04-08-2023 Nursing evaluation o f patient and report Kumar Pack [facility] Start: 04-08-2023 Telephone encounter Kumar Pack FP G [facility] Start: 04-07-2023 End: 04-07-2023 ambulatory Bobby Cali Other [employer] Other Start: 04-07-2023 Telephone encounter Bobby Cali [facility] Start: 03-02-2023 End: 03-02-2023 ambulatory Bobby Cali Other [employer] Other Start: 03-02-2023 Telephone encounter Bobby Cali [facility] Start: 01-18-2023 End: 01-18-2023 ambulatory Bobby Cali Other [employer] Other Start: 01-18-2023 Office outpatient vi sit 15 minutes Bobby Cali [facility] Start: 12-28-2022 End: 12-28-2022 ambulatory Bobby Cali Other [employer] Other Start: 12-28-2022 Telephone encounter Bobby Cali [facility] Start: 12-09-2022 End: 12-09-2022 ambulatory Bobby Cali Other [employer] Other Start: 12-09-2022 Telephone encounter Bobby Cali [facility] Start: 12-08-2022 End: 12-08-2022 ambulatory Bobby Cali Other [employer] Other Start: 12-08-2022 Encounter for genera l adult medical examination without abnormal findings Bobby Cali [facility] Start: 12-08-2022 Office outpatient vi sit 15 minutes Bobby Cali [facility] Start: 11-24-2022 End: 11-24-2022 ambulatory Kendal Ruiz Other [facility] [employer] Other Start: 11-24-2022 Office outpatient vi sit 15 minutes Kendal Ruiz [facility] Start: 06-02-2022 Chart Update Bobby Cali Work Phone: [facility] 600 DO Work Phone: Start: 06-02-[address] Bobby Cali Facility:[id number] Start: 05-25-2022 Office outpatient vi sit 25 minutes Bobby Cali Work Phone: [facility] 250 DO Work Phone: Start: 05-25-[address] Bobby Cali Facility: Start: 04-08-2022 Chart Update [facility] Work Phone: Start: 04-07-[address] Beatriz Art Facility:[id number] Start: 03-11-2022 Adult health examination Yazmin Ruiz Other [facility] [employer] Other Start: 03-11-2022 Chart Update Bobby Cal[facility] Work Phone: Start: 03-10-2022 End: 03-10-2022 ambulatory MD Bobby Cali Work Phone: [facility] Work Phone: Start: 03-10-2022 End: 03-10-2022 Patient encounter procedure MD Bobby Cali Work Phone: [facility]-XRay [address] Start: 03-04-2022 Office outpatient ne w 60 minutes Bobby Cali Work Phone: [phone] [place] [address] Work Phone: Start: 03-04-[address] Beatriz Art Facility:[id number] Start: 02-03-2022 End: 02-03-2022 ambulatory KATARINA SANCHEZ Facility:[id number] Start: 01-28-2022 End: 01-28-2022 ambulatory KATARINA SANCHEZ Facility:H1 Start: 02-18-2021 End: 02-19-2021 ambulatory MILLI DUMONT Facility:H1 Start: 02-22-2017 Ambulatory BEATRIZ MORALESVINICIUSCHERRI Faci lity:[id number] Procedures Date Procedure Procedure Detail Performing Clinician Start: 04-30-2024 [facility] prim src wet diamond nt nfct agt [...] Start: 01-17-2024 URETHRITIS/DISCHARGE PLUS VAGINITIS (HTRX) Gene Aliyah DO Work Phone: Start: 01-12-2024 [facility] prim src wet diamond nt nfct agt Matthew A Visci DO Work Phone: Start: 11-16-2023 X-ray of lumbar spin e, two or three views MD Bobby Cali Work Phone: Start: 04-27-2023 Mammography Matthew Vi sci DO Work Phone: Start: 03-10-2022 Plain chest X-ray MD Aron Cali Work Phone: Start: 03-23-2021 Microscopic observat ion [Identifier] in Cervix by Cyto stain Matthew aGrcia DO Work Phone: Start: 04-25-2018 Total colonoscopy Charley Cali Work Phone: Start: 01-03-2014 General examination of patient Kendal Ruiz Other Start: 07-09-2010 Colonoscopy Matthew Vi sci DO Work Phone: Operation on lung Bobby bhagat Work Phone: Tonsillectomy and adenoidectomy Bobby Cali Work Phone: Plan of Treatment Date Care Activity Detail Author Start: 05-06-2025 End: 05-06-2025 Patient encounter procedure 05/06/2025 2:30 PM EST Office Visit [facility] [address] [place] [address] Matthew Garcia, DO [address] [place] [address] [facility] Start: 05-01-2025 End: 06-28-2025 DBT Breast - bilateral screening Bilateral screening mammogram with tomosynthesis Imaging Routine Encounter for screening mammogram for malignant neoplasm of breast Expected: 05/01/2025, Expires: 06/28/2025 [facility] Comment on above: Expected: 05/01/2025 , Expires: 06/28/2025 Start: 04-30-2025 Screening for malign ant neoplasm of breast Mammogram [facility] Start: 02-12-2025 End: 02-12-2025 Patient encounter procedure 02/12/2025 2:30 PM EDT Office Visit [facility] [address] [facility] [address] [place] [address] Beatriz Art MD [address] [place] [address] [facility] Start: 09-10-2024 End: 09-10-2024 Patient encounter procedure 09/10/2024 10:45 AM EDT [facility]ointment [facility] [address] [facility] [address] [place] [phone] [facility] Start: 08-17-2024 End: 08-17-2024 Patient encounter procedure 08/17/2024 11:45 AM EDT Office Visit [facility] [address] [place] [address] Sal Grider MD [address] [facility] Medical Office [facility] [address] [place] [address] [facility] Start: 08-03-2024 End: 08-03-2024 Patient encounter procedure 08/03/2024 8:30 AM EDT Appointment [address] [place] [address] [facility] Start: 07-26-2024 End: 07-26-2024 Patient encounter procedure 07/26/2024 10:30 AM EDT Appointment [place] [id number] [place] [phone] [facility] Start: 07-12-2024 End: 07-12-2025 CBC panel - Blood by Automated count CBC Lab Routine Shortness of breath on exertion Chest pain, unspecified type Expected: 07/12/2024 (Approximate), Expires: 07/12/2025 [facility] Work Phone: Comment on above: Expected: 07/12/2024 (Approximate), Expires: 07/12/2025 Start: 07-12-2024 End: 07-12-2025 Comprehensive metabolic 2000 panel - Serum or Plasma Comprehensive Metabolic Panel Lab Routine Shortness of breath on exertion Chest pain, unspecified type Expected: 07/12/2024 (Approximate), Expires: 07/12/2025 [facility] Work Phone: Comment on above: Expected: 07/12/2024 (Approximate), Expires: 07/12/2025 Start: 07-12-2024 End: 07-12-2025 CTA Heart and Coronary arteries WO and W contrast IV CT angio coronary art with heartflow if score >30% Imaging Routine New-onset angina ([facility]) Expected: 07/12/2024, Expires: 07/12/2025 [facility] Work Phone: Comment on above: Expected: 07/12/2024 , Expires: 07/12/2025 Start: 07-12-2024 End: 07-12-2025 Lipid 1996 panel - Serum or Plasma Lipid Panel Lab Routine Hyperlipidemia, unspecified hyperlipidemia type Expected: 07/12/2024 (Approximate), Expires: 07/12/2025 [facility] Work Phone: Comment on above: Expected: 07/12/2024 (Approximate), Expires: 07/12/2025 Start: 07-05-2024 End: 07-05-2025 Cardiac stress study Procedure Stress Test Cardiac Services Routine Chest pain, unspecified type Shortness of breath on exertion Premature ventricular contractions Expected: 07/05/2024, Expires: 07/05/2025 [facility] Work Phone: Comment on above: Expected: 07/05/2024 , Expires: 07/05/2025 Start: 07-05-2024 End: 07-05-2026 Heart Transthoracic Transthoracic Echo Complete Echocardiography Routine Chest pain, unspecified type Shortness of breath on exertion Premature ventricular contractions Expected: 07/05/2024 (Approximate), Expires: 07/05/2026 [facility] Work Phone: Comment on above: Expected: 07/05/2024 (Approximate), Expires: 07/05/2026 Start: 04-30-2024 End: 04-30-2024 Professional / ancillary services management 04/30/2024 3:30 PM EST Ancillary Procedure [facility] [address] [place] [address] [facility] MR Start: 04-30-2024 End: 04-30-2024 Patient encounter procedure 04/30/2024 2:15 PM EST Office Visit [facility] [address] [place] [address] PippaMatthew cedillo, DO [address] [place] [address] [facility] Start: 04-27-2024 Screening for malign ant neoplasm of breast Mammogram [facility] Start: 03-23-2024 Screening for malign ant neoplasm of cervix [facility] Start: 02-23-2024 [facility] Start: 02-22-2024 End: 02-21-2025 Campylobacter culture, stool Campylobacter culture, stool Microbiology Routine Diarrhea, unspecified type Expected: 02/22/2024 (Approximate), Expires: 02/21/2025 [facility] Comment on above: Expected: 02/22/2024 (Approximate), Expires: 02/21/2025 Start: 02-22-2024 End: 02-21-2025 Ova and parasite examination Ova and parasite examination Microbiology Routine Diarrhea, unspecified type Expected: 02/22/2024 (Approximate), Expires: 02/21/2025 [facility] Comment on above: Expected: 02/22/2024 (Approximate), Expires: 02/21/2025 Start: 02-22-2024 End: 02-21-2025 Stool culture Stool culture Microbiology Routine Diarrhea, unspecified type Expected: 02/22/2024 (Approximate), Expires: 02/21/2025 [facility] Comment on above: Expected: 02/22/2024 (Approximate), Expires: 02/21/2025 Start: 02-22-2024 End: 02-21-2025 Vibrio culture, stool Vibrio culture, stool Lab Routine Diarrhea, unspecified type Expected: 02/22/2024 (Approximate), Expires: 02/21/2025 [facility] Comment on above: Expected: 02/22/2024 (Approximate), Expires: 02/21/2025 Start: 02-22-2024 End: 10-30-2025 Yersinia culture, stool Yersinia culture, stool Microbiology Routine Diarrhea, unspecified type Expected: 02/22/2024 (Approximate), Expires: 02/21/2025 [facility] Comment on above: Expected: 02/22/2024 (Approximate), Expires: 02/21/2025 Start: 02-22-2024 End: 02-22-2024 Patient encounter procedure 02/22/2024 10:20 AM EDT Office Visit [facility] [address] [place] [phone] Mira Sykes PA [address] [place], [facility] Comment on above: Arrived Start: 02-06-2024 Bacteria identified in Urine by Culture Urine Culture [facility] Start: 02-06-2024 Urine culture [facility] Start: 01-17-2024 End: 01-17-2024 Patient encounter procedure 01/17/2024 1:10 PM EDT Office Visit [facility] [address] [place] [phone] Mira Sykes, PA [address] [place] [address] Arrived [facility] Comment on above: Arrived Start: 01-12-2024 End: 01-12-2024 Patient encounter procedure 01/12/2024 10:00 AM EDT Office Visit [facility] [address] [place] [phone] Matthew Garcia, [address] [place] [address] Arrived [facility] Comment on above: Arrived Start: 12-25-2023 COVID-19 Vaccine ( season) COVID-19 Vaccine () [facility] Start: 12-25-2023 COVID-19 Vaccine () COVID-19 Vaccine ( season) [facility] Start: 12-25-2023 Influenza vaccination Influenza Vacc ine (#1) [facility] Start: 01-25-2023 FUV, Provider: Beatriz Art, Status: Pen, Time: 2:10 PM FUV, Provider: Beatriz Art, Status: Pen, Time: 2:10 PM -[facility] [employer] [address] DO Work Phone: Start: 05-25-2022 FUV, Provider: Beatriz Art, Status: Pen, Time: 3:20 PM FUV, Provider: Beatriz Art, Status: Pen, Time: 3:20 PM [facility] 600 DO Work Phone: Start: 04-07-2022 STRESS KIKA, Provider : [place] HHVI NUCLEAR 01,[id number], Status: Pen, Time: 2:00 PM STRESS KIKA, Provider: [place] [facility] NUCLEAR 01,[id number], Status: Pen, Time: 2:00 PM [facility] Work Phone: Start: 07-09-2020 Screening for malign ant neoplasm of colon [facility] Start: 2019 Pneumococcal vaccination Pneumococcal Vaccine (1 of 1 - PCV) [facility] Start: 2019 Zoster Vaccines (1 o f 2) Zoster Vaccines (1 of 2) [facility] Start: 03-21-2009 MMR Vaccines (1 of 1 - Standard series) MMR Vaccines (1 of 1 - Standard series) [facility] Start: 1999 Screening for malign ant neoplasm of cervix HPV/Cotest [facility] Start: 1991 DTaP/Tdap/Td Vaccine s (1 - Tdap) DTaP/Tdap/Td Vaccines (1 - Tdap) [facility] Start: 1990 Screening for malign ant neoplasm of cervix [facility] Start: 01-03-1988 Pneumococcal vaccination Pneumococcal Vaccine (1 of 2 - PCV) [facility] Start: 1987 Hepatitis C screening Hepatitis C [facility] Start: 1969 HIV screening HIV Screening [facility] Start: 1969 Lipid panel Lipid Panel [facility] Start: 1969 Screening for malign ant neoplasm of colon [facility] Start: 1969 Yearly Adult Physical Yearly Adult P [facility] Bacteria identified in Unspecified specimen by Culture [facility] Bacteria identified in Urine by Culture Urine culture Microbiology Routine Urine troubles Ordered: 02/22/2024 [facility] Work Phone: Comment on above: Ordered: 02/22/2024 Comprehensive metabo lic 2000 panel - Serum or Plasma [facility] CT Abdomen and Pelvi s W contrast IV [facility] CT Chest WO and W contrast IV [facility] IGP, APT HPV,RFX 16/18,45 IGP, APT HPV,RFX 16/18,45 Lab Routine Screening for malignant neoplasm of cervix Screening for HPV (human papillomavirus) Ordered: 04/30/2024 [facility] Work Phone: Comment on above: Ordered: 04/30/2024 Patient Education Sacroiliac Joint Pain ( DC) [facility] Work Phone: Patient referral [facility] Work Phone: XR Lumbar spine 2 or 3 Views [facility] Yersinia sp identifi ed in Unspecified specimen by Organism specific culture [facility] Immunizations Immunization Date Immunization Notes Care Provider Diana hernandez 02-10-2024 influenza, injectabl e, madin flor canine kidney, preservative free Beatriz Art MD Work Phone: [facility] 02-18-2022 influenza, injectabl e, quadrivalent, preservative free Bobby Cali Work Phone: [facility] [address] DO Work Phone: Comment on above: Series: 02-18-2022 influenza, seasonal, injectable Matthew Garcia DO Work Phone: [facility] 02-18-2022 influenza virus vaccine, unspecified formulation Matthew Garcia DO Work Phone: [facility] 02-18-2021 Moderna COVID-19 Vaccine 100 MCG/0.5ML Intramuscular Suspension Bobby Cali [facility] [address] DO Work Phone: 05-22-2020 Moderna COVID-19 Vaccine 100 MCG/0.5ML Intramuscular Suspension Bobby Montenegro Cali Work Phone: [facility] [address] DO Work Phone: 04-23-2020 Moderna COVID-19 Vaccine 100 MCG/0.5ML Intramuscular Suspension Bobby Montenegro Cali Work Phone: [facility] [address] DO Work Phone: 01-23-2019 influenza, seasonal, injectable, preservative free Bobby Montenegro Cali Work Phone: [facility] DO Work Phone: 01-23-2014 influenza, seasonal, injectable Bobby Montenegro Cali Work Phone: [facility] Comment on above: Series: 02-21-2009 novel [id number], preservative-free, injectable Bobby Montenegro Cali Work Phone: [facility] [address] DO Work Phone: 04-11-2007 hepatitis A vaccine, pediatric/adolescent dosage, 2 dose schedule Bobby Montenegro Cali Work Phone: [facility] [address] DO Work Phone: 04-11-2007 hepatitis B vaccine, adult dosage Bobby Lna Cali Work Phone: [facility] [address] DO Work Phone: 11-28-2006 meningococcal polysaccharide vaccine (MPSV4) Bobby Cali Work Phone: [facility] [address] DO Work Phone: 11-28-2006 typhoid vaccine, jarod e, oral Bobby Montenegro Cali Work Phone: [facility] [address] DO Work Phone: 11-28-2006 yellow fever vaccine Bobby Cali Work Phone: [facility] [address] DO Work Phone: 11-10-2006 hepatitis B vaccine, adult dosage Bobby Montenegro [place] Work Phone: [facility] [address] DO Work Phone: 10-11-2006 hepatitis A vaccine, pediatric/adolescent dosage, 2 dose schedule Bobby Montenegro [place] Work [facility]: [facility] DO Work Phone: 10-11-2006 hepatitis B vaccine, adult dosage Bobby Montenegro [place] Work Phone: [facility] 600 DO Work Phone: Payers Date Payer Category Payer Self-pay [id number] [phone] [id number] 2022 [facility] er [id number] 2022 [facility] [id number] 2022 Unknown 2022 Unknown [id number] 2019 Unknown [id number] 1969 Unknown [id number] 2.16.840.1.411708.3.579.2. 59 1969 Unknown [id number] 2.16.840.1.230663.3.579.2. 593 1969 Unknown [id number] 2.16.840.1.212815.3.579.2. 356 1969 Unknown [id number] 2.16.840.1.215767.3.579.2. 356 1969 Unknown [id number] 2.16.840.1.272627.3.579.2. 1067 1969 Unknown [id number] 2.16.840.1.063493.3.579.2. 1067 1969 Unknown [id number] 2.16.840.1.038084.3.579.2. 1258 1969 Unknown [id number] 2.16.840.1.692372.3.579.2. 1258 1969 Unknown [id number] 2.16.840.1.306932.3.579.2. 1258 1969 Unknown [id number] 2.16.840.1.688687.3.579.2. 1258 1969 Unknown [id number] 2.16.840.1.135485.3.579.2. 1258 1969 Unknown [id number] 2.16.840.1.248725.3.579.2. 196 1969 Unknown [id number] 2.16.840.1.279364.3.579.2. 1244 1969 Unknown [id number] 2.16.840.1.868294.3.579.2. 1244 1969 Unknown [id number] 1960 Self-pay [id number] Unknown [id number] Unknown [id number] [id number] Unknown [id number] Unknown [id number]. 531 Unknown [id number] 531 Unknown [id number]. 531 Unknown [id number]. 531 Unknown [id number]. 531 Unknown [id number]. 531 Unknown [id number]. 531 Social History Date Type Detail Facility Start: 01-25-2023 End: 02-01-2024 No illicit drug use No illicit drug use [facility] Work Phone: Comment on above: 2 cups coffee daily, couple sodas daily; social; quit 05/2018; Start: 05-08-2019 End: 11-10-2023 Tobacco smoking status GAIS Smoker (finding) [facility] Start: 1970 Sex Assigned At Female [facility] Start: 01-25-2023 End: 07-12-2024 Sex Assigned At [facility] Start: 02-01-2024 Tobacco smoking status NHIS Ex-smoker [facility] End: 04-25-2019 History of tobacco use Cigarette Smoker [facility] Start: 04-22-2023 End: 02-01-2024 Tobacco use and exposure Smokeless tobacco non-user [facility] Start: 02-01-2024 End: 07-12-2024 Alcoholic beverage intake Current drinker of alcohol (finding) [facility] Work Phone: Start: 02-01-2024 Alcohol Comment socially [facility] Work Phone: Start: 1970 Sex assigned at Not on file [facility] Start: 01-22-2024 End: 07-12-2024 Exposure to SARS-CoV-2 (event) Not sure [facility] Start: 04-22-2023 Tobacco smoking status NHIS Smokes tobacco daily [facility] Start: 01-17-2024 [...] gender (finding) [facility] Start: 03-03-2024 End: 07-05-2024 Sex Female (finding) [facility] NEGATED: Highlighted row [facility] Clinical Notes 11-24-2022 to 07-12-2024 Sal Grider MD - 07/12/2024 2:00 PM EDTPatient InstructionsMoleonel Art MD - 07/05/2024 3:20 PM EDTPatient Instructions Note Date & Type Note Facility 07-12-2024 History of Present illness Narrative CARDIOLOGY OFFICE VISIT CHIEF COMPLAINT Chief complaint: Chief Complaint Patient presents with Follow-up Second Opinion Chest pain HISTORY OF PRESENT ILLNESS The patient is being seen today for a second opinion regarding her chest pain. The does have a past history of surgery for resection of lung blebs in 2008. She has had atypical chest discomfort on and off since then. Recently she has had a different type of chest discomfort which concerns her. The chest discomfort is a heavy discomfort in her chest and below her left breast. There is radiation to her left shoulder and her left arm. There is heaviness in her left arm with this. She also has a dull tingling sensation left side of her neck. The episodes last 15 minutes to 1 hour. The episodes can occur with exertion and at rest. This is definitely different than the symptoms she has had in the past. She has been bothered by these for the last 4 weeks or so. She does have some mild dyspnea at times with the discomfort. She has some brief palpitations. She denies any prolonged palpitations. The palpitations are a fluttering like sensation. She does have some brief lightheaded spells she denies any syncopal episodes or near syncopal episodes. She did have graded exercise test in 2021 which was normal. She exercised for 10 minutes according to Ben protocol. She states she had an echocardiogram done 5 years ago which she states was normal I do not have that result. She has not had a recent lab work. I told her like to obtain CBC, chemistry profile, and lipid profile. She did recently have a CT scan of the chest and abdomen by her family doctor. There was some note of possible thyroid problem. She did have ultrasound of thyroid which is okay. There was noted to be atherosclerotic calcifications of the abdominal aorta and branch vessels. I explained to her what this means. Impression: CAD manifested by coronary calcium score of 20, May 2022 Chest discomfort, new onset angina pectoris Family history of coronary artery disease ,mother has had PCI with stenting of her LAD Former smoker Plan: CT coronary angiogram Follow-up after CT coronary angiogram to go over results of lab work and that study. Please excuse any errors in grammar or translation related to this dictation. Voice recognition software was utilized to prepare this document. Past Medical History: She has no past medical history on file. Past Surgical History: She has a past surgical history that includes Other surgical history (03/03/2022); Other surgical history (03/03/2022); and Other surgical history (03/04/2022). Social History: She reports that she quit smoking about 5 years ago. Her smoking use included cigarettes. She has never used smokeless tobacco. She reports current alcohol use of about 3.0 standard drinks of alcohol per week. She reports that she does not use drugs. Family History: Family History Problem Relation Name Age of Onset Other (chest pain) Mother Allergies: Patient has no known allergies. Outpatient Medications: Current Outpatient Medications Medication Instructions ALPRAZolam (XANAX) 0.25 mg, As needed famotidine (PEPCID) 20 mg, Nightly metoprolol tartrate (Lopressor) 50 mg tablet Take 1 tablet by mouth [address] coronary angiogram Mimvey 1-0.5 mg tablet 1 tablet, Daily omeprazole (PRILOSEC) 20 mg, Daily before breakfast Last Recorded Vitals: Vitals: 07/12/24 1413 BP: 134/84 BP Location: Left arm Patient Position: Sitting Pulse: 84 Weight: 54.7 kg (120 lb 11.2 oz) Height: 1.613 m (5' 3.5 ) Sal Grider MD since then she has been having intermittent episodes of chest discomfort. She has undergone Past Medical History History reviewed. No pertinent past medical history. Social History Social History Tobacco Use Smoking status: Former Current packs/day: 0.00 Types: Cigarettes Quit date: 2019 Years since quittin.2 Smokeless tobacco: Never Substance Use Topics Alcohol use: Yes Alcohol/week: 3.0 standard drinks of alcohol Types: 3 Standard drinks or equivalent per week Comment: socially Drug use: Never Family History Family History Problem Relation Name Age of Onset Other (chest pain) Mother Allergies: No Known Allergies Outpatient Medications: Current Outpatient Medications Medication Instructions ALPRAZolam (XANAX) 0.25 mg, As needed famotidine (PEPCID) 20 mg, Nightly Mimvey 1-0.5 mg tablet 1 tablet, Daily omeprazole (PRILOSEC) 20 mg, Daily before breakfast REVIEW OF SYSTEMS Review of Systems All other systems reviewed and are negative. VITALS There were no vitals filed for this visit. PHYSICAL EXAM Vitals and nursing note reviewed. Constitutional: Appearance: Healthy appearance. Not in distress. Eyes: Conjunctiva/sclera: Conjunctivae normal. Pupils: Pupils are equal, round, and reactive to light. Neck: Vascular: No JVR. JVD normal. Pulmonary: Effort: Pulmonary effort is normal. Breath sounds: Normal breath sounds. No wheezing. No rhonchi. No rales. Chest: Chest wall: Not tender to palpatation. Cardiovascular: PMI at left midclavicular line. Normal rate. Regular rhythm. Normal S1. Normal S2. Murmurs: There is no murmur. No gallop. No click. No rub. Pulses: Intact distal pulses. Edema: Peripheral edema absent. Abdominal: General: Bowel sounds are normal. Palpations: Abdomen is soft. Tenderness: There is no abdominal tenderness. Musculoskeletal: Normal range of motion. General: No tenderness. Skin: General: Skin is warm and dry. Neurological: General: No focal deficit present. Mental Status: Alert and oriented to person, place and time. ASSESSMENT AND PLAN Diagnoses and all orders for this visit: Hyperlipidemia, unspecified hyperlipidemia type Shortness of breath on exertion Chest pain, unspecified type Family history of coronary artery disease Palpitations BMI 21.0-21.9, adult Dizziness Former smoker New-onset angina ([facility]) @ASSESSMENTANDPLANTEXT@ I,Hortensia Ly LPN am scribing for, and in the presence of Dr. Sal Grider. I, Dr. Sal Grider, personally performed the services described in the documentation as scribed by Hortensia Ly LPN in my presence, and confirm it is both accurate and complete. Dr. Sal Miguel MD Thank you for allowing me to participate in the care of this patient. Please do not hesitate to contact me with any further questions or concerns. documented in this encounter [facility] Work Phone: 07-12-2024 Instructions Hortensia Ly LPN - 07/12/2024 2:00 PM EDT You will be scheduled for a CT coronary angiogram in the near future Please have blood work done soon. A prescription for Metoprolol Tartrate 50 mg has been sent to your pharmacy. Please take this 1 hour prior to your [address] scan to lower your heart rate for the test. Patient to follow up after testing. Continue same medications/treatment. Patient educated on proper medication use. Patient educated on risk factor modification. Please bring any lab results from other providers / physicians to your next appointment. Please bring all medicines, vitamins and herbal supplements with you when you come to the office. Prescriptions will not be filled unless you are compliant with your follow up appointments or have a follow up appointment scheduled as per instruction of your physician. Refills should be requested at the time of Your visit. documented in this encounter [facility] Work Phone: 07-05-2024 History of Present illness Narrative Chief Complaint Patient presents with Follow-up Patient request - CP, left shoulder, neck pain Subjective Mira Gonsalves is a 54 y.o. female HPI Patient is here for follow-up continue management for previous evaluation for chest pain and shortness of breath. She had remote surgery for resection of lung blebs and since then has been complaining of ongoing intermittent episodes of chest pain and shortness of breath she had undergone several evaluation in the past including stress test and calcium scoring. She recently have increase of frequency of left-sided chest pain radiated to the left arm. Nonexertional. She discussed some symptom fatigue and tiredness. Occasional lightheadedness and palpitation she admit the symptoms make her anxious. She did undergo CT scan of the chest recently which I was able to review online and showed no acute pathology. ASSESSMENT: 1. Continue complaint of atypical chest pain appears musculoskeletal or pleuritic the patient had a remote history of resection of lung bleb. Remote stress test is reassuring. Calcium scoring was low 2. reformed smoker 3. hyperlipidemia. Does not meet criteria for treatment recent lab work noted and reviewed with her 4. minor shortness breath related to prior tobacco use functional class I with excellent exercise tolerance 5. Documentation of few premature ventricular contractions, felt to be benign. In the past with no recurrence RECOMMENDATION: 1. I advised the patient to proceed with GXT and echocardiogram 2. I recommended continue with observant approach discussed with her risk factor modification 3. I discussed with her risk factor modification 4. I advised her to notify me with changes of cardiac status or symptoms I will see her back in 6 months Review of Systems Constitutional: Positive for malaise/fatigue. Cardiovascular: Positive for chest pain and palpitations. Respiratory: Positive for shortness of breath. Neurological: Positive for light-headedness. Vitals: 07/05/24 1517 BP: 124/74 BP Location: Left arm Patient Position: Sitting Pulse: 76 Weight: 54.4 kg (120 lb) Height: 1.6 m (5' 3 ) Objective [...] known allergies. Current Medications Current Outpatient Medications: ALPRAZolam (Xanax) 0.25 mg tablet, Take 1 tablet (0.25 mg) by mouth if needed for anxiety., Disp: , Rfl: famotidine (Pepcid) 20 mg tablet, Take 1 tablet (20 mg) by mouth once daily at bedtime., Disp: , Rfl: Mimvey 1-0.5 mg tablet, Take 1 tablet by mouth once daily., Disp: , Rfl: omeprazole (PriLOSEC) [address] capsule, Take 1 capsule (20 mg) by mouth once daily in the morning. Take before meals. Do not crush or chew., Disp: , Rfl: Assessment/Plan 1. Chest pain, unspecified type Stress Test Transthoracic Echo Complete 2. Shortness of breath on exertion Stress Test Transthoracic Echo Complete 3. Premature ventricular contractions Stress Test Transthoracic Echo Complete 4. Hyperlipidemia, unspecified hyperlipidemia type 5. Former smoker 6. BMI 21.0-21.9, adult Scribe Attestation By signing my name below, I, Medina LopezMel SORIANO , Scribe attest that this documentation has been prepared under the direction and in the presence of Beatriz Art MD. Provider Attestation - Scribe documentation All medical record entries made by the Scribe were at my direction and personally dictated by me. I have reviewed the chart and agree that the record accurately reflects my personal performance of the history, physical exam, discussion and plan. documented in this encounter [facility] Work Phone: 07-05-2024 Instructions Medina Badillo LPN - 07/05/2024 3:20 PM EDT Please bring all medicines, vitamins, and herbal supplements with you when you come to the office. Prescriptions will not be filled unless you are compliant with your follow up appointments or have a follow up appointment scheduled as per instruction of your physician. Refills should be requested at the time of your visit. documented in this encounter [facility] Work Phone: 06-13-2024 Evaluation note Diagnosis Onset Date Resolution Chronic nausea acute May 262024 8:26am GERD (gastroesophageal reflux disease) acute June 13, 025 8:26am [facility] Work Phone: 1(135) 255-837701-06-2025 History of Present illness Narrative* Matthew Garcia DO - 04/30/2024 2:15 PM EST Images from the original note were not included. Matthew Garcia, Obstetrics and Gynecology Mira Gonsalves 1970 04/30/24 270030 Yearly Wellness Exam Chief Complaint Patient presents [...] She has been experiencing vaginal dryness, which hasled to irritation during sexual intercourse with her . Despite attempts to alleviate the symptoms with super condoms and macu-gdz-ajlggnk products, the issue persists. She has not [...] then take 1 pill weekly for 8 weeks10 tablet 0 nystatin (Mycostatin) ointment Apply topically [...] 5. Postmenopausal HRT (hormone replacement therapy) Z79.890 estradiol- norethindrone (ActivElla) 1-0.5 MG tablet 6. Vaginal irritation [...] and irritation, especially during intercourse. She is currentlyon estrogen pills. She is advised to use Astroglide, an tnat-jkp-eonvdev lubricant, for additional relief. I think some of her discomfort might be from the yeast infection we identified today. Since s he seems to be getting them frequently we [...] being 11 mm. Previous blood work indicated normalthyroid function. No immediate intervention is required, but follow-up with an ultrasound may be necessary to monitor the nodules. 5. Health maintenance. A Pap smear will be conducted today. She has already completed her mammogram and colonoscopy screenings. PROCEDURE Colonoscopy was performed in 2019. documented in this encounterNevada Regional Medical [id number] Evaluation note* Diagnosis Onset Date Resolution Status Admit Date Anxiety acute March 30, 2024 10:54am [facility] Work Phone: 1(949) 503-862411-18-2024 [facility] [place] [address] [place] [address] Ultrasound Report Signed Patient: Mira Gonsalves MR#: [id number] 80 : 1970 Acct:[id number] Age/Sex: 54 / F ADM Date: 4 Loc: Room: Type: [facility] Attending Dr: Bobby Cali MD Ordering Provider: [...] Niko Garg M.D.03/12/2024 4:37 PM Dictation Location: [place] [address] Tech: Jenna Borjas Transcribed By: SHELIA 03/12/247 Dictated By: Niko Garg DO 03/12/24 1636 Signed By: 03/12/24 1637 [facility]11-08-2024 Radiology Diagnostic study note [place] [address] CT Scan Report Signed Patient: Mira Gonsalves MR#: [id number] 80 : 1970 Acct:[id number] Age/Sex: 54 / F ADM Date: 4 Loc: CT Room: Type: [facility] Attending Dr: Bobby Cali MD Copies to: Bobby Cali MD~ Ordering Provider: Bobby Cali MD Date of Service: 03/02/24 CT/CT abdomen pelvis w con: R07.9 - Chest pain, unspecified ([id number]) CT/CT chest wo/w con: R07.9 - Chest [...] Danny Diaz M.D.03/02/2024 7:56 PM Dictation Location: [facility] Transcribed By: [facility] 03/02/241955 Dictated By: Danny Diaz II, MD 03/02/241940 Signed By: 03/02/241955 [facility] Work Phone: 1(143) 102-859210-30-2024 History of Present illness Narrative* LUIS ARMANDO [...] of: LUIS ARMANDO Rdz documented in this encounterNevada Regional Medical CenterVvgcbrjmnj84-60-3080 History of Present illness Narrative* Beatriz Art [...] 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 Provider Attestation - Scribe documentation All medical record entries made by the Scribe were at my direction and personally dictated by me. Abhinav reviewed the chart and agree that the record accurately reflects my personal performance of the history, physical exam, discussion and plan. documented in this [facility] Work Phone: 1(200) 873-451010-09-2024 Instructions* Patient Instructions* Wilda Diaz LPN - [...] One year Same meds [facility]: 1(357) 781-313309-24-2024 Evaluation note* Diagnosis Onset Date Resolution Status Admit Date Anxiety acute December 2:11pm Vaginal irritation acute 2023 2:11pm Urinary frequency acute February 06, 2024 11:36am Chest pain acute February 07, 2024 11:07am Generalized abdominal pain acute February 07, 2024 11:07am Nausea acute February 07, 2024 11:07am Pleurisy acute February 07, 2024 11:07am Weight loss, abnormal acute Jan 11:07am [facility] Work Phone: 1(824) 323-454609-24-2024 History of Present illness Narrative* LUIS ARMANDO Rdz - 01/17/2024 1:10 PM EDT Reason for Appointment: Patient ID: Mira Rangel Major is a 54 y.o. female who presents [...] have not seemed to help from another FRONT OFFICE ATTENDANT. Exam today shows small painful lesion to the left labia, cultures obtained. Patient given a new prescription ofclobetasole and premarin cream. Patient will follow up for biopsy if symptoms do not improve Documented by LUIS ARMANDO Rdz on behalf of: LUIS ARMANDO Rdz documented in this encounterNevada Regional Medical [id number] History of Present illness Narrative* Matthew Garcia, - 01/12/2024 10:00 AM EDT Images from [...] LPN acting as scribe for Dr. Matthew Garcia. Signature: Eliane Carroll LPN The documentation recorded by the scribe accurately reflects the service(s) I personally performed and the decisions I made. Signature: Matthew Garcia DO Assessment & Plan documented in this encounterNevada Regional Medical CenterOuthlpkpoe01-09-7188 Evaluation note* Encounter Date Diagnosis Assessment Notes Treatment Notes Treatment Clinical Notes Apr, Situational anxiety (ICD-10 - F41.8) [facility] 01-08-2024 Evaluation note* Encounter Date Diagnosis Assessment Notes Treatment Notes Treatment Clinical Notes Apr, Trapezius muscle spasm (ICD-10 - M62.838) REquests refill of muscle relaxer Apr, Acute intractable tension-type headache (ICD-10 - G44.201) Has been to chiropractor. Suggested massotherapy, heat and topical NSAIDs for neck strain. [facility] samples #2 given. [facility] Other 12-15-2023 Evaluation note* Encounter Date Diagnosis Assessment Notes Treatment Notes Treatment Clinical Notes Mar, Dysuria (ICD-10 - R30.0) [facility] Other 12-14-2023 Evaluation note* Encounter Date Diagnosis Assessment Notes Treatment Notes Treatment Clinical Notes Mar, Situational anxiety (ICD-10 - F41.8) [facility] 11-08-2023 Evaluation note* Encounter Date Diagnosis Assessment Notes Treatment Notes Treatment Clinical Notes Feb, Situational anxiety (ICD-10 - F41.8) [facility] Other 09-26-2023 Evaluation note* Encounter Date Diagnosis [...] - refilled rx and reviewed O[facility] report [facility] Other 09-05-2023 Evaluation note* Encounter Date Diagnosis Assessment Notes Treatment Notes Treatment Clinical Notes Dec, Tongue abnormality (ICD-10 - Q38.3) [facility] Other 08-17-2023 Evaluation note* Encounter Date Diagnosis Assessment Notes Treatment Notes Treatment Clinical Notes Nov, Tongue abnormality (ICD-10 - Q38.3) [facility] Other 08-16-2023 Evaluation note* Encounter Date Diagnosis Assessment Notes Treatment Notes Treatment Clinical Notes Nov, Wellness examination (ICD-10 - Z00.00) Pt requests order for wellness labs. Today was not a wellness exam Nov, Tongue abnormality (ICD-10 - Q38.3) Discussed differential - thrush, burning tongue syndrome. Recommend followup w dentist -has appt in 2 weeks. Will treat presently and monitor symptoms. [facility] Other 08-02-2023 Evaluation note* Encounter Date Diagnosis Assessment Notes Treatment Notes Treatment Clinical Notes Nov, Candidal stomatitis (ICD-10 - B37.0) Use medication as directed. Change toothbrush. Nystatin, 4 ml to each swish and swallow QID x14 days. P atient verbalizes understanding and is agreeable to treatment plan.Follow up with PCP if symptoms do not improve with treatment [facility] Other chief complaint Narrative - Reported* MIRA GONSALVES is being seen for a cardiovascular evaluation. * MIRA GONSALVES is being seen for chest pain. [facility] Work Phone: chief complaint Narrative - Reported* MIRA GONSALVES is being seen for a cardiovascular evaluation. * MIRA GONSALVES is being seen for chest pain. [facility] Work Phone: evaluation noteNo assessment information available [facility] Work Phone: Evaluation noteNo InformationNortP[facility] Other Evaluation note* Diagnosis Onset Date Resolution Status Anxiety acute [facility] Work Phone: Evaluation note* Diagnosis Onset Date Resolution Status Anxiety acute Anxiety acute [facility] Work Phone: Evaluation note* Diagnosis Onset Date Resolution Status Anxiety acute Anxiety acute SI (sacroiliac) pain acute [facility] Work Phone: Evaluation note* Diagnosis Onset Date Resolution Status Anxiety acute Anxiety acute Vaginal irritation acute [facility] Work Phone: Evaluation note* Diagnosis Chest pain, unspecified type- Primary Premature ventricular contractions Other premature beats Shortness of breath on exertion Shortness of breath Hyperlipidemia, unspecified hyperlipidemia type Former smoker Personal history of tobacco use, presenting hazards to health Body mass index (BMI) 22.0-22.9, adult documented in this encounter [facility] Work Phone: Evaluation note* Diagnosis Onset Date Resolution Status Anxiety acute Anxiety acute Vaginal irritation acute Urinary frequency acute [facility] Work Phone: Evaluation note* Diagnosis Onset Date Resolution Status Anxiety acute Anxiety acute Vaginal irritation acute Urinary frequency acute Chest pain acute Nausea acute Pleurisy acute Weight loss, abnormal acute [facility] Work Phone: evaluation note* Diagnosis Onset Date Resolution Status Anxiety acute Anxiety acute Vaginal irritation acute Urinary frequency acute Chest pain acute Generalized abdominal pain a cute Nausea acute Pleurisy acute Weight loss, abnormal acute [facility] Work Phone: Evaluation note* Diagnosis Urine troubles Other urinary problems Diarrhea, unspecified type documented in this encounter [facility] HealthcareEvaluation note* Diagnosis Vulvar itching Vaginal discharge Leukorrhea, not specified as infective BV (bacterial vaginosis) Unspecified vaginitis and vulvovaginitis Vaginal yeast infection Candidiasis of vulva and vagina documented in this encounter [facility] HealthcareEvaluation note* Diagnosis Vaginal pain Unspecified symptom associated with female genital organs documented in this encounter [facility] HealthcareEvaluation note* Diagnosis Encounter for gynecological examination [...] vulva and vagina documented in this encounter [facility] HealthcareEvaluation note* Diagnosis Chest pain, unspecified type- Primary Shortness of breath on exertion Shortness of breath Premature ventricular contractions Other premature beats Hyperlipidemia, unspecified hyperlipidemia type Former smoker Personal history of tobacco use, presenting hazards to health BMI 21.0-21.9, adult documented in this encounter [facility] Work Phone: Evaluation note* Diagnosis Hyperlipidemia, unspecified hyperlipidemia type Shortness of breath on exertion Shortness of breath Chest pain, unspecified type Family history of coronary artery disease Family history of ischemic heart disease Palpitations BMI 21.0-21.9, adult Dizziness Dizziness and giddiness Former smoker Personal history of tobacco use, presenting hazards to health New-onset angina (CMS-HCC) Other and unspecified angina pectoris documented in this encounter [facility] Work Phone: [facility] general Narrative - Reported* Type Description Date Surgical History tonsillectomy as a child Surgical History Lung Collapsed left side Hospitalization History childbirth x4 Hospitalization History Kidney infection as a ch ild [employer] [facility] Other [place] general Narrative - Reported* Type Description Date Medical History Situational anxiety Medical History Tongue abnormality Surgical History tonsillectomy as a child Surgical History Lung Collapsed left side Hospitalization History childbirth x4 Hospitalization History Kidney infection as a ch ild [employer] [facility] [employer] Other History of Present illness Narrative* Patient [...] see her back in 2-3 * Follow-up [facility] Work Phone: History of Present illness Narrative* [...] see her back in 2-3 * Follow-up [facility] Work Phone: History of Present illness Narrative* [...] will see her back in 9 months [facility] [address] DO Work Phone: Hospital Discharge instructions [...] physician within the next 3 to 5 days.[facility] Work Phone: Reason for referral (narrative)* Consultation (Routine) - Authorized Specialty Diagnoses / Procedures Referred By Contac t Referred To Contact Cardiology Diagnoses Premature ventricular contractions Procedures Follow Up In Cardiology Beatriz Art MD [address] [place] [address], [address] [address] Beatriz Art MD [address] [place] [address] 2, [address] [address] Referral ID Status Reason Start Date Expiration Date V isits Requested Visits Authorized [id number] Authorized 02/01/2024 01/31/2025 1 1 [facility] Work Phone: Summary Purpose Family History No [...] Date vaginal pain/ antibiotic not working Sep 2023 2:11pm UA, cloudy, darker, and frequency [...] Date vaginal pain/ antibiotic not working Sep ber 2023 2:11pm UA, cloudy, darker, and frequency [...] March 30, 2024 1 0:54am Chief Complaint Admit Date Possible Ulcer June 13, 2024 8:26am 3 month f/u July 05, 2024 1:0 1pm Reason for Visit Admit Date Chronic nausea June 13, 2024 8:26am GERD (gastroesophageal reflux disease) F ebruary 2024 8:26am Chief Complaint MIRA GONSALVES is being seen for a 2 month follow-up of. Reason for Referral Reason *FU 01/25 Shaquille her Po - ENT in [place] - burning tongue syndrome with intermittent swelling Diagnosis 1 Tongue abnormality ( Q38.3) Referral Organization [facility] pippa Referring Provider First Name Bobby Referring Provider Last Name Belem Referring Provider Specialty [facility] Referred Organization Unknown Facility Referred Provider Armando Fontenot Referred Provider Specialty Ear, Nose an d Throat Referral Priority Routine General Notes Sangeeta Lynn 11:28:02 AM >received today, attachments made, notes locked, referral faxed Clinical Notes p: [phone] f: [id number] Additional Source Comments INFORMATION SOURCE (unrecogn ized section and content) DATE CREATED AUTHOR 10/18/2017 [facility] Healthcare DATE CREATED AUTHOR AUTHOR'S ORGANIZ ATION 12/21/2019 [facility] DATE CREATED AUTHOR AUTHOR'S ORGANIZ ATION 02/03/2022 [facility] pital DATE CREATED AUTHOR AUTHOR'S ORGANIZ ATION 03/11/2022 [facility] DATE CREATED AUTHOR AUTHOR'S ORGANIZ ATION 04/20/2022 [facility] dical Specialist DATE CREATED AUTHOR AUTHOR'S ORGANIZ ATION 05/26/2022 [facility] Center DATE CREATED AUTHOR AUTHOR'S ORGANIZ ATION 05/26/2022 [employer] DATE CREATED AUTHOR AUTHOR'S ORGANIZ ATION 06/03/2022 [facility] DATE CREATED AUTHOR AUTHOR'S ORGANIZ ATION 03/14/2024 [facility] DATE CREATED AUTHOR AUTHOR'S ORGANIZ ATION 05/06/2024 [facility] dical Specialists EPIC DATE CREATED AUTHOR AUTHOR'S ORGANIZ ATION 07/09/2024 [facility] DATE CREATED AUTHOR AUTHOR'S ORGANIZ ATION 07/14/2024 [facility] DATE CREATED AUTHOR AUTHOR'S ORGANIZ ATION 07/14/2024 [facility] Care Teams (unrecognized sec tion and content) Team Status: Active Member Role Status Dates Bobby Cali MD Primary Care Provider Active Team Status: Inactive Member Role Status Dates Bobby Cali MD Primary Care Provide r, Attending Provider Active Start: June 13, 2024 End: June 13, 2024 Team Status: Inactive Member Role Status Dates Bobby Cali MD Primary Care Provide r, Attending Provider Active Start: July 05, 2024 End: July 05, 2024 Team Status: Active Member Role Status Dates [...] January 17, 2024 End: January 17, 2024 Obstetrics Nurse Relationship Specialty Start Date End Date Bobby aCli MD [address] [place] [address] PCP - General 04/25/20 Team Status: Inactive Member Role Status Dates Bobby Cali MD Primary Care Provide r, Attending Provider Active Start: February 06, 2024 End: February 06, 2024 Team Status: Inactive Member Role Status Dates Bobby Cali MD Primary Care Provide r, Attending Provider Active Start: February 07, 2024 End: February 07, 2024 Obstetrics Nurse Relationship Specialty Start Date End Date Bobby Cali MD [address] [place] [id number] PCP - General Family Medicine 04/22/23 Matthew Garcia DO [address] [facility] [address] [place] [address] Referring Physician Obstetrics and Gynecology 04/22/23 Obstetrics Nurse Relationship Specialty Start Date End Date Bobby Cali MD [address] [place] [id number] PCP - General Family Medicine 04/22/23 Matthew Garcia DO [address] [facility] [address] [place] [address] Referring Physician Obstetrics and Gynecology 04/22/23 Team [...] March 12, 2024 End: March 12, 2024 Obstetrics Nurse Relationship Specialty Start Date End Date Bobby Cali MD [address] [place] [id number] PCP - General Family Medicine 04/22/23 Matthew Garcia DO [address] [address] Referring Physician Obstetrics and Gynecology 04/22/23 Obstetrics Nurse Relationship Specialty Start Date End Date Bobby Cali MD [address] [place] [id number] PCP - General Family Medicine 04/22/23 Matthew Garcia DO [address] [facility] [address] [place] [address] Referring Physician Obstetrics and Gynecology 04/22/23 Obstetrics Nurse Relationship Specialty Start Date End Date Bobby Cali MD [address] [place] [phone] PCP - General Family Medicine 04/22/23 Matthew Garcia DO [address] [facility] [address] [place] [address] Referring Physician Obstetrics and Gynecology 04/22/23 Obstetrics Nurse Relationship Specialty Start Date End Date Bobby Cali MD [address] [place] [address] PCP - General Family Medicine 04/22/23 Matthew Garcia DO [address] [facility] [address] [place] [address] Referring Physician Obstetrics and Gynecology 04/22/23 Obstetrics Nurse Relationship Specialty Start Date End Date Bobby Cali MD [address] [place] [phone] PCP - General Family Medicine 04/22/23 Matthew Garcia DO [address] [facility] [address] [place] [address] Referring Physician Obstetrics and Gynecology 04/22/23 Obstetrics Nurse Relationship Specialty Start Date End Date Bobby Cali MD [address] [place] [address] PCP - General Family Medicine 04/22/23 Matthew Garcia DO [address] [facility] [address] [place] [address] Referring Physician Obstetrics and Gynecology 04/22/23 Obstetrics Nurse Relationship Specialty Start Date End Date Bobby Cali MD [address] [place] [address] PCP - General 04/25/20 Obstetrics Nurse Relationship Specialty Start Date End Date Bobby Cali MD [address] [place] [address] PCP - General 04/25/20 Sal Grider MD [address] [facility] [place] [address] [employer] 07/11/24 Goals (unrecognized section and content) Goals may [...] Exam Specialty Diagnoses / Procedures Referred By Contjorge luis t Referred To Contact Cardiology Diagnoses Premature ventricular contractions Procedures Follow Up In Cardiology Beatriz Art MD [address] [facility] [address] [place] [address] Referral ID Status Reason Start Date Expiration Date Visits Re quested Visits Authorized [id number] Closed 01/25/2023 07/24/2023 1 1 Reason Comments [...] her uterus she would like to discuss. Reason Comments Follow-up Patient request - CP , left shoulder, neck pain Reason Comments Follow-up Second Opinion FOR RECORDS PERTAINING TO PATIENTS WHO ARE [...] BE BASED ON THE PRIMARY CLINICAL RECORDS. [employer] provides no warranty or guarantee of the accuracy or completeness of information in this document.
== END 2024-07-16 09:31 | disposition home or self-care (01) ==
LOC: MRI 09:31
PROVIDERS: PCP Family Medicine; Visit Provider Anesthesiology
DX: M48.062 Spinal stenosis, lumbar region with neurogenic claudication (principal); M51.369 Other intervertebral disc degeneration, lumbar region without mention of lumbar back pain or lower extremity pain
CPT/HCPCS: 72148

== ENCOUNTER 2024-08-01 12:26 | Outpatient (OUT) | payer BC, SELFPAY ==
--- NOTE | 2024-08-01 13:00 | PM.CN ---
Consult Note: HPI Data of Consult Patient: known to practice within the last 3 years Requesting Physician: Liliam Godoy NP Primary Care Provider: Venice Patricia MD Consult Narrative Reason for consult: f/u Narrative: Mira Mckinney a 54 year old female presents for evaluation of chronic low back and bilateral leg pain. longstanding hx of pain unresponsive to > 6 weeks of PT and provider guided HEP, heat, ice, tylenol, NSAIDs, and oral steroids. recently underwent lumbar MRI which is consistent for multilevel lumbar stenosis and facet arthropathy. Pain today 2/10 increasing to 10/10 with activity and working. currently utilizing lidocaine, tylenol, and otc NSAIDs with mild benefit. cc:: CC: Liliam Godoy NP Review of Systems ROS Status of ROS 10 or more systems reviewed and unremarkable except as noted in history and below Musculoskeletal Reports: back pain PFSH PFSH Social History Smoking status: Never smoker Meds Home Medications and Allergies Home Medications ?Medication ?Instructions ?Recorded ?Confirmed ?Type alprazolam 0.25 mg tablet 0.25 mg PO BID 07/02/24 07/02/24 History estradiol-norethindrone acet 1 1 tab PO DAILY 07/02/24 07/02/24 History mg-0.5 mg tablet (Mimvey) famotidine 40 mg tablet (Pepcid) 40 mg PO DAILY 07/02/24 07/02/24 History omeprazole 40 mg capsule,delayed 40 mg PO DAILY 07/02/24 07/02/24 History release Allergies Allergy/AdvReac Type Severity Reaction Status Date / Time No Known Drug Allergies Allergy Verified 05/05/23 22:18 Exam Constitutional Documenting provider has reviewed patient's vital signs: yes Common normals: no apparent distress, oriented x3, healthy appearing, alert and well nourished General appearance: cooperative HENIL Common normals: normocephalic, hearing grossly normal bilaterally and moist oral mucous membranes Head and scalp: normocephalic Eye Common normals: PERRL Pupil: PERRL Neck & C-Spine Common normals: full ROM General: normal visual inspection Chest Common normals: inspection of chest normal Respiratory Common normals: normal respiratory effort, no retractions and no use of accessory muscles Back & Pelvis Lumbar spine/lower back: ROM limited, pain with ROM, straight leg raise positive right and straight leg raise positive left Sacroiliac joints: SI joints normal Other: decreased sensation bilateral L4,5,S1 strength 4/5 in BLE Extremity Common normals: normal to inspection and full ROM Neuro Common normals: oriented x3 Sensorium/orientation: alert Psych Common normals: mental status grossly normal, thought process normal, cooperative, affect normal, speech normal and activity/motor behavior normal Speech: normal speech Thought process: normal thought process Results Additional Findings Additional findings: If on a controlled substance or opioids, I have checked an OARRS report on this patient and there are no aberrancies noted in the prescribing history.??If on a controlled substance or opioid a drug screen was completed and reviewed within the last year, and if there has not been a drug screen completed we ordered one today to monitor higher risk, state monitored pain medication use. As part of providing excellent, safe, comprehensive care, the following was completed at our patient's visit: 1. A medication reconciliation and review to ensure accurate knowledge of current/active medications, including asking our patients to inform us about any [id number] medications or herbal remedies/nutritional supplements/alternative remedies. 2. A review to specifically ensure our patients have had annual screening for screening for depression, screening for tobacco use, and screening for unhealthy alcohol use. For concerning screenings had a discussion with the patient, provided patient education, and recommended follow-up with primary care provider when appropriate. If patient noted with a risk of falling, they received education on strength, gait, and balance training to prevent future risk of falling. Portions of this note may have been carried over from the previous visit and updated as appropriate. Please note this office utilizes paper charting in addition to the electronic medical record. A list of current medications, vitals, and PMH is available there as the clinical staff outside of myself do not have access to [employer] charting during the clinic day operations. As part of providing quality comprehensive care the current medications, vitals, and PMH were reviewed in the paper chart. Assessment and Plan Assessment and Plan (1) Lumbar stenosis with neurogenic claudication: (2) Lumbar spondylosis: (3) Myalgia, other site: Plan The patient has had over 3 months of moderate to severe low back and BLE pain with functional impairment and inadequate response to conservative care including NSAIDS (unless there are contraindication such as concurrent blood thinners), multiple oral or topical pain medications, and home exercise program/physical therapy.? Patient has completed >6 weeks of guided home exercise program and/or formal physical therapy program without relief of their symptoms.? I have reviewed the imaging of the lumbar spine and no red flags were identified.? The imaging reveals radiographic findings consistent with lumbar stenosis and lumbar spondylosis The Oswestry Disability Index was completed, and the patient scored a 22%.? The patient noted the following:?? moderate to severe pain with ADLs, walking, lifting We discussed the risks and benefits of the procedure with the patient, and we are NOT planning on using sedation as outlined in the guidelines from Medicare unless there is a documented reason that sedation would be strongly recommended.?? ?The procedure will be completed with fluoroscopic guidance.? bilateral L5-S1 TFESI under fluoroscopy start baclofen 10mg BID PRN pain/spasms continue HEP as tolerated f/u after injection
== END 2024-08-01 12:27 | disposition home or self-care (01) ==
LOC: PM 12:26
PROVIDERS: PCP Family Medicine; Visit Provider Nurse Practitioner
DX: M48.062 Spinal stenosis, lumbar region with neurogenic claudication (principal); M47.816 Spondylosis without myelopathy or radiculopathy, lumbar region; M79.18 Myalgia, other site
CPT/HCPCS: G0463

== ENCOUNTER 2024-08-20 06:58 | Day surgery (SDC) | payer BC, SELFPAY ==
[2024-08-20 07:11] VITALS: BP 129/91; PULSE 82; TEMP 36.4; O2SAT 95
[2024-08-20 08:24] VITALS: BP 133/81; BP 134/81; PULSE 70; PULSE 72; O2SAT 100
[2024-08-20] MEDS: 0.9 % SODIUM CHLORIDE 10 ML SYRINGE - SALINE FLUSH INJ (08:26)
[2024-08-20] MEDS: METHYLPREDNISOLONE ACETATE 80 MG/ML VIAL INJ (08:27)
[2024-08-20] MEDS: BUPIVACAINE HCL 0.25% PF 25 MG/10 ML VIAL INJ (08:27)
[2024-08-20] MEDS: LIDOCAINE HCL 2% 400 MG/20 ML MDV 4 ML INJ (08:27)
[2024-08-20] MEDS: IOHEXOL 240 MG/ML - 10 ML VIAL 24 MG INJ (08:27)
--- NOTE | 2024-08-20 08:28 | W.PM.PROCNOT ---
Date of procedure: 08/20/24 Pre-op diagnosis: Pain due to lumbar stenosis with neurogenic claudication Post-op diagnosis: same as pre-op Procedure: Procedure: Bilateral L5-S1 transforaminal epidural steroid injection Medications: Bupivacaine 0.25% 2cc, lidocaine 2% 1cc, depomedrol 80mg The patient was seen and examined in the preoperative holding area.? Informed consent was obtained and placed on the chart.? Patient was brought to the medical procedure unit and placed in the prone position where a timeout was completed verifying the correct patient, procedure site, position, and planned special equipment using sterile aseptic technique.? Under direct fluoroscopic visualization a 25-gauge Quincke tipped spinal needle was advanced at level left L5-S1 to the designated neural foramen where contrast dye was injected to show adequate spread.? There was no evidence of vascular or adverse uptake.? Epidural spread was appreciated.? The above-mentioned injectate was then placed in a 1.5 mL aliquot preceded by negative aspiration.? The needle was removed. The same procedure, at the same level, was completed on the opposite side. ? Patient was taken to the postprocedural recovery area and monitored for an appropriate length of time before found suitable for discharge in the accompaniment of a responsible adult. Anesthesia: Local Surgeon: Jose Carrion Pathology: none sent Condition: stable Disposition: no change
== END 2024-08-20 08:46 | disposition home or self-care (01) ==
LOC: SURGOUT 06:59
PROVIDERS: PCP Family Medicine; Visit Provider Anesthesiology
DX: M48.062 Spinal stenosis, lumbar region with neurogenic claudication (principal); M54.50 Low back pain, unspecified
CPT/HCPCS: 64483; J0665; J1010; Q9966

== ENCOUNTER 2024-08-29 08:50 | Outpatient (OUT) | payer BC, SELFPAY ==
--- NOTE | 2024-08-29 09:18 | PM.CN ---
Consult Note: HPI Data of Consult Patient: known to practice within the last 3 years Requesting Physician: Liliam Godoy NP Primary Care Provider: Venice Patricia MD Consult Narrative Reason for consult: f/u Narrative: Mira Mckinney a 54 year old female presents for evaluation of chronic low back and bilateral leg pain. longstanding hx of pain unresponsive to > 6 weeks of PT and provider guided HEP, heat, ice, tylenol, NSAIDs, and oral steroids. recently underwent lumbar MRI which is consistent for multilevel lumbar stenosis and facet arthropathy. Pain today 1/10 increasing to 3/10 with activity and working. currently utilizing lidocaine, tylenol, and otc NSAIDs with mild benefit. recently underwent bilateral L5/S1 TFESI with 75% improvement in pain and functional ability ongoing. cc:: CC: Liliam Godoy NP Review of Systems ROS Status of ROS 10 or more systems reviewed and unremarkable except as noted in history and below Musculoskeletal Reports: back pain PFSH PFSH Social History Smoking status: Never smoker Meds Home Medications and Allergies Home Medications ?Medication ?Instructions ?Recorded ?Confirmed ?Type alprazolam 0.25 mg tablet 0.25 mg PO BID 07/02/24 08/20/24 History estradiol-norethindrone acet 1 1 tab PO DAILY 07/02/24 08/20/24 History mg-0.5 mg tablet (Mimvey) famotidine 40 mg tablet (Pepcid) 40 mg PO DAILY 07/02/24 08/20/24 History omeprazole 40 mg capsule,delayed 40 mg PO DAILY 07/02/24 08/20/24 History release Allergies Allergy/AdvReac Type Severity Reaction Status Date / Time No Known Drug Allergies Allergy Verified 08/20/24 07:14 Exam Constitutional Documenting provider has reviewed patient's vital signs: yes Common normals: no apparent distress, oriented x3, healthy appearing, alert and well nourished General appearance: cooperative HENMT Common normals: normocephalic, hearing grossly normal bilaterally and moist oral mucous membranes Head and scalp: normocephalic Eye Common normals: PERRL Pupil: PERRL Neck & C-Spine Common normals: full ROM General: normal visual inspection Chest Common normals: inspection of chest normal Respiratory Common normals: normal respiratory effort, no retractions and no use of accessory muscles Back & Pelvis Lumbar spine/lower back: lumbar ROM normal and straight leg raise negative bilaterally; no pain with ROM Sacroiliac joints: SI joints normal Other: sensation intact BLE strength 5/5 in BLE Extremity Common normals: normal to inspection and full ROM Neuro Common normals: oriented x3 Sensorium/orientation: alert Gait (neuro): normal gait Motor exam: strength 5/5 throughout Psych Common normals: mental status grossly normal, thought process normal, cooperative, affect normal, speech normal and activity/motor behavior normal Speech: normal speech Thought process: normal thought process Results Additional Findings Additional findings: If on a controlled substance or opioids, I have checked an OARRS report on this patient and there are no aberrancies noted in the prescribing history.??If on a controlled substance or opioid a drug screen was completed and reviewed within the last year, and if there has not been a drug screen completed we ordered one today to monitor higher risk, state monitored pain medication use. As part of providing excellent, safe, comprehensive care, the following was completed at our patient's visit: 1. A medication reconciliation and review to ensure accurate knowledge of current/active medications, including asking our patients to inform us about any gupi-twj-[id number] medications or herbal remedies/nutritional supplements/alternative remedies. 2. A review to specifically ensure our patients have had annual screening for screening for depression, screening for tobacco use, and screening for unhealthy alcohol use. For concerning screenings had a discussion with the patient, provided patient education, and recommended follow-up with primary care provider when appropriate. If patient noted with a risk of falling, they received education on strength, gait, and balance training to prevent future risk of falling. Portions of this note may have been carried over from the previous visit and updated as appropriate. Please note this office utilizes paper charting in addition to the electronic medical record. A list of current medications, vitals, and PMH is available there as the clinical staff outside of myself do not have access to [employer] charting during the clinic day operations. As part of providing quality comprehensive care the current medications, vitals, and PMH were reviewed in the paper chart. Assessment and Plan Assessment and Plan (1) Lumbar stenosis with neurogenic claudication: (2) Lumbar spondylosis: (3) Myalgia, other site: Plan 54 year old female with chronic low back and BLE pain presents for evaluation after bilateral L5-S1 TFESI on 08/20/24. Pt noting >50% improvement ongoing as a result. continue current medications. continue HEP as tolerated. f/u 3 months, sooner if needed
== END 2024-08-29 08:51 | disposition home or self-care (01) ==
LOC: PM 08:50
PROVIDERS: PCP Family Medicine; Visit Provider Nurse Practitioner
DX: M48.062 Spinal stenosis, lumbar region with neurogenic claudication (principal); M47.816 Spondylosis without myelopathy or radiculopathy, lumbar region; M79.10 Myalgia, unspecified site
CPT/HCPCS: G0463

== ENCOUNTER 2024-11-28 09:00 | Outpatient (OUT) | payer BC, SELFPAY ==
--- NOTE | 2024-11-28 09:19 | PM.CN ---
Consult Note: HPI Data of Consult Patient: known to practice within the last 3 years Consult date: 11/28/24 Requesting Physician: Liliam Godoy NP Primary Care Provider: [place] Patricia MD Consult Narrative Reason for consult: low back pain Narrative: Mira Mckinney a 54 year old female presents for evaluation of chronic low back and bilateral leg pain. longstanding hx of pain unresponsive to > 6 weeks of PT and provider guided HEP, heat, ice, tylenol, NSAIDs, and oral steroids. recently underwent lumbar MRI which is consistent for multilevel lumbar stenosis and facet arthropathy. Pain today 2/10 increasing to 5/10 with activity and working. currently utilizing lidocaine, tylenol, baclofen 10mg HS PRN, and otc NSAIDs with mild benefit. prior bilateral L5-S1 TFESI providing >50% improvement ongoing, has noted relief greater than 3 months. cc:: CC: Liliam Godoy NP PFS PFS Social History Smoking status: Never smoker Meds Home Medications and Allergies Home Medications ?Medication ?Instructions ?Recorded ?Confirmed ?Type alprazolam 0.25 mg tablet 0.25 mg PO BID 07/02/24 08/20/24 History estradiol-norethindrone acet 1 1 tab PO DAILY 07/02/24 08/20/24 History mg-0.5 mg tablet ([place]) famotidine 40 mg tablet (Pepcid) 40 mg PO DAILY 07/02/24 08/20/24 History omeprazole 40 mg capsule,delayed 40 mg PO DAILY 07/02/24 08/20/24 History release Allergies Allergy/AdvReac Type Severity Reaction Status Date / Time No Known Drug Allergies Allergy Verified 08/20/24 07:14 Exam Constitutional Documenting provider has reviewed patient's vital signs: yes Common normals: no apparent distress, oriented x3, healthy appearing, alert and well nourished General appearance: cooperative HENMT Common normals: normocephalic, hearing grossly normal bilaterally and moist oral mucous membranes Head and scalp: normocephalic Eye Common normals: PERRL Pupil: PERRL Neck & C-Spine Common normals: full ROM General: normal visual inspection Chest Common normals: inspection of chest normal Respiratory Common normals: normal respiratory effort, no retractions and no use of accessory muscles Back & Pelvis Lumbar spine/lower back: straight leg raise positive right and straight leg raise positive left; ROM not limited, no pain with ROM and no lumbar spinal tenderness Other: decreased sensation bilateral L5/S1 strength 5/5 in BLE Neuro Common normals: oriented x3 Sensorium/orientation: alert Psych Common normals: mental status grossly normal, thought process normal, cooperative, affect normal, speech normal and activity/motor behavior normal Speech: normal speech Thought process: normal thought process Results Additional Findings Additional findings: If on a controlled substance or opioids, I have checked an [facility] report on this patient and there are no aberrancies noted in the prescribing history.??If on a controlled substance or opioid a drug screen was completed and reviewed within the last year, and if there has not been a drug screen completed we ordered one today to monitor higher risk, state monitored pain medication use. As part of providing excellent, safe, comprehensive care, the following was completed at our patient's visit: 1. A medication reconciliation and review to ensure accurate knowledge of current/active medications, including asking our patients to inform us about any [id number] medications or herbal remedies/nutritional supplements/alternative remedies. 2. A review to specifically ensure our patients have had annual screening for screening for depression, screening for tobacco use, and screening for unhealthy alcohol use. For concerning screenings had a discussion with the patient, provided patient education, and recommended follow-up with primary care provider when appropriate. If patient noted with a risk of falling, they received education on strength, gait, and balance training to prevent future risk of falling. Portions of this note may have been carried over from the previous visit and updated as appropriate. Please note this office utilizes paper charting in addition to the electronic medical record. A list of current medications, vitals, and PMH is available there as the clinical staff outside of myself do not have access to [email or web address] charting during the clinic day operations. As part of providing quality comprehensive care the current medications, vitals, and PMH were reviewed in the paper chart. Assessment and Plan Assessment and Plan (1) Lumbar stenosis with neurogenic claudication: (2) Lumbar spondylosis: (3) Myalgia, other site: Plan repeat bilateral L5/S1 TFESI under fluoroscopy as needed continue current medications f/u PRN at this time, pt can call to schedule repeat TFESI
== END 2024-11-28 09:01 | disposition home or self-care (01) ==
LOC: PM 09:01
PROVIDERS: PCP Family Medicine; Visit Provider Nurse Practitioner
DX: M48.062 Spinal stenosis, lumbar region with neurogenic claudication (principal); M47.816 Spondylosis without myelopathy or radiculopathy, lumbar region; M79.18 Myalgia, other site
CPT/HCPCS: G0463